=== PATIENT | female | born 1955 | race Asian ===

== ENCOUNTER 2019-07-14 15:45 | Inpatient (IN) | payer OTHER ==
[~2019-07-14] VITALS: Ht 162.6 cm; Wt 59.7 kg
--- NOTE | 2019-07-14 15:39 | Emergency Room Report ---
History of Present Illness General Chief Complaint: Abnormal Labs Source: Patient, Medical Record Present Illness HPI Disclaimer: Please note that this report is being documented using DRAGON technology. This can lead to erroneous entry secondary to incorrect interpretation by the dictating instrument. HPI: 64-year-old female with history of diabetes on insulin presents for weakness and elevated blood sugar levels. She arrives from home by EMS with glucose readings greater than 500 on fingerstick per EMS. She has had 5 days of vomiting and diarrhea. Unable tolerate food, water or her medications. Denies fever or chills. Denies cough or chest pain. Feels profoundly weak. Denies dysuria hematuria. PMH: Insulin-dependent diabetes PSH: Reviewed Allergies: None reported Social Hx: None reported Allergies: Coded Allergies: No Known Allergies (Unverified , 07/18/14) COVID-19 Screening Contact w/high risk pt: No Recent Travel to affected area: No Experienced COVID-19 symptoms?: No Nursing Documentation-PMH Hx Cardiac Problems: Yes Hx Diabetes: Yes Review of Systems All Other Systems: negative except mentioned in HPI Physical Exam Vital Signs Date Time Temp Pulse Resp B/P (MAP) Pulse Ox O2 Delivery O2 Flow Rate FiO2 07/14/19 15:28 99.1 104 20 136/78 (97) 98 Room Air General: Awake and somnolent, no acute distress, appears fatigued HEENT: NC/AT. EOMI. dry mucous membranes Cardiovascular: RRR. S1 and S2 normal. No murmur appreciated Resp: Normal work of breathing. No cough, wheezing or crackles appreciated Abdomen: Abdomen is soft, nondistended. Nontender Skin: Intact. No abrasions, laceration or rash over the exposed skin MSK: Normal tone and bulk. Moving all extremities. No obvious deformity. Neuro: Awake and alert. Mentating appropriately. Procedures Critical Care Time Critical Care Time Total critical care time: Approximately 31 minutes Due to a high probability of clinically significant, life threatening deterioration, the patient required the highest level of preparedness to intervene emergently and I personally spent this critical care time directly and personally managing the patient. This critical care time included obtaining a history, examining the patient, pulse oximetry, ordering and reviewing studies , ordering treatments, evaluating response to treatment and updating management plan as needed, frequent reassessment and discussion with other providers as well as arranging for ultimate disposition. This critical to care time was performed to assess and manage the high probability of life-threatening deterioration that could result in multiorgan failure. This critical care time is separate from the separately billable procedures and treating other patients. Medical Decision Making Diagnostic Impression: Primary Impression: DKA (diabetic ketoacidoses) Additional Impressions: Hypernatremia Prolonged Q-T interval on ECG UTI (urinary tract infection) ER Course 64-year-old female with history of diabetes presents for evaluation of fatigue in the setting of recent vomiting and diarrheal illness. Blood sugars found elevated prior to arrival. Concern for DKA, HHS, electrolyte abnormality, dehydration, occult infection at this time. Broad labs were sent and the patient was started on IV fluids and empirically treated with insulin. She now shows a hypernatremia, hypokalemia and elevated anion gap acidosis with positive ketones consistent with diabetic ketoacidosis. Will replete potassium and start IV insulin drip. Patient require admission to intensive care. Laboratory Tests Test 07/14/19 17:21 07/14/19 20:40 White Blood Count 9.5 K/UL (4.8-10.8) Red Blood Count 4.85 M/UL (4.20-5.40) Hemoglobin 14.9 G/DL (12.0-16.0) Hematocrit 45.4 % (37.0-47.0) Mean Corpuscular Volume 94 FL (80-99) Mean Corpuscular Hemoglobin 30.7 PG (27.0-31.0) Mean Corpuscular Hemoglobin Concent 32.7 G/DL (32.0-36.0) Red Cell Distribution Width 13.2 % (11.6-14.8) Platelet Count 85 K/UL (150-450) L Mean Platelet Volume 8.2 FL (6.5-10.1) Neutrophils (%) (Auto) 86.5 % (45.0-75.0) H Lymphocytes (%) (Auto) 7.3 % (20.0-45.0) L Monocytes (%) (Auto) 5.3 % (1.0-10.0) Eosinophils (%) (Auto) 0.0 % (0.0-3.0) Basophils (%) (Auto) 0.8 % (0.0-2.0) Sodium Level 154 MMOL/L (136-145) H Potassium Level 3.1 MMOL/L (3.5-5.1) L Chloride Level 117 MMOL/L (98-107) H Carbon Dioxide Level 11 MMOL/L (21-32) L Anion Gap 26 mmol/L (5-15) H Blood Urea Nitrogen 17 mg/dL (7-18) Creatinine 0.7 MG/DL (0.55-1.30) Estimated Glomerular Filtration Rate > 60 mL/min (>60) Glucose Level 423 MG/DL (74-106) H Calcium Level 9.7 MG/DL (8.5-10.1) Magnesium Level 2.5 MG/DL (1.8-2.4) H Total Bilirubin 0.5 MG/DL (0.2-1.0) Aspartate Amino Transferase (AST) 46 U/L (15-37) H Alanine Aminotransferase (ALT) 40 U/L (12-78) Alkaline Phosphatase 127 U/L (46-116) H Total Protein 7.4 G/DL (6.4-8.2) Albumin 2.3 G/DL (3.4-5.0) L Globulin 5.1 g/dL Albumin/Globulin Ratio 0.5 (1.0-2.7) L Lipase 70 U/L (73-393) L Acetone Level Positive-moderate (NEGATIVE) Urine Color Pale yellow Urine Appearance Slightly cloudy Urine pH 5 (4.5-8.0) Urine Specific [place] 1.010 (1.005-1.035) Urine Protein 3+ (NEGATIVE) H Urine Glucose (UA) 4+ (NEGATIVE) H Urine Ketones 4+ (NEGATIVE) H Urine Blood 4+ (NEGATIVE) H Urine Nitrite Positive (NEGATIVE) H Urine Bilirubin Negative (NEGATIVE) Urine Urobilinogen Normal MG/DL (0.0-1.0) Urine Leukocyte Esterase 2+ (NEGATIVE) H Urine RBC 0-2 /HPF (0 - 2) Urine WBC Tntc /HPF (0 - 2) H Urine Squamous Epithelial Cells None /LPF (NONE/OCC) Urine Bacteria Many /HPF (NONE) H EKG Diagnostic Results EKG Time: 16:39 Rate: normal Rhythm: NSR ST Segments: no acute changes Other Impression Sinus rhythm, prolonged QTC at 679 ms, flattened T waves, anterior Q waves. No ST segment changes Rhythm Strip Diag. Results Rhythm Strip Time: 16:39 EP Interpretation: yes Rate: 100 Rhythm: NSR, no PVC's, no ectopy CT/MRI/US Diagnostic Results CT/MRI/US Diagnostic Results : Impression Final Report EXAM: CT Abdomen and Pelvis With Intravenous Contrast CLINICAL HISTORY: ABD DIST TECHNIQUE: Axial computed tomography images of the abdomen and pelvis with intravenous contrast. CTDI is 3.6 mGy and DLP is 193.3 mGy-cm. One or more of the following dose reduction techniques were used: automated exposure control, adjustment of the mA and/or kV according to patient size, use of iterative reconstruction technique. COMPARISON: No relevant prior studies available. FINDINGS: Artifacts: Motion. Lung bases: No significant abnormality. ABDOMEN: Liver: No significant abnormality. Gallbladder and bile ducts: No significant abnormality. No calcified stones. Pancreas: No significant abnormality. Spleen: No significant abnormality. Adrenals: No significant abnormality. Kidneys and ureters: Mild bilateral renal pelviectasis and prominence of bilateral ureters is likely related to distention of the urinary bladder. The lower pole of the left kidney is mildly heterogeneous. Stomach and bowel: No significant abnormality. Bowel is nondilated. PELVIS: Appendix: No findings to suggest acute appendicitis. Bladder: The distended urinary bladder appears thin-walled. Reproductive: Unremarkable as visualized. ABDOMEN and PELVIS: Intraperitoneal space: No significant abnormality. No free air. Bones/joints: No acute fracture or malalignment. Soft tissues: No significant abnormality. Vasculature: No significant abnormality. No abdominal aortic aneurysm. Lymph nodes: No significant abnormality. IMPRESSION: 1. Urinary bladder distention. 2. Mild heterogeneity of the lower pole of the left kidney may be artifactual. Infection is not excluded. Consider correlation with urinalysis, as clinically indicated. Mild bilateral renal pelviectasis and prominence of bilateral ureters is likely related to distention of the urinary bladder. Radiologist: Ev Feliciano MD Electronically Signed: 07/14/19 20:36 Study ready at 20:21 and initial results transmitted at 20:36 Reevaluation Time: 21:19 Last Vital Signs Date Time Temp Pulse Resp B/P (MAP) Pulse Ox O2 Delivery O2 Flow Rate FiO2 07/14/19 15:28 99.1 104 20 136/78 (97) 98 Room Air Reevaluation Impression Patient proving on insulin drip. Urinalysis consistent with an acute urinary tract infection. A CT of the abdomen was obtained showing some heterogeneity of the lower kidney possibly infectious etiology consistent with a pyelonephritis. Will treat with ceftriaxone. Patient will be admitted to panel physician group. Admit to the stepdown unit. Disposition: ADMITTED INPATIENT Condition: Serious Malvin Allen MD Jul 14, 2019 15:39
[~2019-07-14 15:45] MED LIST: Insulin Human Regular 100units/ml 3ml IV ONE; NKM
--- NOTE | 2019-07-14 16:26 | NUR ---
ED Nurse Note: 2 RNs unable to obtain IV. CN aware and states she will try.
--- NOTE | 2019-07-14 17:25 | NUR ---
ED Nurse Note: IV est by CN. SEGOVIA aware since arrival that pt is hard stick and haven't est IV until 1724.
[2019-07-14] MEDS ORDERED: Insulin Human Regular 100units/ml 3ml ONE (17:28)
[2019-07-14 17:34] LABS: HEMATOCRIT 45.4 % (37.0-47.0); HEMOGLOBIN 14.9 G/DL (12.0-16.0); MEAN CORPUSCULAR VOLUME 94 FL (80-99); PLATELET COUNT 85 K/UL (150-450); RED BLOOD COUNT 4.85 M/UL (4.20-5.40); RED CELL DISTRIBUTION WIDTH 13.2 % (11.6-14.8); WHITE BLOOD COUNT 9.5 K/UL (4.8-10.8)
[2019-07-14 17:38] LABS: LYMPHOCYTES % (AUTO) 7.3 % (20.0-45.0); MONOCYTES % (AUTO) 5.3 % (1.0-10.0); NEUTROPHILS % (AUTO) 86.5 % (45.0-75.0)
[2019-07-14 17:39] LABS: BASOPHILS % (AUTO) 0.8 % (0.0-2.0)
[2019-07-14 17:50] VITALS: BP 130/71
[2019-07-14 17:51] LABS: ANION GAP 26 mmol/L (5-15); BLOOD UREA NITROGEN 17 mg/dL (7-18); CALCIUM 9.7 MG/DL (8.5-10.1); CARBON DIOXIDE 11 MMOL/L (21-32); CHLORIDE 117 MMOL/L (98-107); CREATININE 0.7 MG/DL (0.55-1.30); POTASSIUM 3.1 MMOL/L (3.5-5.1); SODIUM 154 MMOL/L (136-145)
[2019-07-14 17:55] LABS: ALANINE AMINOTRANSFERASE 40 U/L (12-78); ALBUMIN 2.3 G/DL (3.4-5.0); ALBUMIN/GLOBULIN RATIO 0.5 (1.0-2.7); ALKALINE PHOSPHATASE 127 U/L (46-116); ASPARTATE AMINO TRANSFERASE 46 U/L (15-37); BILIRUBIN,TOTAL 0.5 MG/DL (0.2-1.0)
[2019-07-14] MEDS ORDERED: Insulin Reg 100 units Premix 100 ML IV SCH (18:00)
[2019-07-14] MEDS ORDERED: Potassium Phosphate 20 MM in NS 275 ML IV ONE (18:00)
--- NOTE | 2019-07-14 18:30 | NUR ---
ED Nurse Note: Dr Allen notified that KCl has to be through central line. Per MD, don't give KCL, but give Potassium phosp first and then novolog.
[2019-07-14 19:30] VITALS: BP 125/79
--- NOTE | 2019-07-14 19:47 | NUR ---
ED Nurse Note: pt yelling out in pain, Pt states pain is RLQ and radiates to right flank. ERMD aware. ERMD at bedside
[2019-07-14] MEDS ORDERED: Omnipaque-300 100ml vial INJ PRN (20:00)
[2019-07-14] MEDS ORDERED: Morphine Sulfate 4mg/ml Inj (IV USE ONLY) IVP ONE (20:00)
--- NOTE | 2019-07-14 20:02 | NUR ---
ED Nurse Note: pt being taken to CT in stable condition per ermd stat
--- NOTE | 2019-07-14 20:37 | Diagnostic Imaging Report ---
EXAM: CT Abdomen and Pelvis With Intravenous Contrast CLINICAL HISTORY: ABD DIST TECHNIQUE: Axial computed tomography images of the abdomen and pelvis with intravenous contrast. CTDI is 3.6 mGy and DLP is 193.3 mGy-cm. One or more of the following dose reduction techniques were used: automated exposure control, adjustment of the mA and/or kV according to patient size, use of iterative reconstruction technique. COMPARISON: No relevant prior studies available. FINDINGS: Artifacts: Motion. Lung bases: No significant abnormality. ABDOMEN: Liver: No significant abnormality. Gallbladder and bile ducts: No significant abnormality. No calcified stones. Pancreas: No significant abnormality. Spleen: No significant abnormality. Adrenals: No significant abnormality. Kidneys and ureters: Mild bilateral renal pelviectasis and prominence of bilateral ureters is likely related to distention of the urinary bladder. The lower pole of the left kidney is mildly heterogeneous. Stomach and bowel: No significant abnormality. Bowel is nondilated. PELVIS: Appendix: No findings to suggest acute appendicitis. Bladder: The distended urinary bladder appears thin-walled. Reproductive: Unremarkable as visualized. ABDOMEN and PELVIS: Intraperitoneal space: No significant abnormality. No free air. Bones/joints: No acute fracture or malalignment. Soft tissues: No significant abnormality. Vasculature: No significant abnormality. No abdominal aortic aneurysm. Lymph nodes: No significant abnormality. IMPRESSION: 1. Urinary bladder distention. 2. Mild heterogeneity of the lower pole of the left kidney may be artifactual. Infection is not excluded. Consider correlation with urinalysis, as clinically indicated. Mild bilateral renal pelviectasis and prominence of bilateral ureters is likely related to distention of the urinary bladder.
--- NOTE | 2019-07-14 20:41 | NUR ---
ED Nurse Note: urine sent to labs
[2019-07-14 21:04] LABS: APPEARANCE,URINE SLIGHTLY CLOUDY; BILIRUBIN, URINE NEGATIVE (NEGATIVE); COLOR,URINE PALE YELLOW; GLUCOSE, URINE (UA) 4+ (NEGATIVE); KETONES,URINE 4+ (NEGATIVE); LEUKOCYTE ESTERASE ,URINE 2+ (NEGATIVE); NITRITE,URINE POSITIVE (NEGATIVE); PH,URINE 5 (4.5-8.0); PROTEIN,URINE 3+ (NEGATIVE); UROBILINOGEN,URINE NORMAL MG/DL (0.0-1.0)
[2019-07-14] MEDS ORDERED: cefTRIAXone 1 GM in NS 55 ML IVPB ONE (21:30)
[2019-07-14 21:35] VITALS: BP 135/86
[2019-07-14] MEDS ORDERED: Morphine Sulfate 4mg/ml Inj (IV USE ONLY) IVP PRN (22:00)
--- NOTE | 2019-07-14 22:09 | NUR ---
ED Nurse Note: Iv insulin drip stopped per ERMD; BS 250. Will continue to monitor.
--- NOTE | 2019-07-14 22:26 | NUR ---
ED Nurse Note: blood culture sent to lab; lab called for blood draw d/t 3 failed attempts per RNs.
[2019-07-14] MEDS: 1/2NS w/KCl 20mEq 1000ml 1,000 ML IV SCH (23:10)
--- NOTE | 2019-07-14 23:28 | NUR ---
ED Nurse Note: report given to PAULINA denis. pending transfer upstairs, room unavailable.
[2019-07-14 23:57] VITALS: BP 134/57
--- NOTE | 2019-07-15 01:10 | NUR ---
ED Nurse Note: pt resting in bed, vss no ss of distress noted.
[2019-07-15 01:30] VITALS: BP 135/67
--- NOTE | 2019-07-15 01:30 | NUR ---
ED Nurse Note: Called ANDREW; room still unavailable Addendum: 07/15/19 at 0241 by SAM ED Nurse Note: Called SDU; room still unavailable
[2019-07-15 02:07] LABS: ANION GAP 21 mmol/L (5-15); BLOOD UREA NITROGEN 14 mg/dL (7-18); CALCIUM 9.1 MG/DL (8.5-10.1); CARBON DIOXIDE 19 MMOL/L (21-32); CHLORIDE 121 MMOL/L (98-107); CREATININE 0.7 MG/DL (0.55-1.30); SODIUM 160 MMOL/L (136-145)
[2019-07-15 02:08] LABS: POTASSIUM 2.1 MMOL/L (3.5-5.1)
[2019-07-15 02:10] LABS: HEMATOCRIT 42.2 % (37.0-47.0); MEAN CORPUSCULAR VOLUME 88 FL (80-99); PLATELET COUNT 82 K/UL (150-450); RED BLOOD COUNT 4.82 M/UL (4.20-5.40); RED CELL DISTRIBUTION WIDTH 11.7 % (11.6-14.8); WHITE BLOOD COUNT 8.4 K/UL (4.8-10.8)
[2019-07-15] MEDS ORDERED: 1/2NS w/KCl 20mEq 1000ml 1,000 ML IV SCH (02:30)
[2019-07-15 03:20] VITALS: BP 134/65
--- NOTE | 2019-07-15 03:20 | NUR ---
ED Nurse Note: pt resting in bed, VSS no ss of distress noted.
--- NOTE | 2019-07-15 03:40 | NUR ---
ER DISCHARGE NOTE: Patient is cleared to be discharged to SDU per ERMD, pt is aox3, on room air, with stable vital signs. pt was able to verbalize understanding. pt took all belongings. Report given to PAULINA Flor. PT transported to unit on monitor with 2 RNs.
--- NOTE | 2019-07-15 03:50 | NUR ---
NURSE NOTES: Received patient from ED by margarito . patient is awake oriented x3. No SOB with RA. Denies any pain or discomfort at this time. VSS. Afebrile. SR on radiation monitor.skin body assessment done. intact. no open wound.given hospital orientation. call light in reach. bed in low position, locked and bed alarm on. NPO now.safety measures initiated.will continue to monitor.
[2019-07-15] MEDS: 1/2NS w/KCl 20mEq 1000ml 1,000 ML IV SCH (05:15)
[2019-07-15 06:52] LABS: ANION GAP 21 mmol/L (5-15); BLOOD UREA NITROGEN 14 mg/dL (7-18); CARBON DIOXIDE 15 MMOL/L (21-32); CHLORIDE 123 MMOL/L (98-107); CREATININE 0.6 MG/DL (0.55-1.30); SODIUM 160 MMOL/L (136-145)
--- NOTE | 2019-07-15 07:30 | NUR ---
HAND-OFF: Report given to SARA ROSALES RN.
--- NOTE | 2019-07-15 07:35 | NUR ---
NURSE NOTES: Received report from Basia GALLARDO. Pt in bed awake and orientedx3, greenlandic speaking. Denied pain. On room air. Bed in lowest position and locked. Side railsx3 up for safety. IV site in right hand 22G TKO, RAC 22G running with 1/2NS W/KCL 20mEq @150ml/hr patent and asymptomatic. Call light within easy reach. Will continue to plan of care.
[2019-07-15 08:12] LABS: POTASSIUM 2.6 MMOL/L (3.5-5.1)
--- NOTE | 2019-07-15 08:20 | NUR ---
NURSE NOTES: Dr. Adorno(project control officer) paged for critical results of K 2.6 and some missing admission orders. New orders received.
--- NOTE | 2019-07-15 08:40 | NUR ---
NURSE NOTES: Pt went to CT scan with RN
--- NOTE | 2019-07-15 09:04 | NUR ---
NURSE NOTES: Pt came back from CT scan
--- NOTE | 2019-07-15 09:16 | Diagnostic Imaging Report ---
EXAM: CT Head Without Intravenous Contrast CLINICAL HISTORY: WEAK TECHNIQUE: Axial computed tomography images of the head/brain without intravenous contrast. CTDI is 53 mGy and DLP is 1072 mGy-cm. One or more of the following dose reduction techniques were used: automated exposure control, adjustment of the mA and/or kV according to patient size, use of iterative reconstruction technique. COMPARISON: No relevant prior studies available. FINDINGS: Brain: There is an acute subdural hematoma along the left posterior falx measuring 3 mm in thickness which extends along the left tentorium measuring 2 mm in thickness. No significant white matter disease. Ventricles: Unremarkable. No ventriculomegaly. Bones/joints: Unremarkable. No acute fracture. Soft tissues: Unremarkable. Sinuses: Unremarkable as visualized. No acute sinusitis. Mastoid air cells: Unremarkable as visualized. No mastoid effusion. IMPRESSION: There is an acute subdural hematoma along the left posterior falx measuring 3 mm in thickness which extends along the left tentorium measuring 2 mm in thickness. No mass-effect or midline shift is identified. <MYCVCSECTION> Communications: 07/15/19 09:52 Call Doctor Regarding Intracranial Hemorrhage, called RN Min on 07/14 09:52 (-07:00)
--- NOTE | 2019-07-15 09:24 | NUR ---
STAT CT HEAD COMPLETED. REPORT FROM ERIN IN COMPUTER, CALLED PAULINA RAMOS TO CONFIRM SHE WAS ABLE TO READ REPORT. TJB 09:26
[2019-07-15] MEDS: NovoLOG Insulin Flexpen SUBQ SCH ×3 (09:49→17:37)
--- NOTE | 2019-07-15 09:53 | History and Physical ---
History of Present Illness General Reason for Hospitalization: Abnormal Labs Present Illness HPI 64-year-old female with PMH of medical noncompliance, DM type II who presents with b/l weakness, N/V, GLF, on admission pt found to be in DKA with BG 500's. Patient is English speaking, history obtained via head loader at bedside. Patient noted 5 days ago b/l LE weakness, stated she fell 3 days ago and hit her head. She did not go to the ER at the time and attempted to treat her FAUSTIN with acupuncture. Patient noted throughout this time she had multiple episodes of N/V x4 days, denies any F/C, changes in dietary habit, no constipation/ diarrhea. Patient states she was diagnosed with diabetes by her PCP however refused to take any medications as she did not believe the diagnosis was correct. Patient is admitted for further treatment and evaluation. PMH: Hypothyroidism, DMT2 FH: reviewed and not pertinent SH: lives w/a roomate, no ETOH/tobacco Sx: denies Allergies: Coded Allergies: No Known Allergies (Unverified , 07/18/14) COVID-19 Screening Contact w/high risk pt: No Recent Travel to affected area: No Experienced COVID-19 symptoms?: No Medication History Scheduled No Known Medications* (NKM - No Known Medications*), 0 ., (Reported) Patient History Healthcare decision maker Resuscitation status Full Code Advanced Directive on File No Review of Systems Constitutional: Denies: no symptoms, see HPI, chills, sweats, fever, malaise, weakness, other Eye: Denies: no symptoms, see HPI, eye pain, blurred vision, tearing, double vision, nose pain, nose congestion, acuity changes, discharge, other ENT: Denies: no symptoms, see HPI, ear pain, ear discharge, nose pain, nose congestion, throat pain, throat swelling, mouth pain, hearing loss, nasal discharge, other Respiratory: Denies: no symptoms, see HPI, cough, orthopnea, shortness of breath, stridor, wheezing, COBB, sputum, other Cardiovascular: Denies: no symptoms, see HPI, chest pain, edema, palpitations, syncope, PND, other Gastrointestinal: Denies: no symptoms, see HPI, abdominal pain, constipation, diarrhea, nausea, vomiting, melena, hematemesis, other Genitourinary: Denies: no symptoms, see HPI, discharge, dysuria, frequency, hematuria, pain, retention, incontinence, urgency, vag bleed/dc, other Musculoskeletal: Denies: no symptoms, see HPI, back pain, gout, joint pain, joint swelling, muscle pain, muscle stiffness, other Skin: Denies: no symptoms, see HPI, rash, change in color, change in hair/nails , dryness, lesions, other Psychiatric: Denies: no symptoms, see HPI, prior hx, anxiety, depressed feelings, emotional problems, SI, HI, hallucinations, other Neurological: Reports: focal weakness Endocrine: Denies: no symptoms, see HPI, excessive sweating, flushing, intolerance to temperature, increased thirst, increased urine, unexplained weight loss, other Physical Exam Physical Exam Narrative General: NAD, A&O x 3 HEENT: NCAT, EOMi, PEERLA, mucous membranes moist CV: RRR, no murmurs, rubs, or gallops Pulm: CTAB, No wheezes, rhonchi, or rales, no accessory muscle usage or conversational dyspnea GI: Soft, nontender, nondistended, bowel sounds present Neuro: CN 2-12 grossly intact bilaterally, no focal signs. Sensation in tact b/l Ext: No lower extremity edema bilaterally Skin: no rashes lesions or ulcers Msk: Joints symmetrical in upper extremity and lower extremity bilaterally, no joint swelling. MS 5/5 in UE b/l, 3/5 in LE b/l Last 24 Hour Vital Signs Date Time Temp Pulse Resp B/P (MAP) Pulse Ox O2 Delivery O2 Flow Rate FiO2 07/15/19 04:15 100 07/15/19 04:00 Room Air 07/15/19 03:40 98.6 102 26 134/65 97 Room Air 07/15/19 03:20 98.6 102 26 134/65 97 Room Air 07/15/19 01:30 98.6 108 26 135/67 97 Room Air 07/14/19 23:57 98.6 102 16 134/57 97 Room Air 07/14/19 23:06 99.1 07/14/19 21:35 98.7 97 18 135/86 99 Room Air 07/14/19 20:47 99.1 07/14/19 19:30 99.1 85 18 125/79 99 Room Air 07/14/19 17:50 99.1 90 18 130/71 99 Room Air 07/14/19 15:28 99.1 104 20 136/78 (97) 98 Room Air Intake and Output 07/14/19 07/15/19 19:00 07:00 Intake Total 0 ml 100 ml Output Total 550 ml Balance 0 ml -450 ml Intake Oral 0 ml 100 ml Output Urine Total 550 ml Laboratory Tests Test 07/14/19 17:21 07/14/19 20:40 07/15/19 01:45 07/15/19 06:10 White Blood Count 9.5 K/UL (4.8-10.8) 8.4 K/UL (4.8-10.8) Red Blood Count 4.85 M/UL (4.20-5.40) 4.82 M/UL (4.20-5.40) Hemoglobin 14.9 G/DL (12.0-16.0) 15.0 G/DL (12.0-16.0) Hematocrit 45.4 % (37.0-47.0) 42.2 % (37.0-47.0) Mean Corpuscular Volume 94 FL (80-99) 88 FL (80-99) Mean Corpuscular Hemoglobin 30.7 PG (27.0-31.0) 31.1 PG (27.0-31.0) H Mean Corpuscular Hemoglobin Concent 32.7 G/DL (32.0-36.0) 35.6 G/DL (32.0-36.0) Red Cell Distribution Width 13.2 % (11.6-14.8) 11.7 % (11.6-14.8) Platelet Count 85 K/UL (150-450) L 82 K/UL (150-450) L Mean Platelet Volume 8.2 FL (6.5-10.1) 8.2 FL (6.5-10.1) Neutrophils (%) (Auto) 86.5 % (45.0-75.0) H % (45.0-75.0) Lymphocytes (%) (Auto) 7.3 % (20.0-45.0) L % (20.0-45.0) Monocytes (%) (Auto) 5.3 % (1.0-10.0) % (1.0-10.0) Eosinophils (%) (Auto) 0.0 % (0.0-3.0) % (0.0-3.0) Basophils (%) (Auto) 0.8 % (0.0-2.0) % (0.0-2.0) Sodium Level 154 MMOL/L (136-145) H 160 MMOL/L (136-145) H 160 MMOL/L (136-145) H Potassium Level 3.1 MMOL/L (3.5-5.1) L 2.1 MMOL/L (3.5-5.1) *L 2.6 MMOL/L (3.5-5.1) *L Chloride Level 117 MMOL/L (98-107) H 121 MMOL/L (98-107) H 123 MMOL/L (98-107) H Carbon Dioxide Level 11 MMOL/L (21-32) L 19 MMOL/L (21-32) L 15 MMOL/L (21-32) L Anion Gap 26 mmol/L (5-15) H 21 mmol/L (5-15) H 21 mmol/L (5-15) H Blood Urea Nitrogen 17 mg/dL (7-18) 14 mg/dL (7-18) 14 mg/dL (7-18) Creatinine 0.7 MG/DL (0.55-1.30) 0.7 MG/DL (0.55-1.30) 0.6 MG/DL (0.55-1.30) Estimat Glomerular Filtration Rate > 60 mL/min (>60) > 60 mL/min (>60) > 60 mL/min (>60) Glucose Level 423 MG/DL (74-106) H 270 MG/DL (74-106) #H 315 MG/DL (74-106) H Calcium Level 9.7 MG/DL (8.5-10.1) 9.1 MG/DL (8.5-10.1) 9.0 MG/DL (8.5-10.1) Magnesium Level 2.5 MG/DL (1.8-2.4) H Total Bilirubin 0.5 MG/DL (0.2-1.0) Aspartate Amino Transf (AST/SGOT) 46 U/L (15-37) H Alanine Aminotransferase (ALT/SGPT) 40 U/L (12-78) Alkaline Phosphatase 127 U/L (46-116) H Total Protein 7.4 G/DL (6.4-8.2) Albumin 2.3 G/DL (3.4-5.0) L Globulin 5.1 g/dL Albumin/Globulin Ratio 0.5 (1.0-2.7) L Lipase 70 U/L (73-393) L Acetone Level Positive-moderate (NEGATIVE) Urine Color Pale yellow Urine Appearance Slightly cloudy Urine pH 5 (4.5-8.0) Urine Specific [place] 1.010 (1.005-1.035) Urine Protein 3+ (NEGATIVE) H Urine Glucose (UA) 4+ (NEGATIVE) H Urine Ketones 4+ (NEGATIVE) H Urine Blood 4+ (NEGATIVE) H Urine Nitrite Positive (NEGATIVE) H Urine Bilirubin Negative (NEGATIVE) Urine Urobilinogen Normal MG/DL (0.0-1.0) Urine Leukocyte Esterase 2+ (NEGATIVE) H Urine RBC 0-2 /HPF (0 - 2) Urine WBC Tntc /HPF (0 - 2) H Urine Squamous Epithelial Cells None /LPF (NONE/OCC) Urine Bacteria Many /HPF (NONE) H Differential Total Cells Counted 100 Neutrophils % (Manual) 82 % (45-75) H Lymphocytes % (Manual) 5 % (20-45) L Monocytes % (Manual) 3 % (1-10) Eosinophils % (Manual) 0 % (0-3) Basophils % (Manual) 0 % (0-2) Band Neutrophils 10 % (0-8) H Platelet Estimate Decreased L Platelet Morphology Normal Hemoglobin A1c 10.4 % (4.3-6.0) H D-Dimer 6.44 mg/L FEU (0.00-0.49) H Phosphorus Level 1.4 MG/DL (2.5-4.9) L Height (Feet): 5 Height (Inches): 4.00 Weight (Pounds): 110 Medications Current Medications Medications (Trade) Dose Ordered Sig/Alvin Route PRN Reason Start Time Stop Time Status Last Admin Dose Admin Ceftriaxone Sodium 1 gm/ Sodium Chloride 55 ml @ 110 mls/hr QHS IVPB 07/15/19 21:00 07/22/19 20:59 Dextrose (Dextrose 50%) 25 ml Q30M PRN IV Hypoglycemia 07/14/19 21:45 10/12/19 21:44 Dextrose (Dextrose 50%) 50 ml Q30M PRN IV Hypoglycemia 07/14/19 21:45 10/12/19 21:44 Insulin Aspart (NovoLOG) Q6HR SUBQ 07/15/19 09:30 10/13/19 09:29 Iohexol (OMNIPAQUE-300 100ml) 100 ml NOW PRN INJ Radiology Procedure 07/14/19 20:00 07/16/19 19:54 Potassium Chloride (K-Dur) 40 meq ONCE ORAL 07/15/19 08:30 07/15/19 10:00 07/15/19 09:07 Sodium 1,000 ml @ 150 mls/hr Q6H40M IV 07/15/19 08:30 08/14/19 08:29 UNV Assessment/Plan Assessment/Plan: 64-year-old female with PMH of medical noncompliance, DM type II who presents with b/l weakness, N/V, GLF, on admission pt found to be in DKA with BG 500's. #DKA #UTI #Uncontrolled DM, Hgb A1C 10.4 -admit to SDU -AG 21 -initiate Insulin ggt -check BMP q4 hrs -accuchecks, ISS q6 hr -cont. IVF hydration -CTX given in ED -CT abd reviewed -BCx and UCx pending -educated pt on diabetic compliance -ID, Dr. Bagley: CTX #Right sided weakness #SDH 3mm no midline shift -found on CT head -pt AOx3, pt noted fall 3 days ago -keppra BID -fall precautions -PT treat and eval -Neurology consulted, Dr. Fountain, recs aprpeciated #Hypokalemia #Hypophosphatemia #Hypernatremia -Hypernatremia likely 2/2 free water deficit -replace electrolytes, cont. to monitor and replace PRN -Nephro consulted, IVF per nephro DVT - SCDs for now given SDH I spent 70 minutes on this patient's case, and 50% was dedicated to counseling and/or care coordination witch included communication with RN, consulting MDs, case management I spent an additional 25 minutes on review of medical records including prior hospital records, consult notes, progress notes, procedures, imaging, labs, hemodynamics, and other clinical documentation. Silke Adorno M.D. Jul 15, 2019 09:53
[2019-07-15 10:56] LABS: HEMATOCRIT 46.6 % (37.0-47.0); HEMOGLOBIN 16.3 G/DL (12.0-16.0); MEAN CORPUSCULAR VOLUME 89 FL (80-99); PLATELET COUNT 78 K/UL (150-450); RED BLOOD COUNT 5.24 M/UL (4.20-5.40); RED CELL DISTRIBUTION WIDTH 12.1 % (11.6-14.8); WHITE BLOOD COUNT 10.2 K/UL (4.8-10.8)
[2019-07-15] MEDS ORDERED: Potassium Phosphate 20 MM in NS 275 ML IV ONE (11:00)
[2019-07-15 11:18] LABS: ANION GAP 24 mmol/L (5-15); BLOOD UREA NITROGEN 14 mg/dL (7-18); CALCIUM 9.3 MG/DL (8.5-10.1); CARBON DIOXIDE 14 MMOL/L (21-32); CHLORIDE 122 MMOL/L (98-107); CREATININE 0.7 MG/DL (0.55-1.30); POTASSIUM 3.1 MMOL/L (3.5-5.1)
[2019-07-15 11:20] LABS: SODIUM 161 MMOL/L (136-145)
[2019-07-15] MEDS ORDERED: NovoLOG Insulin Flexpen SUBQ SCH (11:30)
[2019-07-15] MEDS: Potassium Chloride 40 MEQ in 1/2 NS 1000ml 1,000 ML IV SCH ×2 (11:44→18:32)
--- NOTE | 2019-07-15 12:16 | Consultation ---
Consult Note Consult Note I was asked to evaluate the patient for hypernatremia Patient in [facility], Green[place]ic speaker History states that the patient has been noncompliant, She has been utilizing alternative medicine to treat her diabetes as an outpatient Emergency room note: HPI: 64-year-old female with history of diabetes on insulin presents for weakness and elevated blood sugar levels. She arrives from home by EMS with glucose readings greater than 500 on fingerstick per EMS. She has had 5 days of vomiting and diarrhea. Unable tolerate food, water or her medications. Denies fever or chills. Denies cough or chest pain. Feels profoundly weak. Denies dysuria hematuria. PMH: Insulin-dependent diabetes Allergies: None reported Social Hx: None reported COVID-19 Screening Contact w/high risk pt: No Recent Travel to affected area: No Experienced COVID-19 symptoms?: No Hx Cardiac Problems: Yes Hx Diabetes: Yes Patient seen and examined Has leg weakness Has a Boyd catheter Assessment/Plan Hypernatremia most likely due to free water deficit Hypokalemia, hypophosphatemia Hyperglycemia and DKA Evidence of UTI Right-sided weakness with 3 mm subdural hematoma found in CT scan Suggestion Hypotonic IV solution Potassium and phosphorus and magnesium supplement as needed N.p.o. except medication Low dose of Lopressor Monitor renal parameters and electrolytes Neuro eval Keep the blood pressure and blood sugar in check Urine studies Per orders Yash Hernandes MD Jul 15, 2019 12:16
[2019-07-15] MEDS: levETIRAcetam 500mg/NS100ml 100 ML IVPB SCH ×2 (12:28→22:17)
--- NOTE | 2019-07-15 12:32 | Infectious Diseases Prog Note ---
Assessment/Plan Assessment/Plan Full consult dictated: A) 1) uti 2) dka 3) sdh, right sided weakness P) 1) ceftriaxone 2) check urine culture 3) f/u labs 4) thank you Subjective Allergies: Coded Allergies: No Known Allergies (Unverified , 07/18/14) Objective Vital Signs Last 24 Hour Vital Signs Date Time Temp Pulse Resp B/P (MAP) Pulse Ox O2 Delivery O2 Flow Rate FiO2 07/15/19 12:00 Room Air 07/15/19 08:00 Room Air 07/15/19 08:00 94 07/15/19 04:15 100 07/15/19 04:00 Room Air 07/15/19 03:40 98.6 102 26 134/65 97 Room Air 07/15/19 03:20 98.6 102 26 134/65 97 Room Air 07/15/19 01:30 98.6 108 26 135/67 97 Room Air 07/14/19 23:57 98.6 102 16 134/57 97 Room Air 07/14/19 23:06 99.1 07/14/19 21:35 98.7 97 18 135/86 99 Room Air 07/14/19 20:47 99.1 07/14/19 19:30 99.1 85 18 125/79 99 Room Air 07/14/19 17:50 99.1 90 18 130/71 99 Room Air 07/14/19 15:28 99.1 104 20 136/78 (97) 98 Room Air Height (Feet): 5 Height (Inches): 4.00 Weight (Pounds): 110 Laboratory Tests Test 07/14/19 17:21 07/14/19 20:40 07/15/19 01:45 07/15/19 06:10 White Blood Count 9.5 K/UL (4.8-10.8) 8.4 K/UL (4.8-10.8) Red Blood Count 4.85 M/UL (4.20-5.40) 4.82 M/UL (4.20-5.40) Hemoglobin 14.9 G/DL (12.0-16.0) 15.0 G/DL (12.0-16.0) Hematocrit 45.4 % (37.0-47.0) 42.2 % (37.0-47.0) Mean Corpuscular Volume 94 FL (80-99) 88 FL (80-99) Mean Corpuscular Hemoglobin 30.7 PG (27.0-31.0) 31.1 PG (27.0-31.0) H Mean Corpuscular Hemoglobin Concent 32.7 G/DL (32.0-36.0) 35.6 G/DL (32.0-36.0) Red Cell Distribution Width 13.2 % (11.6-14.8) 11.7 % (11.6-14.8) Platelet Count 85 K/UL (150-450) L 82 K/UL (150-450) L Mean Platelet Volume 8.2 FL (6.5-10.1) 8.2 FL (6.5-10.1) Neutrophils (%) (Auto) 86.5 % (45.0-75.0) H % (45.0-75.0) Lymphocytes (%) (Auto) 7.3 % (20.0-45.0) L % (20.0-45.0) Monocytes (%) (Auto) 5.3 % (1.0-10.0) % (1.0-10.0) Eosinophils (%) (Auto) 0.0 % (0.0-3.0) % (0.0-3.0) Basophils (%) (Auto) 0.8 % (0.0-2.0) % (0.0-2.0) Sodium Level 154 MMOL/L (136-145) H 160 MMOL/L (136-145) H 160 MMOL/L (136-145) H Potassium Level 3.1 MMOL/L (3.5-5.1) L 2.1 MMOL/L (3.5-5.1) *L 2.6 MMOL/L (3.5-5.1) *L Chloride Level 117 MMOL/L (98-107) H 121 MMOL/L (98-107) H 123 MMOL/L (98-107) H Carbon Dioxide Level 11 MMOL/L (21-32) L 19 MMOL/L (21-32) L 15 MMOL/L (21-32) L Anion Gap 26 mmol/L (5-15) H 21 mmol/L (5-15) H 21 mmol/L (5-15) H Blood Urea Nitrogen 17 mg/dL (7-18) 14 mg/dL (7-18) 14 mg/dL (7-18) Creatinine 0.7 MG/DL (0.55-1.30) 0.7 MG/DL (0.55-1.30) 0.6 MG/DL (0.55-1.30) Estimat Glomerular Filtration Rate > 60 mL/min (>60) > 60 mL/min (>60) > 60 mL/min (>60) Glucose Level 423 MG/DL (74-106) H 270 MG/DL (74-106) #H 315 MG/DL (74-106) H Calcium Level 9.7 MG/DL (8.5-10.1) 9.1 MG/DL (8.5-10.1) 9.0 MG/DL (8.5-10.1) Magnesium Level 2.5 MG/DL (1.8-2.4) H Total Bilirubin 0.5 MG/DL (0.2-1.0) Aspartate Amino Transf (AST/SGOT) 46 U/L (15-37) H Alanine Aminotransferase (ALT/SGPT) 40 U/L (12-78) Alkaline Phosphatase 127 U/L (46-116) H Total Protein 7.4 G/DL (6.4-8.2) Albumin 2.3 G/DL (3.4-5.0) L Globulin 5.1 g/dL Albumin/Globulin Ratio 0.5 (1.0-2.7) L Lipase 70 U/L (73-393) L Acetone Level Positive-moderate (NEGATIVE) Urine Color Pale yellow Urine Appearance Slightly cloudy Urine pH 5 (4.5-8.0) Urine Specific [place] 1.010 (1.005-1.035) Urine Protein 3+ (NEGATIVE) H Urine Glucose (UA) 4+ (NEGATIVE) H Urine Ketones 4+ (NEGATIVE) H Urine Blood 4+ (NEGATIVE) H Urine Nitrite Positive (NEGATIVE) H Urine Bilirubin Negative (NEGATIVE) Urine Urobilinogen Normal MG/DL (0.0-1.0) Urine Leukocyte Esterase 2+ (NEGATIVE) H Urine RBC 0-2 /HPF (0 - 2) Urine WBC Tntc /HPF (0 - 2) H Urine Squamous Epithelial Cells None /LPF (NONE/OCC) Urine Bacteria Many /HPF (NONE) H Differential Total Cells Counted 100 Neutrophils % (Manual) 82 % (45-75) H Lymphocytes % (Manual) 5 % (20-45) L Monocytes % (Manual) 3 % (1-10) Eosinophils % (Manual) 0 % (0-3) Basophils % (Manual) 0 % (0-2) Band Neutrophils 10 % (0-8) H Platelet Estimate Decreased L Platelet Morphology Normal Hemoglobin A1c 10.4 % (4.3-6.0) H D-Dimer 6.44 mg/L FEU (0.00-0.49) H Phosphorus Level 1.4 MG/DL (2.5-4.9) L Test 07/15/19 10:26 White Blood Count 10.2 K/UL (4.8-10.8) Red Blood Count 5.24 M/UL (4.20-5.40) Hemoglobin 16.3 G/DL (12.0-16.0) H Hematocrit 46.6 % (37.0-47.0) Mean Corpuscular Volume 89 FL (80-99) Mean Corpuscular Hemoglobin 31.2 PG (27.0-31.0) H Mean Corpuscular Hemoglobin Concent 35.0 G/DL (32.0-36.0) Red Cell Distribution Width 12.1 % (11.6-14.8) Platelet Count 78 K/UL (150-450) L Mean Platelet Volume 8.1 FL (6.5-10.1) Neutrophils (%) (Auto) % (45.0-75.0) Lymphocytes (%) (Auto) % (20.0-45.0) Monocytes (%) (Auto) % (1.0-10.0) Eosinophils (%) (Auto) % (0.0-3.0) Basophils (%) (Auto) % (0.0-2.0) Neutrophils % (Manual) Pending Lymphocytes % (Manual) Pending Platelet Estimate Pending Platelet Morphology Pending Sodium Level 161 MMOL/L (136-145) *H Potassium Level 3.1 MMOL/L (3.5-5.1) L Chloride Level 122 MMOL/L (98-107) H Carbon Dioxide Level 14 MMOL/L (21-32) L Anion Gap 24 mmol/L (5-15) H Blood Urea Nitrogen 14 mg/dL (7-18) Creatinine 0.7 MG/DL (0.55-1.30) Estimat Glomerular Filtration Rate > 60 mL/min (>60) Glucose Level 345 MG/DL (74-106) H Calcium Level 9.3 MG/DL (8.5-10.1) Phosphorus Level 1.7 MG/DL (2.5-4.9) L Current Medications Medications (Trade) Dose Ordered Sig/Alvin Route PRN Reason Start Time Stop Time Status Last Admin Dose Admin Ceftriaxone Sodium 1 gm/ Sodium Chloride 55 ml @ 110 mls/hr QHS IVPB 07/15/19 21:00 07/22/19 20:59 Dextrose (Dextrose 50%) 25 ml Q30M PRN IV Hypoglycemia 07/14/19 21:45 10/12/19 21:44 Dextrose (Dextrose 50%) 50 ml Q30M PRN IV Hypoglycemia 07/14/19 21:45 10/12/19 21:44 Insulin Aspart (NovoLOG) Q6HR SUBQ 07/15/19 09:30 10/13/19 09:29 07/15/19 09:49 Iohexol (OMNIPAQUE-300 100ml) 100 ml NOW PRN INJ Radiology Procedure 07/14/19 20:00 07/16/19 19:54 Levetiracetam 100 ml @ 400 mls/hr Q12HR IVPB 07/15/19 11:00 10/13/19 10:59 07/15/19 12:28 Metoprolol Tartrate (Lopressor) 12.5 mg ONCE ORAL 07/15/19 13:00 07/15/19 15:00 Metoprolol Tartrate (Lopressor) 12.5 mg Q12HR ORAL 07/15/19 21:00 10/13/19 20:59 Pantoprazole (Protonix) 40 mg EVERY 12 HOURS IVP 07/15/19 13:00 08/14/19 12:59 Phosphorus (Phospha 250 Neutral) 250 mg THREE TIMES A DAY ORAL 07/15/19 13:00 08/14/19 12:59 Potassium Chloride 40 meq/ Sodium Chloride 1,020 ml @ 150 mls/hr Q6H48M IV 07/15/19 11:00 08/14/19 10:59 07/15/19 11:44 Potassium Phosphate 20 mm/ Sodium Chloride 281.6667 ml @ 46.944 m... ONCE ONCE IV 07/15/19 11:00 07/15/19 16:59 07/15/19 11:44 Sodium Citrate (Bicitra) 30 ml EVERY 6 HOURS ORAL 07/15/19 12:30 08/14/19 12:29 Emerson Bagley MD Jul 15, 2019 12:32
[2019-07-15] MEDS: Sodium Citrate 30ml ORAL SCH ×2 (12:51→17:27)
[2019-07-15] MEDS: Phospha 250 Neutral tab ORAL SCH ×2 (12:51→17:27)
[2019-07-15] MEDS: Pantoprazole Inj IVP SCH ×2 (12:52→22:17)
[2019-07-15] MEDS ORDERED: Metoprolol Tartrate 12.5mg TAB ORAL SCH ×2 (13:00→21:00)
--- NOTE | 2019-07-15 16:00 | NUR ---
NURSE NOTES: pt went to CT scan with RN and monitor
--- NOTE | 2019-07-15 16:10 | NUR ---
NURSE NOTES: Pt came back from CT scan
[2019-07-15 16:13] LABS: ANION GAP 17 mmol/L (5-15); BLOOD UREA NITROGEN 13 mg/dL (7-18); CALCIUM 9.1 MG/DL (8.5-10.1); CARBON DIOXIDE 17 MMOL/L (21-32); CHLORIDE 128 MMOL/L (98-107); CREATININE 0.5 MG/DL (0.55-1.30); POTASSIUM 3.9 MMOL/L (3.5-5.1)
--- NOTE | 2019-07-15 16:20 | NUR ---
NURSE NOTES: Dr. Adorno paged for change of condition with slurred speech and c/o pain in bilateral legs. Tylenol 650mg Q4 prn for pain/temp >100.5, Tramadol 25mg Q6 PRN for severe pain, Atorvastatin 40mg qhs ordered and orders read back
[2019-07-15 16:26] LABS: SODIUM 162 MMOL/L (136-145)
--- NOTE | 2019-07-15 16:29 | Diagnostic Imaging Report ---
EXAM: CT Head Without Intravenous Contrast CLINICAL HISTORY: SUBDURAL TECHNIQUE: Axial computed tomography images of the head/brain without intravenous contrast. CTDI is 53.4 mGy and DLP is 992.1 mGy-cm. One or more of the following dose reduction techniques were used: automated exposure control, adjustment of the mA and/or kV according to patient size, use of iterative reconstruction technique. COMPARISON: CT head, 07/15/19 850 FINDINGS: Brain: Stable small subdural hemorrhage along the left falx and left tentorium. No new bleed. Stable bilateral frontal extra-axial CSF density likely due to atrophy. No edema. No mass effect or midline shift. Ventricles: Unremarkable. No ventriculomegaly. Bones/joints: Unremarkable. No acute fracture. Soft tissues: Unremarkable. Sinuses: Unremarkable as visualized. No acute sinusitis. Mastoid air cells: Unremarkable as visualized. No mastoid effusion. IMPRESSION: Stable small subdural hemorrhage along the left falx and left tentorium. No new bleed. No significant interval change.
[2019-07-15] MEDS ORDERED: traMADol 50mg tab ORAL PRN (16:30)
--- NOTE | 2019-07-15 16:40 | NUR ---
NURSE NOTES: Made Dr. Hernandes for hypernatremia 162. Per Dr. Hernandes will look into the results
--- NOTE | 2019-07-15 16:44 | NUR ---
NURSE NOTES: Dr. Hernandes called back, BMP for 8pm on 07/15/19 and @12am 07/16/19 BMP D/C'd
[2019-07-15] MEDS ORDERED: D5W 275ml ONE (16:54)
--- NOTE | 2019-07-15 16:57 | Consultation ---
History of Present Illness General Date patient seen: Jul 14, 2019 Chief Complaint: Abnormal Labs Reason for Consultation: ams Present Illness HPI 64-year-old female with history of diabetes on insulin presents for weakness and elevated blood sugar levels. She arrives from home by EMS with glucose readings greater than 500 on fingerstick per EMS. She has had 5 days of vomiting and diarrhea. Unable tolerate food, water or her medications. Denies fever or chills. Denies cough or chest pain. Feels profoundly weak. Denies dysuria hematuria. ct brain with small SDH, incidental small subdural hemorrhage along the left falx and left tentorium. PMH: Insulin-dependent diabetes PSH: Reviewed Allergies: Coded Allergies: No Known Allergies (Unverified , 07/18/14) Medication History Scheduled No Known Medications* (NKM - No Known Medications*), 0 ., (Reported) Patient History Healthcare decision maker Resuscitation status Full Code Advanced Directive on File No Physical Exam General Appearance: lethargic Lines, tubes and drains: peripheral HEENT: normocephalic, atraumatic Physical Exam Narrative wakes up and follows moves all 4 cc 35 min Last 24 Hour Vital Signs Date Time Temp Pulse Resp B/P (MAP) Pulse Ox O2 Delivery O2 Flow Rate FiO2 07/15/19 16:00 Room Air 07/15/19 14:00 104 113/54 07/15/19 12:00 Room Air 07/15/19 12:00 95 07/15/19 08:00 Room Air 07/15/19 08:00 94 07/15/19 04:15 100 07/15/19 04:00 Room Air 07/15/19 03:40 98.6 102 26 134/65 97 Room Air 07/15/19 03:20 98.6 102 26 134/65 97 Room Air 07/15/19 01:30 98.6 108 26 135/67 97 Room Air 07/14/19 23:57 98.6 102 16 134/57 97 Room Air 07/14/19 23:06 99.1 07/14/19 21:35 98.7 97 18 135/86 99 Room Air 07/14/19 20:47 99.1 07/14/19 19:30 99.1 85 18 125/79 99 Room Air 07/14/19 17:50 99.1 90 18 130/71 99 Room Air Intake and Output 07/14/19 07/15/19 19:00 07:00 Intake Total 0 ml 100 ml Output Total 550 ml Balance 0 ml -450 ml Intake Oral 0 ml 100 ml Output Urine Total 550 ml Laboratory Tests Test 07/14/19 17:21 07/14/19 20:40 07/15/19 01:45 07/15/19 06:10 White Blood Count 9.5 K/UL (4.8-10.8) 8.4 K/UL (4.8-10.8) Red Blood Count 4.85 M/UL (4.20-5.40) 4.82 M/UL (4.20-5.40) Hemoglobin 14.9 G/DL (12.0-16.0) 15.0 G/DL (12.0-16.0) Hematocrit 45.4 % (37.0-47.0) 42.2 % (37.0-47.0) Mean Corpuscular Volume 94 FL (80-99) 88 FL (80-99) Mean Corpuscular Hemoglobin 30.7 PG (27.0-31.0) 31.1 PG (27.0-31.0) H Mean Corpuscular Hemoglobin Concent 32.7 G/DL (32.0-36.0) 35.6 G/DL (32.0-36.0) Red Cell Distribution Width 13.2 % (11.6-14.8) 11.7 % (11.6-14.8) Platelet Count 85 K/UL (150-450) L 82 K/UL (150-450) L Mean Platelet Volume 8.2 FL (6.5-10.1) 8.2 FL (6.5-10.1) Neutrophils (%) (Auto) 86.5 % (45.0-75.0) H % (45.0-75.0) Lymphocytes (%) (Auto) 7.3 % (20.0-45.0) L % (20.0-45.0) Monocytes (%) (Auto) 5.3 % (1.0-10.0) % (1.0-10.0) Eosinophils (%) (Auto) 0.0 % (0.0-3.0) % (0.0-3.0) Basophils (%) (Auto) 0.8 % (0.0-2.0) % (0.0-2.0) Sodium Level 154 MMOL/L (136-145) H 160 MMOL/L (136-145) H 160 MMOL/L (136-145) H Potassium Level 3.1 MMOL/L (3.5-5.1) L 2.1 MMOL/L (3.5-5.1) *L 2.6 MMOL/L (3.5-5.1) *L Chloride Level 117 MMOL/L (98-107) H 121 MMOL/L (98-107) H 123 MMOL/L (98-107) H Carbon Dioxide Level 11 MMOL/L (21-32) L 19 MMOL/L (21-32) L 15 MMOL/L (21-32) L Anion Gap 26 mmol/L (5-15) H 21 mmol/L (5-15) H 21 mmol/L (5-15) H Blood Urea Nitrogen 17 mg/dL (7-18) 14 mg/dL (7-18) 14 mg/dL (7-18) Creatinine 0.7 MG/DL (0.55-1.30) 0.7 MG/DL (0.55-1.30) 0.6 MG/DL (0.55-1.30) Estimat Glomerular Filtration Rate > 60 mL/min (>60) > 60 mL/min (>60) > 60 mL/min (>60) Glucose Level 423 MG/DL (74-106) H 270 MG/DL (74-106) #H 315 MG/DL (74-106) H Calcium Level 9.7 MG/DL (8.5-10.1) 9.1 MG/DL (8.5-10.1) 9.0 MG/DL (8.5-10.1) Magnesium Level 2.5 MG/DL (1.8-2.4) H Total Bilirubin 0.5 MG/DL (0.2-1.0) Aspartate Amino Transf (AST/SGOT) 46 U/L (15-37) H Alanine Aminotransferase (ALT/SGPT) 40 U/L (12-78) Alkaline Phosphatase 127 U/L (46-116) H Total Protein 7.4 G/DL (6.4-8.2) Albumin 2.3 G/DL (3.4-5.0) L Globulin 5.1 g/dL Albumin/Globulin Ratio 0.5 (1.0-2.7) L Lipase 70 U/L (73-393) L Acetone Level Positive-moderate (NEGATIVE) Urine Color Pale yellow Urine Appearance Slightly cloudy Urine pH 5 (4.5-8.0) Urine Specific [place] 1.010 (1.005-1.035) Urine Protein 3+ (NEGATIVE) H Urine Glucose (UA) 4+ (NEGATIVE) H Urine Ketones 4+ (NEGATIVE) H Urine Blood 4+ (NEGATIVE) H Urine Nitrite Positive (NEGATIVE) H Urine Bilirubin Negative (NEGATIVE) Urine Urobilinogen Normal MG/DL (0.0-1.0) Urine Leukocyte Esterase 2+ (NEGATIVE) H Urine RBC 0-2 /HPF (0 - 2) Urine WBC Tntc /HPF (0 - 2) H Urine Squamous Epithelial Cells None /LPF (NONE/OCC) Urine Bacteria Many /HPF (NONE) H Differential Total Cells Counted 100 Neutrophils % (Manual) 82 % (45-75) H Lymphocytes % (Manual) 5 % (20-45) L Monocytes % (Manual) 3 % (1-10) Eosinophils % (Manual) 0 % (0-3) Basophils % (Manual) 0 % (0-2) Band Neutrophils 10 % (0-8) H Platelet Estimate Decreased L Platelet Morphology Normal Hemoglobin A1c 10.4 % (4.3-6.0) H D-Dimer 6.44 mg/L FEU (0.00-0.49) H Phosphorus Level 1.4 MG/DL (2.5-4.9) L Test 07/15/19 10:26 07/15/19 13:10 07/15/19 15:30 White Blood Count 10.2 K/UL (4.8-10.8) Red Blood Count 5.24 M/UL (4.20-5.40) Hemoglobin 16.3 G/DL (12.0-16.0) H Hematocrit 46.6 % (37.0-47.0) Mean Corpuscular Volume 89 FL (80-99) Mean Corpuscular Hemoglobin 31.2 PG (27.0-31.0) H Mean Corpuscular Hemoglobin Concent 35.0 G/DL (32.0-36.0) Red Cell Distribution Width 12.1 % (11.6-14.8) Platelet Count 78 K/UL (150-450) L Mean Platelet Volume 8.1 FL (6.5-10.1) Neutrophils (%) (Auto) % (45.0-75.0) Lymphocytes (%) (Auto) % (20.0-45.0) Monocytes (%) (Auto) % (1.0-10.0) Eosinophils (%) (Auto) % (0.0-3.0) Basophils (%) (Auto) % (0.0-2.0) Differential Total Cells Counted 100 Neutrophils % (Manual) 88 % (45-75) H Lymphocytes % (Manual) 5 % (20-45) L Monocytes % (Manual) 5 % (1-10) Eosinophils % (Manual) 1 % (0-3) Basophils % (Manual) 1 % (0-2) Band Neutrophils 0 % (0-8) Platelet Estimate Decreased L Platelet Morphology Normal Red Blood Cell Morphology Normal Sodium Level 161 MMOL/L (136-145) *H 162 MMOL/L (136-145) *H Potassium Level 3.1 MMOL/L (3.5-5.1) L 3.9 MMOL/L (3.5-5.1) Chloride Level 122 MMOL/L (98-107) H 128 MMOL/L (98-107) H Carbon Dioxide Level 14 MMOL/L (21-32) L 17 MMOL/L (21-32) L Anion Gap 24 mmol/L (5-15) H 17 mmol/L (5-15) H Blood Urea Nitrogen 14 mg/dL (7-18) 13 mg/dL (7-18) Creatinine 0.7 MG/DL (0.55-1.30) 0.5 MG/DL (0.55-1.30) L Estimat Glomerular Filtration Rate > 60 mL/min (>60) > 60 mL/min (>60) Glucose Level 345 MG/DL (74-106) H 281 MG/DL (74-106) H Calcium Level 9.3 MG/DL (8.5-10.1) 9.1 MG/DL (8.5-10.1) Phosphorus Level 1.7 MG/DL (2.5-4.9) L Urine Random Sodium 61 mmol/L (20-110) Urine Opiates Screen Negative (NEGATIVE) Urine Barbiturates Screen Negative (NEGATIVE) Phencyclidine (PCP) Screen Negative (NEGATIVE) Urine Amphetamines Screen Negative (NEGATIVE) Urine Benzodiazepines Screen Negative (NEGATIVE) Urine Cocaine Screen Negative (NEGATIVE) Urine Marijuana (THC) Screen Negative (NEGATIVE) Height (Feet): 5 Height (Inches): 4.00 Weight (Pounds): 110 Medications Current Medications Medications (Trade) Dose Ordered Sig/Alvin Route PRN Reason Start Time Stop Time Status Last Admin Dose Admin Acetaminophen (Tylenol) 650 mg Q4H PRN ORAL For Pain 07/15/19 16:30 08/14/19 16:29 Acetaminophen (Tylenol) 650 mg Q4H PRN ORAL Temp >100.5 07/15/19 16:30 08/14/19 16:29 Atorvastatin Calcium (Lipitor) 40 mg BEDTIME ORAL 07/15/19 21:00 10/13/19 20:59 Ceftriaxone Sodium 1 gm/ Sodium Chloride 55 ml @ 110 mls/hr QHS IVPB 07/15/19 21:00 07/22/19 20:59 Dextrose (Dextrose 50%) 25 ml Q30M PRN IV Hypoglycemia 07/14/19 21:45 10/12/19 21:44 Dextrose (Dextrose 50%) 50 ml Q30M PRN IV Hypoglycemia 07/14/19 21:45 10/12/19 21:44 Insulin Aspart (NovoLOG) Q6HR SUBQ 07/15/19 09:30 10/13/19 09:29 07/15/19 12:00 Iohexol (OMNIPAQUE-300 100ml) 100 ml NOW PRN INJ Radiology Procedure 07/14/19 20:00 07/16/19 19:54 Levetiracetam 100 ml @ 400 mls/hr Q12HR IVPB 07/15/19 11:00 10/13/19 10:59 07/15/19 12:28 Metoprolol Tartrate (Lopressor) 12.5 mg Q12HR ORAL 07/15/19 21:00 10/13/19 20:59 Pantoprazole (Protonix) 40 mg EVERY 12 HOURS IVP 07/15/19 13:00 08/14/19 12:59 07/15/19 12:52 Phosphorus (Phospha 250 Neutral) 250 mg THREE TIMES A DAY ORAL 07/15/19 13:00 08/14/19 12:59 07/15/19 12:51 Potassium Chloride 40 meq/ Sodium Chloride 1,020 ml @ 150 mls/hr Q6H48M IV 07/15/19 11:00 08/14/19 10:59 07/15/19 11:44 Potassium Phosphate 20 mm/ Sodium Chloride 281.6667 ml @ 46.944 m... ONCE ONCE IV 07/15/19 11:00 07/15/19 16:59 07/15/19 11:44 Sodium Citrate (Bicitra) 30 ml EVERY 6 HOURS ORAL 07/15/19 12:30 08/14/19 12:29 07/15/19 12:51 Tramadol HCl (Ultram) 25 mg Q6H PRN ORAL Severe Breakthru Pain (>7) 07/15/19 16:30 07/22/19 16:29 Assessment/Plan Problem List: (1) STEMI (ST elevation myocardial infarction) ICD Codes: I21.3 - ST elevation (STEMI) myocardial infarction of unspecified site SNOMED: 305539480 (2) Atrial fibrillation with rapid ventricular response ICD Codes: I48.91 - Unspecified atrial fibrillation SNOMED: 130971103004514 (3) Prolonged Q-T interval on ECG ICD Codes: R94.31 - Abnormal electrocardiogram [ECG] [EKG] SNOMED: 463101707 (4) DKA (diabetic ketoacidoses) ICD Codes: E11.10 - Type 2 diabetes mellitus with ketoacidosis without coma SNOMED: 777598676, 15009481 (5) Hypernatremia ICD Codes: E87.0 - Hyperosmolality and hypernatremia SNOMED: 246764606, 18448262 (6) UTI (urinary tract infection) ICD Codes: N39.0 - Urinary tract infection, site not specified SNOMED: 29909667 (7) Subdural hematoma ICD Codes: S06.5X9A - Traumatic subdural hemorrhage with loss of consciousness of unspecified duration, initial encounter SNOMED: 560360120 Assessment/Plan: Acute sdh, monitor q2h neuro checks repeat ct brain in 6-8 hours keppra 500 mg bid no antiplatelets SBP < 150 Chandra Fountain MD Jul 15, 2019 16:57
--- NOTE | 2019-07-15 17:03 | Neurology Progress Note ---
Interim History Interim History Interim History Repeat ct brain this am stable from prior. cont keppra ppx SBP < 150 Objective Physical Exam Last Vital Signs Date Time Temp Pulse Resp B/P (MAP) Pulse Ox O2 Delivery O2 Flow Rate FiO2 07/15/19 16:00 Room Air 07/15/19 14:00 104 113/54 07/15/19 03:40 98.6 26 97 Laboratory Tests Test 07/14/19 17:21 07/14/19 20:40 07/15/19 01:45 07/15/19 06:10 White Blood Count 9.5 K/UL (4.8-10.8) 8.4 K/UL (4.8-10.8) Red Blood Count 4.85 M/UL (4.20-5.40) 4.82 M/UL (4.20-5.40) Hemoglobin 14.9 G/DL (12.0-16.0) 15.0 G/DL (12.0-16.0) Hematocrit 45.4 % (37.0-47.0) 42.2 % (37.0-47.0) Mean Corpuscular Volume 94 FL (80-99) 88 FL (80-99) Mean Corpuscular Hemoglobin 30.7 PG (27.0-31.0) 31.1 PG (27.0-31.0) H Mean Corpuscular Hemoglobin Concent 32.7 G/DL (32.0-36.0) 35.6 G/DL (32.0-36.0) Red Cell Distribution Width 13.2 % (11.6-14.8) 11.7 % (11.6-14.8) Platelet Count 85 K/UL (150-450) L 82 K/UL (150-450) L Mean Platelet Volume 8.2 FL (6.5-10.1) 8.2 FL (6.5-10.1) Neutrophils (%) (Auto) 86.5 % (45.0-75.0) H % (45.0-75.0) Lymphocytes (%) (Auto) 7.3 % (20.0-45.0) L % (20.0-45.0) Monocytes (%) (Auto) 5.3 % (1.0-10.0) % (1.0-10.0) Eosinophils (%) (Auto) 0.0 % (0.0-3.0) % (0.0-3.0) Basophils (%) (Auto) 0.8 % (0.0-2.0) % (0.0-2.0) Sodium Level 154 MMOL/L (136-145) H 160 MMOL/L (136-145) H 160 MMOL/L (136-145) H Potassium Level 3.1 MMOL/L (3.5-5.1) L 2.1 MMOL/L (3.5-5.1) *L 2.6 MMOL/L (3.5-5.1) *L Chloride Level 117 MMOL/L (98-107) H 121 MMOL/L (98-107) H 123 MMOL/L (98-107) H Carbon Dioxide Level 11 MMOL/L (21-32) L 19 MMOL/L (21-32) L 15 MMOL/L (21-32) L Anion Gap 26 mmol/L (5-15) H 21 mmol/L (5-15) H 21 mmol/L (5-15) H Blood Urea Nitrogen 17 mg/dL (7-18) 14 mg/dL (7-18) 14 mg/dL (7-18) Creatinine 0.7 MG/DL (0.55-1.30) 0.7 MG/DL (0.55-1.30) 0.6 MG/DL (0.55-1.30) Estimat Glomerular Filtration Rate > 60 mL/min (>60) > 60 mL/min (>60) > 60 mL/min (>60) Glucose Level 423 MG/DL (74-106) H 270 MG/DL (74-106) #H 315 MG/DL (74-106) H Calcium Level 9.7 MG/DL (8.5-10.1) 9.1 MG/DL (8.5-10.1) 9.0 MG/DL (8.5-10.1) Magnesium Level 2.5 MG/DL (1.8-2.4) H Total Bilirubin 0.5 MG/DL (0.2-1.0) Aspartate Amino Transf (AST/SGOT) 46 U/L (15-37) H Alanine Aminotransferase (ALT/SGPT) 40 U/L (12-78) Alkaline Phosphatase 127 U/L (46-116) H Total Protein 7.4 G/DL (6.4-8.2) Albumin 2.3 G/DL (3.4-5.0) L Globulin 5.1 g/dL Albumin/Globulin Ratio 0.5 (1.0-2.7) L Lipase 70 U/L (73-393) L Acetone Level Positive-moderate (NEGATIVE) Urine Color Pale yellow Urine Appearance Slightly cloudy Urine pH 5 (4.5-8.0) Urine Specific [place] 1.010 (1.005-1.035) Urine Protein 3+ (NEGATIVE) H Urine Glucose (UA) 4+ (NEGATIVE) H Urine Ketones 4+ (NEGATIVE) H Urine Blood 4+ (NEGATIVE) H Urine Nitrite Positive (NEGATIVE) H Urine Bilirubin Negative (NEGATIVE) Urine Urobilinogen Normal MG/DL (0.0-1.0) Urine Leukocyte Esterase 2+ (NEGATIVE) H Urine RBC 0-2 /HPF (0 - 2) Urine WBC Tntc /HPF (0 - 2) H Urine Squamous Epithelial Cells None /LPF (NONE/OCC) Urine Bacteria Many /HPF (NONE) H Differential Total Cells Counted 100 Neutrophils % (Manual) 82 % (45-75) H Lymphocytes % (Manual) 5 % (20-45) L Monocytes % (Manual) 3 % (1-10) Eosinophils % (Manual) 0 % (0-3) Basophils % (Manual) 0 % (0-2) Band Neutrophils 10 % (0-8) H Platelet Estimate Decreased L Platelet Morphology Normal Hemoglobin A1c 10.4 % (4.3-6.0) H D-Dimer 6.44 mg/L FEU (0.00-0.49) H Phosphorus Level 1.4 MG/DL (2.5-4.9) L Test 07/15/19 10:26 07/15/19 13:10 07/15/19 15:30 White Blood Count 10.2 K/UL (4.8-10.8) Red Blood Count 5.24 M/UL (4.20-5.40) Hemoglobin 16.3 G/DL (12.0-16.0) H Hematocrit 46.6 % (37.0-47.0) Mean Corpuscular Volume 89 FL (80-99) Mean Corpuscular Hemoglobin 31.2 PG (27.0-31.0) H Mean Corpuscular Hemoglobin Concent 35.0 G/DL (32.0-36.0) Red Cell Distribution Width 12.1 % (11.6-14.8) Platelet Count 78 K/UL (150-450) L Mean Platelet Volume 8.1 FL (6.5-10.1) Neutrophils (%) (Auto) % (45.0-75.0) Lymphocytes (%) (Auto) % (20.0-45.0) Monocytes (%) (Auto) % (1.0-10.0) Eosinophils (%) (Auto) % (0.0-3.0) Basophils (%) (Auto) % (0.0-2.0) Differential Total Cells Counted 100 Neutrophils % (Manual) 88 % (45-75) H Lymphocytes % (Manual) 5 % (20-45) L Monocytes % (Manual) 5 % (1-10) Eosinophils % (Manual) 1 % (0-3) Basophils % (Manual) 1 % (0-2) Band Neutrophils 0 % (0-8) Platelet Estimate Decreased L Platelet Morphology Normal Red Blood Cell Morphology Normal Sodium Level 161 MMOL/L (136-145) *H 162 MMOL/L (136-145) *H Potassium Level 3.1 MMOL/L (3.5-5.1) L 3.9 MMOL/L (3.5-5.1) Chloride Level 122 MMOL/L (98-107) H 128 MMOL/L (98-107) H Carbon Dioxide Level 14 MMOL/L (21-32) L 17 MMOL/L (21-32) L Anion Gap 24 mmol/L (5-15) H 17 mmol/L (5-15) H Blood Urea Nitrogen 14 mg/dL (7-18) 13 mg/dL (7-18) Creatinine 0.7 MG/DL (0.55-1.30) 0.5 MG/DL (0.55-1.30) L Estimat Glomerular Filtration Rate > 60 mL/min (>60) > 60 mL/min (>60) Glucose Level 345 MG/DL (74-106) H 281 MG/DL (74-106) H Calcium Level 9.3 MG/DL (8.5-10.1) 9.1 MG/DL (8.5-10.1) Phosphorus Level 1.7 MG/DL (2.5-4.9) L Urine Random Sodium 61 mmol/L (20-110) Urine Opiates Screen Negative (NEGATIVE) Urine Barbiturates Screen Negative (NEGATIVE) Phencyclidine (PCP) Screen Negative (NEGATIVE) Urine Amphetamines Screen Negative (NEGATIVE) Urine Benzodiazepines Screen Negative (NEGATIVE) Urine Cocaine Screen Negative (NEGATIVE) Urine Marijuana (THC) Screen Negative (NEGATIVE) Head: normocophalic Neck: no rigidity EENT: benign Neurologic Exam Mental Status: awake Speech: normal speech Language: normal language Cranial Nerve VII: no facial asymmetry Objective somnolent, wakes up. Oriented x 2 Non focal cc 35 min Impression/Recommendations Problems: (1) STEMI (ST elevation myocardial infarction) (2) Atrial fibrillation with rapid ventricular response (3) Prolonged Q-T interval on ECG (4) DKA (diabetic ketoacidoses) (5) Hypernatremia (6) UTI (urinary tract infection) (7) Subdural hematoma Diagnostic Impression Repeat ct brain this am stable from prior. cont keppra ppx 500 mg bid - if too sedating will lower to 250 SBP < 150 Speech eval pending PT Chandra Hackett MD Jul 15, 2019 17:03
--- NOTE | 2019-07-15 19:23 | NUR ---
HAND-OFF: Report given to Basia GALLARDO. Pt remains stable.
--- NOTE | 2019-07-15 19:25 | NUR ---
NURSE NOTES: Receive report and patient from PAULINA CHACON.Awake, oriented x3. no acute distress noted with RA. ST with HR of 102 VSS. Afebrile. Denies headache or N/V at this time. call light in reach. bed locked in low position. bed alarm on.safety measures continued.No neurological changes. will continue monitor patient.
[2019-07-15 20:00] VITALS: BP 104/62
[2019-07-15] MEDS ORDERED: Atorvastatin 20mg tab ORAL SCH (21:00)
[2019-07-15] MEDS: Metoprolol Tartrate 12.5mg TAB ORAL SCH (21:00)
[2019-07-15] MEDS ORDERED: cefTRIAXone 1 GM in NS 55 ML IVPB SCH (21:00)
[2019-07-16] VITALS: BP 121/63
[2019-07-16] MEDS: Sodium Citrate 30ml ORAL SCH ×5 (00:37→23:21)
[2019-07-16] MEDS: NovoLOG Insulin Flexpen SUBQ SCH ×6 (00:39→22:18)
[2019-07-16] MEDS: Potassium Chloride 40 MEQ in 1/2 NS 1000ml 1,000 ML IV SCH ×2 (01:56→08:16)
--- NOTE | 2019-07-16 03:00 | NUR ---
NURSE NOTES: Asleep but easily awakened to touch. has diarrhea x4. sponge bath provided. no N/V or headache. keep pt comfortable.
[2019-07-16 04:00] VITALS: BP 120/65
--- NOTE | 2019-07-16 07:15 | NUR ---
HAND-OFF: Report given to BOBBY SWANRemains stable in conditions.
--- NOTE | 2019-07-16 07:20 | NUR ---
NURSE NOTES: Received report from Basia GALLARDO. Pt in bed awake and orientedx3 and able to make needs known. Denied pain. Denied SOB on room air, Sating 98%. IV site in left hand 22G running with 1/2NS w/KCL 40mEq @150ml/hr, RAC 20G SL patent and asymptomatic. Side rail paddedx3 up for safety. Bed in lowest position and locked. Call light within easy reach. Boyd cath intact and patent. Sinus rhythm on monitor. Reinforced NPO. Will continue plan of care,
[2019-07-16 07:36] LABS: AMMONIA 33 umol/L (11-32)
[2019-07-16 07:45] LABS: HEMATOCRIT 37.9 % (37.0-47.0); HEMOGLOBIN 13.4 G/DL (12.0-16.0); MEAN CORPUSCULAR VOLUME 88 FL (80-99); PLATELET COUNT 60 K/UL (150-450); RED BLOOD COUNT 4.33 M/UL (4.20-5.40); RED CELL DISTRIBUTION WIDTH 11.9 % (11.6-14.8); WHITE BLOOD COUNT 10.5 K/UL (4.8-10.8)
[2019-07-16 07:55] LABS: ALANINE AMINOTRANSFERASE 32 U/L (12-78); ALBUMIN 1.8 G/DL (3.4-5.0); ALBUMIN/GLOBULIN RATIO 0.4 (1.0-2.7); ALKALINE PHOSPHATASE 117 U/L (46-116); ANION GAP 15 mmol/L (5-15); ASPARTATE AMINO TRANSFERASE 38 U/L (15-37); BILIRUBIN,TOTAL 0.4 MG/DL (0.2-1.0); BLOOD UREA NITROGEN 14 mg/dL (7-18); CALCIUM 8.7 MG/DL (8.5-10.1); CARBON DIOXIDE 23 MMOL/L (21-32); CHLORIDE 128 MMOL/L (98-107); CHOLESTEROL 94 MG/DL (< 200); CREATININE 0.5 MG/DL (0.55-1.30); HDL CHOLESTEROL 19 MG/DL (40-60); PHOSPHORUS 1.5 MG/DL (2.5-4.9); POTASSIUM 3.7 MMOL/L (3.5-5.1); TRIGLYCERIDES 122 MG/DL (30-150)
[2019-07-16 08:00] VITALS: BP 131/70
[2019-07-16 08:13] LABS: SODIUM 168 MMOL/L (136-145)
[2019-07-16] MEDS: levETIRAcetam 500mg/NS100ml 100 ML IVPB SCH ×2 (08:22→22:16)
[2019-07-16] MEDS: Pantoprazole Inj IVP SCH ×2 (08:22→20:55)
[2019-07-16] MEDS: Phospha 250 Neutral tab ORAL SCH ×3 (08:22→17:19)
[2019-07-16] MEDS: Metoprolol Tartrate 12.5mg TAB ORAL SCH (08:22)
--- NOTE | 2019-07-16 09:28 | General Progress Note ---
Assessment/Plan Assessment/Plan: 64-year-old female with PMH of medical noncompliance, DM type II who presents with b/l weakness, N/V, GLF, on admission pt found to be in DKA with BG 500's. #DKA - improved #UTI #Uncontrolled DM, Hgb A1C 10.4 #GN bess bacteremia 2/2 -continue in-patient medical care -AG 21-> 14 -CT abd reviewed -BCx w/GNR 2/2 -UCx GNR -accuchecks, ISS qAC/HS -start levemir 12 U qHS -educated pt on diabetic compliance today -repeat BCx ordered -ID, Dr. Bagley: CTX -Endo consulted #Right sided weakness #SDH 3mm no midline shift -pt AOx3, pt noted fall 3 days ago -found on CT head -repeat CT head stable -keppra BID -fall precautions -PT treat and eval -Neurology consulted, Dr. Fountain, recs aprpeciated #Elevated d-dimer #Tachycardia -can be multifactorial given infection, however concern for PE, PE ruled out -EKG w/NSR -CTA thorax negative for PE -likely 2/2 dehydration, encourage PO intake #Hypernatremia #Hypokalemia #Hypophosphatemia -Hypernatremia likely 2/2 free water deficit -replace electrolytes, cont. to monitor and replace PRN -Nephro consulted, IVF per nephro DVT - SCDs for now given SDH I spent 35 minutes on this patient's case, and 50% was dedicated to counseling and/or care coordination witch included communication with RN, consulting MDs. Subjective Allergies: Coded Allergies: No Known Allergies (Unverified , 07/18/14) Subjective F/u DKA, UTI, hypernatremia, SDH. Na worsening, d-dimer elevated. Pt w/no SOB at this time. Objective Last 24 Hour Vital Signs Date Time Temp Pulse Resp B/P (MAP) Pulse Ox O2 Delivery O2 Flow Rate FiO2 07/16/19 08:22 108 131/70 07/16/19 08:00 108 07/16/19 08:00 98.2 108 19 131/70 (90) 96 07/16/19 04:00 97.7 109 20 120/65 (83) 96 07/16/19 04:00 110 07/16/19 04:00 Room Air 07/16/19 00:00 Room Air 07/16/19 00:00 105 07/16/19 00:00 98.4 106 20 121/63 (82) 96 07/15/19 21:00 62 104/62 07/15/19 20:00 98.6 102 20 104/62 (76) 96 07/15/19 20:00 101 07/15/19 20:00 Room Air 07/15/19 16:00 107 07/15/19 16:00 Room Air 07/15/19 14:00 104 113/54 07/15/19 12:00 Room Air 07/15/19 12:00 95 Intake and Output 07/15/19 07/16/19 19:00 07:00 Intake Total 2101.664 ml 20 ml Output Total 1700 ml 130 ml Balance 401.664 ml -110 ml Intake Oral 100 ml 20 ml IV Total 2001.664 ml Output Urine Total 1700 ml 130 ml # Bowel Movements 5 Laboratory Tests 07/15/19 10:26: White Blood Count 10.2, Red Blood Count 5.24, Hemoglobin 16.3H, Hematocrit 46.6 , Mean Corpuscular Volume 89, Mean Corpuscular Hemoglobin 31.2H, Mean Corpuscular Hemoglobin Concent 35.0, Red Cell Distribution Width 12.1, Platelet Count 78L, Mean Platelet Volume 8.1, Neutrophils (%) (Auto) , Lymphocytes (%) ( Auto) , Monocytes (%) (Auto) , Eosinophils (%) (Auto) , Basophils (%) (Auto) , Differential Total Cells Counted 100, Neutrophils % (Manual) 88H, Lymphocytes % (Manual) 5L, Monocytes % (Manual) 5, Eosinophils % (Manual) 1, Basophils % ( Manual) 1, Band Neutrophils 0, Platelet Estimate DecreasedL, Platelet Morphology Normal, Red Blood Cell Morphology Normal, Sodium Level 161*H, Potassium Level 3.1L, Chloride Level 122H, Carbon Dioxide Level 14L, Anion Gap 24H, Blood Urea Nitrogen 14, Creatinine 0.7, Estimat Glomerular Filtration Rate > 60, Glucose Level 345H, Calcium Level 9.3, Phosphorus Level 1.7L 07/15/19 13:10: Urine Random Sodium 61, Urine Opiates Screen Negative, Urine Barbiturates Screen Negative, Phencyclidine (PCP) Screen Negative, Urine Amphetamines Screen Negative, Urine Benzodiazepines Screen Negative, Urine Cocaine Screen Negative, Urine Marijuana (THC) Screen Negative 07/15/19 15:30: Sodium Level 162*H, Potassium Level 3.9, Chloride Level 128H, Carbon Dioxide Level 17L, Anion Gap 17H, Blood Urea Nitrogen 13, Creatinine 0.5L, Estimat Glomerular Filtration Rate > 60, Glucose Level 281H, Calcium Level 9.1 07/16/19 06:24: White Blood Count 10.5, Red Blood Count 4.33, Hemoglobin 13.4, Hematocrit 37.9, Mean Corpuscular Volume 88, Mean Corpuscular Hemoglobin 31.0, Mean Corpuscular Hemoglobin Concent 35.4, Red Cell Distribution Width 11.9, Platelet Count 60L, Mean Platelet Volume 7.9, Neutrophils (%) (Auto) , Lymphocytes (%) (Auto) , Monocytes (%) (Auto) , Eosinophils (%) (Auto) , Basophils (%) (Auto) , Neutrophils % (Manual) [Pending], Lymphocytes % (Manual) [Pending], Platelet Estimate [Pending], Platelet Morphology [Pending], Sodium Level 168*H, Potassium Level 3.7, Chloride Level 128H, Carbon Dioxide Level 23, Anion Gap 15 , Blood Urea Nitrogen 14, Creatinine 0.5L, Estimat Glomerular Filtration Rate > 60, Glucose Level 241H, Calcium Level 8.7, Phosphorus Level 1.5L, Uric Acid 3.3 , Magnesium Level 2.5H, Total Bilirubin 0.4, Aspartate Amino Transf (AST/SGOT) 38H, Alanine Aminotransferase (ALT/SGPT) 32, Alkaline Phosphatase 117H, Ammonia 33H, Troponin I 0.013, C-Reactive Protein, Quantitative 36.2H, Pro-B-Type Natriuretic Peptide 210H, Total Protein 6.3L, Albumin 1.8L, Globulin 4.5, Albumin/Globulin Ratio 0.4L, Triglycerides Level 122, Cholesterol Level 94, LDL Cholesterol 48, HDL Cholesterol 19L, Cholesterol/HDL Ratio 4.9H, Vitamin B12 Level > 2000H, Folate 17.8, Thyroid Stimulating Hormone (TSH) 0.020L Height (Feet): 5 Height (Inches): 4.00 Weight (Pounds): 110 Objective General: NAD, laying in bed comfortably HEENT: NCAT, EOMi, mucous membranes moist CV: RRR, no murmurs, rubs, or gallops Pulm: CTAB, No wheezes, rhonchi, or rales, no accessory muscle usage GI: Soft, nontender, nondistended, bowel sounds present Ext: No lower extremity edema bilaterally Silke Adorno M.D. Jul 16, 2019 09:28
[2019-07-16] MEDS ORDERED: Omnipaque 350 100ml vial INJ PRN (09:30)
--- NOTE | 2019-07-16 10:15 | NUR ---
NURSE NOTES: Pt went to CT scan with RN, monitor
--- NOTE | 2019-07-16 10:30 | NUR ---
NURSE NOTES: Pt came back from CT scan
--- NOTE | 2019-07-16 11:20 | Diagnostic Imaging Report ---
EXAM: CT Angiography Chest With Intravenous Contrast CLINICAL HISTORY: PE TECHNIQUE: Axial computed tomographic angiography images of the chest with intravenous contrast. CTDI is 29.6 mGy and DLP is 138.3 mGy-cm. One or more of the following dose reduction techniques were used: automated exposure control, adjustment of the mA and/or kV according to patient size, use of iterative reconstruction technique. MIP reconstructed images were created and reviewed. Coronal and sagittal reformatted images were created and reviewed. COMPARISON: Chest x-ray 07/18/14 CT abdomen and pelvis 07/14/19 FINDINGS: Pulmonary arteries: No pulmonary embolus, somewhat limited at the bases due to motion. Aorta: Atherosclerotic vascular disease. No thoracic aortic aneurysm. Lungs: Bibasilar lung atelectasis/airspace disease. 3 mm nodule along the right middle lobe fissure. 3.6 mm nodule left lower lobe along the fissure. Pleural space: Unremarkable. No significant effusion. No pneumothorax. Heart: Unremarkable. No cardiomegaly. No significant pericardial effusion. No evidence of RV dysfunction. Bones/joints: No acute fracture. No dislocation. Soft tissues: Unremarkable. Lymph nodes: Unremarkable. No enlarged lymph nodes. Liver: Prominent left lobe of the liver is slightly nodular in appearance. Gallbladder and bile ducts: Distended gallbladder with hyperdensity may be sludge or stones. Kidneys and ureters: Mild bilateral perinephric stranding. IMPRESSION: 1. No pulmonary embolus, somewhat limited at the bases due to motion. 2. Bibasilar lung atelectasis/airspace disease. 3. 3 mm nodule along the right middle lobe fissure. 3.6 mm nodule left lower lobe along the fissure. Fleischner Society Guidelines for low-risk patients, no follow-up is necessary. For high-risk patients (smoking history or other known risk factors) an optional chest CT at 12 months could be performed. 4. Mild bilateral perinephric stranding. May be senescent, correlate for infection. 5. Distended gallbladder with hyperdensity may be sludge or stones. 6. Prominent left lobe of the liver is slightly nodular in appearance.
[2019-07-16] MEDS ORDERED: Potassium Phosphate 20 MM in NS 275 ML IV ONE (11:30)
[2019-07-16] MEDS ORDERED: NovoLOG Insulin Flexpen SUBQ SCH ×2 (11:50→18:00)
[2019-07-16 12:00] VITALS: BP 117/76
--- NOTE | 2019-07-16 12:51 | Nephrology Progress Note ---
Assessment/Plan Problem List: (1) Hypernatremia (2) UTI (urinary tract infection) (3) Subdural hematoma (4) DKA (diabetic ketoacidoses) Assessment Hypernatremia most likely due to free water deficit Hypokalemia, hypophosphatemia Hyperglycemia and DKA Evidence of UTI Right-sided weakness with 3 mm subdural hematoma found in CT scan Plan Hypotonic IV solution, IV was changed to D5W Potassium and phosphorus and magnesium supplement as needed Diet started as the patient is more alert Low dose of Lopressor Monitor renal parameters and electrolytes Neuro eval noted Keep the blood pressure and blood sugar in check Urine studies Per orders Subjective ROS Limited/Unobtainable: No Constitutional: Reports: malaise Objective Objective Last 24 Hour Vital Signs Date Time Temp Pulse Resp B/P (MAP) Pulse Ox O2 Delivery O2 Flow Rate FiO2 07/16/19 12:24 98 07/16/19 08:22 108 131/70 07/16/19 08:00 108 07/16/19 08:00 Room Air 07/16/19 08:00 98.2 108 19 131/70 (90) 96 07/16/19 04:00 97.7 109 20 120/65 (83) 96 07/16/19 04:00 110 07/16/19 04:00 Room Air 07/16/19 00:00 Room Air 07/16/19 00:00 105 07/16/19 00:00 98.4 106 20 121/63 (82) 96 07/15/19 21:00 62 104/62 07/15/19 20:00 98.6 102 20 104/62 (76) 96 07/15/19 20:00 101 07/15/19 20:00 Room Air 07/15/19 16:00 107 07/15/19 16:00 Room Air 07/15/19 14:00 104 113/54 Intake and Output 07/15/19 07/16/19 19:00 07:00 Intake Total 2101.664 ml 20 ml Output Total 1700 ml 130 ml Balance 401.664 ml -110 ml Intake Oral 100 ml 20 ml IV Total 2001.664 ml Output Urine Total 1700 ml 130 ml # Bowel Movements 5 Laboratory Tests 07/15/19 13:10: Urine Random Sodium 61, Urine Opiates Screen Negative, Urine Barbiturates Screen Negative, Phencyclidine (PCP) Screen Negative, Urine Amphetamines Screen Negative, Urine Benzodiazepines Screen Negative, Urine Cocaine Screen Negative, Urine Marijuana (THC) Screen Negative 07/15/19 15:30: Sodium Level 162*H, Potassium Level 3.9, Chloride Level 128H, Carbon Dioxide Level 17L, Anion Gap 17H, Blood Urea Nitrogen 13, Creatinine 0.5L, Estimat Glomerular Filtration Rate > 60, Glucose Level 281H, Calcium Level 9.1 07/16/19 06:24: Sodium Level 168*H, Potassium Level 3.7, Chloride Level 128H, Carbon Dioxide Level 23, Anion Gap 15, Blood Urea Nitrogen 14, Creatinine 0.5L, Estimat Glomerular Filtration Rate > 60, Glucose Level 241H, Calcium Level 8.7, White Blood Count 10.5, Red Blood Count 4.33, Hemoglobin 13.4, Hematocrit 37.9, Mean Corpuscular Volume 88, Mean Corpuscular Hemoglobin 31.0, Mean Corpuscular Hemoglobin Concent 35.4, Red Cell Distribution Width 11.9, Platelet Count 60L, Mean Platelet Volume 7.9, Neutrophils (%) (Auto) , Lymphocytes (%) (Auto) , Monocytes (%) (Auto) , Eosinophils (%) (Auto) , Basophils (%) (Auto) , Differential Total Cells Counted 100, Neutrophils % (Manual) 64, Lymphocytes % ( Manual) 18L, Monocytes % (Manual) 6, Eosinophils % (Manual) 0, Basophils % ( Manual) 0, Band Neutrophils 12H, Platelet Estimate DecreasedL, Platelet Morphology Normal, Red Blood Cell Morphology Normal, Uric Acid 3.3, Phosphorus Level 1.5L, Magnesium Level 2.5H, Total Bilirubin 0.4, Aspartate Amino Transf ( AST/SGOT) 38H, Alanine Aminotransferase (ALT/SGPT) 32, Alkaline Phosphatase 117H , Ammonia 33H, Troponin I 0.013, C-Reactive Protein, Quantitative 36.2H, Pro-B- Type Natriuretic Peptide 210H, Total Protein 6.3L, Albumin 1.8L, Globulin 4.5, Albumin/Globulin Ratio 0.4L, Triglycerides Level 122, Cholesterol Level 94, LDL Cholesterol 48, HDL Cholesterol 19L, Cholesterol/HDL Ratio 4.9H, Vitamin B12 Level > 2000H, Folate 17.8, Thyroid Stimulating Hormone (TSH) 0.019L, Free Thyroxine 1.75H Height (Feet): 5 Height (Inches): 4.00 Weight (Pounds): 110 General Appearance: no apparent distress Cardiovascular: tachycardia, gallop/S3 Objective No change Yash Hernandes MD Jul 16, 2019 12:51
--- NOTE | 2019-07-16 13:20 | NUR ---
HAND-OFF: Report given to Zuleyka GALLARDO. Pt remains stable.
[2019-07-16] MEDS ORDERED: traMADol 50mg tab ORAL PRN (14:00)
--- NOTE | 2019-07-16 14:00 | NUR ---
NURSE NOTES: Patient received from Min RN from [facility]. Patient stable with RR even and unlabored on RA. No complaints and no s/sx of distress. IV fluids and potassium phospate infusing from separate peripheral IV lines. Boyd catheter draining well to gravity. Soft BM at this time, brown in color. Skin intact. Side rails up x2, call light within reach, bed low and locked. Will continue to monitor.
[2019-07-16 16:00] VITALS: BP 118/59
--- NOTE | 2019-07-16 19:14 | Consultation ---
DATE OF CONSULTATION: 07/16/2019 ENDOCRINOLOGY CONSULTATION CONSULTING PHYSICIAN: Pola Medrano MD. REFERRING PHYSICIAN: Meir Abdalla MD. REASON FOR CONSULTATION: Diabetes management, DKA. HISTORY OF PRESENT ILLNESS: The patient is a 64-year-old female with history of noncompliance with medications. She is diabetic, who presented to the hospital with bilateral weakness. The patient had glucose of over 500. The patient was noted to be in DKA and was treated with IV fluid, IV insulin, and admitted for further observation. She has history of hypothyroidism and type 2 diabetes. The patient stated that she was diagnosed with diabetes by primary care doctor, however, refused to take any medication and did not believe the diagnosis was correct. Also, she has been on thyroid hormone, I am not sure what dose. TSH is suppressed. PAST MEDICAL HISTORY: 1. Hypothyroidism. 2. Diabetes. FAMILY HISTORY: Noncontributory. SOCIAL HISTORY: Lives with a roommate. No smoking, alcohol, or drug use. PAST SURGICAL HISTORY: None. ALLERGIES TO MEDICATIONS: None. REVIEW OF SYSTEMS: A 12-point review of systems was performed. Pertinent positives and negatives are mentioned in history of present illness. LABORATORY DATA: Sodium 140, potassium 3.7, chloride 103, bicarb 22, BUN 14, creatinine 0.5, glucose of 241. Low phosphorus of 1.5. Vitamin B12 was more than 2000. TSH of 0.02. PHYSICAL EXAMINATION: GENERAL: The patient is awake. VITAL SIGNS: Blood pressure is 131/80, pulse of 108, temperature of 98.2, respiratory rate of 12. HEENT: Pupils are equal and reactive to light. Sclerae are anicteric. NECK: No JVD. HEART: Regular. LUNGS: Clear. ABDOMEN: Positive bowel sounds. Soft. EXTREMITIES: No clubbing, cyanosis, or edema. DIAGNOSES: 1. DKA. 2. Noncompliance with diabetic regimen. 3. Hypothyroidism. 4. Iatrogenic hyperthyroidism. DISCUSSION: 1. Continue with Levemir 12 units nightly. 2. Start NovoLog 4 units before each meal. 3. NovoLog sliding scale before meals and at bedtime. 4. Repeat thyroid function, TSH and free T4. 5. Hold off on thyroid hormone replacement for now. I will follow the patient closely during the hospital stay. Thank you, Dr. Abdalla, for the courtesy of this consultation. Pola Medrano M.D. DR: BRODERICK JOB#: [id number] CC: GILMAR
--- NOTE | 2019-07-16 19:45 | NUR ---
NURSE NOTES: Received pt and report from PAULINA Roper. Observed pt resting in bed with both eyes open. Pt is A/Ox2. 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 IV site intact, asymptomatic, and patent; running D5W @100cc/hr. Bed is in the lowest position and locked. Call light and bedside table is within reach. No signs/symptoms of acute distress noted at this time. Will continue plan of care.
--- NOTE | 2019-07-16 19:59 | NUR ---
HAND-OFF: Report given to Delnaey RN. Patient stable. Plan of care endorsed.
[2019-07-16 20:00] VITALS: BP 116/57
--- NOTE | 2019-07-16 20:30 | Infectious Diseases Prog Note ---
Assessment/Plan Assessment/Plan Full consult dictated: A) 1) gram neg uti/pyelonephritis, sepsis, gram neg bacteremia, 2) dka 3) sdh, right sided weakness P) 1) meropenem - cover esbl until ID/sensitivities back 2) check urine culture and blood cultures 3) f/u labs 4) will f/u Subjective Allergies: Coded Allergies: No Known Allergies (Unverified , 07/18/14) Objective Vital Signs Last 24 Hour Vital Signs Date Time Temp Pulse Resp B/P (MAP) Pulse Ox O2 Delivery O2 Flow Rate FiO2 07/16/19 16:00 105 07/16/19 16:00 Room Air 07/16/19 16:00 98.0 103 20 118/59 (78) 97 07/16/19 12:24 98 07/16/19 12:00 Room Air 07/16/19 12:00 98.1 97 19 117/76 (90) 97 07/16/19 08:22 108 131/70 07/16/19 08:00 108 07/16/19 08:00 Room Air 07/16/19 08:00 98.2 108 19 131/70 (90) 96 07/16/19 04:00 97.7 109 20 120/65 (83) 96 07/16/19 04:00 110 07/16/19 04:00 Room Air 07/16/19 00:00 Room Air 07/16/19 00:00 105 07/16/19 00:00 98.4 106 20 121/63 (82) 96 07/15/19 21:00 62 104/62 Height (Feet): 5 Height (Inches): 4.00 Weight (Pounds): 110 Microbiology Date/Time Source Procedure Growth Status 07/14/19 22:19 Blood Blood Culture - Preliminary Resulted 07/14/19 22:00 Blood Blood Culture - Preliminary Resulted 07/14/19 20:40 Urine,Clean Catch Urine Culture - Preliminary Gram Negative Otto Resulted Laboratory Tests Test 07/16/19 06:24 07/16/19 14:00 White Blood Count 10.5 K/UL (4.8-10.8) Red Blood Count 4.33 M/UL (4.20-5.40) Hemoglobin 13.4 G/DL (12.0-16.0) Hematocrit 37.9 % (37.0-47.0) Mean Corpuscular Volume 88 FL (80-99) Mean Corpuscular Hemoglobin 31.0 PG (27.0-31.0) Mean Corpuscular Hemoglobin Concent 35.4 G/DL (32.0-36.0) Red Cell Distribution Width 11.9 % (11.6-14.8) Platelet Count 60 K/UL (150-450) L Mean Platelet Volume 7.9 FL (6.5-10.1) Neutrophils (%) (Auto) % (45.0-75.0) Lymphocytes (%) (Auto) % (20.0-45.0) Monocytes (%) (Auto) % (1.0-10.0) Eosinophils (%) (Auto) % (0.0-3.0) Basophils (%) (Auto) % (0.0-2.0) Differential Total Cells Counted 100 Neutrophils % (Manual) 64 % (45-75) Lymphocytes % (Manual) 18 % (20-45) L Monocytes % (Manual) 6 % (1-10) Eosinophils % (Manual) 0 % (0-3) Basophils % (Manual) 0 % (0-2) Band Neutrophils 12 % (0-8) H Platelet Estimate Decreased L Platelet Morphology Normal Red Blood Cell Morphology Normal Sodium Level 168 MMOL/L (136-145) *H Potassium Level 3.7 MMOL/L (3.5-5.1) Chloride Level 128 MMOL/L (98-107) H Carbon Dioxide Level 23 MMOL/L (21-32) Anion Gap 15 mmol/L (5-15) Blood Urea Nitrogen 14 mg/dL (7-18) Creatinine 0.5 MG/DL (0.55-1.30) L Estimat Glomerular Filtration Rate > 60 mL/min (>60) Glucose Level 241 MG/DL (74-106) H Uric Acid 3.3 MG/DL (2.6-7.2) Calcium Level 8.7 MG/DL (8.5-10.1) Phosphorus Level 1.5 MG/DL (2.5-4.9) L Magnesium Level 2.5 MG/DL (1.8-2.4) H Total Bilirubin 0.4 MG/DL (0.2-1.0) Aspartate Amino Transf (AST/SGOT) 38 U/L (15-37) H Alanine Aminotransferase (ALT/SGPT) 32 U/L (12-78) Alkaline Phosphatase 117 U/L (46-116) H Ammonia 33 umol/L (11-32) H Troponin I 0.013 ng/mL (0.000-0.056) C-Reactive Protein, Quantitative 36.2 mg/dL (0.00-0.90) H Pro-B-Type Natriuretic Peptide 210 pg/mL (0-125) H Total Protein 6.3 G/DL (6.4-8.2) L Albumin 1.8 G/DL (3.4-5.0) L Globulin 4.5 g/dL Albumin/Globulin Ratio 0.4 (1.0-2.7) L Triglycerides Level 122 MG/DL (30-150) Cholesterol Level 94 MG/DL (< 200) LDL Cholesterol 48 mg/dL (<100) HDL Cholesterol 19 MG/DL (40-60) L Cholesterol/HDL Ratio 4.9 (3.3-4.4) H Vitamin B12 Level > 2000 PG/ML (193-986) H Folate 17.8 NG/ML (8.6-58.9) Thyroid Stimulating Hormone (TSH) 0.019 uiU/mL (0.358-3.740) Free Thyroxine 1.75 NG/DL (0.76-1.46) H Acetone, Qualitative Positive Current Medications Medications (Trade) Dose Ordered Sig/Alvin Route PRN Reason Start Time Stop Time Status Last Admin Dose Admin Acetaminophen (Tylenol) 650 mg Q4H PRN ORAL Temp >100.5 07/16/19 13:15 08/14/19 13:14 Acetaminophen (Tylenol) 650 mg Q4H PRN ORAL For Pain 07/16/19 14:00 08/14/19 13:59 Atorvastatin Calcium (Lipitor) 40 mg BEDTIME ORAL 07/16/19 21:00 10/13/19 20:59 Dextrose 1,000 ml @ 100 mls/hr Q10H IV 07/16/19 13:15 08/15/19 09:59 07/16/19 13:46 Dextrose (Dextrose 50%) 25 ml Q30M PRN IV Hypoglycemia 07/16/19 13:15 10/12/19 21:44 Dextrose (Dextrose 50%) 50 ml Q30M PRN IV Hypoglycemia 07/16/19 13:15 10/12/19 21:44 Insulin Aspart (NovoLOG) AC+HS SUBQ 07/16/19 16:30 10/13/19 09:29 07/16/19 17:21 Insulin Aspart (NovoLOG) 4 units NOVOTIAC SUBQ 07/16/19 16:50 10/14/19 11:49 07/16/19 17:22 Insulin Detemir (Levemir) 12 units QHS SUBQ 07/16/19 21:00 10/14/19 20:59 Levetiracetam 100 ml @ 400 mls/hr Q12HR IVPB 07/16/19 21:00 10/13/19 10:59 Meropenem 1 gm/ Sodium Chloride 100 ml @ 200 mls/hr Q12HR IVPB 07/16/19 21:00 07/21/19 20:59 Metoprolol Tartrate (Lopressor) 25 mg Q12HR ORAL 07/16/19 21:00 10/13/19 20:59 Pantoprazole (Protonix) 40 mg EVERY 12 HOURS IVP 07/16/19 21:00 08/14/19 12:59 Phosphorus (Phospha 250 Neutral) 250 mg THREE TIMES A DAY ORAL 07/16/19 18:00 08/14/19 12:59 07/16/19 17:19 Sodium Citrate (Bicitra) 30 ml EVERY 6 HOURS ORAL 07/16/19 18:00 08/14/19 12:29 07/16/19 17:19 Tramadol HCl (Ultram) 25 mg Q6H PRN ORAL Severe Breakthru Pain (>7) 07/16/19 14:00 07/22/19 13:59 Emerson Bagley MD Jul 16, 2019 20:30
--- NOTE | 2019-07-16 20:36 | Neurology Progress Note ---
Interim History Interim History ROS Limited/Unobtainable: No Interim History still confused, NA lower Objective Physical Exam Last Vital Signs Date Time Temp Pulse Resp B/P (MAP) Pulse Ox O2 Delivery O2 Flow Rate FiO2 07/16/19 16:00 105 07/16/19 16:00 Room Air 07/16/19 16:00 98.0 20 118/59 (78) 97 Laboratory Tests Test 07/16/19 06:24 07/16/19 14:00 White Blood Count 10.5 K/UL (4.8-10.8) Red Blood Count 4.33 M/UL (4.20-5.40) Hemoglobin 13.4 G/DL (12.0-16.0) Hematocrit 37.9 % (37.0-47.0) Mean Corpuscular Volume 88 FL (80-99) Mean Corpuscular Hemoglobin 31.0 PG (27.0-31.0) Mean Corpuscular Hemoglobin Concent 35.4 G/DL (32.0-36.0) Red Cell Distribution Width 11.9 % (11.6-14.8) Platelet Count 60 K/UL (150-450) L Mean Platelet Volume 7.9 FL (6.5-10.1) Neutrophils (%) (Auto) % (45.0-75.0) Lymphocytes (%) (Auto) % (20.0-45.0) Monocytes (%) (Auto) % (1.0-10.0) Eosinophils (%) (Auto) % (0.0-3.0) Basophils (%) (Auto) % (0.0-2.0) Differential Total Cells Counted 100 Neutrophils % (Manual) 64 % (45-75) Lymphocytes % (Manual) 18 % (20-45) L Monocytes % (Manual) 6 % (1-10) Eosinophils % (Manual) 0 % (0-3) Basophils % (Manual) 0 % (0-2) Band Neutrophils 12 % (0-8) H Platelet Estimate Decreased L Platelet Morphology Normal Red Blood Cell Morphology Normal Sodium Level 168 MMOL/L (136-145) *H Potassium Level 3.7 MMOL/L (3.5-5.1) Chloride Level 128 MMOL/L (98-107) H Carbon Dioxide Level 23 MMOL/L (21-32) Anion Gap 15 mmol/L (5-15) Blood Urea Nitrogen 14 mg/dL (7-18) Creatinine 0.5 MG/DL (0.55-1.30) L Estimat Glomerular Filtration Rate > 60 mL/min (>60) Glucose Level 241 MG/DL (74-106) H Uric Acid 3.3 MG/DL (2.6-7.2) Calcium Level 8.7 MG/DL (8.5-10.1) Phosphorus Level 1.5 MG/DL (2.5-4.9) L Magnesium Level 2.5 MG/DL (1.8-2.4) H Total Bilirubin 0.4 MG/DL (0.2-1.0) Aspartate Amino Transf (AST/SGOT) 38 U/L (15-37) H Alanine Aminotransferase (ALT/SGPT) 32 U/L (12-78) Alkaline Phosphatase 117 U/L (46-116) H Ammonia 33 umol/L (11-32) H Troponin I 0.013 ng/mL (0.000-0.056) C-Reactive Protein, Quantitative 36.2 mg/dL (0.00-0.90) H Pro-B-Type Natriuretic Peptide 210 pg/mL (0-125) H Total Protein 6.3 G/DL (6.4-8.2) L Albumin 1.8 G/DL (3.4-5.0) L Globulin 4.5 g/dL Albumin/Globulin Ratio 0.4 (1.0-2.7) L Triglycerides Level 122 MG/DL (30-150) Cholesterol Level 94 MG/DL (< 200) LDL Cholesterol 48 mg/dL (<100) HDL Cholesterol 19 MG/DL (40-60) L Cholesterol/HDL Ratio 4.9 (3.3-4.4) H Vitamin B12 Level > 2000 PG/ML (193-986) H Folate 17.8 NG/ML (8.6-58.9) Thyroid Stimulating Hormone (TSH) 0.019 uiU/mL (0.358-3.740) Free Thyroxine 1.75 NG/DL (0.76-1.46) H Acetone, Qualitative Positive Head: normocophalic Neck: no rigidity EENT: benign Neurologic Exam Mental Status: awake Speech: normal speech Language: normal language Cranial Nerve VII: no facial asymmetry Objective somnolent, wakes up. Oriented x 2 Non focal cc 35 min Impression/Recommendations Problems: (1) STEMI (ST elevation myocardial infarction) (2) Atrial fibrillation with rapid ventricular response (3) Prolonged Q-T interval on ECG (4) DKA (diabetic ketoacidoses) (5) Hypernatremia (6) UTI (urinary tract infection) (7) Subdural hematoma Diagnostic Impression Repeat ct brain this am stable from prior. cont keppra ppx 500 mg bid - if too sedating will lower to 250 SBP < 150 Speech eval pending PT Chandra Hackett MD Jul 16, 2019 20:36
[2019-07-16] MEDS: Atorvastatin 20mg tab ORAL SCH (20:56)
[2019-07-16] MEDS ORDERED: Levemir Flexpen SUBQ SCH ×3 (21:00)
[2019-07-16] MEDS ORDERED: cefTRIAXone 1 GM in NS 55 ML IVPB SCH (21:00)
[2019-07-17] VITALS (7 sets, daily range): BP systolic 110–131; BP diastolic 56–72
--- NOTE | 2019-07-17 00:30 | Consultation ---
DATE OF CONSULTATION: 07/16/2019 INFECTIOUS DISEASES CONSULTATION CONSULTING PHYSICIAN: Emerson Bagley MD. ATTENDING PHYSICIAN: Meir Abdalla MD. REFERRING PHYSICIAN: Dana Adorno MD. REASON FOR CONSULTATION: Gram-negative UTI and pyelonephritis with gram-negative bacteremia and sepsis. CHIEF COMPLAINT: The patient's chief complaint coming in to the hospital is DKA and hypernatremia. HISTORY OF PRESENT ILLNESS: This is a 64-year-old female who is not a very good historian. The patient presents to [facility] with hypernatremia. Her sodium was 168. She also had hyperglycemia. Glucose was 423. Workup shows that she has gram-negative UTI and pyelonephritis with perinephric stranding on CT scan with gram-negative bacteremia and gram-negative sepsis. Infectious Disease consultation was requested. The patient is currently on Rocephin. Because of the bacteremia and prevalence of ESBL organisms, we will change to meropenem. REVIEW OF SYSTEMS: CONSTITUTIONAL: The patient is responsive, but not a very good historian. She is limited because she speaks Estonian I believe. In communication with nursing who translated, she has some weakness. She has no fevers currently on her vital signs. HEAD AND NECK: No head pain or neck pain. CARDIAC: No chest pain. No pressors. PULMONARY: No significant shortness of breath, cough, or congestion. GASTROINTESTINAL: No nausea or vomiting. She has no diarrhea. GENITOURINARY: She has some diarrhea. She has no Boyd. NEUROLOGIC: No seizures. SKIN: No rash. PAST MEDICAL HISTORY: The patient has past medical history of diabetes type 2, DKA, weakness, nausea, vomiting, and ground-level fall. She has history of right-sided weakness and also subdural hematoma. She has hypernatremia, hyperglycemia. ALLERGIES: No known drug allergies. No antibiotic allergies. SOCIAL HISTORY: Negative for smoking, alcohol, or drug abuse. FAMILY HISTORY: Noncontributory. Negative for exposure to tuberculosis or cancer. MEDICATIONS: Upon reviewing the MAR, she is on the following medications. She is on atorvastatin, insulin, metoprolol, pantoprazole, meropenem. I stopped Rocephin. She is on sodium phosphate, insulin, acetaminophen, and tramadol. Outside medications noted and reconciliated. PHYSICAL EXAMINATION: VITAL SIGNS: Temperature is 98.0, pulse rate 103, respiratory rate 20, blood pressure 118/59, saturation 97% on room air. GENERAL: Alert, responsive, in no acute distress. HEAD AND NECK: Oral exam, no thrush. Eye exam, no icterus. Normocephalic. Neck is supple. HEART: Regular. No gallop or murmur. ABDOMEN: Soft. Positive bowel sounds. Nontender. LUNGS: Clear bilaterally. No rhonchi or rales. SKIN: No rash. MUSCULOSKELETAL: No effusion. Legs are without cellulitis. PERIPHERAL VASCULAR: No cyanosis or gangrene. GENITOURINARY: No Boyd. LINE SITES: Without phlebitis. NEUROLOGIC: Generalized weakness. Alert and responsive. LABORATORY DATA: Sodium 168 and creatinine 0.5. White count 10.5 and hemoglobin 13.4. Urinalysis had 2+ leukocyte esterase, too many to count white blood cells. CT scan of the chest had no pulmonary embolism; it showed atelectasis. CT scan of the abdomen and pelvis showed bilateral ureters, distention of urinary bladder, perinephric stranding was seen also on CT scan. Cultures, blood cultures, gram-negative rods, 4 out of 4 bottles, and urine culture with gram-negative rods. ASSESSMENT AND PLAN: 1. The patient has gram-negative UTI and pyelonephritis with perinephric stranding, sepsis, and gram-negative bacteremia. The patient will be continued on meropenem 1 g IV q.8h., because of the prevalence of ESBL organisms in the community. Continue meropenem for gram-negative UTI, pyelonephritis, gram-negative bacteremia, and sepsis. Check urine culture and blood cultures. 2. DKA. 3. Hypernatremia. 4. Diabetes type 2. 5. Ground-level fall. 6. Nausea and vomiting. 7. Diarrhea. 8. We will check stool studies. 9. Noncompliance. 10. Right-sided weakness. 11. Subdural hematoma with midline shift. 12. No known drug allergies. 13. Social history negative. 14. Family history noncontributory. 15. MAR was noted. 16. Case discussed with RN. 17. Continue treatment per primary consultants. 18. Orders were noted and entered. Emerson Bagley M.D. DR: Magdiel JOB#: [id number] CC:
[2019-07-17] MEDS: Sodium Citrate 30ml ORAL SCH (06:37)
[2019-07-17] MEDS: NovoLOG Insulin Flexpen SUBQ SCH ×7 (06:39→21:00)
--- NOTE | 2019-07-17 07:45 | NUR ---
NURSE NOTES: pt in bed awake armenian speaker. 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 Call light within reach, bed in lowest position and locked, side rails up x2, bed alarm on. pt has neal for retention. Will continue to monitor pt.
--- NOTE | 2019-07-17 08:19 | NUR ---
HAND-OFF: Report given to PAULINA Mclaughlin. Plan of care endorsed.
[2019-07-17 08:44] LABS: HEMATOCRIT 34.7 % (37.0-47.0); HEMOGLOBIN 12.5 G/DL (12.0-16.0); MEAN CORPUSCULAR VOLUME 88 FL (80-99); PLATELET COUNT 56 K/UL (150-450); RED BLOOD COUNT 3.95 M/UL (4.20-5.40); RED CELL DISTRIBUTION WIDTH 12.1 % (11.6-14.8)
[2019-07-17 08:58] LABS: ALANINE AMINOTRANSFERASE 26 U/L (12-78); ALBUMIN 1.6 G/DL (3.4-5.0); ALBUMIN/GLOBULIN RATIO 0.4 (1.0-2.7); ALKALINE PHOSPHATASE 109 U/L (46-116); ANION GAP 8 mmol/L (5-15); ASPARTATE AMINO TRANSFERASE 33 U/L (15-37); BILIRUBIN,TOTAL 0.3 MG/DL (0.2-1.0); BLOOD UREA NITROGEN 15 mg/dL (7-18); CALCIUM 7.9 MG/DL (8.5-10.1); CARBON DIOXIDE 34 MMOL/L (21-32); CHLORIDE 120 MMOL/L (98-107); CREATININE 0.6 MG/DL (0.55-1.30); LACTATE DEHYDROGENASE 356 U/L (81-234); PHOSPHORUS 1.6 MG/DL (2.5-4.9)
--- NOTE | 2019-07-17 08:59 | NUR ---
CASE MANAGEMENT:REVIEW 64 YR OLD FEMALE BIBA FROM HOME CC: HYPERGLYCEMIA. RLQ PAIN. BILATERAL WEAKNESS SI: DKA. HYPERNATREMIA. UTI 99.1 104 20 136/78 98% ON RA PLT-85 NA+154 K-3.2 GLUCOSE+500 A1C+10.4 IS: 1L NS BOLUS IV INSULIN INSULIN GTT IV KCL IV KPHOS IV MORPHINE CT ABD/PELVIS : ADMITTED TO SDU 07/15/19 SI: 98.6 102 26 134/65 97% ON RA NA+161 K-2.1 GLUCOSE+345 PLT-82 IS: IV KEPPRA Q12 IVF+KCL@150/HR PHOSPHORUS PO TID IV PROTONIX Q12 IV ROCEPHIN Q24 LOPRESSOR PO Q12 SSI AC+HS IV KCL X3 PO K DUR X2 :: SDU STATUS DCP: FROM HOME PLAN: CT HEAD 07/16/19 SI: DKA. GN BACTEREMIA. HYPERNATREMIA 97.7 110 20 120/65 96% ON RA PLT-60 NA+168 GLUCOSE+241 PHOS-1.5 MAG+2.5 AMMONIA+33 IS: IVF D5W@100/HR IV KEPPRA Q12 LIPITOR PO QHS LOPRESSOR PO Q12 IV PROTONIX Q12 IV MEROPENEM Q12 PHOSPHORUS PO TID BICITRA PO Q6HRS IV ROCEPHIN Q24 INSULIN SQ TID AC SSI SQ Q6HRS : SDU STATUS PLAN: DOWNGRADE TO TELEMETRY 07/17/19 SI: DKA. GN BACTEREMIA. HYPERNATREMIA 96.8 101 19 124/56 98% ON RA PLT- NA+161 K+2.4 CO2+34 GLUCOSE+275 PHOS-1.6 ALB-1.6 IS: IVF D5W@100/HR IV KEPPRA Q12 LIPITOR PO QHS LOPRESSOR PO Q12 IV PROTONIX Q12 IV MEROPENEM Q12 PHOSPHORUS PO TID BICITRA PO Q6HRS IV ROCEPHIN Q24 INSULIN SQ TID AC SSI SQ Q6HRS : NOW ON TELEMETRY DCP: FROM HOME Addendum: 07/17/19 at 1557 by PETAR MADRIGAL LVN LVN INTERQUAL CRITERIA MET
[2019-07-17 09:02] LABS: POTASSIUM 2.4 MMOL/L (3.5-5.1); SODIUM 161 MMOL/L (136-145)
--- NOTE | 2019-07-17 09:11 | General Progress Note ---
Assessment/Plan Assessment/Plan: 64-year-old female with PMH of medical noncompliance, DM type II who presents with b/l weakness, N/V, GLF, on admission pt found to be in DKA with BG 500's. #DKA - improved #UTI #Uncontrolled DM, Hgb A1C 10.4 #GN bess bacteremia 2/2 -continue in-patient medical care -AG 21-> 14 -CT abd reviewed -BCx w/GNR 2/2 -UCx GNR -accuchecks, ISS qAC/HS -levemir 16 U qHS, Novolog 8 U qAC -repeat BCx ordered -ID, Dr. Bagley: CTX -Endo consulted, recs appreciated #Right sided weakness #SDH 3mm no midline shift -pt AOx3, pt noted fall 3 days ago -found on CT head, repeat CT head stable -keppra BID -fall precautions -PT treat and eval -Neurology consulted, Dr. Fountain, recs aprpeciated -CM for d/c planning #Elevated d-dimer #Tachycardia -can be multifactorial given infection, however concern for PE, PE ruled out -EKG w/NSR -CTA thorax negative for PE -likely 2/2 dehydration, encourage PO intake #Hypernatremia #Hypokalemia #Hypophosphatemia -Hypernatremia likely 2/2 free water deficit -replace electrolytes, cont. to monitor and replace PRN -d/w nephro, cont. neal for accurate I's and O's -Nephro consulted, IVF and electrolytes per nephro DVT - SCDs for now given SDH I spent 35 minutes on this patient's case, and 50% was dedicated to counseling and/or care coordination witch included communication with RN, consulting MDs. Subjective Constitutional: Denies: no symptoms, chills, diaphoresis, fever, malaise, weakness, other HEENT: Denies: no symptoms, eye pain, blurred vision, tearing, double vision, ear pain, ear discharge, nose pain, nose congestion, throat pain, throat swelling, mouth pain, mouth swelling, other Cardiovascular: Denies: no symptoms, chest pain, edema, irregular heart rate, lightheadedness, palpitations, syncope, other Respiratory: Denies: no symptoms, cough, orthopnea, shortness of breath, SOB with excertion, SOB at rest, sputum, stridor, wheezing, other Gastrointestinal/Abdominal: Denies: no symptoms, abdomen distended, abdominal pain, black stools, tarry stools, blood in stool, constipated, diarrhea, difficulty swallowing, nausea, poor appetite, poor fluid intake, rectal bleeding , vomiting, other Genitourinary: Denies: no symptoms, burning, discharge, frequency, flank pain, hematuria, incontinence, pain, urgency, other Allergies: Coded Allergies: No Known Allergies (Unverified , 07/18/14) Subjective F/u DKA, UTI, hypernatremia, SDH. Na remains elevated, potassium low, replaced by nephro. Pt awake, alert, speaks both english and liberian, had liberian interpretor at bedside. Patient wants Neal d/c, denies any FAUSTIN, weakness, S OB, CP, palpitations at this time. Objective Last 24 Hour Vital Signs Date Time Temp Pulse Resp B/P (MAP) Pulse Ox O2 Delivery O2 Flow Rate FiO2 07/17/19 04:00 96.8 101 19 125/56 (79) 98 07/17/19 04:00 101 07/17/19 00:00 97.7 101 19 112/58 (76) 98 07/17/19 00:00 101 07/16/19 20:57 107 116/57 07/16/19 20:00 106 07/16/19 20:00 97.0 107 20 116/57 (76) 98 07/16/19 16:00 105 07/16/19 16:00 Room Air 07/16/19 16:00 98.0 103 20 118/59 (78) 97 07/16/19 12:24 98 07/16/19 12:00 Room Air 07/16/19 12:00 98.1 97 19 117/76 (90) 97 Intake and Output 07/16/19 07/17/19 19:00 07:00 Intake Total 2277.888 ml Output Total 1400 ml Balance 2277.888 ml -1400 ml Intake Oral 234 ml IV Total 2043.888 ml Output Urine Total 1400 ml # Voids 1 # Bowel Movements 2 Laboratory Tests 07/16/19 14:00: Acetone, Qualitative Positive 07/17/19 07:05: White Blood Count 8.0, Red Blood Count 3.95L, Hemoglobin 12.5, Hematocrit 34.7L , Mean Corpuscular Volume 88, Mean Corpuscular Hemoglobin 31.7H, Mean Corpuscular Hemoglobin Concent 36.1H, Red Cell Distribution Width 12.1, Platelet Count 56L, Mean Platelet Volume 8.1, Neutrophils (%) (Auto) , Lymphocytes (%) (Auto) , Monocytes (%) (Auto) , Eosinophils (%) (Auto) , Basophils (%) (Auto) , Neutrophils % (Manual) [Pending], Lymphocytes % (Manual) [Pending], Platelet Estimate [Pending], Platelet Morphology [Pending], D-Dimer [ Pending], Sodium Level 161*H, Potassium Level 2.4*L, Chloride Level 120H, Carbon Dioxide Level 34H, Anion Gap 8, Blood Urea Nitrogen 15, Creatinine 0.6, Estimat Glomerular Filtration Rate > 60, Glucose Level 275H, Uric Acid 1.9L, Calcium Level 7.9L, Phosphorus Level 1.6L, Magnesium Level 2.1, Total Bilirubin 0.3, Aspartate Amino Transf (AST/SGOT) 33, Alanine Aminotransferase (ALT/SGPT) 26, Alkaline Phosphatase 109, Lactate Dehydrogenase 356H, C-Reactive Protein, Quantitative [Pending], Total Protein 5.9L, Albumin 1.6L, Globulin 4.3, Albumin/ Globulin Ratio 0.4L Height (Feet): 5 Height (Inches): 4.00 Weight (Pounds): 110 Objective General: NAD, laying in bed comfortably, AAO x3 HEENT: NCAT, EOMi, mucous membranes moist CV: RRR, no murmurs, rubs, or gallops Pulm: CTAB, No wheezes, rhonchi, or rales, no accessory muscle usage GI: Soft, nontender, nondistended, bowel sounds present Ext: No lower extremity edema bilaterally : Neal in place, draining yellow urine Neuro: CN II-XII grossly intact, sensation intact bilaterally, MS 5/5 in UE/LE B /L Silke Adorno M.D. Jul 17, 2019 09:11
--- NOTE | 2019-07-17 09:53 | NUR ---
*-* NO INSURANCE INFORMATION IN THE BAR UNABLE TO SEND CLINICALS OR REVIEWS *-*
[2019-07-17] MEDS: levETIRAcetam 500mg/NS100ml 100 ML IVPB SCH ×2 (09:59→22:17)
[2019-07-17] MEDS: Phospha 250 Neutral tab ORAL SCH ×3 (10:03→18:53)
[2019-07-17] MEDS: Pantoprazole Inj IVP SCH (10:03)
[2019-07-17] MEDS: Potassium Phosphate 15mm/250ml 250 ML IVPB SCH ×2 (11:34→18:51)
--- NOTE | 2019-07-17 11:55 | General Progress Note ---
Assessment/Plan Problem List: (1) Abnormal thyroid blood test ICD Codes: R79.89 - Other specified abnormal findings of blood chemistry SNOMED: 126993959, 336084639470935 (2) Diabetes mellitus out of control ICD Codes: E11.65 - Type 2 diabetes mellitus with hyperglycemia SNOMED: 62721356, 229943291 (3) DKA (diabetic ketoacidoses) ICD Codes: E11.10 - Type 2 diabetes mellitus with ketoacidosis without coma SNOMED: 259813596, 48277412 (4) STEMI (ST elevation myocardial infarction) ICD Codes: I21.3 - ST elevation (STEMI) myocardial infarction of unspecified site SNOMED: 756558109 (5) Prolonged Q-T interval on ECG ICD Codes: R94.31 - Abnormal electrocardiogram [ECG] [EKG] SNOMED: 246103677 (6) Atrial fibrillation with rapid ventricular response ICD Codes: I48.91 - Unspecified atrial fibrillation SNOMED: 144949165891950 (7) Hypernatremia ICD Codes: E87.0 - Hyperosmolality and hypernatremia SNOMED: 077940348, 18391464 Assessment/Plan: Levemir 18 units x one now increase Levemir to 16 units qhs increase Novolog to 8 units ac tid continue NISS ac / hs continue to hold Levothyroxine Subjective Allergies: Coded Allergies: No Known Allergies (Unverified , 07/18/14) All Systems: reviewed and negative except above Subjective events noted interval notes reviewed DKA resolved Glucose elevated while on dextrose infusion Item Value Date Time Bedside Blood Glucose 257 mg/dl H 07/17/19 0640 Bedside Blood Glucose 295 mg/dl H 07/16/19 2219 Bedside Blood Glucose 390 mg/dl H 07/16/19 1722 Bedside Blood Glucose 287 mg/dl H 07/16/19 1249 Objective Last 24 Hour Vital Signs Date Time Temp Pulse Resp B/P (MAP) Pulse Ox O2 Delivery O2 Flow Rate FiO2 07/17/19 10:03 107 131/63 07/17/19 08:00 99.7 107 20 131/63 (85) 97 07/17/19 04:00 96.8 101 19 125/56 (79) 98 07/17/19 04:00 101 07/17/19 00:00 97.7 101 19 112/58 (76) 98 07/17/19 00:00 101 07/16/19 20:57 107 116/57 07/16/19 20:00 106 07/16/19 20:00 97.0 107 20 116/57 (76) 98 07/16/19 16:00 105 07/16/19 16:00 Room Air 07/16/19 16:00 98.0 103 20 118/59 (78) 97 07/16/19 12:24 98 07/16/19 12:00 Room Air 07/16/19 12:00 98.1 97 19 117/76 (90) 97 Intake and Output 07/16/19 07/17/19 19:00 07:00 Intake Total 2277.888 ml Output Total 1400 ml Balance 2277.888 ml -1400 ml Intake Oral 234 ml IV Total 2043.888 ml Output Urine Total 1400 ml # Voids 1 # Bowel Movements 2 Laboratory Tests 07/16/19 14:00: Acetone, Qualitative Positive 07/17/19 07:05: White Blood Count 8.0, Red Blood Count 3.95L, Hemoglobin 12.5, Hematocrit 34.7L , Mean Corpuscular Volume 88, Mean Corpuscular Hemoglobin 31.7H, Mean Corpuscular Hemoglobin Concent 36.1H, Red Cell Distribution Width 12.1, Platelet Count 56L, Mean Platelet Volume 8.1, Neutrophils (%) (Auto) , Lymphocytes (%) (Auto) , Monocytes (%) (Auto) , Eosinophils (%) (Auto) , Basophils (%) (Auto) , Differential Total Cells Counted 100, Neutrophils % ( Manual) 82H, Lymphocytes % (Manual) 15L, Monocytes % (Manual) 2, Eosinophils % ( Manual) 1, Basophils % (Manual) 0, Band Neutrophils 0, Platelet Estimate DecreasedL, Platelet Morphology Normal, Red Blood Cell Morphology Normal, D- Dimer 2.86H, Sodium Level 161*H, Potassium Level 2.4*L, Chloride Level 120H, Carbon Dioxide Level 34H, Anion Gap 8, Blood Urea Nitrogen 15, Creatinine 0.6, Estimat Glomerular Filtration Rate > 60, Glucose Level 275H, Uric Acid 1.9L, Calcium Level 7.9L, Phosphorus Level 1.6L, Magnesium Level 2.1, Total Bilirubin 0.3, Aspartate Amino Transf (AST/SGOT) 33, Alanine Aminotransferase (ALT/SGPT) 26, Alkaline Phosphatase 109, Lactate Dehydrogenase 356H, C-Reactive Protein, Quantitative 24.1H, Total Protein 5.9L, Albumin 1.6L, Globulin 4.3, Albumin/ Globulin Ratio 0.4L Height (Feet): 5 Height (Inches): 4.00 Weight (Pounds): 110 General Appearance: no apparent distress Neck: normal alignment Cardiovascular: normal rate Respiratory/Chest: lungs clear Abdomen: normal bowel sounds Pelvis: normal external exam Objective Current Medications Medications (Trade) Dose Ordered Sig/Alvin Route PRN Reason Start Time Stop Time Status Last Admin Dose Admin Acetaminophen (Tylenol) 650 mg Q4H PRN ORAL Temp >100.5 07/16/19 13:15 08/14/19 13:14 Acetaminophen (Tylenol) 650 mg Q4H PRN ORAL For Pain 07/16/19 14:00 08/14/19 13:59 Atorvastatin Calcium (Lipitor) 40 mg BEDTIME ORAL 07/16/19 21:00 10/13/19 20:59 07/16/19 20:56 Dextrose 1,000 ml @ 100 mls/hr Q10H IV 07/16/19 13:15 08/15/19 09:59 07/17/19 09:15 Dextrose (Dextrose 50%) 25 ml Q30M PRN IV Hypoglycemia 07/16/19 13:15 10/12/19 21:44 Dextrose (Dextrose 50%) 50 ml Q30M PRN IV Hypoglycemia 07/16/19 13:15 10/12/19 21:44 Insulin Aspart (NovoLOG) AC+HS SUBQ 07/16/19 16:30 10/13/19 09:29 07/17/19 06:40 Insulin Aspart (NovoLOG) 4 units NOVOTIAC SUBQ 07/16/19 16:50 10/14/19 11:49 07/17/19 06:39 Insulin Detemir (Levemir) 12 units QHS SUBQ 07/16/19 21:00 10/14/19 20:59 07/16/19 22:19 Levetiracetam 100 ml @ 400 mls/hr Q12HR IVPB 07/16/19 21:00 10/13/19 10:59 07/17/19 09:59 Meropenem 1 gm/ Sodium Chloride 100 ml @ 200 mls/hr Q12HR IVPB 07/16/19 21:00 07/21/19 20:59 07/17/19 10:02 Metoprolol Tartrate (Lopressor) 25 mg Q12HR ORAL 07/16/19 21:00 10/13/19 20:59 07/17/19 10:03 Pantoprazole (Protonix) 40 mg EVERY 12 HOURS IVP 07/16/19 21:00 08/14/19 12:59 07/17/19 10:03 Phosphorus (Phospha 250 Neutral) 250 mg THREE TIMES A DAY ORAL 07/16/19 18:00 08/14/19 12:59 07/17/19 10:03 Potassium Phosphate 250 ml @ 62.5 mls/hr Q4H IVPB 07/17/19 11:00 07/17/19 18:59 07/17/19 11:34 Potassium Chloride (K-Dur) 40 meq TID ORAL 07/17/19 09:15 10/15/19 09:14 07/17/19 10:03 Sodium Citrate (Bicitra) 30 ml EVERY 6 HOURS ORAL 07/16/19 18:00 08/14/19 12:29 07/17/19 06:37 Tramadol HCl (Ultram) 25 mg Q6H PRN ORAL Severe Breakthru Pain (>7) 07/16/19 14:00 07/22/19 13:59 Pola Medrano MD Jul 17, 2019 11:55
[2019-07-17] MEDS ORDERED: Levemir Flexpen SUBQ SCH (12:00)
--- NOTE | 2019-07-17 13:31 | Nephrology Progress Note ---
Assessment/Plan Problem List: (1) Hypernatremia Assessment: Improving (2) UTI (urinary tract infection) (3) Subdural hematoma (4) DKA (diabetic ketoacidoses) (5) Electrolyte imbalance Assessment Hypernatremia most likely due to free water deficit Hypokalemia, hypophosphatemia Hyperglycemia and DKA Evidence of UTI Right-sided weakness with 3 mm subdural hematoma found in CT scan Plan Change Protonix to p.o. Hypotonic IV solution, IV was changed to D5W Potassium and phosphorus and magnesium supplement as needed Diet started as the patient is more alert Low dose of Lopressor Monitor renal parameters and electrolytes Neuro eval noted Keep the blood pressure and blood sugar in check Urine studies Per orders Subjective ROS Limited/Unobtainable: No Constitutional: Reports: malaise, weakness Objective Objective Last 24 Hour Vital Signs Date Time Temp Pulse Resp B/P (MAP) Pulse Ox O2 Delivery O2 Flow Rate FiO2 07/17/19 10:03 107 131/63 07/17/19 08:00 99.7 107 20 131/63 (85) 97 07/17/19 08:00 106 07/17/19 04:00 96.8 101 19 125/56 (79) 98 07/17/19 04:00 101 07/17/19 00:00 97.7 101 19 112/58 (76) 98 07/17/19 00:00 101 07/16/19 20:57 107 116/57 07/16/19 20:00 106 07/16/19 20:00 97.0 107 20 116/57 (76) 98 07/16/19 16:00 105 07/16/19 16:00 Room Air 07/16/19 16:00 98.0 103 20 118/59 (78) 97 Intake and Output 07/16/19 07/17/19 19:00 07:00 Intake Total 2277.888 ml Output Total 1400 ml Balance 2277.888 ml -1400 ml Intake Oral 234 ml IV Total 2043.888 ml Output Urine Total 1400 ml # Voids 1 # Bowel Movements 2 Laboratory Tests 07/16/19 14:00: Acetone, Qualitative Positive 07/17/19 07:05: White Blood Count 8.0, Red Blood Count 3.95L, Hemoglobin 12.5, Hematocrit 34.7L , Mean Corpuscular Volume 88, Mean Corpuscular Hemoglobin 31.7H, Mean Corpuscular Hemoglobin Concent 36.1H, Red Cell Distribution Width 12.1, Platelet Count 56L, Mean Platelet Volume 8.1, Neutrophils (%) (Auto) , Lymphocytes (%) (Auto) , Monocytes (%) (Auto) , Eosinophils (%) (Auto) , Basophils (%) (Auto) , Differential Total Cells Counted 100, Neutrophils % ( Manual) 82H, Lymphocytes % (Manual) 15L, Monocytes % (Manual) 2, Eosinophils % ( Manual) 1, Basophils % (Manual) 0, Band Neutrophils 0, Platelet Estimate DecreasedL, Platelet Morphology Normal, Red Blood Cell Morphology Normal, D- Dimer 2.86H, Sodium Level 161*H, Potassium Level 2.4*L, Chloride Level 120H, Carbon Dioxide Level 34H, Anion Gap 8, Blood Urea Nitrogen 15, Creatinine 0.6, Estimat Glomerular Filtration Rate > 60, Glucose Level 275H, Uric Acid 1.9L, Calcium Level 7.9L, Phosphorus Level 1.6L, Magnesium Level 2.1, Total Bilirubin 0.3, Aspartate Amino Transf (AST/SGOT) 33, Alanine Aminotransferase (ALT/SGPT) 26, Alkaline Phosphatase 109, Lactate Dehydrogenase 356H, C-Reactive Protein, Quantitative 24.1H, Total Protein 5.9L, Albumin 1.6L, Globulin 4.3, Albumin/ Globulin Ratio 0.4L Height (Feet): 5 Height (Inches): 4.00 Weight (Pounds): 110 General Appearance: no apparent distress, lethargic Cardiovascular: tachycardia Objective No change Yash Hernandes MD Jul 17, 2019 13:31
--- NOTE | 2019-07-17 14:25 | NUR ---
DISCHARGE PLANNING DISCHARGE PLANNING ORDER NOTED WILL REFER TO [facility]ASMIN MARRERO,[facility]CCORD AND [facility] PATIENT WILL NEED PHYSICAL THERAPY EVAL AND AUTHORIZATION/APPROVAL FROM [facility] FOR SNF PLACEMENT
--- NOTE | 2019-07-17 14:54 | NUR ---
BEDSIDE SWALLOW EVALUATION REFERRED FOR SWALLOW EVALUATION BY DR WILKINS (SEE FULL REPORT IN ST CARE ACTIVITY SECTION) DYSPHAGIA RISK FACTORS FOR THIS 64 Y.O.FEMALE: ACUTE: SUBDURAL HEMATOMA W/ RIGHT SIDED WEAKNESS, AFIB, UTI, STEMI POLST: PT IS FULL CODE RESPIRATORY: PT IS ON ROOM AIR. 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 PT OBSERVED W/ ADEQUATE LIP CLOSURE, SLIGHTLY SLOW TONGUE ROM. HAS INTACT DENTITION. REFLEXIVE AND VOLUNTARY COUGH IS WEAK. -GIVEN THIN LIQUIDS VIA STRAW SEQUENTIAL SIPS, (WEAK) COUGHED ON THE LAST SWALLOW AFTER FINISHING 3 0Z OF WATER (LEDBETTER SWALLOW PROTOCOL). -GIVEN NECTAR THICK LIQUIDS VIA STRAW SEQUENTIAL SIP, NO OVERT ASPIRATION. -GIVEN PUREED, NO ORAL RESIDUE NOR OVERT ASPIRATION. -GIVEN CHEWABLE SOLIDS, PROLONGED MASTICATION TIMING, MILD ORAL RESIDUE REMAINING IN ORAL CAVITY S/P SWALLOW, PT W/ WEAK COUGH AND OVERT S/S OF ASPIRATION PT PRESENTING A HIGH ASPIRATION RISK DUE TO ACUTE SUBDURAL HEMATOMA W/ RIGHT SIDED WEAKNESS RECOMMENDATIONS: -CONTINUE PUREE SOLIDS WITH NECTAR THICK LIQUIDS DIET. -CONSIDER MOD BARIUM SWALLOW STUDY IP (OR OP IF D/C) TO FURTHER ASSESS SWALLOW, DETERMINE SILENT ASPIRATION RISK/ETIOLOGY, AND ATTEMPT TRIAL TX TECHNIQUES. -SKILLED DYSPHAGIA MANAGEMENT AND TX AND COG-COM EVAL/TX FOR COMMUNICATION TIPS. -EDUCATED/TRAINED STAFF IN POSTED PRECAUTIONS
--- NOTE | 2019-07-17 15:14 | NUR ---
*-*DISCHARGE PLANNING*-* PATIENT HAS BEEN REFERRED TO: [facility] P: [phone] [facility] P: [phone] [facility] P: [phone] Addendum: 07/18/19 at 1231 by GIRISH DELEON CM *-*DISCHARGE PLANNING*-* PATIENT HAS BEEN REFERRED TO: [facility] P: [phone] S/[facility], NOT ACCEPTING ANY PATIENT UNTIL THE END OF THE WEEK [facility] P: [phone] S/W SARAH BETH, STATED UNABLE TO ACCEPT PATIENT, NOT CONTACTED W/ [employer] [facility] P: [phone] S/W RAFAEL, NO BEDS AVAILABLE
--- NOTE | 2019-07-17 19:50 | NUR ---
NURSE NOTES: Received patient from PAULINA Mclaughlin. Pt is Sammarinese and Romanian speaking. Pt is lying supine in bed, no signs of cardiac or respiratory distress at this time. Alert/oriented x2. Call light within reach, bed in lowest position and locked, side rails up x2, bed alarm on. pt has neal catheter for urinary for retention. Will continue to monitor pt.
--- NOTE | 2019-07-17 19:55 | NUR ---
HAND-OFF: Report given to Ana/PAULINA pt in stable condition, talkative.
--- NOTE | 2019-07-17 20:00 | NUR ---
NURSE NOTES: Pt noted to have potentially unstageable sore on the sacrum, one area has partial thickness loss, other area dark and nonblanchable all posterior medial sacral. Optifoam applied. Also noted right dorsum of foot has nonblanchable darkness
[2019-07-17] MEDS: Levemir Flexpen SUBQ SCH (21:00)
[2019-07-17] MEDS: Atorvastatin 20mg tab ORAL SCH (22:19)
--- NOTE | 2019-07-17 22:26 | Neurology Progress Note ---
Interim History Interim History ROS Limited/Unobtainable: No Interim History less somnolent, more interactive today Review of Systems All Systems: reviewed and negative except above Objective Physical Exam Last Vital Signs Date Time Temp Pulse Resp B/P (MAP) Pulse Ox O2 Delivery O2 Flow Rate FiO2 07/17/19 21:00 90 108/62 07/17/19 20:00 101.1 28 93 07/17/19 09:00 Room Air Laboratory Tests Test 07/17/19 07:05 White Blood Count 8.0 K/UL (4.8-10.8) Red Blood Count 3.95 M/UL (4.20-5.40) L Hemoglobin 12.5 G/DL (12.0-16.0) Hematocrit 34.7 % (37.0-47.0) L Mean Corpuscular Volume 88 FL (80-99) Mean Corpuscular Hemoglobin 31.7 PG (27.0-31.0) H Mean Corpuscular Hemoglobin Concent 36.1 G/DL (32.0-36.0) H Red Cell Distribution Width 12.1 % (11.6-14.8) Platelet Count 56 K/UL (150-450) L Mean Platelet Volume 8.1 FL (6.5-10.1) Neutrophils (%) (Auto) % (45.0-75.0) Lymphocytes (%) (Auto) % (20.0-45.0) Monocytes (%) (Auto) % (1.0-10.0) Eosinophils (%) (Auto) % (0.0-3.0) Basophils (%) (Auto) % (0.0-2.0) Differential Total Cells Counted 100 Neutrophils % (Manual) 82 % (45-75) H Lymphocytes % (Manual) 15 % (20-45) L Monocytes % (Manual) 2 % (1-10) Eosinophils % (Manual) 1 % (0-3) Basophils % (Manual) 0 % (0-2) Band Neutrophils 0 % (0-8) Platelet Estimate Decreased L Platelet Morphology Normal Red Blood Cell Morphology Normal D-Dimer 2.86 mg/L FEU (0.00-0.49) H Sodium Level 161 MMOL/L (136-145) *H Potassium Level 2.4 MMOL/L (3.5-5.1) *L Chloride Level 120 MMOL/L (98-107) H Carbon Dioxide Level 34 MMOL/L (21-32) H Anion Gap 8 mmol/L (5-15) Blood Urea Nitrogen 15 mg/dL (7-18) Creatinine 0.6 MG/DL (0.55-1.30) Estimat Glomerular Filtration Rate > 60 mL/min (>60) Glucose Level 275 MG/DL (74-106) H Uric Acid 1.9 MG/DL (2.6-7.2) L Calcium Level 7.9 MG/DL (8.5-10.1) L Phosphorus Level 1.6 MG/DL (2.5-4.9) L Magnesium Level 2.1 MG/DL (1.8-2.4) Total Bilirubin 0.3 MG/DL (0.2-1.0) Aspartate Amino Transf (AST/SGOT) 33 U/L (15-37) Alanine Aminotransferase (ALT/SGPT) 26 U/L (12-78) Alkaline Phosphatase 109 U/L (46-116) Lactate Dehydrogenase 356 U/L (81-234) H C-Reactive Protein, Quantitative 24.1 mg/dL (0.00-0.90) H Total Protein 5.9 G/DL (6.4-8.2) L Albumin 1.6 G/DL (3.4-5.0) L Globulin 4.3 g/dL Albumin/Globulin Ratio 0.4 (1.0-2.7) L Head: normocophalic Neck: no rigidity EENT: benign Neurologic Exam Mental Status: awake Speech: normal speech Language: normal language Cranial Nerve VII: no facial asymmetry Objective somnolent, wakes up. Oriented x 2 Non focal cc 35 min Impression/Recommendations Problems: (1) STEMI (ST elevation myocardial infarction) (2) Atrial fibrillation with rapid ventricular response (3) Prolonged Q-T interval on ECG (4) DKA (diabetic ketoacidoses) (5) Hypernatremia (6) UTI (urinary tract infection) (7) Subdural hematoma Diagnostic Impression Repeat ct brain this am stable from prior. cont keppra ppx 500 mg bid - if too sedating will lower to 250 SBP < 150 Speech eval pending PT Chandra Hackett MD Jul 17, 2019 22:26
[2019-07-18] VITALS: BP 112/60
[2019-07-18 04:34] VITALS: BP 125/71
[2019-07-18] MEDS: NovoLOG Insulin Flexpen SUBQ SCH ×6 (06:27→18:10)
--- NOTE | 2019-07-18 07:37 | NUR ---
HAND-OFF: Report given to PAULINA Mclaughlin.
[2019-07-18 08:00] VITALS: BP 117/67
--- NOTE | 2019-07-18 08:26 | NUR ---
RD ASSESSMENT & RECOMMENDATIONS SEE CARE ACTIVITY FOR COMPLETE ASSESSMENT DAILY ESTIMATED NEEDS: Needs based on DM 61.5kg 25-30 kcals/kg 3512-5684 total kcals 1.25-1.5 g protein/kg 77-92 g total protein 25-30 mL/kg 1212-7236 total fluid mLs NUTRITION DIAGNOSIS: Altered nutrition related lab values r/t DKA, clinical status as evidenced by A1C 10.4, BG 423 on adm, (+) acetone, now w/ critically elev Na(161*) and low K(2.4*). CURRENT DIET: CCHO LOW puree + NTL PO DIET RECOMMENDATIONS: CCHO LOW diet/ texture per [employer] ADDITIONAL RECOMMENDATIONS: 1) W/ variable po intake add Glucerna 1 tetra per day Add high pro/1 carb snacks in b/w meals 2) On D5 for hydration, monitor BG 3) Wound care: Add VALARIE BID + Vit C 250mg daily (f/up w/ WC eval) 4) Obtain a calibrated bed scale wts EMR wt: 110# vs Bed scale wt: 135#
[2019-07-18 08:58] LABS: HEMATOCRIT 32.2 % (37.0-47.0); MEAN CORPUSCULAR VOLUME 90 FL (80-99); PLATELET COUNT 52 K/UL (150-450); RED BLOOD COUNT 3.57 M/UL (4.20-5.40); RED CELL DISTRIBUTION WIDTH 12.3 % (11.6-14.8); WHITE BLOOD COUNT 6.3 K/UL (4.8-10.8)
--- NOTE | 2019-07-18 09:02 | NUR ---
CASE MANAGEMENT:REVIEW 07/18/19 SI: SEPSIS D/T E COLI BACTEREMIA AND UTI. DKA 99.5 97 26 125/71 98% ON RA H/H-11.0/32.2 PLT-52 IS: IV MEROPENEM Q12 IVF@100/HR LOPRESSOR PO Q12 PROTONIX PO QD LEVEMIR SQ QHS INSULIN SQ TID AC K-DUR PO TID IV KEPPRA Q12 LIPITOR PO QHS : TELEMETRY STATUS DCP: FROM HOME PLAN: REFERRED TO [facility]
--- NOTE | 2019-07-18 09:17 | General Progress Note ---
Assessment/Plan Assessment/Plan: 64-year-old female with PMH of medical noncompliance, DM type II who presents with b/l weakness, N/V, GLF, on admission pt found to be in DKA with BG 500's. #DKA - improved #E. coli UTI #E. coli bacteremia #Uncontrolled DM, Hgb A1C 10.4 -continue in-patient medical care -s/p DKA protocol with improved AG, AG 21-> 14 -CT abd reviewed -07/13: UCx e. coli -07/13: BCx w/E. coli 05/07 -07/15: BCx NGTD -cont. accuchecks, ISS qAC/HS -levemir 16 U qHS, Novolog 8 U qAC -ID, Dr. Bagley: merrem -Endo consulted, recs appreciated #Right sided weakness #Generalized Weakness #SDH 3mm no midline shift -pt AOx3, pt noted fall 3 days ago -found on CT head, repeat CT head stable -STAT CT head obtained given worsening weakness, stable compared to previous -d/w Neuro, no need for transfer at this time, will decrease keppra -cont. fall precautions -PT treat and eval -Neurology consulted, Dr. Fountain, recs appreciated -CM for d/c planning #Elevated d-dimer #Tachycardia - improved -can be multifactorial given infection, however concern for PE, PE ruled out -EKG w/NSR -CTA thorax negative for PE -likely 2/2 dehydration, encourage PO intake #Hypernatremia #Hypokalemia #Hypophosphatemia -Hypernatremia likely 2/2 free water deficit -replace electrolytes, cont. to monitor and replace PRN -d/w nephro, cont. neal for accurate I's and O's -Nephro consulted, IVF and electrolytes per nephro -will give K Phos today DVT - SCDs for now given SDH I spent 35 minutes on this patient's case, and 50% was dedicated to counseling and/or care coordination witch included communication with RN, consulting MDs. Subjective Allergies: Coded Allergies: No Known Allergies (Unverified , 07/18/14) Subjective F/u DKA, UTI, hypernatremia, SDH. Na remains elevated, downtrending. Pt notes b/l weakness, denies SOB, CP. Exam done w/family engagement specialist as pt speaks both Mohawk, Cymro and understands some Ethiopian. Objective Last 24 Hour Vital Signs Date Time Temp Pulse Resp B/P (MAP) Pulse Ox O2 Delivery O2 Flow Rate FiO2 07/18/19 08:00 99.1 95 18 117/67 (84) 93 07/18/19 04:34 99.5 97 26 125/71 (89) 98 07/18/19 03:39 95 07/18/19 00:00 98.9 90 24 112/60 (77) 96 07/17/19 23:29 87 07/17/19 21:00 90 108/62 07/17/19 21:00 Room Air 07/17/19 20:00 95 07/17/19 20:00 101.1 95 28 110/62 (78) 93 07/17/19 16:00 98.4 99 20 119/72 (88) 94 07/17/19 16:00 93 07/17/19 12:01 99.0 90 20 114/57 (76) 100 07/17/19 12:00 93 07/17/19 10:03 107 131/63 Intake and Output 07/17/19 07/18/19 19:00 07:00 # Voids 3 # Bowel Movements 1 2 Laboratory Tests 07/18/19 07:40: White Blood Count 6.3, Red Blood Count 3.57L, Hemoglobin 11.0L, Hematocrit 32.2L , Mean Corpuscular Volume 90, Mean Corpuscular Hemoglobin 30.9, Mean Corpuscular Hemoglobin Concent 34.2, Red Cell Distribution Width 12.3, Platelet Count 52L, Mean Platelet Volume 8.1, Neutrophils (%) (Auto) , Lymphocytes (%) ( Auto) , Monocytes (%) (Auto) , Eosinophils (%) (Auto) , Basophils (%) (Auto) , Neutrophils % (Manual) [Pending], Lymphocytes % (Manual) [Pending], Platelet Estimate [Pending], Platelet Morphology [Pending], Sodium Level [Pending], Potassium Level [Pending], Chloride Level [Pending], Carbon Dioxide Level [ Pending], Blood Urea Nitrogen [Pending], Creatinine [Pending], Estimat Glomerular Filtration Rate [Pending], Glucose Level [Pending], Uric Acid [ Pending], Calcium Level [Pending], Phosphorus Level [Pending], Magnesium Level [ Pending], Total Bilirubin [Pending], Aspartate Amino Transf (AST/SGOT) [Pending] , Alanine Aminotransferase (ALT/SGPT) [Pending], Alkaline Phosphatase [Pending] , Troponin I [Pending], C-Reactive Protein, Quantitative [Pending], Pro-B-Type Natriuretic Peptide [Pending], Total Protein [Pending], Albumin [Pending], Globulin [Pending] Height (Feet): 5 Height (Inches): 4.00 Weight (Pounds): 110 Objective General: NAD, laying in bed comfortably, AAO x3 HEENT: NCAT, EOMi, mucous membranes moist CV: RRR, no murmurs, rubs, or gallops Pulm: CTAB, No wheezes, rhonchi, or rales, no accessory muscle usage GI: Soft, nontender, nondistended, bowel sounds present Ext: No lower extremity edema bilaterally : Neal in place, draining yellow urine Neuro: CN II-XII grossly intact, sensation intact bilaterally, MS 3/5 in UE, 0/ 5 LE B/L Silke Adorno M.D. Jul 18, 2019 09:17
[2019-07-18 09:25] LABS: ALANINE AMINOTRANSFERASE 29 U/L (12-78); ALBUMIN 1.4 G/DL (3.4-5.0); ALBUMIN/GLOBULIN RATIO 0.3 (1.0-2.7); ALKALINE PHOSPHATASE 98 U/L (46-116); ASPARTATE AMINO TRANSFERASE 46 U/L (15-37); BILIRUBIN,TOTAL 0.2 MG/DL (0.2-1.0); BLOOD UREA NITROGEN 12 mg/dL (7-18); CALCIUM 7.2 MG/DL (8.5-10.1); CHLORIDE 122 MMOL/L (98-107); CREATININE 0.5 MG/DL (0.55-1.30); PHOSPHORUS 2.3 MG/DL (2.5-4.9); SODIUM 159 MMOL/L (136-145)
[2019-07-18 09:29] LABS: CARBON DIOXIDE 27 MMOL/L (21-32)
--- NOTE | 2019-07-18 09:43 | NUR ---
*-* NO INSURANCE INFORMATION INT HE BAR UNABLE TO SEND CLINICALS OR REVIEWS *-*
[2019-07-18] MEDS: levETIRAcetam 500mg/NS100ml 100 ML IVPB SCH (09:56)
[2019-07-18] MEDS: Phospha 250 Neutral tab ORAL SCH ×3 (09:57→18:06)
[2019-07-18] MEDS ORDERED: Potassium Phosphate 30 MM in NS 275 ML IV ONE (11:00)
--- NOTE | 2019-07-18 13:20 | NUR ---
NURSE NOTES:WOUND CARE NOTES:PT noted to have rapid onset Sacral DTPI. Per Primary Nurse pt noted on previous shift to have non-blanching erythema and preventive measures were taken to reposition pt and off-load pressure. Despite repositioning and applying Moisture Barrier Paste pt noted to have further skin decline. Sacral DTPI is irregular shaped, Purple and indurated in colour over sacrococcygeal with surrounding non-blanching erythema along borders.(L)7.1cm x (W)6.5cm. Nutritional intake varies 30-45% per Primary nurse. Non-Blanching erythema without fluctuance noted to R and L heels. Both heels observed floated with pillows Off mattress. Tx.Plan: Apply Moisture Barrier Paste to Sacrum. Cover with Optifoam drsg. Change every 3 days and prn. Apply Cavilon Skin Barrier to both heels. Cover each heel with Optifoam drsg. Change every 7 days and prn. Reposition at least every 2hours or as tolerated. Off-load heels with pillow. APM/MEHDI Mattress overlay.
--- NOTE | 2019-07-18 13:42 | NUR ---
*-*DISCHARGE PLANNING*-* PATIENT HAS BEEN REFERRED TO: [facility] P: [phone] F: [phone] [facility] P: [phone] F: [phone] [facility] P: F: [phone] [facility] P: [phone] F: [phone] Addendum: 07/18/19 at 1539 by GIRISH DELEON CM PATIENT HAS BEEN REFERRED TO [facility] P: [phone] ~~~~~~~PHYSICAL THERAPY NOTES ARE PENDING~~~~~~~~~~~~~~ Addendum: 07/19/19 at 1208 by GIRISH DELEON CM PATIENT HAS BEEN REFERRED TO: [facility] P: [phone] [facility], UNABLE TO ACCEPT PATIENT [facility] P: [phone] [facility], NO AVAILABLE BEDS AT THIS MOMENT. [facility] P: [phone] [facility], NOT ACCEPTING PATIENTS AT THE MOMENT [facility] P: [phone] [facility], NOT ACCEPTING ANY BEDS AT THIS TIME
--- NOTE | 2019-07-18 13:49 | Diagnostic Imaging Report ---
Indications: Right-sided weakness Technique: Spiral acquisitions obtained through the brain. Angled axial and coronal 5 x 5 mm slices were reconstructed. Total dose length product 1072 mGycm. CTDI vol(s) 53 mGy. Dose reduction achieved using automated exposure control Comparison: 07/15/2019 Findings: Small subdural hematoma is again demonstrated along the left side of the posterior falx, and extending along the left right of the tentorium and to a slight extent along the right tentorium this is unchanged and does not result in any significant mass effect. No new intracranial hemorrhage. No edema. No mass effect nor midline shift. There is cortical volume loss, predominantly frontal and parietal, as well as mild central volume loss. Lyle-white differentiation is normal. There is minimal mastoid disease. The calvarium is intact. There is evidence of prior bilateral cataract surgery. The visualized sinuses are clear. Impression: Stable, since prior exam of 07/15/2019, small left parafalcine and bilateral left greater than right peritentorial subdural hematoma, not exhibiting any significant mass effect Negative for new intracranial bleed. No mass effect Age-related volume loss The CT scanner at [facility] is accredited by the [employer] and the scans are performed using protocols designed to limit radiation exposure to as low as reasonably achievable to attain images of sufficient resolution adequate for diagnostic evaluation.
[2019-07-18 15:00] VITALS: BP 119/66
--- NOTE | 2019-07-18 15:16 | General Progress Note ---
Assessment/Plan Problem List: (1) Abnormal thyroid blood test ICD Codes: R79.89 - Other specified abnormal findings of blood chemistry SNOMED: 997434155, 476206071059943 (2) Diabetes mellitus out of control ICD Codes: E11.65 - Type 2 diabetes mellitus with hyperglycemia SNOMED: 31664650, 446392015 (3) DKA (diabetic ketoacidoses) ICD Codes: E11.10 - Type 2 diabetes mellitus with ketoacidosis without coma SNOMED: 255508182, 94527601 (4) STEMI (ST elevation myocardial infarction) ICD Codes: I21.3 - ST elevation (STEMI) myocardial infarction of unspecified site SNOMED: 166784339 (5) Prolonged Q-T interval on ECG ICD Codes: R94.31 - Abnormal electrocardiogram [ECG] [EKG] SNOMED: 823208727 (6) Atrial fibrillation with rapid ventricular response ICD Codes: I48.91 - Unspecified atrial fibrillation SNOMED: 030194171815349 (7) Hypernatremia ICD Codes: E87.0 - Hyperosmolality and hypernatremia SNOMED: 668365955, 32483924 Assessment/Plan: continue Levemir 16 units qhs continue Novolog 8 units ac tid continue NISS ac / hs continue to hold Levothyroxine Subjective Allergies: Coded Allergies: No Known Allergies (Unverified , 07/18/14) All Systems: reviewed and negative except above Subjective events noted interval notes reviewed Item Value Date Time Bedside Blood Glucose 233 mg/dl H 07/18/19 1350 Bedside Blood Glucose 158 mg/dl H 07/18/19 0628 Bedside Blood Glucose 192 mg/dl H 07/17/19 2100 Bedside Blood Glucose 308 mg/dl H 07/17/19 1850 Bedside Blood Glucose 288 mg/dl H 07/17/19 1418 Objective Last 24 Hour Vital Signs Date Time Temp Pulse Resp B/P (MAP) Pulse Ox O2 Delivery O2 Flow Rate FiO2 07/18/19 15:00 98.1 91 18 119/66 (83) 95 07/18/19 09:57 95 117/67 07/18/19 09:00 Room Air 07/18/19 08:00 99.1 95 18 117/67 (84) 93 07/18/19 04:34 99.5 97 26 125/71 (89) 98 07/18/19 03:39 95 07/18/19 00:00 98.9 90 24 112/60 (77) 96 07/17/19 23:29 87 07/17/19 21:00 90 108/62 07/17/19 21:00 Room Air 07/17/19 20:00 95 07/17/19 20:00 101.1 95 28 110/62 (78) 93 07/17/19 16:00 98.4 99 20 119/72 (88) 94 07/17/19 16:00 93 Intake and Output 07/17/19 07/18/19 19:00 07:00 # Voids 3 # Bowel Movements 1 2 Laboratory Tests 07/18/19 07:40: White Blood Count 6.3, Red Blood Count 3.57L, Hemoglobin 11.0L, Hematocrit 32.2L , Mean Corpuscular Volume 90, Mean Corpuscular Hemoglobin 30.9, Mean Corpuscular Hemoglobin Concent 34.2, Red Cell Distribution Width 12.3, Platelet Count 52L, Mean Platelet Volume 8.1, Neutrophils (%) (Auto) , Lymphocytes (%) ( Auto) , Monocytes (%) (Auto) , Eosinophils (%) (Auto) , Basophils (%) (Auto) , Differential Total Cells Counted 100, Neutrophils % (Manual) 80H, Lymphocytes % (Manual) 16L, Monocytes % (Manual) 1, Eosinophils % (Manual) 1, Basophils % ( Manual) 0, Band Neutrophils 2, Platelet Estimate DecreasedL, Platelet Morphology Normal, Red Blood Cell Morphology Normal, Sodium Level 159H, Potassium Level 3.0L, Chloride Level 122H, Carbon Dioxide Level 27, Blood Urea Nitrogen 12, Creatinine 0.5L, Estimat Glomerular Filtration Rate > 60, Glucose Level 137#H, Uric Acid 1.6L, Calcium Level 7.2L, Phosphorus Level 2.3L, Magnesium Level 1.9, Total Bilirubin 0.2, Aspartate Amino Transf (AST/SGOT) 46H , Alanine Aminotransferase (ALT/SGPT) 29, Alkaline Phosphatase 98, Troponin I 0.045, C-Reactive Protein, Quantitative 14.1H, Pro-B-Type Natriuretic Peptide 436H, Total Protein 5.6L, Albumin 1.4L, Globulin 4.2, Albumin/Globulin Ratio 0.3L Height (Feet): 5 Height (Inches): 4.00 Weight (Pounds): 110 General Appearance: no apparent distress Neck: normal alignment Cardiovascular: normal rate Respiratory/Chest: lungs clear Abdomen: normal bowel sounds Objective Current Medications Medications (Trade) Dose Ordered Sig/Alvin Route PRN Reason Start Time Stop Time Status Last Admin Dose Admin Acetaminophen (Tylenol) 650 mg Q4H PRN ORAL Temp >100.5 07/16/19 13:15 08/14/19 13:14 Acetaminophen (Tylenol) 650 mg Q4H PRN ORAL For Pain 07/16/19 14:00 08/14/19 13:59 Atorvastatin Calcium (Lipitor) 40 mg BEDTIME ORAL 07/16/19 21:00 10/13/19 20:59 07/17/19 22:19 Dextrose 1,000 ml @ 100 mls/hr Q10H IV 07/16/19 13:15 08/15/19 09:59 07/18/19 05:58 Dextrose (Dextrose 50%) 25 ml Q30M PRN IV Hypoglycemia 07/16/19 13:15 10/12/19 21:44 Dextrose (Dextrose 50%) 50 ml Q30M PRN IV Hypoglycemia 07/16/19 13:15 10/12/19 21:44 Insulin Aspart (NovoLOG) AC+HS SUBQ 07/16/19 16:30 10/13/19 09:29 07/18/19 13:50 Insulin Aspart (NovoLOG) 8 units NOVOTIAC SUBQ 07/17/19 12:00 10/14/19 11:49 07/18/19 06:27 Insulin Detemir (Levemir) 16 units QHS SUBQ 07/17/19 21:00 10/14/19 20:59 07/17/19 21:00 Levetiracetam (Keppra) 250 mg Q12HR ORAL 07/18/19 21:00 09/01/19 20:59 Meropenem 1 gm/ Sodium Chloride 100 ml @ 200 mls/hr Q12HR IVPB 07/16/19 21:00 07/21/19 20:59 07/18/19 09:56 Metoprolol Tartrate (Lopressor) 25 mg Q12HR ORAL 07/16/19 21:00 10/13/19 20:59 07/18/19 09:57 Pantoprazole (Protonix) 40 mg DAILY ORAL 07/18/19 09:00 08/17/19 08:59 07/18/19 09:57 Phosphorus (Phospha 250 Neutral) 250 mg THREE TIMES A DAY ORAL 07/16/19 18:00 08/14/19 12:59 07/18/19 13:23 Potassium Phosphate 30 mm/ Sodium Chloride 285 ml @ 46.944 mls/ hr ONCE ONCE IV 07/18/19 11:00 07/18/19 17:04 07/18/19 13:25 Potassium Chloride (K-Dur) 40 meq TID ORAL 07/17/19 09:15 10/15/19 09:14 07/18/19 13:23 Tramadol HCl (Ultram) 25 mg Q6H PRN ORAL Severe Breakthru Pain (>7) 07/16/19 14:00 07/22/19 13:59 Pola Medrano MD Jul 18, 2019 15:16
--- NOTE | 2019-07-18 16:53 | NUR ---
PT Note PT vince completed, treatment initiated. Patient's LE's are flaccid. RN is aware. Patient can benefit from PT services to increase her muscle strength and balance to improve her functional mobility and gait. Addendum: 07/18/19 at 1654 by PING ESPINAL PT Amended: Links added.
--- NOTE | 2019-07-18 18:43 | Nephrology Progress Note ---
Assessment/Plan Problem List: (1) Hypernatremia Assessment: Improving (2) UTI (urinary tract infection) (3) Subdural hematoma (4) DKA (diabetic ketoacidoses) (5) Electrolyte imbalance Assessment Hypernatremia most likely due to free water deficit Hypokalemia, hypophosphatemia Hyperglycemia and DKA Evidence of UTI Right-sided weakness with 3 mm subdural hematoma found in CT scan Plan Change Protonix to p.o. Stop Neutra-Phos due to diarrhea Hypotonic IV solution, IV was changed to D5W Potassium and phosphorus and magnesium supplement as needed Diet started as the patient is more alert Low dose of Lopressor Monitor renal parameters and electrolytes Neuro eval noted Keep the blood pressure and blood sugar in check Urine studies Per orders Subjective ROS Limited/Unobtainable: No Constitutional: Reports: malaise Objective Objective Last 24 Hour Vital Signs Date Time Temp Pulse Resp B/P (MAP) Pulse Ox O2 Delivery O2 Flow Rate FiO2 07/18/19 15:00 98.1 91 18 119/66 (83) 95 07/18/19 09:57 95 117/67 07/18/19 09:00 Room Air 07/18/19 08:00 99.1 95 18 117/67 (84) 93 07/18/19 04:34 99.5 97 26 125/71 (89) 98 07/18/19 03:39 95 07/18/19 00:00 98.9 90 24 112/60 (77) 96 07/17/19 23:29 87 07/17/19 21:00 90 108/62 07/17/19 21:00 Room Air 07/17/19 20:00 95 07/17/19 20:00 101.1 95 28 110/62 (78) 93 Intake and Output 07/17/19 07/18/19 19:00 07:00 # Voids 3 # Bowel Movements 1 2 Current Medications Medications (Trade) Dose Ordered Sig/Alvin Route PRN Reason Start Time Stop Time Status Last Admin Dose Admin Acetaminophen (Tylenol) 650 mg Q4H PRN ORAL Temp >100.5 07/16/19 13:15 08/14/19 13:14 Acetaminophen (Tylenol) 650 mg Q4H PRN ORAL For Pain 07/16/19 14:00 08/14/19 13:59 Atorvastatin Calcium (Lipitor) 10 mg BEDTIME ORAL 07/18/19 21:00 10/13/19 20:59 UNV Dextrose 1,000 ml @ 100 mls/hr Q10H IV 07/16/19 13:15 08/15/19 09:59 07/18/19 05:58 Dextrose (Dextrose 50%) 25 ml Q30M PRN IV Hypoglycemia 07/16/19 13:15 10/12/19 21:44 Dextrose (Dextrose 50%) 50 ml Q30M PRN IV Hypoglycemia 07/16/19 13:15 10/12/19 21:44 Insulin Aspart (NovoLOG) AC+HS SUBQ 07/16/19 16:30 10/13/19 09:29 07/18/19 18:10 Insulin Aspart (NovoLOG) 8 units NOVOTIAC SUBQ 07/17/19 12:00 10/14/19 11:49 07/18/19 06:27 Insulin Detemir (Levemir) 16 units QHS SUBQ 07/17/19 21:00 10/14/19 20:59 07/17/19 21:00 Levetiracetam (Keppra) 250 mg Q12HR ORAL 07/18/19 21:00 09/01/19 20:59 Meropenem 1 gm/ Sodium Chloride 100 ml @ 200 mls/hr Q12HR IVPB 07/16/19 21:00 07/21/19 20:59 07/18/19 09:56 Metoprolol Tartrate (Lopressor) 25 mg Q12HR ORAL 07/16/19 21:00 10/13/19 20:59 07/18/19 09:57 Pantoprazole (Protonix) 40 mg DAILY ORAL 07/18/19 09:00 08/17/19 08:59 07/18/19 09:57 Potassium Chloride (K-Dur) 40 meq TID ORAL 07/17/19 09:15 10/15/19 09:14 07/18/19 18:06 Tramadol HCl (Ultram) 25 mg Q6H PRN ORAL Severe Breakthru Pain (>7) 07/16/19 14:00 07/22/19 13:59 Vancomycin HCl (Firvanq) 125 mg FOUR TIMES A DAY ORAL 07/18/19 21:00 07/28/19 20:59 Laboratory Tests 07/18/19 07:40: White Blood Count 6.3, Red Blood Count 3.57L, Hemoglobin 11.0L, Hematocrit 32.2L , Mean Corpuscular Volume 90, Mean Corpuscular Hemoglobin 30.9, Mean Corpuscular Hemoglobin Concent 34.2, Red Cell Distribution Width 12.3, Platelet Count 52L, Mean Platelet Volume 8.1, Neutrophils (%) (Auto) , Lymphocytes (%) ( Auto) , Monocytes (%) (Auto) , Eosinophils (%) (Auto) , Basophils (%) (Auto) , Differential Total Cells Counted 100, Neutrophils % (Manual) 80H, Lymphocytes % (Manual) 16L, Monocytes % (Manual) 1, Eosinophils % (Manual) 1, Basophils % ( Manual) 0, Band Neutrophils 2, Platelet Estimate DecreasedL, Platelet Morphology Normal, Red Blood Cell Morphology Normal, Sodium Level 159H, Potassium Level 3.0L, Chloride Level 122H, Carbon Dioxide Level 27, Blood Urea Nitrogen 12, Creatinine 0.5L, Estimat Glomerular Filtration Rate > 60, Glucose Level 137#H, Uric Acid 1.6L, Calcium Level 7.2L, Phosphorus Level 2.3L, Magnesium Level 1.9, Total Bilirubin 0.2, Aspartate Amino Transf (AST/SGOT) 46H , Alanine Aminotransferase (ALT/SGPT) 29, Alkaline Phosphatase 98, Troponin I 0.045, C-Reactive Protein, Quantitative 14.1H, Pro-B-Type Natriuretic Peptide 436H, Total Protein 5.6L, Albumin 1.4L, Globulin 4.2, Albumin/Globulin Ratio 0.3L Height (Feet): 5 Height (Inches): 4.00 Weight (Pounds): 110 General Appearance: no apparent distress Objective No change Yash Hernandes MD Jul 18, 2019 18:43
--- NOTE | 2019-07-18 19:59 | NUR ---
NURSE NOTES: report given to Meseret/RN pt in stable condition needs to be turned and changed every 2hrs.
[2019-07-18 20:00] VITALS: BP 118/70
--- NOTE | 2019-07-18 20:37 | Neurology Progress Note ---
Interim History Interim History ROS Limited/Unobtainable: No Review of Systems Neuro Review of Systems weaker in AM, got head ct brain stat, no changes reduced keppra due to somnolence Objective Physical Exam Last Vital Signs Date Time Temp Pulse Resp B/P (MAP) Pulse Ox O2 Delivery O2 Flow Rate FiO2 07/18/19 16:00 87 07/18/19 15:00 98.1 18 119/66 (83) 95 07/18/19 09:00 Room Air Laboratory Tests Test 07/18/19 07:40 White Blood Count 6.3 K/UL (4.8-10.8) Red Blood Count 3.57 M/UL (4.20-5.40) L Hemoglobin 11.0 G/DL (12.0-16.0) L Hematocrit 32.2 % (37.0-47.0) L Mean Corpuscular Volume 90 FL (80-99) Mean Corpuscular Hemoglobin 30.9 PG (27.0-31.0) Mean Corpuscular Hemoglobin Concent 34.2 G/DL (32.0-36.0) Red Cell Distribution Width 12.3 % (11.6-14.8) Platelet Count 52 K/UL (150-450) L Mean Platelet Volume 8.1 FL (6.5-10.1) Neutrophils (%) (Auto) % (45.0-75.0) Lymphocytes (%) (Auto) % (20.0-45.0) Monocytes (%) (Auto) % (1.0-10.0) Eosinophils (%) (Auto) % (0.0-3.0) Basophils (%) (Auto) % (0.0-2.0) Differential Total Cells Counted 100 Neutrophils % (Manual) 80 % (45-75) H Lymphocytes % (Manual) 16 % (20-45) L Monocytes % (Manual) 1 % (1-10) Eosinophils % (Manual) 1 % (0-3) Basophils % (Manual) 0 % (0-2) Band Neutrophils 2 % (0-8) Platelet Estimate Decreased L Platelet Morphology Normal Red Blood Cell Morphology Normal Sodium Level 159 MMOL/L (136-145) H Potassium Level 3.0 MMOL/L (3.5-5.1) L Chloride Level 122 MMOL/L (98-107) H Carbon Dioxide Level 27 MMOL/L (21-32) Blood Urea Nitrogen 12 mg/dL (7-18) Creatinine 0.5 MG/DL (0.55-1.30) L Estimat Glomerular Filtration Rate > 60 mL/min (>60) Glucose Level 137 MG/DL (74-106) #H Uric Acid 1.6 MG/DL (2.6-7.2) L Calcium Level 7.2 MG/DL (8.5-10.1) L Phosphorus Level 2.3 MG/DL (2.5-4.9) L Magnesium Level 1.9 MG/DL (1.8-2.4) Total Bilirubin 0.2 MG/DL (0.2-1.0) Aspartate Amino Transf (AST/SGOT) 46 U/L (15-37) H Alanine Aminotransferase (ALT/SGPT) 29 U/L (12-78) Alkaline Phosphatase 98 U/L (46-116) Troponin I 0.045 ng/mL (0.000-0.056) C-Reactive Protein, Quantitative 14.1 mg/dL (0.00-0.90) H Pro-B-Type Natriuretic Peptide 436 pg/mL (0-125) H Total Protein 5.6 G/DL (6.4-8.2) L Albumin 1.4 G/DL (3.4-5.0) L Globulin 4.2 g/dL Albumin/Globulin Ratio 0.3 (1.0-2.7) L Head: normocophalic Neck: no rigidity EENT: benign Neurologic Exam Mental Status: awake Speech: normal speech Language: normal language Cranial Nerve VII: no facial asymmetry Objective somnolent, wakes up. Oriented x 2 Non focal cc 35 min Impression/Recommendations Problems: (1) STEMI (ST elevation myocardial infarction) (2) Atrial fibrillation with rapid ventricular response (3) Prolonged Q-T interval on ECG (4) DKA (diabetic ketoacidoses) (5) Hypernatremia (6) UTI (urinary tract infection) (7) Subdural hematoma Diagnostic Impression repeat stat ct stable lowered keppra to 250 mg bid SBP < 150 PT OT consider Chandra Albrecht MD Jul 18, 2019 20:37
--- NOTE | 2019-07-18 20:51 | Infectious Diseases Prog Note ---
Assessment/Plan Assessment/Plan ASSESSMENT AND PLAN: 1. e.coli uti/pyelonephritis with bacteremia, sepsis, fevers, ? c.diff., diarrhea, gram neg sepsis - change to ceftriaxone - day # 4 abx - po vancomycin - f/u on c.diff. testing - monitor labs and temperatures - surveillance blood cultures - negative - communicated with Dr. Adorno 2. DKA. 3. Hypernatremia. 4. Diabetes type 2. 5. Ground-level fall. 6. Nausea and vomiting. 7. Diarrhea. 8. We will check stool studies. 9. Noncompliance. 10. Right-sided weakness. 11. Subdural hematoma with midline shift. 12. No known drug allergies. 13. Social history negative. 14. Family history noncontributory. 15. MAR was noted. 16. Case discussed with RN. 17. Continue treatment per primary consultants. 18. Orders were noted and entered. Subjective Constitutional: Reports: fever HEENT: Denies: congestion Respiratory: Denies: shortness of breath Cardiovascular: Denies: chest pain Gastrointestinal/Abdominal: Denies: nausea, vomiting, diarrhea Genitourinary: Reports: other - + neal Neurologic: Denies: headache Psychiatric: Reports: other - NA Skin: Denies: rash Hematologic: Denies: bleeding Musculoskeletal: Denies: pain Allergies: Coded Allergies: No Known Allergies (Unverified , 07/18/14) Objective Vital Signs Last 24 Hour Vital Signs Date Time Temp Pulse Resp B/P (MAP) Pulse Ox O2 Delivery O2 Flow Rate FiO2 07/18/19 16:00 87 07/18/19 15:00 98.1 91 18 119/66 (83) 95 07/18/19 12:00 84 07/18/19 09:57 95 117/67 07/18/19 09:00 Room Air 07/18/19 08:00 99.1 95 18 117/67 (84) 93 07/18/19 08:00 94 07/18/19 04:34 99.5 97 26 125/71 (89) 98 07/18/19 03:39 95 07/18/19 00:00 98.9 90 24 112/60 (77) 96 07/17/19 23:29 87 07/17/19 21:00 90 108/62 07/17/19 21:00 Room Air Height (Feet): 5 Height (Inches): 4.00 Weight (Pounds): 110 General Appearance: no acute distress HEENT: normocephalic, atraumatic, anicteric, mucous membranes moist Respiratory/Chest: lungs clear, normal breath sounds, no respiratory distress, no accessory muscle use Cardiovascular: normal rate, regular rhythm, no gallop/murmur, no JVD Abdomen: normal bowel sounds, soft, non tender, no organomegaly, non distended Genitourinary: other Extremities: no cyanosis Skin: no rash 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 No pulmonary embolus, somewhat limited at the bases due to motion. 2. Bibasilar lung atelectasis/airspace disease. 3. 3 mm nodule along the right middle lobe fissure. 3.6 mm nodule left lower lobe along the fissure. Fleischner Society Guidelines for low-risk patients, no follow-up is necessary. For high-risk patients (smoking history or other known risk factors) an optional chest CT at 12 months could be performed. 4. Mild bilateral perinephric stranding. May be senescent, correlate for infection. 5. Distended gallbladder with hyperdensity may be sludge or stones. 6. Prominent left lobe of the liver is slightly nodular in appearance. CT abdomen and pelvis: IMPRESSION: 1. Urinary bladder distention. 2. Mild heterogeneity of the lower pole of the left kidney may be artifactual. Infection is not excluded. Consider correlation with urinalysis, as clinically indicated. Mild bilateral renal pelviectasis and prominence of bilateral ureters is likely related to distention of the urinary bladder. Microbiology Date/Time Source Procedure Growth Status 07/16/19 15:15 Blood Blood Culture - Preliminary NO GROWTH AFTER 24 HOURS Resulted 07/14/19 20:40 Urine,Clean Catch Urine Culture - Final Escherichia Coli Complete Microbiology Date/Time Source Procedure Growth Status 07/16/19 15:15 Blood Blood Culture - Preliminary NO GROWTH AFTER 24 HOURS Resulted 07/16/19 15:00 Blood Blood Culture - Preliminary NO GROWTH AFTER 24 HOURS Resulted blood cultures - e.coli Laboratory Tests Test 07/18/19 07:40 White Blood Count 6.3 K/UL (4.8-10.8) Red Blood Count 3.57 M/UL (4.20-5.40) L Hemoglobin 11.0 G/DL (12.0-16.0) L Hematocrit 32.2 % (37.0-47.0) L Mean Corpuscular Volume 90 FL (80-99) Mean Corpuscular Hemoglobin 30.9 PG (27.0-31.0) Mean Corpuscular Hemoglobin Concent 34.2 G/DL (32.0-36.0) Red Cell Distribution Width 12.3 % (11.6-14.8) Platelet Count 52 K/UL (150-450) L Mean Platelet Volume 8.1 FL (6.5-10.1) Neutrophils (%) (Auto) % (45.0-75.0) Lymphocytes (%) (Auto) % (20.0-45.0) Monocytes (%) (Auto) % (1.0-10.0) Eosinophils (%) (Auto) % (0.0-3.0) Basophils (%) (Auto) % (0.0-2.0) Differential Total Cells Counted 100 Neutrophils % (Manual) 80 % (45-75) H Lymphocytes % (Manual) 16 % (20-45) L Monocytes % (Manual) 1 % (1-10) Eosinophils % (Manual) 1 % (0-3) Basophils % (Manual) 0 % (0-2) Band Neutrophils 2 % (0-8) Platelet Estimate Decreased L Platelet Morphology Normal Red Blood Cell Morphology Normal Sodium Level 159 MMOL/L (136-145) H Potassium Level 3.0 MMOL/L (3.5-5.1) L Chloride Level 122 MMOL/L (98-107) H Carbon Dioxide Level 27 MMOL/L (21-32) Blood Urea Nitrogen 12 mg/dL (7-18) Creatinine 0.5 MG/DL (0.55-1.30) L Estimat Glomerular Filtration Rate > 60 mL/min (>60) Glucose Level 137 MG/DL (74-106) #H Uric Acid 1.6 MG/DL (2.6-7.2) L Calcium Level 7.2 MG/DL (8.5-10.1) L Phosphorus Level 2.3 MG/DL (2.5-4.9) L Magnesium Level 1.9 MG/DL (1.8-2.4) Total Bilirubin 0.2 MG/DL (0.2-1.0) Aspartate Amino Transf (AST/SGOT) 46 U/L (15-37) H Alanine Aminotransferase (ALT/SGPT) 29 U/L (12-78) Alkaline Phosphatase 98 U/L (46-116) Troponin I 0.045 ng/mL (0.000-0.056) C-Reactive Protein, Quantitative 14.1 mg/dL (0.00-0.90) H Pro-B-Type Natriuretic Peptide 436 pg/mL (0-125) H Total Protein 5.6 G/DL (6.4-8.2) L Albumin 1.4 G/DL (3.4-5.0) L Globulin 4.2 g/dL Albumin/Globulin Ratio 0.3 (1.0-2.7) L Current Medications Medications (Trade) Dose Ordered Sig/Alvin Route PRN Reason Start Time Stop Time Status Last Admin Dose Admin Acetaminophen (Tylenol) 650 mg Q4H PRN ORAL Temp >100.5 07/16/19 13:15 08/14/19 13:14 Acetaminophen (Tylenol) 650 mg Q4H PRN ORAL For Pain 07/16/19 14:00 08/14/19 13:59 Atorvastatin Calcium (Lipitor) 10 mg BEDTIME ORAL 07/18/19 21:00 10/13/19 20:59 Dextrose 1,000 ml @ 100 mls/hr Q10H IV 07/16/19 13:15 08/15/19 09:59 07/18/19 05:58 Dextrose (Dextrose 50%) 25 ml Q30M PRN IV Hypoglycemia 07/16/19 13:15 10/12/19 21:44 Dextrose (Dextrose 50%) 50 ml Q30M PRN IV Hypoglycemia 07/16/19 13:15 10/12/19 21:44 Insulin Aspart (NovoLOG) AC+HS SUBQ 07/16/19 16:30 10/13/19 09:29 07/18/19 18:10 Insulin Aspart (NovoLOG) 8 units NOVOTIAC SUBQ 07/17/19 12:00 10/14/19 11:49 07/18/19 06:27 Insulin Detemir (Levemir) 16 units QHS SUBQ 07/17/19 21:00 10/14/19 20:59 07/17/19 21:00 Levetiracetam (Keppra) 250 mg Q12HR ORAL 07/18/19 21:00 09/01/19 20:59 Meropenem 1 gm/ Sodium Chloride 100 ml @ 200 mls/hr Q12HR IVPB 07/16/19 21:00 07/21/19 20:59 07/18/19 09:56 Metoprolol Tartrate (Lopressor) 25 mg Q12HR ORAL 07/16/19 21:00 10/13/19 20:59 07/18/19 09:57 Pantoprazole (Protonix) 40 mg DAILY ORAL 07/18/19 09:00 08/17/19 08:59 07/18/19 09:57 Potassium Chloride (K-Dur) 40 meq TID ORAL 07/17/19 09:15 10/15/19 09:14 07/18/19 18:06 Tramadol HCl (Ultram) 25 mg Q6H PRN ORAL Severe Breakthru Pain (>7) 07/16/19 14:00 07/22/19 13:59 Vancomycin HCl (Firvanq) 125 mg FOUR TIMES A DAY ORAL 07/18/19 21:00 07/28/19 20:59 Emerson Bagley MD Jul 18, 2019 20:51
[2019-07-18] MEDS: cefTRIAXone 1 GM in D5W 50 ML IVPB SCH (21:00)
[2019-07-18] MEDS: Vancomycin oral 125mg/2.5ml ORAL SCH (23:00)
[2019-07-18] MEDS: Levemir Flexpen SUBQ SCH (23:45)
[2019-07-19] VITALS (7 sets, daily range): BP systolic 95–147; BP diastolic 61–73
[2019-07-19] MEDS: NovoLOG Insulin Flexpen SUBQ SCH ×7 (00:03→17:15)
[2019-07-19 06:19] LABS: HEMATOCRIT 32.8 % (37.0-47.0); HEMOGLOBIN 11.7 G/DL (12.0-16.0); MEAN CORPUSCULAR VOLUME 90 FL (80-99); PLATELET COUNT 50 K/UL (150-450); RED BLOOD COUNT 3.66 M/UL (4.20-5.40)
[2019-07-19 07:11] LABS: ALANINE AMINOTRANSFERASE 36 U/L (12-78); ALBUMIN 1.6 G/DL (3.4-5.0); ALBUMIN/GLOBULIN RATIO 0.4 (1.0-2.7); ALKALINE PHOSPHATASE 122 U/L (46-116); ANION GAP 9 mmol/L (5-15); ASPARTATE AMINO TRANSFERASE 45 U/L (15-37); BILIRUBIN,TOTAL 0.3 MG/DL (0.2-1.0); BLOOD UREA NITROGEN 9 mg/dL (7-18); CALCIUM 7.9 MG/DL (8.5-10.1); CARBON DIOXIDE 27 MMOL/L (21-32); CHLORIDE 115 MMOL/L (98-107); CREATININE 0.5 MG/DL (0.55-1.30); PHOSPHORUS 2.2 MG/DL (2.5-4.9); POTASSIUM 3.9 MMOL/L (3.5-5.1); SODIUM 151 MMOL/L (136-145)
--- NOTE | 2019-07-19 08:39 | Nephrology Progress Note ---
Assessment/Plan Problem List: (1) Hypernatremia Assessment: Improving (2) UTI (urinary tract infection) (3) Subdural hematoma (4) DKA (diabetic ketoacidoses) (5) Electrolyte imbalance Assessment Hypernatremia most likely due to free water deficit Hypokalemia, hypophosphatemia Hyperglycemia and DKA Evidence of UTI Right-sided weakness with 3 mm subdural hematoma found in CT scan Plan Change Protonix to p.o. Stop Neutra-Phos due to diarrhea Hypotonic IV solution, IV was changed to D5W Potassium and phosphorus and magnesium supplement as needed Diet started as the patient is more alert Low dose of Lopressor Monitor renal parameters and electrolytes Neuro eval noted Keep the blood pressure and blood sugar in check Urine studies Per orders Subjective ROS Limited/Unobtainable: No Constitutional: Reports: malaise, weakness Objective Objective Last 24 Hour Vital Signs Date Time Temp Pulse Resp B/P (MAP) Pulse Ox O2 Delivery O2 Flow Rate FiO2 07/19/19 04:00 89 07/19/19 00:00 96 07/18/19 23:01 92 118/70 07/18/19 20:00 Room Air 07/18/19 20:00 94 07/18/19 16:00 87 07/18/19 15:00 98.1 91 18 119/66 (83) 95 07/18/19 12:00 84 07/18/19 09:57 95 117/67 07/18/19 09:05 Room Air 07/18/19 09:00 Room Air Intake and Output 07/18/19 07/19/19 19:00 07:00 Intake Total 1560 ml Output Total 2300 ml Balance -740 ml Intake Oral 1560 ml Output Urine Total 2300 ml # Bowel Movements 9 2 Current Medications Medications (Trade) Dose Ordered Sig/Alvin Route PRN Reason Start Time Stop Time Status Last Admin Dose Admin Acetaminophen (Tylenol) 650 mg Q4H PRN ORAL Temp >100.5 07/16/19 13:15 08/14/19 13:14 Acetaminophen (Tylenol) 650 mg Q4H PRN ORAL For Pain 07/16/19 14:00 08/14/19 13:59 Atorvastatin Calcium (Lipitor) 10 mg BEDTIME ORAL 07/18/19 21:00 10/13/19 20:59 07/18/19 23:00 Ceftriaxone Sodium 1 gm/ Dextrose 50 ml @ 100 mls/hr Q24H IVPB 07/18/19 21:00 07/25/19 20:59 07/18/19 21:00 Dextrose 1,000 ml @ 100 mls/hr Q10H IV 07/16/19 13:15 08/15/19 09:59 07/19/19 00:20 Dextrose (Dextrose 50%) 25 ml Q30M PRN IV Hypoglycemia 07/16/19 13:15 10/12/19 21:44 Dextrose (Dextrose 50%) 50 ml Q30M PRN IV Hypoglycemia 07/16/19 13:15 10/12/19 21:44 Insulin Aspart (NovoLOG) AC+HS SUBQ 07/16/19 16:30 10/13/19 09:29 07/19/19 06:27 Insulin Aspart (NovoLOG) 8 units NOVOTIAC SUBQ 07/17/19 12:00 10/14/19 11:49 07/19/19 06:36 Insulin Detemir (Levemir) 16 units QHS SUBQ 07/17/19 21:00 10/14/19 20:59 07/18/19 23:45 Levetiracetam (Keppra) 250 mg Q12HR ORAL 07/18/19 21:00 09/01/19 20:59 07/18/19 23:00 Metoprolol Tartrate (Lopressor) 25 mg Q12HR ORAL 07/16/19 21:00 10/13/19 20:59 07/18/19 23:01 Pantoprazole (Protonix) 40 mg DAILY ORAL 07/18/19 09:00 08/17/19 08:59 07/18/19 09:57 Potassium Chloride (K-Dur) 40 meq TID ORAL 07/17/19 09:15 10/15/19 09:14 07/18/19 18:06 Tramadol HCl (Ultram) 25 mg Q6H PRN ORAL Severe Breakthru Pain (>7) 07/16/19 14:00 07/22/19 13:59 Vancomycin HCl (Firvanq) 125 mg FOUR TIMES A DAY ORAL 07/18/19 21:00 07/28/19 20:59 07/18/19 23:00 Laboratory Tests 07/19/19 05:55: White Blood Count 6.0, Red Blood Count 3.66L, Hemoglobin 11.7L, Hematocrit 32.8L , Mean Corpuscular Volume 90, Mean Corpuscular Hemoglobin 31.9H, Mean Corpuscular Hemoglobin Concent 35.6, Red Cell Distribution Width 12.0, Platelet Count 50L, Mean Platelet Volume 8.3, Neutrophils (%) (Auto) , Lymphocytes (%) ( Auto) , Monocytes (%) (Auto) , Eosinophils (%) (Auto) , Basophils (%) (Auto) , Neutrophils % (Manual) [Pending], Lymphocytes % (Manual) [Pending], Platelet Estimate [Pending], Platelet Morphology [Pending], Sodium Level 151H, Potassium Level 3.9, Chloride Level 115H, Carbon Dioxide Level 27, Anion Gap 9, Blood Urea Nitrogen 9, Creatinine 0.5L, Estimat Glomerular Filtration Rate > 60, Glucose Level 247#H, Calcium Level 7.9L, Phosphorus Level 2.2L, Magnesium Level 2.3, Total Bilirubin 0.3, Aspartate Amino Transf (AST/SGOT) 45H, Alanine Aminotransferase (ALT/SGPT) 36, Alkaline Phosphatase 122H, C-Reactive Protein, Quantitative 12.0H, Total Protein 5.7L, Albumin 1.6L, Globulin 4.1, Albumin/ Globulin Ratio 0.4L Height (Feet): 5 Height (Inches): 4.00 Weight (Pounds): 110 General Appearance: no apparent distress, lethargic Cardiovascular: tachycardia Respiratory/Chest: decreased breath sounds Abdomen: soft Objective No change Yash Hernandes MD Jul 19, 2019 08:39
--- NOTE | 2019-07-19 08:43 | General Progress Note ---
Assessment/Plan Assessment/Plan: 64-year-old female with PMH of medical noncompliance, DM type II who presents with b/l weakness, N/V, GLF, on admission pt found to be in DKA with BG 500's. #DKA - improved, 2/2 #E. coli UTI #E. coli bacteremia #Uncontrolled DM, Hgb A1C 10.4 -continue in-patient medical care -s/p DKA protocol with improved AG, AG 21-> 14 -CT abd reviewed -07/13: UCx e. coli -07/13: BCx w/E. coli 05/07, repeat 07/15 BCx NGTD -cont. accuchcliftons, ISS qAC/HS -ID, Dr. Bagley: CTX, day #4 of abx, PO vanco for c diff -Endo following: increase Levemir to 24 units qhs, increase Novolog to 10 units ac tid #Right sided weakness #Generalized Weakness #SDH 3mm no midline shift -weakness may be multifactorial, metabolic -pt AOx3, pt noted fall 3 days ago -found on CT head, repeat CT head stable -07/17: CT head obtained given worsening weakness, stable compared to previous -d/w Neuro, no need for transfer at this time, will decrease keppra -cont. fall precautions -PT treat and eval -d/w Neurology, Dr. Fountain, weakness does not appear to be neurologic at this time -CM for d/c planning, plan for CRI on d/c #c. diff colitis -pt w/multiple episodes of loose stool -c.diff positive -ID following: PO vanc #Elevated d-dimer #Tachycardia - resolved -likely multifactorial given infection/DKA, PE has been ruled out -EKG w/NSR -CTA thorax negative for PE -tachycardia likely 2/2 dehydration, encourage PO intake #Hypernatremia - downtrending #Hypokalemia #Hypophosphatemia -Hypernatremia likely 2/2 free water deficit -replace electrolytes, cont. to monitor and replace PRN -d/w nephro, cont. neal for accurate I's and O's -Nephro consulted, IVF and electrolytes per nephro DVT - SCDs for now given SDH I spent 29 minutes on this patient's case, d/w pt POC and updated RN. Additional 45 mins non-face to face time was dedicated to coordination of care which included communication with Greta Linn regarding electrolytes, Dr. Fountain regarding CT findings, ID regarding diarrhea, and CM for dispo planning. Subjective Allergies: Coded Allergies: No Known Allergies (Unverified , 07/18/14) Subjective F/u DKA, UTI, hypernatremia, SDH. Na remains elevated, downtrending. Pt more alert today, appears to understand sao tomean and denies any pain, notes weakness is stable. Objective Last 24 Hour Vital Signs Date Time Temp Pulse Resp B/P (MAP) Pulse Ox O2 Delivery O2 Flow Rate FiO2 07/19/19 04:00 89 07/19/19 00:00 96 07/18/19 23:01 92 118/70 07/18/19 20:00 Room Air 07/18/19 20:00 94 07/18/19 16:00 87 07/18/19 15:00 98.1 91 18 119/66 (83) 95 07/18/19 12:00 84 07/18/19 09:57 95 117/67 07/18/19 09:05 Room Air 07/18/19 09:00 Room Air Intake and Output 07/18/19 07/19/19 19:00 07:00 Intake Total 1560 ml Output Total 2300 ml Balance -740 ml Intake Oral 1560 ml Output Urine Total 2300 ml # Bowel Movements 9 2 Laboratory Tests 07/19/19 05:55: White Blood Count 6.0, Red Blood Count 3.66L, Hemoglobin 11.7L, Hematocrit 32.8L , Mean Corpuscular Volume 90, Mean Corpuscular Hemoglobin 31.9H, Mean Corpuscular Hemoglobin Concent 35.6, Red Cell Distribution Width 12.0, Platelet Count 50L, Mean Platelet Volume 8.3, Neutrophils (%) (Auto) , Lymphocytes (%) ( Auto) , Monocytes (%) (Auto) , Eosinophils (%) (Auto) , Basophils (%) (Auto) , Neutrophils % (Manual) [Pending], Lymphocytes % (Manual) [Pending], Platelet Estimate [Pending], Platelet Morphology [Pending], Sodium Level 151H, Potassium Level 3.9, Chloride Level 115H, Carbon Dioxide Level 27, Anion Gap 9, Blood Urea Nitrogen 9, Creatinine 0.5L, Estimat Glomerular Filtration Rate > 60, Glucose Level 247#H, Calcium Level 7.9L, Phosphorus Level 2.2L, Magnesium Level 2.3, Total Bilirubin 0.3, Aspartate Amino Transf (AST/SGOT) 45H, Alanine Aminotransferase (ALT/SGPT) 36, Alkaline Phosphatase 122H, C-Reactive Protein, Quantitative 12.0H, Total Protein 5.7L, Albumin 1.6L, Globulin 4.1, Albumin/ Globulin Ratio 0.4L Height (Feet): 5 Height (Inches): 4.00 Weight (Pounds): 110 Objective General: NAD, laying in bed comfortably, AAO x3 HEENT: NCAT, EOMi, mucous membranes moist CV: RRR, no murmurs, rubs, or gallops Pulm: CTAB, No wheezes, rhonchi, or rales, no accessory muscle usage GI: Soft, nontender, nondistended, bowel sounds present : Neal in place, draining yellow urine Neuro: CN II-XII grossly intact, sensation intact bilaterally, MS 3/5 in UE, 0/ 5 LE B/L Ext: no LE edema Silke Adorno M.D. Jul 19, 2019 08:43
--- NOTE | 2019-07-19 08:57 | General Progress Note ---
Assessment/Plan Problem List: (1) Abnormal thyroid blood test ICD Codes: R79.89 - Other specified abnormal findings of blood chemistry SNOMED: 857178005, 816797940351624 (2) Diabetes mellitus out of control ICD Codes: E11.65 - Type 2 diabetes mellitus with hyperglycemia SNOMED: 89010784, 731196512 (3) DKA (diabetic ketoacidoses) ICD Codes: E11.10 - Type 2 diabetes mellitus with ketoacidosis without coma SNOMED: 688598314, 99596475 (4) STEMI (ST elevation myocardial infarction) ICD Codes: I21.3 - ST elevation (STEMI) myocardial infarction of unspecified site SNOMED: 079396379 (5) Prolonged Q-T interval on ECG ICD Codes: R94.31 - Abnormal electrocardiogram [ECG] [EKG] SNOMED: 843607169 (6) Atrial fibrillation with rapid ventricular response ICD Codes: I48.91 - Unspecified atrial fibrillation SNOMED: 372084116659134 (7) Hypernatremia ICD Codes: E87.0 - Hyperosmolality and hypernatremia SNOMED: 483344977, 46425507 Assessment/Plan: increase Levemir to 24 units qhs increase Novolog to 10 units ac tid continue NISS ac / hs continue to hold Levothyroxine Subjective Allergies: Coded Allergies: No Known Allergies (Unverified , 07/18/14) Subjective events noted interval notes reviewed glucose values are elevated in 200 range Item Value Date Time Bedside Blood Glucose 209 mg/dl H 07/19/19 0636 Bedside Blood Glucose 265 mg/dl H 07/19/19 0003 Bedside Blood Glucose 265 mg/dl H 07/18/19 2100 Bedside Blood Glucose 195 mg/dl H 07/18/19 1810 Bedside Blood Glucose 233 mg/dl H 07/18/19 1350 Bedside Blood Glucose 158 mg/dl H 07/18/19 0628 Objective Last 24 Hour Vital Signs Date Time Temp Pulse Resp B/P (MAP) Pulse Ox O2 Delivery O2 Flow Rate FiO2 07/19/19 04:00 89 07/19/19 00:00 96 07/18/19 23:01 92 118/70 07/18/19 20:00 Room Air 07/18/19 20:00 94 07/18/19 16:00 87 07/18/19 15:00 98.1 91 18 119/66 (83) 95 07/18/19 12:00 84 07/18/19 09:57 95 117/67 07/18/19 09:05 Room Air 07/18/19 09:00 Room Air Intake and Output 07/18/19 07/19/19 19:00 07:00 Intake Total 1560 ml Output Total 2300 ml Balance -740 ml Intake Oral 1560 ml Output Urine Total 2300 ml # Bowel Movements 9 2 Laboratory Tests 07/19/19 05:55: White Blood Count 6.0, Red Blood Count 3.66L, Hemoglobin 11.7L, Hematocrit 32.8L , Mean Corpuscular Volume 90, Mean Corpuscular Hemoglobin 31.9H, Mean Corpuscular Hemoglobin Concent 35.6, Red Cell Distribution Width 12.0, Platelet Count 50L, Mean Platelet Volume 8.3, Neutrophils (%) (Auto) , Lymphocytes (%) ( Auto) , Monocytes (%) (Auto) , Eosinophils (%) (Auto) , Basophils (%) (Auto) , Neutrophils % (Manual) [Pending], Lymphocytes % (Manual) [Pending], Platelet Estimate [Pending], Platelet Morphology [Pending], Sodium Level 151H, Potassium Level 3.9, Chloride Level 115H, Carbon Dioxide Level 27, Anion Gap 9, Blood Urea Nitrogen 9, Creatinine 0.5L, Estimat Glomerular Filtration Rate > 60, Glucose Level 247#H, Calcium Level 7.9L, Phosphorus Level 2.2L, Magnesium Level 2.3, Total Bilirubin 0.3, Aspartate Amino Transf (AST/SGOT) 45H, Alanine Aminotransferase (ALT/SGPT) 36, Alkaline Phosphatase 122H, C-Reactive Protein, Quantitative 12.0H, Total Protein 5.7L, Albumin 1.6L, Globulin 4.1, Albumin/ Globulin Ratio 0.4L Height (Feet): 5 Height (Inches): 4.00 Weight (Pounds): 110 General Appearance: no apparent distress Neck: normal alignment Cardiovascular: normal rate Respiratory/Chest: lungs clear Objective Current Medications Medications (Trade) Dose Ordered Sig/Alvin Route PRN Reason Start Time Stop Time Status Last Admin Dose Admin Acetaminophen (Tylenol) 650 mg Q4H PRN ORAL Temp >100.5 07/16/19 13:15 08/14/19 13:14 Acetaminophen (Tylenol) 650 mg Q4H PRN ORAL For Pain 07/16/19 14:00 08/14/19 13:59 Atorvastatin Calcium (Lipitor) 10 mg BEDTIME ORAL 07/18/19 21:00 10/13/19 20:59 07/18/19 23:00 Ceftriaxone Sodium 1 gm/ Dextrose 50 ml @ 100 mls/hr Q24H IVPB 07/18/19 21:00 07/25/19 20:59 07/18/19 21:00 Dextrose 1,000 ml @ 100 mls/hr Q10H IV 07/16/19 13:15 08/15/19 09:59 07/19/19 00:20 Dextrose (Dextrose 50%) 25 ml Q30M PRN IV Hypoglycemia 07/16/19 13:15 10/12/19 21:44 Dextrose (Dextrose 50%) 50 ml Q30M PRN IV Hypoglycemia 07/16/19 13:15 10/12/19 21:44 Insulin Aspart (NovoLOG) AC+HS SUBQ 07/16/19 16:30 10/13/19 09:29 07/19/19 06:27 Insulin Aspart (NovoLOG) 8 units NOVOTIAC SUBQ 07/17/19 12:00 10/14/19 11:49 07/19/19 06:36 Insulin Detemir (Levemir) 16 units QHS SUBQ 07/17/19 21:00 10/14/19 20:59 07/18/19 23:45 Levetiracetam (Keppra) 250 mg Q12HR ORAL 07/18/19 21:00 09/01/19 20:59 07/18/19 23:00 Metoprolol Tartrate (Lopressor) 25 mg Q12HR ORAL 07/16/19 21:00 10/13/19 20:59 07/18/19 23:01 Pantoprazole (Protonix) 40 mg BID ORAL 07/19/19 09:00 08/17/19 08:59 Potassium Phosphate 20 mm/ Sodium Chloride 281.6667 ml @ 46.944 m... ONCE ONCE IV 07/19/19 09:30 07/19/19 15:29 Potassium Chloride (K-Dur) 40 meq BID ORAL 07/19/19 09:00 10/15/19 09:14 Tramadol HCl (Ultram) 25 mg Q6H PRN ORAL Severe Breakthru Pain (>7) 07/16/19 14:00 07/22/19 13:59 Vancomycin HCl (Firvanq) 125 mg FOUR TIMES A DAY ORAL 07/18/19 21:00 07/28/19 20:59 07/18/19 23:00 Pola Medrano MD Jul 19, 2019 08:57
[2019-07-19] MEDS ORDERED: Potassium Phosphate 20 MM in NS 275 ML IV ONE (09:30)
--- NOTE | 2019-07-19 09:41 | Consultation ---
History of Present Illness General Date patient seen: Jul 19, 2019 Reason for Hospitalization: Abnormal Labs Present Illness HPI 64 year old female presented with abnormal labs. elevated glucose, altered, admitted for care and management. has been relatively immobile and noted to develop deep tissue injury on sacral region. abnormal lf'ts. surgery called to evaluate and assist with care. patient seen, chart reviewed, patient examined. resting comfortable but minimal movement. responsive but seemingly confused Allergies: Coded Allergies: No Known Allergies (Unverified , 07/18/14) COVID-19 Screening Contact w/high risk pt: No Recent Travel to affected area: No Experienced COVID-19 symptoms?: No Medication History Scheduled No Known Medications* (NKM - No Known Medications*), 0 ., (Reported) Patient History Limited by: medical condition History Provided By: Medical Record, PMD Healthcare decision maker Resuscitation status Full Code Advanced Directive on File No Past Medical/Surgical History Past Medical/Surgical History: (1) Diabetes mellitus out of control (2) Abnormal thyroid blood test (3) Electrolyte imbalance (4) STEMI (ST elevation myocardial infarction) (5) Atrial fibrillation with rapid ventricular response (6) Prolonged Q-T interval on ECG (7) DKA (diabetic ketoacidoses) (8) Hypernatremia (9) UTI (urinary tract infection) (10) Subdural hematoma Review of Systems Review of Symptoms General ROS: no weight loss or fever Psychological ROS: no depression or mood changes, no memory loss Ophthalmic ROS: no visual changes or eye irritation ENT ROS: no nasal congestion, hearing loss, dizziness Allergy and Immunology ROS: no allergic symptoms or urticaria Hematological and Lymphatic ROS: no swollen glands, unusual bleeding or bruising Endocrine ROS: no polyuria, polydipsia, weight changes, temperature intolerance Respiratory ROS: no cough, shortness of breath, or wheezing Cardiovascular ROS: no chest pain or dyspnea on exertion Gastrointestinal ROS: denies abdominal pain, bright red blood in stool. Musculoskeletal ROS: no myalgias or arthralgias Neurological ROS: no TIA or stroke symptoms Dermatological ROS: no new or changing skin lesions, rashes or pruritis difficult to obtain given condition Physical Exam Physical Exam General appearance: alert, cooperative, no distress, appears stated age Head: Normocephalic, without obvious abnormality, atraumatic Eyes: conjunctivae/corneas clear. PERRL, EOM's intact. Fundi benign Throat: Lips, mucosa, and tongue normal. Teeth and gums normal Neck: supple, symmetrical, trachea midline, no adenopathy, thyroid: not enlarged, symmetric, no tenderness/mass/nodules, no carotid bruit and no JVD Lungs: clear to auscultation bilaterally Heart: regular rate and rhythm, S1, S2 normal, no murmur, click, rub or gallop Abdomen: soft, non-tender. Bowel sounds normal. No masses, no organomegaly Extremities: extremities normal, atraumatic, no cyanosis or edema Pulses: 2+ and symmetric Skin: Skin see below Neurologic: Grossly normal Last 24 Hour Vital Signs Date Time Temp Pulse Resp B/P (MAP) Pulse Ox O2 Delivery O2 Flow Rate FiO2 07/19/19 04:00 97.4 87 19 136/68 (90) 97 07/19/19 04:00 89 07/19/19 00:00 96 07/19/19 00:00 97.0 94 19 126/67 (86) 97 07/18/19 23:01 92 118/70 07/18/19 20:00 97.0 92 19 118/70 (86) 95 07/18/19 20:00 Room Air 07/18/19 20:00 94 07/18/19 16:00 87 07/18/19 15:00 98.1 91 18 119/66 (83) 95 07/18/19 12:00 84 07/18/19 09:57 95 117/67 Intake and Output 07/18/19 07/19/19 19:00 07:00 Intake Total 1560 ml 220 ml Output Total 2300 ml 500 ml Balance -740 ml -280 ml Intake Oral 1560 ml 220 ml Output Urine Total 2300 ml 500 ml # Bowel Movements 9 2 Laboratory Tests Test 07/19/19 05:55 White Blood Count 6.0 K/UL (4.8-10.8) Red Blood Count 3.66 M/UL (4.20-5.40) L Hemoglobin 11.7 G/DL (12.0-16.0) L Hematocrit 32.8 % (37.0-47.0) L Mean Corpuscular Volume 90 FL (80-99) Mean Corpuscular Hemoglobin 31.9 PG (27.0-31.0) H Mean Corpuscular Hemoglobin Concent 35.6 G/DL (32.0-36.0) Red Cell Distribution Width 12.0 % (11.6-14.8) Platelet Count 50 K/UL (150-450) L Mean Platelet Volume 8.3 FL (6.5-10.1) Neutrophils (%) (Auto) % (45.0-75.0) Lymphocytes (%) (Auto) % (20.0-45.0) Monocytes (%) (Auto) % (1.0-10.0) Eosinophils (%) (Auto) % (0.0-3.0) Basophils (%) (Auto) % (0.0-2.0) Neutrophils % (Manual) Pending Lymphocytes % (Manual) Pending Platelet Estimate Pending Platelet Morphology Pending Sodium Level 151 MMOL/L (136-145) H Potassium Level 3.9 MMOL/L (3.5-5.1) Chloride Level 115 MMOL/L (98-107) H Carbon Dioxide Level 27 MMOL/L (21-32) Anion Gap 9 mmol/L (5-15) Blood Urea Nitrogen 9 mg/dL (7-18) Creatinine 0.5 MG/DL (0.55-1.30) L Estimat Glomerular Filtration Rate > 60 mL/min (>60) Glucose Level 247 MG/DL (74-106) #H Calcium Level 7.9 MG/DL (8.5-10.1) L Phosphorus Level 2.2 MG/DL (2.5-4.9) L Magnesium Level 2.3 MG/DL (1.8-2.4) Total Bilirubin 0.3 MG/DL (0.2-1.0) Aspartate Amino Transf (AST/SGOT) 45 U/L (15-37) H Alanine Aminotransferase (ALT/SGPT) 36 U/L (12-78) Alkaline Phosphatase 122 U/L (46-116) H C-Reactive Protein, Quantitative 12.0 mg/dL (0.00-0.90) H Total Protein 5.7 G/DL (6.4-8.2) L Albumin 1.6 G/DL (3.4-5.0) L Globulin 4.1 g/dL Albumin/Globulin Ratio 0.4 (1.0-2.7) L Microbiology Date/Time Source Procedure Growth Status 07/18/19 18:50 Stool Clostridium difficile Toxin Assay - Final Complete Height (Feet): 5 Height (Inches): 4.00 Weight (Pounds): 110 Medications Current Medications Medications (Trade) Dose Ordered Sig/Alvin Route PRN Reason Start Time Stop Time Status Last Admin Dose Admin Acetaminophen (Tylenol) 650 mg Q4H PRN ORAL Temp >100.5 07/16/19 13:15 08/14/19 13:14 Acetaminophen (Tylenol) 650 mg Q4H PRN ORAL For Pain 07/16/19 14:00 08/14/19 13:59 Atorvastatin Calcium (Lipitor) 10 mg BEDTIME ORAL 07/18/19 21:00 10/13/19 20:59 07/18/19 23:00 Ceftriaxone Sodium 1 gm/ Dextrose 50 ml @ 100 mls/hr Q24H IVPB 07/18/19 21:00 07/25/19 20:59 07/18/19 21:00 Dextrose 1,000 ml @ 100 mls/hr Q10H IV 07/16/19 13:15 08/15/19 09:59 07/19/19 00:20 Dextrose (Dextrose 50%) 25 ml Q30M PRN IV Hypoglycemia 07/16/19 13:15 10/12/19 21:44 Dextrose (Dextrose 50%) 50 ml Q30M PRN IV Hypoglycemia 07/16/19 13:15 10/12/19 21:44 Insulin Aspart (NovoLOG) AC+HS SUBQ 07/16/19 16:30 10/13/19 09:29 07/19/19 06:27 Insulin Aspart (NovoLOG) 10 units NOVOTIAC SUBQ 07/19/19 11:50 10/14/19 11:49 Insulin Detemir (Levemir) 24 units QHS SUBQ 07/19/19 21:00 10/14/19 20:59 Levetiracetam (Keppra) 250 mg Q12HR ORAL 07/18/19 21:00 09/01/19 20:59 07/18/19 23:00 Metoprolol Tartrate (Lopressor) 25 mg Q12HR ORAL 07/16/19 21:00 10/13/19 20:59 07/18/19 23:01 Pantoprazole (Protonix) 40 mg BID ORAL 07/19/19 09:00 08/17/19 08:59 Potassium Phosphate 20 mm/ Sodium Chloride 281.6667 ml @ 46.944 m... ONCE ONCE IV 07/19/19 09:30 07/19/19 15:29 Potassium Chloride (K-Dur) 40 meq BID ORAL 07/19/19 09:00 10/15/19 09:14 Tramadol HCl (Ultram) 25 mg Q6H PRN ORAL Severe Breakthru Pain (>7) 07/16/19 14:00 07/22/19 13:59 Vancomycin HCl (Firvanq) 125 mg FOUR TIMES A DAY ORAL 07/18/19 21:00 07/28/19 20:59 07/18/19 23:00 Assessment/Plan Problem List: (1) Decubitus skin ulcer Assessment & Plan: Patient noted to have rapid onset Sacral DTPI. Per Primary Nurse pt noted on prior shift to have non-blanching erythema as per report. All preventive measures were taken to reposition patient and off-load pressure. Despite repositioning and applying Moisture Barrier Paste patient noted to have further skin decline. Sacral DTPI is irregular shaped, Purple and indurated in colour over sacrococcygeal with surrounding non-blanching erythema along borders.(L)7.1cm x (W)6.5cm. Nutritional intake varies 30-45% daily. Non-Blanching erythema without fluctuance noted to R and L heels. Both heels observed floated with pillows Off mattress. Tx.Plan: Apply Moisture Barrier Paste to Sacrum. Cover with Optifoam drsg. Change every 3 days and prn. Apply Cavilon Skin Barrier to both heels. Cover each heel with Optifoam drsg. Change every 7 days and prn. Reposition at least every 2hours or as tolerated. Off-load heels with pillow. APM/MEHDI Mattress overlay. ICD Codes: L89.90 - Pressure ulcer of unspecified site, unspecified stage SNOMED: 616546451 (2) Deep tissue injury ICD Codes: T14.8XXA - Other injury of unspecified body region, initial encounter SNOMED: 519400174 (3) Malnutrition Assessment & Plan: DAILY ESTIMATED NEEDS: Needs based on DM 61.5kg 25-30 kcals/kg 8908-7211 total kcals 1.25-1.5 g protein/kg 77-92 g total protein 25-30 mL/kg 9691-9441 total fluid mLs NUTRITION DIAGNOSIS: Altered nutrition related lab values r/t DKA, clinical status as evidenced by A1C 10.4, BG 423 on adm, (+) acetone, now w/ critically elev Na(161*) and low K(2.4*). 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 No pulmonary embolus, somewhat limited at the bases due to motion. 2. Bibasilar lung atelectasis/airspace disease. 3. 3 mm nodule along the right middle lobe fissure. 3.6 mm nodule left lower lobe along the fissure. Fleischner Society Guidelines for low-risk patients, no follow-up is necessary. For high-risk patients (smoking history or other known risk factors) an optional chest CT at 12 months could be performed. 4. Mild bilateral perinephric stranding. May be senescent, correlate for infection. 5. Distended gallbladder with hyperdensity may be sludge or stones. 6. Prominent left lobe of the liver is slightly nodular in appearance. US ordered ICD Codes: E87.8 - Other disorders of electrolyte and fluid balance, not elsewhere classified SNOMED: 305507603 Russ Shoemaker Jul 19, 2019 09:41
--- NOTE | 2019-07-19 09:45 | NUR ---
*-*DISCHARGE PLANNING*-* PATIENT HAS BEEN REFERRED TO [facility] P: [phone] F: [phone] ~~~~~~~~~~~~~~~~~~~~~~PHYSICAL THERAPY NOTES INCLUDED~~~~~~~~~~~~~~~~~~~~~ Addendum: 07/19/19 at 1149 by PETAR MADRIGAL LVN LVN MESSAGE LEFT FOR [facility] ENGINEER FREIGHT REGARDING ARU AUTHORIZATION
[2019-07-19] MEDS: Vancomycin oral 125mg/2.5ml ORAL SCH ×4 (11:36→21:00)
--- NOTE | 2019-07-19 11:55 | NUR ---
INSURANCE CONTACT INFORMATION GENERATION MECHANIC HELPER CALLED [facility] AND OBTAINED CONTACT INFORMATION FOR THIS PATIENT [facility] NCM: BRETT AVILA T: [phone] (LEAVE A MESSAGE) F: [phone] EMAIL ~ [email or web address]
--- NOTE | 2019-07-19 11:59 | NUR ---
CASE MANAGEMENT:REVIEW 07/19/19 SI: SEPSIS D/T E COLI BACTEREMIA AND UTI. DKA HYPERNATREMIA. HYPOKALEMIA. SUBDURAL HEMATOMA 97.4 87 19 136/68 97% ON RA H/H-11.7/32.8 PLT-50 NA+151 GLUCOSE+247 CA-7.9 PHOS-2.2 IS: IV ROCEPHIN Q24 IVF@100/HR LEVEMIR SQ QHS VIT C PO BID INSULIN SQ TID PROTONIX PO BID K-DUR PO BID KEPPRA PO Q12 VANCOMYCIN PO QID LOPRESSOR PO Q12 : TELEMETRY STATUS DCP: FROM HOME PLAN: NEUROLOGIST AND ATTENDING [facility] PATIENT WAS INDEPENDENT PRIOR TO ADMISSION JUST RECEIVED CONTACT INFORMATION FOR [facility] TRAIN EXAMINER Jacob WEST
--- NOTE | 2019-07-19 12:46 | Diagnostic Imaging Report ---
Indication: Abnormal liver function. Technique: Multiplanar grayscale and duplex Doppler imaging of the abdomen Comparison: Correlate made to CT of the abdomen and pelvis 07/14/2019 Findings: Imaged portions of the pancreatic head are grossly unremarkable in appearance. The body and tail are not well seen. Hepatic contour appears smooth. There is diffusely increased hepatic echogenicity. No sonographically appreciable focal liver lesion. Imaged hepatic veins are patent. Main portal vein is patent with normal direction of flow. Minimal layering sludge is noted within the gallbladder. No gallbladder wall thickening or pericholecystic fluid. Sonographic Rivera sign reported as negative. No intrahepatic or extrahepatic biliary ductal dilatation. Common bile duct measures 3-4 mm diameter. Images demonstrate normal echogenicity. No sonographically appreciable renal stones identified. There is mild fullness of the renal collecting systems. A Boyd catheter is noted within the bladder however there is distention of the bladder despite the Boyd catheter with a bladder volume of 118 mL correlate to ensure appropriate Boyd catheter functioning. Spleen is normal in size and unremarkable in appearance. Trace pleural effusions are suggested. IMPRESSION: * Increased hepatic echogenicity most commonly related to hepatic steatosis. * Small amount of layering sludge in the gallbladder. No sonographic evidence to suggest acute cholecystitis. Sonographic Rivera sign reported as negative. * No biliary ductal dilatation. * Bladder mildly distended despite the presence of an indwelling Boyd catheter (bladder volume of the 118 mL). Correlate to ensure proper catheter functioning. This finding was communicated to the patient's treating nurse Whitney by the portion technologist, as documented in the preliminary report. * Mild fullness of the bilateral renal collecting systems. Impression:
--- NOTE | 2019-07-19 14:06 | NUR ---
*-* INSURANCE *-* ALL CLINICALS AND REVIEWS HAVE BEEN FAXED TO: [facility]: BRETT AVILA T: [phone] (LEAVE A MESSAGE) F: [phone]
--- NOTE | 2019-07-19 14:50 | NUR ---
DISCHARGE PLANNING [facility] [address] [facility] [address] [facility] PROVIDED AUTHORIZATION NUMBER ~ [id number] FOR TRANSPORTATION USE LOGISTIC CARE WAITING FOR DISCHARGE ORDER
[2019-07-19] MEDS: Ascorbic Acid 500mg tab ORAL SCH (18:20)
--- NOTE | 2019-07-19 19:15 | NUR ---
Verbal report received from Rell Gale. Noted CXR done. pending result. Maria Isabel worked with pt today. Cont to turn q2h. Addendum: 07/19/19 at 2008 by ALONDRA STOUT RN RN Disregard the above entry. Does not apply to this pt.
--- NOTE | 2019-07-19 19:30 | NUR ---
Report received from Rell Gale. Pt transferred to room 210-1. Pt positive for CDIFF. Pt cont. flaccid extremities X4 and neck.
--- NOTE | 2019-07-19 20:00 | NUR ---
Dr Lynne rounded, requested call for results of MRI C Spine taken today.
--- NOTE | 2019-07-19 20:00 | NUR ---
Vital signs for 1999 are an error. Correct Vital signs are recored @ 2001 instead. See Vital Sign notes.
[2019-07-19] MEDS ORDERED: Levemir Flexpen SUBQ SCH (21:00)
[2019-07-19] MEDS: cefTRIAXone 1 GM in D5W 50 ML IVPB SCH (21:00)
[2019-07-19] MEDS ORDERED: Gadavist 7.5mMol/7.5ml vial IV PRN (22:00)
--- NOTE | 2019-07-19 22:00 | Neurology Progress Note ---
Interim History Interim History ROS Limited/Unobtainable: No Interim History today she is more alert and interactive Remains weak in LEs, flaccid Objective Physical Exam Last Vital Signs Date Time Temp Pulse Resp B/P (MAP) Pulse Ox O2 Delivery O2 Flow Rate FiO2 07/19/19 16:00 98.6 101 20 121/61 (81) 96 07/19/19 16:00 Room Air Laboratory Tests Test 07/19/19 05:55 White Blood Count 6.0 K/UL (4.8-10.8) Red Blood Count 3.66 M/UL (4.20-5.40) L Hemoglobin 11.7 G/DL (12.0-16.0) L Hematocrit 32.8 % (37.0-47.0) L Mean Corpuscular Volume 90 FL (80-99) Mean Corpuscular Hemoglobin 31.9 PG (27.0-31.0) H Mean Corpuscular Hemoglobin Concent 35.6 G/DL (32.0-36.0) Red Cell Distribution Width 12.0 % (11.6-14.8) Platelet Count 50 K/UL (150-450) L Mean Platelet Volume 8.3 FL (6.5-10.1) Neutrophils (%) (Auto) % (45.0-75.0) Lymphocytes (%) (Auto) % (20.0-45.0) Monocytes (%) (Auto) % (1.0-10.0) Eosinophils (%) (Auto) % (0.0-3.0) Basophils (%) (Auto) % (0.0-2.0) Differential Total Cells Counted 100 Neutrophils % (Manual) 67 % (45-75) Lymphocytes % (Manual) 26 % (20-45) Monocytes % (Manual) 6 % (1-10) Eosinophils % (Manual) 1 % (0-3) Basophils % (Manual) 0 % (0-2) Band Neutrophils 0 % (0-8) Platelet Estimate Decreased L Platelet Morphology Normal Hypochromasia 1+ Anisocytosis 1+ Sodium Level 151 MMOL/L (136-145) H Potassium Level 3.9 MMOL/L (3.5-5.1) Chloride Level 115 MMOL/L (98-107) H Carbon Dioxide Level 27 MMOL/L (21-32) Anion Gap 9 mmol/L (5-15) Blood Urea Nitrogen 9 mg/dL (7-18) Creatinine 0.5 MG/DL (0.55-1.30) L Estimat Glomerular Filtration Rate > 60 mL/min (>60) Glucose Level 247 MG/DL (74-106) #H Calcium Level 7.9 MG/DL (8.5-10.1) L Phosphorus Level 2.2 MG/DL (2.5-4.9) L Magnesium Level 2.3 MG/DL (1.8-2.4) Total Bilirubin 0.3 MG/DL (0.2-1.0) Aspartate Amino Transf (AST/SGOT) 45 U/L (15-37) H Alanine Aminotransferase (ALT/SGPT) 36 U/L (12-78) Alkaline Phosphatase 122 U/L (46-116) H C-Reactive Protein, Quantitative 12.0 mg/dL (0.00-0.90) H Total Protein 5.7 G/DL (6.4-8.2) L Albumin 1.6 G/DL (3.4-5.0) L Globulin 4.1 g/dL Albumin/Globulin Ratio 0.4 (1.0-2.7) L Head: normocophalic Neck: no rigidity EENT: benign Neurologic Exam Mental Status: awake Speech: normal speech Language: normal language Cranial Nerve VII: no facial asymmetry Objective alert, oriented x 2, conversant UEs 5/5 LEs 1/5 flaccid cc 35 min Impression/Recommendations Problems: (1) STEMI (ST elevation myocardial infarction) (2) Atrial fibrillation with rapid ventricular response (3) Prolonged Q-T interval on ECG (4) DKA (diabetic ketoacidoses) (5) Hypernatremia (6) UTI (urinary tract infection) (7) Subdural hematoma Diagnostic Impression Given LE weakness , suspect myelopathy, mri cervical thoracic and lumbar ordered - called radiology to expedite, imaging still not in system to review keppra to 250 mg bid SBP < 150 PT OT consider Chandra Albrecht MD Jul 19, 2019 22:00
[2019-07-20] VITALS: BP 128/68
[2019-07-20] MEDS: NovoLOG Insulin Flexpen SUBQ SCH ×7 (01:09→20:56)
[2019-07-20 04:00] VITALS: BP 116/69
[2019-07-20 06:43] LABS: HEMATOCRIT 32.6 % (37.0-47.0); HEMOGLOBIN 11.3 G/DL (12.0-16.0); MEAN CORPUSCULAR VOLUME 90 FL (80-99); PLATELET COUNT 66 K/UL (150-450); RED BLOOD COUNT 3.63 M/UL (4.20-5.40); RED CELL DISTRIBUTION WIDTH 11.4 % (11.6-14.8); WHITE BLOOD COUNT 5.8 K/UL (4.8-10.8)
[2019-07-20 07:07] LABS: ALANINE AMINOTRANSFERASE 30 U/L (12-78); ALBUMIN 1.5 G/DL (3.4-5.0); ALBUMIN/GLOBULIN RATIO 0.3 (1.0-2.7); ALKALINE PHOSPHATASE 130 U/L (46-116); ANION GAP 8 mmol/L (5-15); ASPARTATE AMINO TRANSFERASE 48 U/L (15-37); BILIRUBIN,TOTAL 0.5 MG/DL (0.2-1.0); BLOOD UREA NITROGEN 10 mg/dL (7-18); CALCIUM 8.4 MG/DL (8.5-10.1); CARBON DIOXIDE 27 MMOL/L (21-32); CHLORIDE 108 MMOL/L (98-107); CREATININE 0.5 MG/DL (0.55-1.30); POTASSIUM 3.8 MMOL/L (3.5-5.1); SODIUM 143 MMOL/L (136-145)
--- NOTE | 2019-07-20 07:37 | NUR ---
NURSE NOTES: Received report from PAULINA Griffin. Patient in bed resting, no active s/s cardiac, respiratory distress noticed at this time. Patient AOx3, SR with HR 95. IV on left upper arm 22G, asymptomatic, patent, intact. Patient on room air, denies pain at this time, patient easily abusable when asleep, responding to verbal stimuli. Bed in lowest position, side rails upx2, call light within reach, bed alarm on. Will continue to monitor.
[2019-07-20 08:00] VITALS: BP 107/63
--- NOTE | 2019-07-20 08:03 | Diagnostic Imaging Report ---
Indication: Bilateral upper extremity weakness Technique: Sagittal T1 FLAIR PROPELLER, sagittal T2 PROPELLOR, sagittal STIR, axial T2 PROPELLER, axial 3D COSMIC ASPIR images were obtained through the cervical spine Comparison: none Findings: Bony alignment is normal. Vertebral body heights are preserved. Vertebral marrow signal is normal. Intrinsic cord signal is normal. At C3-4, the disc space is preserved. No significant disc bulge or protrusion. There is borderline narrowing of the spinal canal due to short pedicles, but no significant impingement upon the cord. There is mild right and moderate left neural foraminal stenosis primarily due to facet hypertrophy. At C4-5, the disc space is preserved. No significant disc bulge or protrusion or spinal stenosis. There is mild narrowing of bilateral neural foramina and facet hypertrophy. At C5-6, there is moderate degenerative disc narrowing. There is generalized circumferential bulge. This results in moderate narrowing of the spinal canal, AP dimension 8 mm, and slight impingement upon the spinal cord. There is also a slight left lateral posterior osteophyte/disc bulge complex which may impinge upon the left neural foramen. There is mild to moderate right, moderate to severe left neural foraminal narrowing at this level. At C6-7 the disc space is preserved. There is generalized circumferential annular disc bulge as well and is more focal broad-based central posterior disc protrusion. This results in borderline narrowing of the spinal canal. No evidence of significant cord impingement. There is mild bilateral neural foraminal stenosis at this level. At the remaining disc levels, no significant disc bulge or protrusion, spinal stenosis, or neural foraminal narrowing. The included extraspinal soft tissues are unremarkable. Impression: Degenerative changes as detailed on a level by level basis above, most striking at C5-6 where there is moderate spinal stenosis and bilateral neural foraminal narrowing No acute abnormality
[2019-07-20 08:07] LABS: PHOSPHORUS 2.7 MG/DL (2.5-4.9)
--- NOTE | 2019-07-20 09:49 | Nephrology Progress Note ---
Assessment/Plan Problem List: (1) Hypernatremia Assessment: Improving (2) UTI (urinary tract infection) (3) Subdural hematoma (4) DKA (diabetic ketoacidoses) (5) Electrolyte imbalance Assessment Hypernatremia most likely due to free water deficit Hypokalemia, hypophosphatemia Hyperglycemia and DKA Evidence of UTI Right-sided weakness with 3 mm subdural hematoma found in CT scan Plan Discontinue IV fluid Discontinue Boyd catheter Change Protonix to p.o. Stop Neutra-Phos due to diarrhea Potassium and phosphorus and magnesium supplement as needed Diet started as the patient is more alert Low dose of Lopressor Monitor renal parameters and electrolytes Neuro eval noted Keep the blood pressure and blood sugar in check Urine studies Per orders Subjective ROS Limited/Unobtainable: No Constitutional: Reports: malaise Objective Objective Last 24 Hour Vital Signs Date Time Temp Pulse Resp B/P (MAP) Pulse Ox O2 Delivery O2 Flow Rate FiO2 07/20/19 04:00 89 07/20/19 04:00 98.0 95 18 116/69 (85) 90 07/20/19 00:00 98 07/20/19 00:00 97.7 97 18 128/68 (88) 97 07/19/19 21:00 Room Air 07/19/19 21:00 93 124/66 07/19/19 20:01 97.0 93 18 124/66 (85) 96 07/19/19 20:00 97.7 91 18 147/73 (97) 98 07/19/19 16:00 98.6 101 20 121/61 (81) 96 07/19/19 16:00 Room Air 07/19/19 16:00 98 07/19/19 12:00 96.5 89 20 107/71 (83) 07/19/19 12:00 Room Air 07/19/19 12:00 89 07/19/19 10:49 89 123/78 Intake and Output 07/19/19 07/20/19 19:00 07:00 Intake Total 360 ml Output Total 1500 ml 1200 ml Balance -1140 ml -1200 ml Intake Oral 360 ml Output Urine Total 1500 ml 1200 ml # Voids 1 # Bowel Movements 6 2 Current Medications Medications (Trade) Dose Ordered Sig/Alvin Route PRN Reason Start Time Stop Time Status Last Admin Dose Admin Acetaminophen (Tylenol) 650 mg Q4H PRN ORAL Temp >100.5 07/16/19 13:15 08/14/19 13:14 Acetaminophen (Tylenol) 650 mg Q4H PRN ORAL For Pain 07/16/19 14:00 08/14/19 13:59 Ascorbic Acid (Vitamin C) 250 mg TWICE A DAY ORAL 07/19/19 18:00 08/18/19 17:59 07/19/19 18:20 Atorvastatin Calcium (Lipitor) 10 mg BEDTIME ORAL 07/18/19 21:00 10/13/19 20:59 07/19/19 21:00 Ceftriaxone Sodium 1 gm/ Dextrose 50 ml @ 100 mls/hr Q24H IVPB 07/18/19 21:00 07/25/19 20:59 07/19/19 21:00 Dextrose (Dextrose 50%) 25 ml Q30M PRN IV Hypoglycemia 07/16/19 13:15 10/12/19 21:44 Dextrose (Dextrose 50%) 50 ml Q30M PRN IV Hypoglycemia 07/16/19 13:15 10/12/19 21:44 Gadobutrol (Gadavist) 7.5 mmol NOW PRN IV Radiology Procedure 07/19/19 22:00 07/23/19 21:57 Insulin Aspart (NovoLOG) AC+HS SUBQ 07/16/19 16:30 10/13/19 09:29 07/20/19 06:48 Insulin Aspart (NovoLOG) 10 units NOVOTIAC SUBQ 07/19/19 11:50 10/14/19 11:49 07/20/19 06:47 Insulin Detemir (Levemir) 24 units QHS SUBQ 07/19/19 21:00 10/14/19 20:59 07/19/19 21:00 Levetiracetam (Keppra) 250 mg Q12HR ORAL 07/18/19 21:00 09/01/19 20:59 07/19/19 21:00 Metoprolol Tartrate (Lopressor) 25 mg Q12HR ORAL 07/16/19 21:00 10/13/19 20:59 07/19/19 21:00 Pantoprazole (Protonix) 40 mg BID ORAL 07/19/19 09:00 08/17/19 08:59 07/19/19 18:21 Potassium Chloride (K-Dur) 40 meq BID ORAL 07/19/19 09:00 10/15/19 09:14 07/19/19 18:21 Tramadol HCl (Ultram) 25 mg Q6H PRN ORAL Severe Breakthru Pain (>7) 07/16/19 14:00 07/22/19 13:59 Vancomycin HCl (Firvanq) 125 mg FOUR TIMES A DAY ORAL 07/18/19 21:00 07/28/19 20:59 07/19/19 21:00 Laboratory Tests 07/20/19 06:00: White Blood Count 5.8, Red Blood Count 3.63L, Hemoglobin 11.3L, Hematocrit 32.6L , Mean Corpuscular Volume 90, Mean Corpuscular Hemoglobin 31.0, Mean Corpuscular Hemoglobin Concent 34.6, Red Cell Distribution Width 11.4L, Platelet Count 66L, Mean Platelet Volume 9.1, Neutrophils (%) (Auto) , Lymphocytes (%) (Auto) , Monocytes (%) (Auto) , Eosinophils (%) (Auto) , Basophils (%) (Auto) , Neutrophils % (Manual) [Pending], Lymphocytes % (Manual) [Pending], Platelet Estimate [Pending], Platelet Morphology [Pending], Sodium Level 143, Potassium Level 3.8, Chloride Level 108H, Carbon Dioxide Level 27, Anion Gap 8, Blood Urea Nitrogen 10, Creatinine 0.5L, Estimat Glomerular Filtration Rate > 60, Glucose Level 299H, Calcium Level 8.4L, Phosphorus Level 2.7, Magnesium Level 2.3, Total Bilirubin 0.5, Aspartate Amino Transf (AST/SGOT ) 48H, Alanine Aminotransferase (ALT/SGPT) 30, Alkaline Phosphatase 130H, Total Protein 6.1L, Albumin 1.5L, Globulin 4.6, Albumin/Globulin Ratio 0.3L Height (Feet): 5 Height (Inches): 4.00 Weight (Pounds): 135 General Appearance: no apparent distress Respiratory/Chest: lungs clear Abdomen: soft Objective No change Yash Hernandes MD Jul 20, 2019 09:49
--- NOTE | 2019-07-20 10:03 | NUR ---
*-* INSURANCE *-* UPDATED CLINICALS AND REVIEWS HAVE BEEN FAXED TO: [facility]: BRETT AVILA T: [phone] (LEAVE A MESSAGE) F: [phone]
--- NOTE | 2019-07-20 10:20 | NUR ---
MRI THORACIC W/WO COMPLETED. MRI CERVICAL W/O AND LUMBAR W/O COMPLETED LAST NIGHT. NOÉB
[2019-07-20] MEDS: Vancomycin oral 125mg/2.5ml ORAL SCH ×4 (10:37→21:22)
[2019-07-20] MEDS: Ascorbic Acid 500mg tab ORAL SCH ×2 (10:38→17:45)
--- NOTE | 2019-07-20 11:00 | NUR ---
NURSE NOTES: Dr. Adorno made aware one of acupuncture needle was found during MRI. Needle removed, and placed in shredder, no s/s bleeding.
--- NOTE | 2019-07-20 11:32 | Diagnostic Imaging Report ---
Indication: Bilateral lower extremity weakness, unable to walk Technique: Sagittal T1 and T2 fast spin echo, sagittal STIR, axial T1 and T2 fast spin-echo images of the lumbar spine Comparison: none Findings: The vertebral body heights are preserved. The disc spaces are preserved. The conus medullaris terminates at the T12-L1 level. Ill-defined areas of subtle decreased marrow signal on the T1 and T2 images demonstrated, most striking on the left side of the L1 vertebral body, the anterior aspect of the L2 vertebral body, and to a slight extent the L5 vertebral body. There does not appear to be associated STIR signal abnormality, however. The bony alignment is normal. At L4-5, there is mild circumferential annular bulge. This, in combination with facet and ligamentum flavum hypertrophy results in moderate narrowing of the spinal canal, minimum AP diameter 7 mm. The disc space is preserved at this level.. This results in very mild compromise of the left neural foramen. No significant right neural foraminal compromise At the remaining disc levels, no significant disc bulge or protrusion, spinal stenosis, or neural foraminal stenosis. The surrounding soft tissues are unremarkable. Impression: Evidence of spinal stenosis, moderate, at L4-5. No acute abnormality Heterogeneous bone marrow, as described. On this exam, appearance is suggestive of bone marrow reconversion to red marrow. However, subsequently performed thoracic spine MRI (reported separately) demonstrated much more significant bone marrow abnormality-please refer to that report for differential considerations
--- NOTE | 2019-07-20 11:33 | Diagnostic Imaging Report ---
Indication: Bilateral lower extremity weakness, unable to walk anymore Technique: Sagittal T1 FLAIR PROPELLER, sagittal T2 PROPELLER, sagittal STIR axial T2 FRFSE, axial T2 FRFSE, axial T1, pre-and postcontrast axial and sagittal fat-saturated T1 FSE images of the thoracic spine Comparison: None. Reference made to chest CT angiogram 07/14/2019 Findings: Bony alignment is normal. Vertebral body heights are preserved. The disc spaces are preserved. The intrinsic cord signal is normal. There is markedly abnormal decreased T1 and T2 signal, slightly increased STIR signal involving the T8 vertebral body, the T11 vertebral body, and to a subtle extent the T5 and T2 vertebral bodies. The marrow signal abnormalities are or striking than those in the cervical and lumbar spine. There is some enhancement of the T2-T5 vertebral bodies on the postcontrast images. T8 and T11 do not appear to enhance significantly. Low T1 signal abnormality is also seen within the left T9 posterior elements, to a slight extent the left T10 posterior elements, and the left T3 posterior elements. This enhances at T9 No significant disc bulge or protrusion, spinal stenosis, or neural foraminal stenosis demonstrated. Included extraspinal soft tissues are unremarkable. Impression: Multilevel bone marrow signal abnormality, as described. Differential considerations include metastatic neoplasm, infiltrative neoplasm such as myeloma or lymphoma, exuberant hematopoietic hyperplasia, less likely systemic metabolic disorders. Note that this is much more striking in the thoracic spine than it is in the lumbar and cervical segments study earlier No evidence of significant neural impingement
--- NOTE | 2019-07-20 11:44 | NUR ---
CASE MANAGEMENT:REVIEW 07/20/19 SI: SEPSIS D/T E COLI BACTEREMIA AND UTI. DKA HYPERNATREMIA. HYPOKALEMIA. SUBDURAL HEMATOMA 98.4 99 18 107/63 100% ON RA H/H-11.3/32.6 PLT-66 GLUCOSE+299 IS: IV ROCEPHIN Q24 IVF@100/HR LEVEMIR SQ QHS VIT C PO BID INSULIN SQ TID PROTONIX PO BID K-DUR PO BID KEPPRA PO Q12 VANCOMYCIN PO QID LOPRESSOR PO Q12 : TELEMETRY STATUS DCP: FROM HOME PLAN: DOWNGRADE TO MED/SURG DISCHARGE PLAN [facility]....WAITING FOR DISCHARGE ORDER
--- NOTE | 2019-07-20 11:49 | NUR ---
LOWER LEVEL OF CARE DISCUSSED DOWN GRADE TO MED/SURG WITH DR WILKINS
--- NOTE | 2019-07-20 11:50 | NUR ---
DISCHARGE PLANNING PATIENT [facility] BE[facility]EPT: [facility] [address] [address] [facility] PROVIDED AUTHORIZATION NUMBER ~ [id number] FOR TRANSPORTATION USE LOGISTIC CARE [facility] IS NOW QUESTIONING IF PATIENT'S INSURANCE POLICY HAS TERMED SPOKE WITH SARA AT [facility] T: [phone]. SHE IS GOING TO CALL OUR ADMITTING DEPARTMENT REGARDING POLICY BENEFITS
[2019-07-20 12:00] VITALS: BP 121/93
--- NOTE | 2019-07-20 12:40 | NUR ---
NURSE NOTES: Boyd Catheter removed per Dr. Hernandes.
--- NOTE | 2019-07-20 12:55 | NUR ---
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 Pt has a caregiver and neighbors will provide some care upon DC. Thus, pt wants to return home, [facility] SW informed pt's decision to . 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 Pt has two sons; one living in [place] and one living in [place]. Cassandra Rodriguez or Frank Rodriguez (friend) [phone] Lauraraeann Avilaon (ex-) [phone]
--- NOTE | 2019-07-20 13:19 | Surgery Progress Note ---
Surgery Progress Note Subjective Additional Comments MRI noted neuro input appreciated afebrile, HD stable Objective Last 24 Hour Vital Signs Date Time Temp Pulse Resp B/P (MAP) Pulse Ox O2 Delivery O2 Flow Rate FiO2 07/20/19 10:44 99 107/63 07/20/19 09:00 Room Air 07/20/19 08:00 99 07/20/19 08:00 98.4 99 18 107/63 (78) 100 07/20/19 04:00 89 07/20/19 04:00 98.0 95 18 116/69 (85) 90 07/20/19 00:00 98 07/20/19 00:00 97.7 97 18 128/68 (88) 97 07/19/19 21:00 Room Air 07/19/19 21:00 93 124/66 07/19/19 20:01 97.0 93 18 124/66 (85) 96 07/19/19 20:00 97.7 91 18 147/73 (97) 98 07/19/19 16:00 98.6 101 20 121/61 (81) 96 07/19/19 16:00 Room Air 07/19/19 16:00 98 I&O Intake and Output 07/19/19 07/20/19 19:00 07:00 Intake Total 360 ml Output Total 1500 ml 1200 ml Balance -1140 ml -1200 ml Intake Oral 360 ml Output Urine Total 1500 ml 1200 ml # Voids 1 # Bowel Movements 6 2 Dressing: dry Wound: clean Cardiovascular: RSR Respiratory: clear Abdomen: soft, non-tender, present bowel sounds Extremities: no edema, no tenderness, no cyanosis Laboratory Tests Test 07/20/19 06:00 White Blood Count 5.8 K/UL (4.8-10.8) Red Blood Count 3.63 M/UL (4.20-5.40) L Hemoglobin 11.3 G/DL (12.0-16.0) L Hematocrit 32.6 % (37.0-47.0) L Mean Corpuscular Volume 90 FL (80-99) Mean Corpuscular Hemoglobin 31.0 PG (27.0-31.0) Mean Corpuscular Hemoglobin Concent 34.6 G/DL (32.0-36.0) Red Cell Distribution Width 11.4 % (11.6-14.8) L Platelet Count 66 K/UL (150-450) L Mean Platelet Volume 9.1 FL (6.5-10.1) Neutrophils (%) (Auto) % (45.0-75.0) Lymphocytes (%) (Auto) % (20.0-45.0) Monocytes (%) (Auto) % (1.0-10.0) Eosinophils (%) (Auto) % (0.0-3.0) Basophils (%) (Auto) % (0.0-2.0) Differential Total Cells Counted 100 Neutrophils % (Manual) 78 % (45-75) H Lymphocytes % (Manual) 19 % (20-45) L Monocytes % (Manual) 3 % (1-10) Eosinophils % (Manual) 0 % (0-3) Basophils % (Manual) 0 % (0-2) Band Neutrophils 0 % (0-8) Platelet Estimate Decreased L Platelet Morphology Normal Hypochromasia 1+ Anisocytosis 1+ Spherocytes 1+ Sodium Level 143 MMOL/L (136-145) Potassium Level 3.8 MMOL/L (3.5-5.1) Chloride Level 108 MMOL/L (98-107) H Carbon Dioxide Level 27 MMOL/L (21-32) Anion Gap 8 mmol/L (5-15) Blood Urea Nitrogen 10 mg/dL (7-18) Creatinine 0.5 MG/DL (0.55-1.30) L Estimat Glomerular Filtration Rate > 60 mL/min (>60) Glucose Level 299 MG/DL (74-106) H Calcium Level 8.4 MG/DL (8.5-10.1) L Phosphorus Level 2.7 MG/DL (2.5-4.9) Magnesium Level 2.3 MG/DL (1.8-2.4) Total Bilirubin 0.5 MG/DL (0.2-1.0) Aspartate Amino Transf (AST/SGOT) 48 U/L (15-37) H Alanine Aminotransferase (ALT/SGPT) 30 U/L (12-78) Alkaline Phosphatase 130 U/L (46-116) H Total Protein 6.1 G/DL (6.4-8.2) L Albumin 1.5 G/DL (3.4-5.0) L Globulin 4.6 g/dL Albumin/Globulin Ratio 0.3 (1.0-2.7) L Plan Problems: (1) Decubitus skin ulcer Assessment & Plan: Patient noted to have rapid onset Sacral DTPI. Per Primary Nurse pt noted on prior shift to have non-blanching erythema as per report. All preventive measures were taken to reposition patient and off-load pressure. Despite repositioning and applying Moisture Barrier Paste patient noted to have further skin decline. Sacral DTPI is irregular shaped, Purple and indurated in colour over sacrococcygeal with surrounding non-blanching erythema along borders.(L)7.1cm x (W)6.5cm. Nutritional intake varies 30-45% daily. Non-Blanching erythema without fluctuance noted to R and L heels. Both heels observed floated with pillows Off mattress. Tx.Plan: Apply Moisture Barrier Paste to Sacrum. Cover with Optifoam drsg. Change every 3 days and prn. Apply Cavilon Skin Barrier to both heels. Cover each heel with Optifoam drsg. Change every 7 days and prn. Reposition at least every 2hours or as tolerated. Off-load heels with pillow. APM/MEHDI Mattress overlay. MRI spine noted neuro input appreciated (2) Deep tissue injury (3) Malnutrition Assessment & Plan: DAILY ESTIMATED NEEDS: Needs based on DM 61.5kg 25-30 kcals/kg 6159-0187 total kcals 1.25-1.5 g protein/kg 77-92 g total protein 25-30 mL/kg 9900-4547 total fluid mLs NUTRITION DIAGNOSIS: Altered nutrition related lab values r/t DKA, clinical status as evidenced by A1C 10.4, BG 423 on adm, (+) acetone, now w/ critically elev Na(161*) and low K(2.4*). CURRENT DIET: CCHO LOW puree + NTL PO DIET RECOMMENDATIONS: CCHO LOW diet/ texture per CUSTOMER SUPPORT PROFESSIONAL ADDITIONAL RECOMMENDATIONS: 1) W/ variable po intake add Glucerna 1 tetra per day Add high pro/1 carb snacks in b/w meals 2) On D5 for hydration, monitor BG 3) Wound care: Add VALARIE BID + Vit C 250mg daily (f/up w/ WC eval) 4) Obtain a calibrated bed scale wts EMR wt: 110# vs Bed scale wt: 135# (4) Abnormal thyroid blood test (5) Electrolyte imbalance Assessment & Plan: 1. No pulmonary embolus, somewhat limited at the bases due to motion. 2. Bibasilar lung atelectasis/airspace disease. 3. 3 mm nodule along the right middle lobe fissure. 3.6 mm nodule left lower lobe along the fissure. Fleischner Society Guidelines for low-risk patients, no follow-up is necessary. For high-risk patients (smoking history or other known risk factors) an optional chest CT at 12 months could be performed. 4. Mild bilateral perinephric stranding. May be senescent, correlate for infection. 5. Distended gallbladder with hyperdensity may be sludge or stones. 6. Prominent left lobe of the liver is slightly nodular in appearance. US ordered Russ Shoemaker Jul 20, 2019 13:19
--- NOTE | 2019-07-20 13:32 | General Progress Note ---
Assessment/Plan Assessment/Plan: 64-year-old female with PMH of medical noncompliance, DM type II who presents with b/l weakness, N/V, GLF, on admission pt found to be in DKA with BG 500's. #DKA - improved, 2/2 #E. coli UTI #E. coli bacteremia #Uncontrolled DM, Hgb A1C 10.4 -continue in-patient medical care -s/p DKA protocol with improved AG, AG 21-> 14 -CT abd reviewed -07/13: UCx e. coli -07/13: BCx w/E. coli /, repeat 07/15 BCx NGTD -cont. accuchecks, ISS qAC/HS -ID, Dr. Bagley: CTX, day #5 of abx, PO vanco for c diff -Endo following: increase Levemir to 24 units qhs, increase Novolog to 10 units ac tid #Multilevel Thoracic BM enhancements -suspicions for metastatic neoplasm, infiltrative neoplasm such as myeloma or lymphoma -pt w/no renal failure, elevated Ca -Consulted Heme/Onc, Dr. Chavez, recs appreciated #Right sided weakness #Generalized Weakness #SDH 3mm no midline shift -weakness may be multifactorial, metabolic -pt AOx3, pt noted fall 3 days ago -found on CT head, repeat CT head stable -07/17: CT head obtained given worsening weakness, stable compared to previous -d/w Neuro, no need for transfer at this time, will decrease keppra -cont. fall precautions -PT treat and eval -d/w Neurology, Dr. Fountain, weakness does not appear to be neurologic at this time -CM for d/c planning, plan for CRI on d/c #c. diff colitis -pt w/multiple episodes of loose stool -c.diff positive, contact precautions -ID following: PO vanc #Elevated d-dimer #Tachycardia - resolved -likely multifactorial given infection/DKA, PE has been ruled out -EKG w/NSR -CTA thorax negative for PE -tachycardia likely 2/2 dehydration, encourage PO intake -no OAC at this time #Hypernatremia - resolved #Hypokalemia #Hypophosphatemia -Hypernatremia likely 2/2 free water deficit -replace electrolytes, cont. to monitor and replace PRN -d/w nephro, cont. neal for accurate I's and O's -Nephro consulted, IVF and electrolytes per nephro DVT - SCDs for now given SDH Time spent: 40 minutes on this patient's case, d/w pt POC and updated RN. Additional 35 mins non-face to face time was dedicated to coordination of care which included communication with Dr. Александр liing MRI findings, Dr. Hernandes regarding electrolytes, and Dr. Chavez w/MRI findings. Subjective Allergies: Coded Allergies: No Known Allergies (Unverified , 07/18/14) Subjective F/u DKA, UTI, hypernatremia, SDH. Na improved. Pt cont. to have LE weakness, stable per pt. No bowel/urinary incontinence at this time or parathesia. Objective Last 24 Hour Vital Signs Date Time Temp Pulse Resp B/P (MAP) Pulse Ox O2 Delivery O2 Flow Rate FiO2 07/20/19 10:44 99 107/63 07/20/19 09:00 Room Air 07/20/19 08:00 99 07/20/19 08:00 98.4 99 18 107/63 (78) 100 07/20/19 04:00 89 07/20/19 04:00 98.0 95 18 116/69 (85) 90 07/20/19 00:00 98 07/20/19 00:00 97.7 97 18 128/68 (88) 97 07/19/19 21:00 Room Air 07/19/19 21:00 93 124/66 07/19/19 20:01 97.0 93 18 124/66 (85) 96 07/19/19 20:00 97.7 91 18 147/73 (97) 98 07/19/19 16:00 98.6 101 20 121/61 (81) 96 07/19/19 16:00 Room Air 07/19/19 16:00 98 Intake and Output 07/19/19 07/20/19 19:00 07:00 Intake Total 360 ml Output Total 1500 ml 1200 ml Balance -1140 ml -1200 ml Intake Oral 360 ml Output Urine Total 1500 ml 1200 ml # Voids 1 # Bowel Movements 6 2 Laboratory Tests 07/20/19 06:00: White Blood Count 5.8, Red Blood Count 3.63L, Hemoglobin 11.3L, Hematocrit 32.6L , Mean Corpuscular Volume 90, Mean Corpuscular Hemoglobin 31.0, Mean Corpuscular Hemoglobin Concent 34.6, Red Cell Distribution Width 11.4L, Platelet Count 66L, Mean Platelet Volume 9.1, Neutrophils (%) (Auto) , Lymphocytes (%) (Auto) , Monocytes (%) (Auto) , Eosinophils (%) (Auto) , Basophils (%) (Auto) , Differential Total Cells Counted 100, Neutrophils % ( Manual) 78H, Lymphocytes % (Manual) 19L, Monocytes % (Manual) 3, Eosinophils % ( Manual) 0, Basophils % (Manual) 0, Band Neutrophils 0, Platelet Estimate DecreasedL, Platelet Morphology Normal, Hypochromasia 1+, Anisocytosis 1+, Spherocytes 1+, Sodium Level 143, Potassium Level 3.8, Chloride Level 108H, Carbon Dioxide Level 27, Anion Gap 8, Blood Urea Nitrogen 10, Creatinine 0.5L, Estimat Glomerular Filtration Rate > 60, Glucose Level 299H, Calcium Level 8.4L , Phosphorus Level 2.7, Magnesium Level 2.3, Total Bilirubin 0.5, Aspartate Amino Transf (AST/SGOT) 48H, Alanine Aminotransferase (ALT/SGPT) 30, Alkaline Phosphatase 130H, Total Protein 6.1L, Albumin 1.5L, Globulin 4.6, Albumin/ Globulin Ratio 0.3L Height (Feet): 5 Height (Inches): 4.00 Weight (Pounds): 135 Objective General: NAD, laying in bed comfortably, AAO x3 HEENT: NCAT, EOMi, mucous membranes moist CV: RRR, no murmurs, rubs, or gallops Pulm: CTAB, No wheezes, rhonchi, or rales, no accessory muscle usage GI: Soft, nontender, nondistended, bowel sounds present : Neal in place, draining yellow urine Neuro: CN II-XII grossly intact, sensation intact bilaterally, MS 3/5 in UE, 0/ 5 LE B/L, able to wiggle toes Ext: no LE edema Silke Adorno M.D. Jul 20, 2019 13:32
--- NOTE | 2019-07-20 14:26 | General Progress Note ---
Assessment/Plan Problem List: (1) Abnormal thyroid blood test ICD Codes: R79.89 - Other specified abnormal findings of blood chemistry SNOMED: 398498348, 761655773430178 (2) Diabetes mellitus out of control ICD Codes: E11.65 - Type 2 diabetes mellitus with hyperglycemia SNOMED: 25540725, 639576870 (3) DKA (diabetic ketoacidoses) ICD Codes: E11.10 - Type 2 diabetes mellitus with ketoacidosis without coma SNOMED: 593493005, 44734662 (4) STEMI (ST elevation myocardial infarction) ICD Codes: I21.3 - ST elevation (STEMI) myocardial infarction of unspecified site SNOMED: 158033326 (5) Prolonged Q-T interval on ECG ICD Codes: R94.31 - Abnormal electrocardiogram [ECG] [EKG] SNOMED: 163144898 (6) Atrial fibrillation with rapid ventricular response ICD Codes: I48.91 - Unspecified atrial fibrillation SNOMED: 326177561283137 (7) Hypernatremia ICD Codes: E87.0 - Hyperosmolality and hypernatremia SNOMED: 273061504, 25036193 Assessment/Plan: increase Levemir to 30 units qhs increase Novolog to 12 units ac tid continue NISS ac / hs continue to hold Levothyroxine Subjective Allergies: Coded Allergies: No Known Allergies (Unverified , 07/18/14) Subjective events noted interval notes reviewed glucose values are elevated in 200 range Item Value Date Time Bedside Blood Glucose 199 mg/dl H 07/20/19 1229 Bedside Blood Glucose 273 mg/dl H 07/20/19 0648 Bedside Blood Glucose 248 mg/dl H 07/20/19 0109 Bedside Blood Glucose 248 mg/dl H 07/19/19 2100 Bedside Blood Glucose 247 mg/dl H 07/19/19 1715 Bedside Blood Glucose 133 mg/dl H 07/19/19 1200 Objective Last 24 Hour Vital Signs Date Time Temp Pulse Resp B/P (MAP) Pulse Ox O2 Delivery O2 Flow Rate FiO2 07/20/19 12:00 98.1 91 22 121/93 (102) 98 07/20/19 12:00 95 07/20/19 10:44 99 107/63 07/20/19 09:00 Room Air 07/20/19 08:00 99 07/20/19 08:00 98.4 99 18 107/63 (78) 100 07/20/19 04:00 89 07/20/19 04:00 98.0 95 18 116/69 (85) 90 07/20/19 00:00 98 07/20/19 00:00 97.7 97 18 128/68 (88) 97 07/19/19 21:00 Room Air 07/19/19 21:00 93 124/66 07/19/19 20:01 97.0 93 18 124/66 (85) 96 07/19/19 20:00 97.7 91 18 147/73 (97) 98 07/19/19 16:00 98.6 101 20 121/61 (81) 96 07/19/19 16:00 Room Air 07/19/19 16:00 98 Intake and Output 07/19/19 07/20/19 19:00 07:00 Intake Total 360 ml Output Total 1500 ml 1200 ml Balance -1140 ml -1200 ml Intake Oral 360 ml Output Urine Total 1500 ml 1200 ml # Voids 1 # Bowel Movements 6 2 Laboratory Tests 07/20/19 06:00: White Blood Count 5.8, Red Blood Count 3.63L, Hemoglobin 11.3L, Hematocrit 32.6L , Mean Corpuscular Volume 90, Mean Corpuscular Hemoglobin 31.0, Mean Corpuscular Hemoglobin Concent 34.6, Red Cell Distribution Width 11.4L, Platelet Count 66L, Mean Platelet Volume 9.1, Neutrophils (%) (Auto) , Lymphocytes (%) (Auto) , Monocytes (%) (Auto) , Eosinophils (%) (Auto) , Basophils (%) (Auto) , Differential Total Cells Counted 100, Neutrophils % ( Manual) 78H, Lymphocytes % (Manual) 19L, Monocytes % (Manual) 3, Eosinophils % ( Manual) 0, Basophils % (Manual) 0, Band Neutrophils 0, Platelet Estimate DecreasedL, Platelet Morphology Normal, Hypochromasia 1+, Anisocytosis 1+, Spherocytes 1+, Sodium Level 143, Potassium Level 3.8, Chloride Level 108H, Carbon Dioxide Level 27, Anion Gap 8, Blood Urea Nitrogen 10, Creatinine 0.5L, Estimat Glomerular Filtration Rate > 60, Glucose Level 299H, Calcium Level 8.4L , Phosphorus Level 2.7, Magnesium Level 2.3, Total Bilirubin 0.5, Aspartate Amino Transf (AST/SGOT) 48H, Alanine Aminotransferase (ALT/SGPT) 30, Alkaline Phosphatase 130H, Total Protein 6.1L, Albumin 1.5L, Globulin 4.6, Albumin/ Globulin Ratio 0.3L Height (Feet): 5 Height (Inches): 4.00 Weight (Pounds): 135 General Appearance: no apparent distress Neck: normal alignment Cardiovascular: normal rate Respiratory/Chest: lungs clear Abdomen: normal bowel sounds Objective Current Medications Medications (Trade) Dose Ordered Sig/Alvin Route PRN Reason Start Time Stop Time Status Last Admin Dose Admin Acetaminophen (Tylenol) 650 mg Q4H PRN ORAL Temp >100.5 07/16/19 13:15 08/14/19 13:14 Acetaminophen (Tylenol) 650 mg Q4H PRN ORAL For Pain 07/16/19 14:00 08/14/19 13:59 Ascorbic Acid (Vitamin C) 250 mg TWICE A DAY ORAL 07/19/19 18:00 08/18/19 17:59 07/20/19 10:38 Atorvastatin Calcium (Lipitor) 10 mg BEDTIME ORAL 07/18/19 21:00 10/13/19 20:59 07/19/19 21:00 Ceftriaxone Sodium 1 gm/ Dextrose 50 ml @ 100 mls/hr Q24H IVPB 07/18/19 21:00 07/25/19 20:59 07/19/19 21:00 Dextrose (Dextrose 50%) 25 ml Q30M PRN IV Hypoglycemia 07/16/19 13:15 10/12/19 21:44 Dextrose (Dextrose 50%) 50 ml Q30M PRN IV Hypoglycemia 07/16/19 13:15 10/12/19 21:44 Gadobutrol (Gadavist) 7.5 mmol NOW PRN IV Radiology Procedure 07/19/19 22:00 07/23/19 21:57 Insulin Aspart (NovoLOG) AC+HS SUBQ 07/16/19 16:30 10/13/19 09:29 07/20/19 12:28 Insulin Aspart (NovoLOG) 10 units NOVOTIAC SUBQ 07/19/19 11:50 10/14/19 11:49 07/20/19 12:29 Insulin Detemir (Levemir) 24 units QHS SUBQ 07/19/19 21:00 10/14/19 20:59 07/19/19 21:00 Levetiracetam (Keppra) 250 mg Q12HR ORAL 07/18/19 21:00 09/01/19 20:59 07/20/19 10:38 Metoprolol Tartrate (Lopressor) 25 mg Q12HR ORAL 07/16/19 21:00 10/13/19 20:59 07/20/19 10:44 Pantoprazole (Protonix) 40 mg BID ORAL 07/19/19 09:00 08/17/19 08:59 07/20/19 10:38 Potassium Chloride (K-Dur) 40 meq BID ORAL 07/19/19 09:00 10/15/19 09:14 07/20/19 10:37 Tramadol HCl (Ultram) 25 mg Q6H PRN ORAL Severe Breakthru Pain (>7) 07/16/19 14:00 07/22/19 13:59 Vancomycin HCl (Firvanq) 125 mg FOUR TIMES A DAY ORAL 07/18/19 21:00 07/28/19 20:59 07/20/19 12:24 Pola Medrano MD Jul 20, 2019 14:26
[2019-07-20 16:00] VITALS: BP 112/59
--- NOTE | 2019-07-20 16:17 | NUR ---
NURSE NOTES: Scant amount of urine assessed, bladder scan done 207ml in bladder
[2019-07-20] MEDS ORDERED: NovoLOG Insulin Flexpen SUBQ SCH (16:50)
--- NOTE | 2019-07-20 17:02 | NUR ---
TRANSFER TO FLOOR: Patient transferred to , per Tila Linn. Report given to PAULINA Aguilera. Belongings and medications given to PAULINA Aguilera. Family and or S/O informed of transfer.
--- NOTE | 2019-07-20 17:03 | NUR ---
NURSE NOTES: Patient was transferred from [facility] to [facility] under Dr. Rm santos. Received report from PAULINA Smiht. patient is alert. forgetful, confused. verbally responsive. no respiratory distress noted. no pain at this time. IV on LFA22. LUA22 intact. p200 mattress for skin management. contact isolation d/t C-diff. no diarrhea at this time. bed in the lowest position and locked. call light within reach. will continue to provide plan of care.
--- NOTE | 2019-07-20 19:17 | Infectious Diseases Prog Note ---
Assessment/Plan Assessment/Plan ASSESSMENT AND PLAN: 1. e.coli uti/pyelonephritis with bacteremia, sepsis, fevers, gram neg sepsis c.diff. +, diarrhea - ceftriaxone - day # 6 abx, plan on 10 days treatment - po vancomycin - day # 3, plan on 14 days treatment (this would include 7 days treatment post use of concomitant antibiotics) - surveillance blood cultures negative - monitor labs and temperatures - sepsis improved 2. DKA. 3. Hypernatremia. 4. Diabetes type 2. 5. Ground-level fall. 6. Nausea and vomiting. 7. Diarrhea. 8. We will check stool studies. 9. Noncompliance. 10. Right-sided weakness. 11. Subdural hematoma with midline shift. 12. No known drug allergies. 13. Social history negative. 14. Family history noncontributory. 15. MAR was noted. 16. Case discussed with RN. 17. Continue treatment per primary consultants. 18. Orders were noted and entered. Subjective Constitutional: Denies: fever HEENT: Denies: congestion Respiratory: Denies: shortness of breath Cardiovascular: Denies: chest pain Gastrointestinal/Abdominal: Reports: diarrhea; Denies: nausea, vomiting Genitourinary: Reports: other - no neal Neurologic: Denies: headache Psychiatric: Denies: depression Skin: Denies: rash Hematologic: Denies: bleeding Musculoskeletal: Denies: pain Allergies: Coded Allergies: No Known Allergies (Unverified , 07/18/14) Objective Vital Signs Last 24 Hour Vital Signs Date Time Temp Pulse Resp B/P (MAP) Pulse Ox O2 Delivery O2 Flow Rate FiO2 07/20/19 16:00 95 07/20/19 16:00 98.0 91 22 112/59 (76) 98 07/20/19 12:00 98.1 91 22 121/93 (102) 98 07/20/19 12:00 95 07/20/19 10:44 99 107/63 07/20/19 09:00 Room Air 07/20/19 08:00 99 07/20/19 08:00 98.4 99 18 107/63 (78) 100 07/20/19 04:00 89 07/20/19 04:00 98.0 95 18 116/69 (85) 90 07/20/19 00:00 98 07/20/19 00:00 97.7 97 18 128/68 (88) 97 07/19/19 21:00 Room Air 07/19/19 21:00 93 124/66 07/19/19 20:01 97.0 93 18 124/66 (85) 96 07/19/19 20:00 97.7 91 18 147/73 (97) 98 Height (Feet): 5 Height (Inches): 4.00 Weight (Pounds): 135 General Appearance: no acute distress HEENT: normocephalic, atraumatic, anicteric, mucous membranes moist Respiratory/Chest: crackles/rales, rhonchi - bilaterally Cardiovascular: normal rate, regular rhythm, no gallop/murmur, no JVD Abdomen: normal bowel sounds, soft, non tender, no organomegaly, non distended Genitourinary: other - no neal Extremities: no cyanosis Skin: no rash Neurologic/Psychiatric: tutor coordinator II-XII grossly normal, 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 No pulmonary embolus, somewhat limited at the bases due to motion. 2. Bibasilar lung atelectasis/airspace disease. 3. 3 mm nodule along the right middle lobe fissure. 3.6 mm nodule left lower lobe along the fissure. Fleischner Society Guidelines for low-risk patients, no follow-up is necessary. For high-risk patients (smoking history or other known risk factors) an optional chest CT at 12 months could be performed. 4. Mild bilateral perinephric stranding. May be senescent, correlate for infection. 5. Distended gallbladder with hyperdensity may be sludge or stones. 6. Prominent left lobe of the liver is slightly nodular in appearance. CT abdomen and pelvis: IMPRESSION: 1. Urinary bladder distention. 2. Mild heterogeneity of the lower pole of the left kidney may be artifactual. Infection is not excluded. Consider correlation with urinalysis, as clinically indicated. Mild bilateral renal pelviectasis and prominence of bilateral ureters is likely related to distention of the urinary bladder. Microbiology Date/Time Source Procedure Growth Status 07/16/19 15:15 Blood Blood Culture - Preliminary NO GROWTH AFTER 72 HOURS Resulted 07/18/19 18:50 Stool Clostridium difficile Toxin Assay - Final Complete 07/14/19 20:40 Urine,Clean Catch Urine Culture - Final Escherichia Coli Complete Microbiology Date/Time Source Procedure Growth Status 07/18/19 18:50 Stool Clostridium difficile Toxin Assay - Final Complete c.diff. + Laboratory Tests Test 07/20/19 06:00 White Blood Count 5.8 K/UL (4.8-10.8) Red Blood Count 3.63 M/UL (4.20-5.40) L Hemoglobin 11.3 G/DL (12.0-16.0) L Hematocrit 32.6 % (37.0-47.0) L Mean Corpuscular Volume 90 FL (80-99) Mean Corpuscular Hemoglobin 31.0 PG (27.0-31.0) Mean Corpuscular Hemoglobin Concent 34.6 G/DL (32.0-36.0) Red Cell Distribution Width 11.4 % (11.6-14.8) L Platelet Count 66 K/UL (150-450) L Mean Platelet Volume 9.1 FL (6.5-10.1) Neutrophils (%) (Auto) % (45.0-75.0) Lymphocytes (%) (Auto) % (20.0-45.0) Monocytes (%) (Auto) % (1.0-10.0) Eosinophils (%) (Auto) % (0.0-3.0) Basophils (%) (Auto) % (0.0-2.0) Differential Total Cells Counted 100 Neutrophils % (Manual) 78 % (45-75) H Lymphocytes % (Manual) 19 % (20-45) L Monocytes % (Manual) 3 % (1-10) Eosinophils % (Manual) 0 % (0-3) Basophils % (Manual) 0 % (0-2) Band Neutrophils 0 % (0-8) Platelet Estimate Decreased L Platelet Morphology Normal Hypochromasia 1+ Anisocytosis 1+ Spherocytes 1+ Sodium Level 143 MMOL/L (136-145) Potassium Level 3.8 MMOL/L (3.5-5.1) Chloride Level 108 MMOL/L (98-107) H Carbon Dioxide Level 27 MMOL/L (21-32) Anion Gap 8 mmol/L (5-15) Blood Urea Nitrogen 10 mg/dL (7-18) Creatinine 0.5 MG/DL (0.55-1.30) L Estimat Glomerular Filtration Rate > 60 mL/min (>60) Glucose Level 299 MG/DL (74-106) H Calcium Level 8.4 MG/DL (8.5-10.1) L Phosphorus Level 2.7 MG/DL (2.5-4.9) Magnesium Level 2.3 MG/DL (1.8-2.4) Total Bilirubin 0.5 MG/DL (0.2-1.0) Aspartate Amino Transf (AST/SGOT) 48 U/L (15-37) H Alanine Aminotransferase (ALT/SGPT) 30 U/L (12-78) Alkaline Phosphatase 130 U/L (46-116) H Total Protein 6.1 G/DL (6.4-8.2) L Albumin 1.5 G/DL (3.4-5.0) L Globulin 4.6 g/dL Albumin/Globulin Ratio 0.3 (1.0-2.7) L Current Medications Medications (Trade) Dose Ordered Sig/Alvin Route PRN Reason Start Time Stop Time Status Last Admin Dose Admin Acetaminophen (Tylenol) 650 mg Q4H PRN ORAL MILD PAIN 07/20/19 16:46 08/19/19 16:45 Acetaminophen (Tylenol) 650 mg Q4H PRN ORAL Temp >100.5 07/20/19 16:46 08/19/19 16:45 Ascorbic Acid (Vitamin C) 250 mg TWICE A DAY ORAL 07/20/19 18:00 08/18/19 17:59 07/20/19 17:45 Atorvastatin Calcium (Lipitor) 10 mg BEDTIME ORAL 07/20/19 21:00 10/13/19 20:59 Ceftriaxone Sodium 1 gm/ Dextrose 50 ml @ 100 mls/hr Q24H IVPB 07/20/19 21:00 07/25/19 20:59 Dextrose (Dextrose 50%) 25 ml Q30M PRN IV Hypoglycemia 07/20/19 16:45 10/12/19 21:44 Dextrose (Dextrose 50%) 50 ml Q30M PRN IV Hypoglycemia 07/20/19 16:45 10/12/19 21:44 Gadobutrol (Gadavist) 7.5 mmol NOW PRN IV Radiology Procedure 07/20/19 22:00 07/23/19 21:57 Insulin Aspart (NovoLOG) AC+HS SUBQ 07/20/19 21:00 10/13/19 09:29 Insulin Aspart (NovoLOG) 12 units NOVOTIAC SUBQ 07/20/19 16:50 10/14/19 11:49 07/20/19 17:11 Insulin Detemir (Levemir) 30 units QHS SUBQ 07/20/19 21:00 10/14/19 20:59 Levetiracetam (Keppra) 250 mg Q12HR ORAL 07/20/19 21:00 09/01/19 20:59 Metoprolol Tartrate (Lopressor) 25 mg Q12HR ORAL 07/20/19 21:00 10/13/19 20:59 Pantoprazole (Protonix) 40 mg BID ORAL 07/20/19 18:00 08/17/19 08:59 07/20/19 17:45 Potassium Chloride (K-Dur) 40 meq BID ORAL 07/20/19 18:00 10/15/19 09:14 07/20/19 17:44 Tramadol HCl (Ultram) 25 mg Q6H PRN ORAL Severe Breakthru Pain (>7) 07/20/19 16:48 07/27/19 16:47 Vancomycin HCl (Firvanq) 125 mg FOUR TIMES A DAY ORAL 07/20/19 18:00 07/30/19 17:59 07/20/19 17:45 Emerson Bagley MD Jul 20, 2019 19:17
--- NOTE | 2019-07-20 19:29 | NUR ---
HAND-OFF: Report given to PAULINA Duenas.
--- NOTE | 2019-07-20 19:35 | NUR ---
NURSE NOTES: Patient asleep. Easy to arouse. Breathing unlabored on room air without distress. Denies pain or discomfort at this time. IV noted on left forearm and upper arm intact and patent. Patient on P200 mattress. Bed placed at the lowest with alarm, brake, and siderails up for safety. Call light placed within reach. Will continue to monitor.
[2019-07-20 20:00] VITALS: BP 111/70
--- NOTE | 2019-07-20 20:44 | NUR ---
NURSE NOTES: Patient was able to verbalized the need and void in the bedpan. Staff assistance needed for positioning and placing bedpan. Patient awake, alert, and oriented to let her needs known. Will continue to monitor.
[2019-07-20] MEDS: Levemir Flexpen SUBQ SCH (20:57)
[2019-07-20] MEDS ORDERED: Levemir Flexpen SUBQ SCH (21:00)
[2019-07-20] MEDS: cefTRIAXone 1 GM in D5W 50 ML IVPB SCH (21:22)
[2019-07-20] MEDS ORDERED: Gadavist 7.5mMol/7.5ml vial IV PRN (22:00)
--- NOTE | 2019-07-20 22:37 | Neurology Progress Note ---
Interim History Interim History ROS Limited/Unobtainable: No Interim History remains weak overall Objective Physical Exam Last Vital Signs Date Time Temp Pulse Resp B/P (MAP) Pulse Ox O2 Delivery O2 Flow Rate FiO2 07/20/19 21:00 103 109/60 07/20/19 16:00 98.0 22 98 07/20/19 09:00 Room Air Laboratory Tests Test 07/20/19 06:00 White Blood Count 5.8 K/UL (4.8-10.8) Red Blood Count 3.63 M/UL (4.20-5.40) L Hemoglobin 11.3 G/DL (12.0-16.0) L Hematocrit 32.6 % (37.0-47.0) L Mean Corpuscular Volume 90 FL (80-99) Mean Corpuscular Hemoglobin 31.0 PG (27.0-31.0) Mean Corpuscular Hemoglobin Concent 34.6 G/DL (32.0-36.0) Red Cell Distribution Width 11.4 % (11.6-14.8) L Platelet Count 66 K/UL (150-450) L Mean Platelet Volume 9.1 FL (6.5-10.1) Neutrophils (%) (Auto) % (45.0-75.0) Lymphocytes (%) (Auto) % (20.0-45.0) Monocytes (%) (Auto) % (1.0-10.0) Eosinophils (%) (Auto) % (0.0-3.0) Basophils (%) (Auto) % (0.0-2.0) Differential Total Cells Counted 100 Neutrophils % (Manual) 78 % (45-75) H Lymphocytes % (Manual) 19 % (20-45) L Monocytes % (Manual) 3 % (1-10) Eosinophils % (Manual) 0 % (0-3) Basophils % (Manual) 0 % (0-2) Band Neutrophils 0 % (0-8) Platelet Estimate Decreased L Platelet Morphology Normal Hypochromasia 1+ Anisocytosis 1+ Spherocytes 1+ Sodium Level 143 MMOL/L (136-145) Potassium Level 3.8 MMOL/L (3.5-5.1) Chloride Level 108 MMOL/L (98-107) H Carbon Dioxide Level 27 MMOL/L (21-32) Anion Gap 8 mmol/L (5-15) Blood Urea Nitrogen 10 mg/dL (7-18) Creatinine 0.5 MG/DL (0.55-1.30) L Estimat Glomerular Filtration Rate > 60 mL/min (>60) Glucose Level 299 MG/DL (74-106) H Calcium Level 8.4 MG/DL (8.5-10.1) L Phosphorus Level 2.7 MG/DL (2.5-4.9) Magnesium Level 2.3 MG/DL (1.8-2.4) Total Bilirubin 0.5 MG/DL (0.2-1.0) Aspartate Amino Transf (AST/SGOT) 48 U/L (15-37) H Alanine Aminotransferase (ALT/SGPT) 30 U/L (12-78) Alkaline Phosphatase 130 U/L (46-116) H Total Protein 6.1 G/DL (6.4-8.2) L Albumin 1.5 G/DL (3.4-5.0) L Globulin 4.6 g/dL Albumin/Globulin Ratio 0.3 (1.0-2.7) L Head: normocophalic Neck: no rigidity EENT: benign Neurologic Exam Mental Status: awake Speech: normal speech Language: normal language Cranial Nerve VII: no facial asymmetry Objective alert, oriented x 2, conversant UEs 5/5 LEs 1/5 flaccid cc 35 min Impression/Recommendations Problems: (1) STEMI (ST elevation myocardial infarction) (2) Atrial fibrillation with rapid ventricular response (3) Prolonged Q-T interval on ECG (4) DKA (diabetic ketoacidoses) (5) Hypernatremia (6) UTI (urinary tract infection) (7) Subdural hematoma Diagnostic Impression Given LE weakness , suspect myelopathy, mri cervical thoracic and lumbar ordered - called radiology to expedite, imaging still not in system to review keppra to 250 mg bid SBP < 150 PT OT consider Chandra Albrecht MD Jul 20, 2019 22:37
[2019-07-21] VITALS: BP 101/75
[2019-07-21] MEDS: Dexamethasone 4mg/ml vial IVP SCH ×2 (00:01→06:04)
[2019-07-21 04:00] VITALS: BP 110/61
[2019-07-21] MEDS: NovoLOG Insulin Flexpen SUBQ SCH ×7 (06:06→22:43)
[2019-07-21 06:46] LABS: HEMATOCRIT 32.4 % (37.0-47.0); HEMOGLOBIN 11.4 G/DL (12.0-16.0); MEAN CORPUSCULAR VOLUME 89 FL (80-99); PLATELET COUNT 82 K/UL (150-450); RED BLOOD COUNT 3.65 M/UL (4.20-5.40); RED CELL DISTRIBUTION WIDTH 11.3 % (11.6-14.8)
--- NOTE | 2019-07-21 07:35 | NUR ---
HAND-OFF: Report given to PAULINA Ventura. Plan of care endorsed.
[2019-07-21 07:44] LABS: ANION GAP 10 mmol/L (5-15); BLOOD UREA NITROGEN 8 mg/dL (7-18); CALCIUM 8.1 MG/DL (8.5-10.1); CARBON DIOXIDE 26 MMOL/L (21-32); CHLORIDE 110 MMOL/L (98-107); CREATININE 0.4 MG/DL (0.55-1.30); SODIUM 146 MMOL/L (136-145)
--- NOTE | 2019-07-21 07:56 | Consultation ---
History of Present Illness General Chief Complaint: Abnormal Labs Reason for Consultation: ams Present Illness Allergies: Coded Allergies: No Known Allergies (Unverified , 07/18/14) Medication History Scheduled No Known Medications* (NKM - No Known Medications*), 0 ., (Reported) Patient History Healthcare decision maker Resuscitation status Full Code Advanced Directive on File No Physical Exam Last 24 Hour Vital Signs Date Time Temp Pulse Resp B/P (MAP) Pulse Ox O2 Delivery O2 Flow Rate FiO2 07/21/19 04:00 98.4 91 19 110/61 (77) 98 07/21/19 00:00 98.0 107 20 101/75 (84) 97 07/20/19 21:00 103 109/60 07/20/19 21:00 Room Air 07/20/19 20:00 98.7 109 20 111/70 (84) 98 07/20/19 16:00 95 07/20/19 16:00 98.0 91 22 112/59 (76) 98 07/20/19 12:00 98.1 91 22 121/93 (102) 98 07/20/19 12:00 95 07/20/19 10:44 99 107/63 07/20/19 09:00 Room Air 07/20/19 08:00 99 07/20/19 08:00 98.4 99 18 107/63 (78) 100 Intake and Output 07/20/19 07/21/19 19:00 07:00 Intake Total 50 ml Balance 50 ml IV Total 50 ml # Voids 2 Laboratory Tests Test 07/21/19 05:35 White Blood Count 7.0 K/UL (4.8-10.8) Red Blood Count 3.65 M/UL (4.20-5.40) L Hemoglobin 11.4 G/DL (12.0-16.0) L Hematocrit 32.4 % (37.0-47.0) L Mean Corpuscular Volume 89 FL (80-99) Mean Corpuscular Hemoglobin 31.3 PG (27.0-31.0) H Mean Corpuscular Hemoglobin Concent 35.2 G/DL (32.0-36.0) Red Cell Distribution Width 11.3 % (11.6-14.8) L Platelet Count 82 K/UL (150-450) L Mean Platelet Volume 8.2 FL (6.5-10.1) Neutrophils (%) (Auto) % (45.0-75.0) Lymphocytes (%) (Auto) % (20.0-45.0) Monocytes (%) (Auto) % (1.0-10.0) Eosinophils (%) (Auto) % (0.0-3.0) Basophils (%) (Auto) % (0.0-2.0) Neutrophils % (Manual) Pending Lymphocytes % (Manual) Pending Platelet Estimate Pending Platelet Morphology Pending Sodium Level 146 MMOL/L (136-145) H Potassium Level 4.0 MMOL/L (3.5-5.1) Chloride Level 110 MMOL/L (98-107) H Carbon Dioxide Level 26 MMOL/L (21-32) Anion Gap 10 mmol/L (5-15) Blood Urea Nitrogen 8 mg/dL (7-18) Creatinine 0.4 MG/DL (0.55-1.30) L Estimat Glomerular Filtration Rate > 60 mL/min (>60) Glucose Level 160 MG/DL (74-106) #H Calcium Level 8.1 MG/DL (8.5-10.1) L Height (Feet): 5 Height (Inches): 4.00 Weight (Pounds): 135 Medications Current Medications Medications (Trade) Dose Ordered Sig/Alvin Route PRN Reason Start Time Stop Time Status Last Admin Dose Admin Acetaminophen (Tylenol) 650 mg Q4H PRN ORAL MILD PAIN 07/20/19 16:46 08/19/19 16:45 Acetaminophen (Tylenol) 650 mg Q4H PRN ORAL Temp >100.5 07/20/19 16:46 08/19/19 16:45 Ascorbic Acid (Vitamin C) 250 mg TWICE A DAY ORAL 07/20/19 18:00 08/18/19 17:59 07/20/19 17:45 Atorvastatin Calcium (Lipitor) 10 mg BEDTIME ORAL 07/20/19 21:00 10/13/19 20:59 07/20/19 21:17 Ceftriaxone Sodium 1 gm/ Dextrose 50 ml @ 100 mls/hr Q24H IVPB 07/20/19 21:00 07/25/19 20:59 07/20/19 21:22 Dexamethasone Sodium Phosphate (Decadron 4mg/ml vial) 4 mg Q6HR IVP 07/21/19 00:00 7/16/20 00:00 07/21/19 06:04 Dextrose (Dextrose 50%) 25 ml Q30M PRN IV Hypoglycemia 07/20/19 16:45 10/12/19 21:44 Dextrose (Dextrose 50%) 50 ml Q30M PRN IV Hypoglycemia 07/20/19 16:45 10/12/19 21:44 Gadobutrol (Gadavist) 7.5 mmol NOW PRN IV Radiology Procedure 07/20/19 22:00 07/23/19 21:57 Insulin Aspart (NovoLOG) AC+HS SUBQ 07/20/19 21:00 10/13/19 09:29 07/21/19 06:07 Insulin Aspart (NovoLOG) 12 units NOVOTIAC SUBQ 07/20/19 16:50 10/14/19 11:49 07/21/19 06:06 Insulin Detemir (Levemir) 30 units QHS SUBQ 07/20/19 21:00 10/14/19 20:59 07/20/19 20:57 Levetiracetam (Keppra) 250 mg Q12HR ORAL 07/20/19 21:00 09/01/19 20:59 07/20/19 21:17 Metoprolol Tartrate (Lopressor) 25 mg Q12HR ORAL 07/20/19 21:00 10/13/19 20:59 Pantoprazole (Protonix) 40 mg BID ORAL 07/20/19 18:00 08/17/19 08:59 07/20/19 17:45 Potassium Chloride (K-Dur) 40 meq BID ORAL 07/20/19 18:00 10/15/19 09:14 07/20/19 17:44 Tramadol HCl (Ultram) 25 mg Q6H PRN ORAL Severe Breakthru Pain (>7) 07/20/19 16:48 07/27/19 16:47 Vancomycin HCl (Firvanq) 125 mg FOUR TIMES A DAY ORAL 07/20/19 18:00 07/30/19 17:59 07/20/19 21:22 Assessment/Plan Assessment/Plan: Hematology Consultation STEPHANIE MD: Monserrat Adorno RFC: Lumbar disc neoplasm i.e. lymphoma v myeloma DOS: 07/21/2019 ID: 64-year-old female with history of diabetes on insulin presents for weakness and elevated blood sugar levels. She arrives from home by EMS with glucose readings greater than 500 on fingerstick per EMS. She has had 5 days of vomiting and diarrhea. Unable tolerate food, water or her medications. Denies fever or chills. Denies cough or chest pain. Feels profoundly weak. Denies dysuria hematuria. Heme consulted for iamging of spine as noted below, she herself has no personal hx of cancer. PMH: Insulin-dependent diabetes PSH: Reviewed Allergies: None reported Social Hx: None reported Allergies: Coded Allergies: No Known Allergies (Unverified , 07/18/14) COVID-19 Screening Contact w/high risk pt: No Recent Travel to affected area: No Experienced COVID-19 symptoms?: No Nursing Documentation-PMH Hx Cardiac Problems: Yes Hx Diabetes: Yes Review of Systems All Other Systems: negative except mentioned in HPI Physical Exam General: Awake and somnolent HEENT: NC/AT. EOMI. dry mucous membranes Cardiovascular: RRR. S1 and S2 normal. Resp: Normal work of breathing. No cough, wheezing or crackles appreciated Abdomen: Abdomen is soft, nondistended Skin: Intact. No abrasions, laceration or rash over the exposed skin MSK: Normal tone and bulk. Neuro: Awake and alert. Labs; noted Imaging: reviewed Assessment and Recs: # Multilevel bone marrow signal abnormality, as described. Differential considerations include metastatic neoplasm, infiltrative neoplasm such as myeloma or lymphoma, exuberant hematopoietic hyperplasia, less likely systemic metabolic disorders. Note that this is much more striking in the thoracic spine than it is in the lumbar and cervical segments study earlier --> tumor markers have been ordered --> spep and upep --> bone marrow biopsy has ordered --> r/o hemolysis at this time, DIC --> dw pcp # DKA (diabetic ketoacidoses) --> as per endo, iss and accuchecks qac and qhs --> hgb a1c goal <8, now 10.4 # Hypernatremia --> as per renal recs --> continue ivfs # UTI (urinary tract infection) --> per id, on abx, ceftriax, vanc # Ground-level fall. --> pt/ot as needed # Nausea and vomiting. --> zofran prn # Right sided weakness # Generalized Weakness # SDH 3mm no midline shift # Elevated d-dimer # Tachycardia - resolved Appreciate consultation and dw Rn Romain Chavez MD Jul 21, 2019 07:56
[2019-07-21 08:00] VITALS: BP 115/65
--- NOTE | 2019-07-21 08:04 | NUR ---
NURSE NOTES: Patient alert x4, Croatian speaking; on room air, no sing of distress and shortness of breath; no sing of chest pain; IV Left For-Arm and Left Upper arm flushes well; wound dressing dry and intact; SCD on; side rails padded for seizure percussion, side rails up x2, breaks engaged, bed at lowest position, call light within reach; will keep monitoring.
[2019-07-21] MEDS ORDERED: LORazepam 1mg tab ORAL PRN (08:30)
--- NOTE | 2019-07-21 08:50 | General Progress Note ---
Assessment/Plan Assessment/Plan: 64-year-old female with PMH of medical noncompliance, DM type II who presents with b/l weakness, N/V, GLF, on admission pt found to be in DKA with BG 500's. #DKA - improved, 2/ #E. coli UTI #E. coli bacteremia #Uncontrolled DM, Hgb A1C 10.4 #c. diff colitis -continue in-patient medical care -s/p DKA protocol with improved AG, AG 21-> 14 -CT abd reviewed -07/13: UCx e. coli -07/13: BCx w/E. coli 05/07, repeat 07/15 BCx NGTD -c.diff positive, contact precautions -cont. accuchecks, ISS qAC/HS -Endo following: Levemir to 30 units qhs, increase Novolog to 12 units ac tid -ID, Dr. Bagley: CTX, day #6 of abx, PO vanco for c diff #Multilevel Thoracic BM enhancements, concern for malignancy -suspicions for metastatic neoplasm, infiltrative neoplasm such as myeloma or lymphoma -07/13: CT abd/pel w/o contrast reviewed with no abnormalities -CEA, C19 pending -will obtain CT chest/abd/pel w/IV contrast -d/w Heme/Onc, Dr. 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 Sister stated pt has lost weight but has been suspecting "stomach CA", pt with no previous h/o of Kaycee. Answered all questions to pt and pt's sister's satisfaction #Right sided weakness #Generalized Weakness #SDH 3mm no midline shift -weakness may be multifactorial, metabolic -pt AOx3, pt noted fall 3 days ago -found on CT head, repeat CT head stable -07/17: CT head obtained given worsening weakness, stable compared to previous -d/w Neuro, no need for transfer at this time, will decrease keppra -cont. fall precautions -holding ASA given SDH -statin -PT treat and eval -d/w Neurology, Dr. Fountain, weakness does not appear to be neurologic at this time -CM for d/c planning, plan for CRI on d/c #Elevated d-dimer #Tachycardia - resolved -likely multifactorial given infection/DKA, PE has been ruled out -EKG w/NSR -CTA thorax negative for PE -tachycardia likely 2/2 dehydration, encourage PO intake -no OAC at this time #Hypernatremia - resolved #Hypokalemia - improved #Hypophosphatemia -Hypernatremia likely 2/2 free water deficit -replace electrolytes, cont. to monitor and replace PRN -neal d/c'd -Nephro following, IVF and electrolytes per nephro DVT - SCDs for now given SDH Time spent: 35 minutes on this patient's case, d/w pt POC, updated RN. D/w Dr. Chavez POC/BM biopsy, and Pt's sister w/POC and dispo planning. Time of note may not reflect time of encounter. Subjective Allergies: Coded Allergies: No Known Allergies (Unverified , 07/18/14) Subjective F/u DKA, UTI, hypernatremia, SDH, MRI enhancements on thoracic spine concerning for malignancy. For BM biopsy today. Pt notes right sided lower rib pain, denies SOB, palpitations, diaphoresis, states pain is worse on palpation. D/w pt and pt's sister, Dorcas Colindres, pt is concerned she has "stomach cancer", pt noted loose stools x2-3 months with subsequent weight loss, pt does not know how much weight has been lost. Per sister, pt is more alert today. Objective Last 24 Hour Vital Signs Date Time Temp Pulse Resp B/P (MAP) Pulse Ox O2 Delivery O2 Flow Rate FiO2 07/21/19 08:00 98.0 83 19 115/65 (82) 95 07/21/19 04:00 98.4 91 19 110/61 (77) 98 07/21/19 00:00 98.0 107 20 101/75 (84) 97 07/20/19 21:00 103 109/60 07/20/19 21:00 Room Air 07/20/19 20:00 98.7 109 20 111/70 (84) 98 4/16/20 16:00 95 07/20/19 16:00 98.0 91 22 112/59 (76) 98 07/20/19 12:00 98.1 91 22 121/93 (102) 98 07/20/19 12:00 95 07/20/19 10:44 99 107/63 07/20/19 09:00 Room Air Intake and Output 07/20/19 07/21/19 19:00 07:00 Intake Total 50 ml Balance 50 ml IV Total 50 ml # Voids 2 Laboratory Tests 07/21/19 05:35: White Blood Count 7.0, Red Blood Count 3.65L, Hemoglobin 11.4L, Hematocrit 32.4L , Mean Corpuscular Volume 89, Mean Corpuscular Hemoglobin 31.3H, Mean Corpuscular Hemoglobin Concent 35.2, Red Cell Distribution Width 11.3L, Platelet Count 82L, Mean Platelet Volume 8.2, Neutrophils (%) (Auto) , Lymphocytes (%) (Auto) , Monocytes (%) (Auto) , Eosinophils (%) (Auto) , Basophils (%) (Auto) , Neutrophils % (Manual) [Pending], Lymphocytes % (Manual) [Pending], Platelet Estimate [Pending], Platelet Morphology [Pending], Sodium Level 146H, Potassium Level 4.0, Chloride Level 110H, Carbon Dioxide Level 26, Anion Gap 10, Blood Urea Nitrogen 8, Creatinine 0.4L, Estimat Glomerular Filtration Rate > 60, Glucose Level 160#H, Calcium Level 8.1L, Total Protein ( PEP) [Pending], Albumin (PEP) [Pending], Globulin (PEP) [Pending], Albumin/ Globulin Ratio [Pending], Fhcfx-1-Jebylvnyu [Pending], Bxodf-7-Vcqyvkbpe [ Pending], Beta Globulins [Pending], Beta Gamma Globulin [Pending], PEP Abnormal Protein Bands [Pending], Protein Electrophoresis Interpret [Pending], Carcinoembryonic Antigen [Pending], CA 19-9 Antigen [Pending] Height (Feet): 5 Height (Inches): 4.00 Weight (Pounds): 135 Objective General: NAD, sitting up in bed comfortably, AAO x3, alert today HEENT: NCAT, EOMi, mucous membranes moist CV: RRR, no murmurs, rubs, or gallops Pulm: CTAB, No wheezes, rhonchi, or rales, no accessory muscle usage GI: Soft, nontender, nondistended, bowel sounds present Neuro: CN II-XII grossly intact, sensation intact bilaterally, MS 3/5 in UE, 0/ 5 LE B/L, able to wiggle toes Ext: no LE edema, no bruising noted on rt lower ribs MSK: reproducible pain on right lower ribs Silke Adorno M.D. Jul 21, 2019 08:50
--- NOTE | 2019-07-21 09:33 | Nephrology Progress Note ---
Assessment/Plan Problem List: (1) Hypernatremia Assessment: Improving (2) UTI (urinary tract infection) (3) Subdural hematoma (4) DKA (diabetic ketoacidoses) (5) Electrolyte imbalance Assessment Hypernatremia most likely due to free water deficit Hypokalemia, hypophosphatemia Hyperglycemia and DKA Evidence of UTI Right-sided weakness with 3 mm subdural hematoma found in CT scan Plan Discontinue IV fluid Discontinue Boyd catheter Change Protonix to p.o. Stop Neutra-Phos due to diarrhea Potassium and phosphorus and magnesium supplement as needed Diet started as the patient is more alert Low dose of Lopressor Monitor renal parameters and electrolytes Neuro eval noted Keep the blood pressure and blood sugar in check Urine studies Per orders Subjective ROS Limited/Unobtainable: No Constitutional: Reports: malaise Objective Objective Last 24 Hour Vital Signs Date Time Temp Pulse Resp B/P (MAP) Pulse Ox O2 Delivery O2 Flow Rate FiO2 07/21/19 08:00 98.0 83 19 115/65 (82) 95 07/21/19 04:00 98.4 91 19 110/61 (77) 98 07/21/19 00:00 98.0 107 20 101/75 (84) 97 07/20/19 21:00 103 109/60 07/20/19 21:00 Room Air 07/20/19 20:00 98.7 109 20 111/70 (84) 98 07/20/19 16:00 95 07/20/19 16:00 98.0 91 22 112/59 (76) 98 07/20/19 12:00 98.1 91 22 121/93 (102) 98 07/20/19 12:00 95 07/20/19 10:44 99 107/63 Intake and Output 07/20/19 07/21/19 19:00 07:00 Intake Total 50 ml Balance 50 ml IV Total 50 ml # Voids 2 Current Medications Medications (Trade) Dose Ordered Sig/Alvin Route PRN Reason Start Time Stop Time Status Last Admin Dose Admin Acetaminophen (Tylenol) 650 mg Q4H PRN ORAL MILD PAIN 07/20/19 16:46 08/19/19 16:45 Acetaminophen (Tylenol) 650 mg Q4H PRN ORAL Temp >100.5 07/20/19 16:46 08/19/19 16:45 Ascorbic Acid (Vitamin C) 250 mg TWICE A DAY ORAL 07/20/19 18:00 08/18/19 17:59 07/20/19 17:45 Atorvastatin Calcium (Lipitor) 10 mg BEDTIME ORAL 07/20/19 21:00 10/13/19 20:59 07/20/19 21:17 Ceftriaxone Sodium 1 gm/ Dextrose 50 ml @ 100 mls/hr Q24H IVPB 07/20/19 21:00 07/25/19 20:59 07/20/19 21:22 Dexamethasone Sodium Phosphate (Decadron 4mg/ml vial) 4 mg Q6HR IVP 07/21/19 00:00 10/19/19 00:00 07/21/19 06:04 Dextrose (Dextrose 50%) 25 ml Q30M PRN IV Hypoglycemia 07/20/19 16:45 10/12/19 21:44 Dextrose (Dextrose 50%) 50 ml Q30M PRN IV Hypoglycemia 07/20/19 16:45 10/12/19 21:44 Gadobutrol (Gadavist) 7.5 mmol NOW PRN IV Radiology Procedure 07/20/19 22:00 07/23/19 21:57 Insulin Aspart (NovoLOG) AC+HS SUBQ 07/20/19 21:00 10/13/19 09:29 07/21/19 06:07 Insulin Aspart (NovoLOG) 12 units NOVOTIAC SUBQ 07/20/19 16:50 10/14/19 11:49 07/21/19 06:06 Insulin Detemir (Levemir) 30 units QHS SUBQ 07/20/19 21:00 10/14/19 20:59 07/20/19 20:57 Levetiracetam (Keppra) 250 mg Q12HR ORAL 07/20/19 21:00 09/01/19 20:59 07/20/19 21:17 Lorazepam (Ativan) 1 mg Q6H PRN ORAL For Anxiety 07/21/19 08:30 07/28/19 08:29 Metoprolol Tartrate (Lopressor) 25 mg Q12HR ORAL 07/20/19 21:00 10/13/19 20:59 Pantoprazole (Protonix) 40 mg BID ORAL 07/20/19 18:00 08/17/19 08:59 07/20/19 17:45 Potassium Chloride (K-Dur) 40 meq BID ORAL 07/20/19 18:00 10/15/19 09:14 07/20/19 17:44 Tramadol HCl (Ultram) 25 mg Q6H PRN ORAL Severe Breakthru Pain (>7) 07/20/19 16:48 07/27/19 16:47 Vancomycin HCl (Firvanq) 125 mg FOUR TIMES A DAY ORAL 07/20/19 18:00 07/30/19 17:59 07/20/19 21:22 Laboratory Tests 07/21/19 05:35: White Blood Count 7.0, Red Blood Count 3.65L, Hemoglobin 11.4L, Hematocrit 32.4L , Mean Corpuscular Volume 89, Mean Corpuscular Hemoglobin 31.3H, Mean Corpuscular Hemoglobin Concent 35.2, Red Cell Distribution Width 11.3L, Platelet Count 82L, Mean Platelet Volume 8.2, Neutrophils (%) (Auto) , Lymphocytes (%) (Auto) , Monocytes (%) (Auto) , Eosinophils (%) (Auto) , Basophils (%) (Auto) , Neutrophils % (Manual) [Pending], Lymphocytes % (Manual) [Pending], Platelet Estimate [Pending], Platelet Morphology [Pending], Sodium Level 146H, Potassium Level 4.0, Chloride Level 110H, Carbon Dioxide Level 26, Anion Gap 10, Blood Urea Nitrogen 8, Creatinine 0.4L, Estimat Glomerular Filtration Rate > 60, Glucose Level 160#H, Calcium Level 8.1L, Total Protein ( PEP) [Pending], Albumin (PEP) [Pending], Globulin (PEP) [Pending], Albumin/ Globulin Ratio [Pending], Lzrfj-7-Nejjcjrpw [Pending], Bmqox-1-Ibafhpndb [ Pending], Beta Globulins [Pending], Beta Gamma Globulin [Pending], PEP Abnormal Protein Bands [Pending], Protein Electrophoresis Interpret [Pending], Carcinoembryonic Antigen [Pending], CA 19-9 Antigen [Pending] Height (Feet): 5 Height (Inches): 4.00 Weight (Pounds): 135 General Appearance: no apparent distress Cardiovascular: tachycardia Respiratory/Chest: decreased breath sounds Abdomen: soft Objective No change Yash Hernandes MD Jul 21, 2019 09:33
[2019-07-21] MEDS: Ascorbic Acid 500mg tab ORAL SCH ×2 (09:39→17:38)
[2019-07-21] MEDS ORDERED: Lidocaine 2% 20mg/ml/Epi 0.005mg/ml 20ml vial INJ ONE (10:15)
[2019-07-21] MEDS: Vancomycin oral 125mg/2.5ml ORAL SCH ×4 (11:02→20:58)
--- NOTE | 2019-07-21 11:03 | NUR ---
CASE MANAGEMENT:REIVEW SI; SEPSIS D/T E COLI BACTEREMIA AND UTI. DKA HYPERNATREMIA. HYPOKALEMIA. SUBDURAL HEMATOMA 98.7 109 20 101/75 95% ON RA PLT 82 NA+ 146 CL 110 CR 0.4 BG 160 CA 8.1 IS: IV ROCEPHIN Q24 DECADRON IV Q6 HRS IVF@100 ML/HR LEVEMIR SQ QHS VIT C PO BID INSULIN SQ TID PROTONIX PO BID K-DUR PO BID KEPPRA PO Q12 VANCOMYCIN PO QID LOPRESSOR PO Q12 TRANSFERRED TO MED SURG ON 07/20/2019 @ 1032 MED SURG STATUS DCP: FROM HOME PLAN: BONE MARROW ASPIRATION & [facility]....DISCHARGE ORDER PENDING
--- NOTE | 2019-07-21 11:28 | Diagnostic Imaging Report ---
Indication: Shortness of breath Technique: One view of the chest Comparison: 07/19/2019 Findings: Less bronchial wall inspiration, with some crowding of bronchovascular markings particularly at the lung bases. There is some atelectasis at the left lung base. Reticular opacities at the right lung base are probably just an artifact of poor inflation, but reticular infiltrate not completely excludable. The remainder the lungs and pleural spaces are clear. Impression: Hypoventilatory exam with bibasilar atelectasis left greater than right Possible right basilar reticular infiltrate versus artifact of hyperinflation. Correlate with clinical findings.
[2019-07-21] MEDS ORDERED: Omnipaque-300 100ml vial INJ PRN (11:30)
--- NOTE | 2019-07-21 11:45 | Surgery Progress Note ---
Surgery Progress Note Subjective Additional Comments pending bone marrow biopsy labs noted exam stable Objective Last 24 Hour Vital Signs Date Time Temp Pulse Resp B/P (MAP) Pulse Ox O2 Delivery O2 Flow Rate FiO2 07/21/19 09:39 83 115/65 07/21/19 08:00 98.0 83 19 115/65 (82) 95 07/21/19 04:00 98.4 91 19 110/61 (77) 98 07/21/19 00:00 98.0 107 20 101/75 (84) 97 07/20/19 21:00 103 109/60 07/20/19 21:00 Room Air 07/20/19 20:00 98.7 109 20 111/70 (84) 98 07/20/19 16:00 95 07/20/19 16:00 98.0 91 22 112/59 (76) 98 07/20/19 12:00 98.1 91 22 121/93 (102) 98 07/20/19 12:00 95 I&O Intake and Output 07/20/19 07/21/19 19:00 07:00 Intake Total 50 ml Balance 50 ml IV Total 50 ml # Voids 2 Dressing: saturated Wound: other Drains: other Cardiovascular: RSR Respiratory: decreased breath sounds Abdomen: soft, non-tender, present bowel sounds Extremities: no tenderness, no cyanosis Laboratory Tests Test 07/21/19 05:35 White Blood Count 7.0 K/UL (4.8-10.8) Red Blood Count 3.65 M/UL (4.20-5.40) L Hemoglobin 11.4 G/DL (12.0-16.0) L Hematocrit 32.4 % (37.0-47.0) L Mean Corpuscular Volume 89 FL (80-99) Mean Corpuscular Hemoglobin 31.3 PG (27.0-31.0) H Mean Corpuscular Hemoglobin Concent 35.2 G/DL (32.0-36.0) Red Cell Distribution Width 11.3 % (11.6-14.8) L Platelet Count 82 K/UL (150-450) L Mean Platelet Volume 8.2 FL (6.5-10.1) Neutrophils (%) (Auto) % (45.0-75.0) Lymphocytes (%) (Auto) % (20.0-45.0) Monocytes (%) (Auto) % (1.0-10.0) Eosinophils (%) (Auto) % (0.0-3.0) Basophils (%) (Auto) % (0.0-2.0) Differential Total Cells Counted 100 Neutrophils % (Manual) 92 % (45-75) H Lymphocytes % (Manual) 7 % (20-45) L Monocytes % (Manual) 1 % (1-10) Eosinophils % (Manual) 0 % (0-3) Basophils % (Manual) 0 % (0-2) Band Neutrophils 0 % (0-8) Platelet Estimate Decreased L Platelet Morphology Normal Red Blood Cell Morphology Normal Sodium Level 146 MMOL/L (136-145) H Potassium Level 4.0 MMOL/L (3.5-5.1) Chloride Level 110 MMOL/L (98-107) H Carbon Dioxide Level 26 MMOL/L (21-32) Anion Gap 10 mmol/L (5-15) Blood Urea Nitrogen 8 mg/dL (7-18) Creatinine 0.4 MG/DL (0.55-1.30) L Estimat Glomerular Filtration Rate > 60 mL/min (>60) Glucose Level 160 MG/DL (74-106) #H Calcium Level 8.1 MG/DL (8.5-10.1) L Total Protein (PEP) Pending Albumin (PEP) Pending Globulin (PEP) Pending Albumin/Globulin Ratio Pending Qexfm-5-Rjztnyzmv Pending Evioq-0-Mqtlybofb Pending Beta Globulins Pending Beta Gamma Globulin Pending PEP Abnormal Protein Bands Pending Protein Electrophoresis Interpret Pending Carcinoembryonic Antigen Pending CA 19-9 Antigen Pending Plan Problems: (1) Decubitus skin ulcer Assessment & Plan: Patient noted to have rapid onset Sacral DTPI. Per Primary Nurse pt noted on prior shift to have non-blanching erythema as per report. All preventive measures were taken to reposition patient and off-load pressure. Despite repositioning and applying Moisture Barrier Paste patient noted to have further skin decline. Sacral DTPI is irregular shaped, Purple and indurated in colour over sacrococcygeal with surrounding non-blanching erythema along borders.(L)7.1cm x (W)6.5cm. Nutritional intake varies 30-45% daily. Non-Blanching erythema without fluctuance noted to R and L heels. Both heels observed floated with pillows Off mattress. Tx.Plan: Apply Moisture Barrier Paste to Sacrum. Cover with Optifoam drsg. Change every 3 days and prn. Apply Cavilon Skin Barrier to both heels. Cover each heel with Optifoam drsg. Change every 7 days and prn. Reposition at least every 2hours or as tolerated. Off-load heels with pillow. APM/MEHDI Mattress overlay. MRI spine noted neuro input appreciated (2) Deep tissue injury (3) Malnutrition Assessment & Plan: DAILY ESTIMATED NEEDS: Needs based on DM 61.5kg 25-30 kcals/kg [id number] total kcals 1.25-1.5 g protein/kg 77-92 g total protein 25-30 mL/kg 4477-8561 total fluid mLs NUTRITION DIAGNOSIS: Altered nutrition related lab values r/t DKA, clinical status as evidenced by A1C 10.4, BG 423 on adm, (+) acetone, now w/ critically elev Na(161*) and low K(2.4*). CURRENT DIET: [facility] LOW puree + NTL PO DIET RECOMMENDATIONS: [facility] LOW diet/ texture per GRAIN SCOOPER ADDITIONAL RECOMMENDATIONS: 1) W/ variable po intake add Glucerna 1 tetra per day Add high pro/1 carb snacks in b/w meals 2) On D5 for hydration, monitor BG 3) Wound care: Add VALARIE BID + Vit C 250mg daily (f/up w/ WC eval) 4) Obtain a calibrated bed scale wts EMR wt: 110# vs Bed scale wt: 135# (4) Abnormal thyroid blood test (5) Electrolyte imbalance Assessment & Plan: 1. No pulmonary embolus, somewhat limited at the bases due to motion. 2. Bibasilar lung atelectasis/airspace disease. 3. 3 mm nodule along the right middle lobe fissure. 3.6 mm nodule left lower lobe along the fissure. Fleischner Society Guidelines for low-risk patients, no follow-up is necessary. For high-risk patients (smoking history or other known risk factors) an optional chest CT at 12 months could be performed. 4. Mild bilateral perinephric stranding. May be senescent, correlate for infection. 5. Distended gallbladder with hyperdensity may be sludge or stones. 6. Prominent left lobe of the liver is slightly nodular in appearance. US ordered (6) Subdural hematoma Assessment & Plan: as per neurology MRI noted bm biopsy pending Russ Shoemaker Jul 21, 2019 11:45
--- NOTE | 2019-07-21 11:59 | NUR ---
*-* INSURANCE *-* UPDATED CLINICALS AND REVIEWS HAVE BEEN FAXED TO: [facility]: BRETT AVILA T: [phone] (LEAVE A MESSAGE) F: [phone]
[2019-07-21 12:00] VITALS: BP 118/64
--- NOTE | 2019-07-21 12:54 | Hematology/Onc Progress Note ---
Assessment/Plan Assessment/Plan Assessment and Recs: # Multilevel bone marrow signal abnormality, as described. Differential considerations include metastatic neoplasm, infiltrative neoplasm such as myeloma or lymphoma, exuberant hematopoietic hyperplasia, less likely systemic metabolic disorders. Note that this is much more striking in the thoracic spine than it is in the lumbar and cervical segments study earlier --> tumor markers have been ordered --> spep and upep --> bone marrow biopsy has ordered --> also ordered for ct c/a/p with iv contrast --> r/o hemolysis at this time, DIC --> dw pcp # DKA (diabetic ketoacidoses) --> as per endo, iss and accuchecks qac and qhs --> hgb a1c goal <8, now 10.4 # Hypernatremia --> as per renal recs --> continue ivfs # UTI (urinary tract infection) --> per id, on abx: ceftriaxone # Ground-level fall. --> pt/ot as needed # Nausea and vomiting. --> zofran prn # Right sided weakness # Generalized Weakness # SDH 3mm no midline shift # Elevated d-dimer # Tachycardia - resolved Appreciate consultation and sal Rn Subjective HEENT: Denies: no symptoms, eye pain, blurred vision, tearing, double vision, ear pain, ear discharge, nose pain, nose congestion, throat pain, throat swelling, mouth pain, mouth swelling, other Cardiovascular: Denies: no symptoms, chest pain, edema, irregular heart rate, lightheadedness, palpitations, syncope, other Respiratory: Denies: no symptoms, cough, shortness of breath, SOB with excertion, SOB at rest, sputum, wheezing, other Gastrointestinal/Abdominal: Denies: no symptoms, abdomen distended, abdominal pain, black stools, tarry stools, blood in stool, constipated, diarrhea, difficulty swallowing, nausea, poor appetite, poor fluid intake, rectal bleeding , vomiting, other Genitourinary: Denies: no symptoms, burning, discharge, frequency, flank pain, hematuria, incontinence, pain, urgency, other Neurologic/Psychiatric: Denies: no symptoms, anxiety, depressed, emotional problems, headache, numbness, paresthesia, pre-existing deficit, seizure, tingling, tremors, weakness, other Endocrine: Denies: no symptoms, excessive sweating, flushing, intolerance to cold, intolerance to heat, increased hunger, increased thirst, increased urine, unexplained weight gain, unexplained weight loss, other Allergies: Coded Allergies: No Known Allergies (Unverified , 07/18/14) Subjective 07/20 cxr and labs reviewed, on room air, bp stable, bone marrow biopsy ordered Objective Objective Current Medications Medications (Trade) Dose Ordered Sig/Alvin Route PRN Reason Start Time Stop Time Status Last Admin Dose Admin Acetaminophen (Tylenol) 650 mg Q6H PRN ORAL Mild Pain (Pain Scale 1-3) 07/21/19 10:00 08/20/19 09:59 Ascorbic Acid (Vitamin C) 250 mg TWICE A DAY ORAL 07/20/19 18:00 08/18/19 17:59 07/21/19 09:39 Atorvastatin Calcium (Lipitor) 10 mg BEDTIME ORAL 07/20/19 21:00 10/13/19 20:59 07/20/19 21:17 Barium Sulfate (Readi-Cat 2) 450 ml NOW PRN ORAL Radiology Procedure 07/21/19 11:30 07/23/19 11:29 Ceftriaxone Sodium 1 gm/ Dextrose 50 ml @ 100 mls/hr Q24H IVPB 07/20/19 21:00 07/25/19 20:59 07/20/19 21:22 Dexamethasone Sodium Phosphate (Decadron 4mg/ml vial) 4 mg Q6HR IVP 07/21/19 00:00 10/19/19 00:00 07/21/19 06:04 Dextrose (Dextrose 50%) 25 ml Q30M PRN IV Hypoglycemia 07/20/19 16:45 10/12/19 21:44 Dextrose (Dextrose 50%) 50 ml Q30M PRN IV Hypoglycemia 07/20/19 16:45 10/12/19 21:44 Gadobutrol (Gadavist) 7.5 mmol NOW PRN IV Radiology Procedure 07/20/19 22:00 07/23/19 21:57 Insulin Aspart (NovoLOG) AC+HS SUBQ 07/20/19 21:00 10/13/19 09:29 07/21/19 06:07 Insulin Aspart (NovoLOG) 12 units NOVOTIAC SUBQ 07/20/19 16:50 10/14/19 11:49 07/21/19 06:06 Insulin Detemir (Levemir) 30 units QHS SUBQ 07/20/19 21:00 10/14/19 20:59 07/20/19 20:57 Iohexol (OMNIPAQUE-300 100ml) 100 ml ONCE PRN INJ radiology procedure 07/21/19 11:30 07/23/19 11:29 Levetiracetam (Keppra) 250 mg Q12HR ORAL 07/20/19 21:00 09/01/19 20:59 07/21/19 09:39 Lorazepam (Ativan) 1 mg Q6H PRN ORAL For Anxiety 07/21/19 08:30 07/28/19 08:29 Metoprolol Tartrate (Lopressor) 25 mg Q12HR ORAL 07/20/19 21:00 10/13/19 20:59 07/21/19 09:39 Pantoprazole (Protonix) 40 mg BID ORAL 07/20/19 18:00 08/17/19 08:59 07/21/19 09:39 Potassium Chloride (K-Dur) 40 meq BID ORAL 07/20/19 18:00 10/15/19 09:14 07/21/19 09:39 Tramadol HCl (Ultram) 25 mg Q6H PRN ORAL Severe Breakthru Pain (>7) 07/20/19 16:48 07/27/19 16:47 Vancomycin HCl (Firvanq) 125 mg FOUR TIMES A DAY ORAL 07/20/19 18:00 07/30/19 17:59 07/21/19 11:02 Last 24 Hour Vital Signs Date Time Temp Pulse Resp B/P (MAP) Pulse Ox O2 Delivery O2 Flow Rate FiO2 07/21/19 09:39 83 115/65 07/21/19 08:00 98.0 83 19 115/65 (82) 95 07/21/19 04:00 98.4 91 19 110/61 (77) 98 07/21/19 00:00 98.0 107 20 101/75 (84) 97 07/20/19 21:00 103 109/60 07/20/19 21:00 Room Air 07/20/19 20:00 98.7 109 20 111/70 (84) 98 07/20/19 16:00 95 07/20/19 16:00 98.0 91 22 112/59 (76) 98 07/20/19 12:00 98.1 91 22 121/93 (102) 98 07/20/19 12:00 95 07/20/19 10:44 99 107/63 07/20/19 09:00 Room Air 07/20/19 08:00 99 07/20/19 08:00 98.4 99 18 107/63 (78) 100 07/20/19 04:00 89 07/20/19 04:00 98.0 95 18 116/69 (85) 90 07/20/19 00:00 98 07/20/19 00:00 97.7 97 18 128/68 (88) 97 07/19/19 21:00 Room Air 07/19/19 21:00 93 124/66 07/19/19 20:01 97.0 93 18 124/66 (85) 96 07/19/19 20:00 97.7 91 18 147/73 (97) 98 07/19/19 16:00 98.6 101 20 121/61 (81) 96 07/19/19 16:00 Room Air 07/19/19 16:00 98 Intake and Output 07/20/19 07/21/19 19:00 07:00 Intake Total 50 ml Balance 50 ml IV Total 50 ml # Voids 2 Labs Test 07/19/19 05:55 07/20/19 06:00 07/21/19 05:35 White Blood Count 6.0 K/UL (4.8-10.8) 5.8 K/UL (4.8-10.8) 7.0 K/UL (4.8-10.8) Red Blood Count 3.66 M/UL (4.20-5.40) 3.63 M/UL (4.20-5.40) 3.65 M/UL (4.20-5.40) Hemoglobin 11.7 G/DL (12.0-16.0) 11.3 G/DL (12.0-16.0) 11.4 G/DL (12.0-16.0) Hematocrit 32.8 % (37.0-47.0) 32.6 % (37.0-47.0) 32.4 % (37.0-47.0) Mean Corpuscular Volume 90 FL (80-99) 90 FL (80-99) 89 FL (80-99) Mean Corpuscular Hemoglobin 31.9 PG (27.0-31.0) 31.0 PG (27.0-31.0) 31.3 PG (27.0-31.0) Mean Corpuscular Hemoglobin Concent 35.6 G/DL (32.0-36.0) 34.6 G/DL (32.0-36.0) 35.2 G/DL (32.0-36.0) Red Cell Distribution Width 12.0 % (11.6-14.8) 11.4 % (11.6-14.8) 11.3 % (11.6-14.8) Platelet Count 50 K/UL (150-450) 66 K/UL (150-450) 82 K/UL (150-450) Mean Platelet Volume 8.3 FL (6.5-10.1) 9.1 FL (6.5-10.1) 8.2 FL (6.5-10.1) Neutrophils (%) (Auto) % (45.0-75.0) % (45.0-75.0) % (45.0-75.0) Lymphocytes (%) (Auto) % (20.0-45.0) % (20.0-45.0) % (20.0-45.0) Monocytes (%) (Auto) % (1.0-10.0) % (1.0-10.0) % (1.0-10.0) Eosinophils (%) (Auto) % (0.0-3.0) % (0.0-3.0) % (0.0-3.0) Basophils (%) (Auto) % (0.0-2.0) % (0.0-2.0) % (0.0-2.0) Differential Total Cells Counted 100 100 100 Neutrophils % (Manual) 67 % (45-75) 78 % (45-75) 92 % (45-75) Lymphocytes % (Manual) 26 % (20-45) 19 % (20-45) 7 % (20-45) Monocytes % (Manual) 6 % (1-10) 3 % (1-10) 1 % (1-10) Eosinophils % (Manual) 1 % (0-3) 0 % (0-3) 0 % (0-3) Basophils % (Manual) 0 % (0-2) 0 % (0-2) 0 % (0-2) Band Neutrophils 0 % (0-8) 0 % (0-8) 0 % (0-8) Platelet Estimate Decreased Decreased Decreased Platelet Morphology Normal Normal Normal Hypochromasia 1+ 1+ Anisocytosis 1+ 1+ Sodium Level 151 MMOL/L (136-145) 143 MMOL/L (136-145) 146 MMOL/L (136-145) Potassium Level 3.9 MMOL/L (3.5-5.1) 3.8 MMOL/L (3.5-5.1) 4.0 MMOL/L (3.5-5.1) Chloride Level 115 MMOL/L (98-107) 108 MMOL/L (98-107) 110 MMOL/L (98-107) Carbon Dioxide Level 27 MMOL/L (21-32) 27 MMOL/L (21-32) 26 MMOL/L (21-32) Anion Gap 9 mmol/L (5-15) 8 mmol/L (5-15) 10 mmol/L (5-15) Blood Urea Nitrogen 9 mg/dL (7-18) 10 mg/dL (7-18) 8 mg/dL (7-18) Creatinine 0.5 MG/DL (0.55-1.30) 0.5 MG/DL (0.55-1.30) 0.4 MG/DL (0.55-1.30) Estimat Glomerular Filtration Rate > 60 mL/min (>60) > 60 mL/min (>60) > 60 mL/min (>60) Glucose Level 247 MG/DL (74-106) 299 MG/DL (74-106) 160 MG/DL (74-106) Calcium Level 7.9 MG/DL (8.5-10.1) 8.4 MG/DL (8.5-10.1) 8.1 MG/DL (8.5-10.1) Phosphorus Level 2.2 MG/DL (2.5-4.9) 2.7 MG/DL (2.5-4.9) Magnesium Level 2.3 MG/DL (1.8-2.4) 2.3 MG/DL (1.8-2.4) Total Bilirubin 0.3 MG/DL (0.2-1.0) 0.5 MG/DL (0.2-1.0) Aspartate Amino Transf (AST/SGOT) 45 U/L (15-37) 48 U/L (15-37) Alanine Aminotransferase (ALT/SGPT) 36 U/L (12-78) 30 U/L (12-78) Alkaline Phosphatase 122 U/L (46-116) 130 U/L (46-116) C-Reactive Protein, Quantitative 12.0 mg/dL (0.00-0.90) Total Protein 5.7 G/DL (6.4-8.2) 6.1 G/DL (6.4-8.2) Albumin 1.6 G/DL (3.4-5.0) 1.5 G/DL (3.4-5.0) Globulin 4.1 g/dL 4.6 g/dL Albumin/Globulin Ratio 0.4 (1.0-2.7) 0.3 (1.0-2.7) Spherocytes 1+ Red Blood Cell Morphology Normal Height (Feet): 5 Height (Inches): 4.00 Weight (Pounds): 135 Objective Physical Exam General: Awake and somnolent HEENT: NC/AT. EOMI. dry mucous membranes Cardiovascular: RRR. S1 and S2 normal. Resp: Normal work of breathing. No cough, wheezing or crackles appreciated Abdomen: Abdomen is soft, nondistended Skin: Intact. No abrasions, laceration or rash over the exposed skin MSK: Normal tone and bulk. Neuro: Awake and alert. Romain Chavez MD Jul 21, 2019 12:54
--- NOTE | 2019-07-21 13:03 | General Progress Note ---
Assessment/Plan Problem List: (1) Abnormal thyroid blood test ICD Codes: R79.89 - Other specified abnormal findings of blood chemistry SNOMED: 875561786, 326722349610534 (2) Diabetes mellitus out of control ICD Codes: E11.65 - Type 2 diabetes mellitus with hyperglycemia SNOMED: 84590929, 688033809 (3) DKA (diabetic ketoacidoses) ICD Codes: E11.10 - Type 2 diabetes mellitus with ketoacidosis without coma SNOMED: 109937072, 23006977 (4) STEMI (ST elevation myocardial infarction) ICD Codes: I21.3 - ST elevation (STEMI) myocardial infarction of unspecified site SNOMED: 618686433 (5) Prolonged Q-T interval on ECG ICD Codes: R94.31 - Abnormal electrocardiogram [ECG] [EKG] SNOMED: 721517660 (6) Atrial fibrillation with rapid ventricular response ICD Codes: I48.91 - Unspecified atrial fibrillation SNOMED: 034393860821627 (7) Hypernatremia ICD Codes: E87.0 - Hyperosmolality and hypernatremia SNOMED: 853172617, 66309177 Assessment/Plan: continue Levemir 30 units qhs continue Novolog 12 units ac tid continue NISS ac / hs continue to hold Levothyroxine Subjective Allergies: Coded Allergies: No Known Allergies (Unverified , 07/18/14) Subjective events noted interval notes reviewed glucose values improved after yesterday's insulin adjustment Item Value Date Time Bedside Blood Glucose 153 mg/dl H 07/21/19 0623 Bedside Blood Glucose 159 mg/dl H 07/20/19 2100 Bedside Blood Glucose 207 mg/dl H 07/20/19 1711 Bedside Blood Glucose 199 mg/dl H 07/20/19 1229 Objective Last 24 Hour Vital Signs Date Time Temp Pulse Resp B/P (MAP) Pulse Ox O2 Delivery O2 Flow Rate FiO2 07/21/19 09:39 83 115/65 07/21/19 08:00 98.0 83 19 115/65 (82) 95 07/21/19 04:00 98.4 91 19 110/61 (77) 98 07/21/19 00:00 98.0 107 20 101/75 (84) 97 07/20/19 21:00 103 109/60 07/20/19 21:00 Room Air 07/20/19 20:00 98.7 109 20 111/70 (84) 98 07/20/19 16:00 95 07/20/19 16:00 98.0 91 22 112/59 (76) 98 Intake and Output 07/20/19 07/21/19 19:00 07:00 Intake Total 50 ml Balance 50 ml IV Total 50 ml # Voids 2 Laboratory Tests 07/21/19 05:35: White Blood Count 7.0, Red Blood Count 3.65L, Hemoglobin 11.4L, Hematocrit 32.4L , Mean Corpuscular Volume 89, Mean Corpuscular Hemoglobin 31.3H, Mean Corpuscular Hemoglobin Concent 35.2, Red Cell Distribution Width 11.3L, Platelet Count 82L, Mean Platelet Volume 8.2, Neutrophils (%) (Auto) , Lymphocytes (%) (Auto) , Monocytes (%) (Auto) , Eosinophils (%) (Auto) , Basophils (%) (Auto) , Differential Total Cells Counted 100, Neutrophils % ( Manual) 92H, Lymphocytes % (Manual) 7L, Monocytes % (Manual) 1, Eosinophils % ( Manual) 0, Basophils % (Manual) 0, Band Neutrophils 0, Platelet Estimate DecreasedL, Platelet Morphology Normal, Red Blood Cell Morphology Normal, Sodium Level 146H, Potassium Level 4.0, Chloride Level 110H, Carbon Dioxide Level 26, Anion Gap 10, Blood Urea Nitrogen 8, Creatinine 0.4L, Estimat Glomerular Filtration Rate > 60, Glucose Level 160#H, Calcium Level 8.1L, Total Protein (PEP) [Pending], Albumin (PEP) [Pending], Globulin (PEP) [Pending], Albumin/Globulin Ratio [Pending], Xvnhi-2-Cafpxssmi [Pending], Alpha-2- Globulins [Pending], Beta Globulins [Pending], Beta Gamma Globulin [Pending], PEP Abnormal Protein Bands [Pending], Protein Electrophoresis Interpret [Pending ], Carcinoembryonic Antigen [Pending], CA 19-9 Antigen [Pending] Height (Feet): 5 Height (Inches): 4.00 Weight (Pounds): 135 General Appearance: no apparent distress Neck: normal alignment Cardiovascular: normal rate Respiratory/Chest: lungs clear Abdomen: normal bowel sounds Objective Current Medications Medications (Trade) Dose Ordered Sig/Alvin Route PRN Reason Start Time Stop Time Status Last Admin Dose Admin Acetaminophen (Tylenol) 650 mg Q6H PRN ORAL Mild Pain (Pain Scale 1-3) 07/21/19 10:00 08/20/19 09:59 Ascorbic Acid (Vitamin C) 250 mg TWICE A DAY ORAL 07/20/19 18:00 08/18/19 17:59 07/21/19 09:39 Atorvastatin Calcium (Lipitor) 10 mg BEDTIME ORAL 07/20/19 21:00 10/13/19 20:59 07/20/19 21:17 Barium Sulfate (Readi-Cat 2) 450 ml NOW PRN ORAL Radiology Procedure 07/21/19 11:30 07/23/19 11:29 Ceftriaxone Sodium 1 gm/ Dextrose 50 ml @ 100 mls/hr Q24H IVPB 07/20/19 21:00 07/25/19 20:59 07/20/19 21:22 Dexamethasone Sodium Phosphate (Decadron 4mg/ml vial) 4 mg Q6HR IVP 07/21/19 00:00 10/19/19 00:00 07/21/19 06:04 Dextrose (Dextrose 50%) 25 ml Q30M PRN IV Hypoglycemia 07/20/19 16:45 10/12/19 21:44 Dextrose (Dextrose 50%) 50 ml Q30M PRN IV Hypoglycemia 07/20/19 16:45 10/12/19 21:44 Gadobutrol (Gadavist) 7.5 mmol NOW PRN IV Radiology Procedure 07/20/19 22:00 07/23/19 21:57 Insulin Aspart (NovoLOG) AC+HS SUBQ 07/20/19 21:00 10/13/19 09:29 07/21/19 06:07 Insulin Aspart (NovoLOG) 12 units NOVOTIAC SUBQ 07/20/19 16:50 10/14/19 11:49 07/21/19 06:06 Insulin Detemir (Levemir) 30 units QHS SUBQ 07/20/19 21:00 10/14/19 20:59 07/20/19 20:57 Iohexol (OMNIPAQUE-300 100ml) 100 ml ONCE PRN INJ radiology procedure 07/21/19 11:30 07/23/19 11:29 Levetiracetam (Keppra) 250 mg Q12HR ORAL 07/20/19 21:00 09/01/19 20:59 07/21/19 09:39 Lorazepam (Ativan) 1 mg Q6H PRN ORAL For Anxiety 07/21/19 08:30 07/28/19 08:29 Metoprolol Tartrate (Lopressor) 25 mg Q12HR ORAL 07/20/19 21:00 10/13/19 20:59 07/21/19 09:39 Pantoprazole (Protonix) 40 mg BID ORAL 07/20/19 18:00 08/17/19 08:59 07/21/19 09:39 Potassium Chloride (K-Dur) 40 meq BID ORAL 07/20/19 18:00 10/15/19 09:14 07/21/19 09:39 Tramadol HCl (Ultram) 25 mg Q6H PRN ORAL Severe Breakthru Pain (>7) 07/20/19 16:48 07/27/19 16:47 Vancomycin HCl (Firvanq) 125 mg FOUR TIMES A DAY ORAL 07/20/19 18:00 07/30/19 17:59 07/21/19 11:02 Pola Medrano MD Jul 21, 2019 13:03
--- NOTE | 2019-07-21 13:18 | NUR ---
RD ASSESSMENT & RECOMMENDATIONS SEE CARE ACTIVITY FOR COMPLETE ASSESSMENT DAILY ESTIMATED NEEDS: Needs based on DM 61.5kg 25-30 kcals/kg 6524-5602 total kcals 1.25-1.5 g protein/kg 77-92 g total protein 25-30 mL/kg 1955-5698 total fluid mLs NUTRITION DIAGNOSIS: * Increased kcal/prot intake needs R/T wound healing as evidenced by pt now w/ rapid onset DTI @ sacrum and nonblanching erythema @ BL heels. * Altered nutrition related lab values r/t DKA, clinical status as evidenced by A1C 10.4, BG 423 on adm, (+) acetone, now w/ critically elev Na (161*->146) and low K(2.4* -> wnl). CURRENT DIET: CCHO LOW puree + NTL PO DIET RECOMMENDATIONS: CCHO LOW diet/ texture per [employer] ADDITIONAL RECOMMENDATIONS: 1) W/ variable po intake add Glucerna 1 tetra BID 3) Wound care: Continue Vit C/ Richard 1pkt BID added to tray add MVIx1 + ZnSO4 220mg QD x 10 days 4) Obtain a calibrated bed scale wts -> now w/ added p200 mattress, stated wt= 54kg (119lbs) 5) Consider [employer] re-evaluation for possible texture upgrade for improved PO acceptance.
--- NOTE | 2019-07-21 13:20 | PATHOLOGY BONE BARROW ---
Bone Marrow Aspirate & Biopsy . PROCEDURE: Bone Marrow Aspirate and Biopsy INDICATION: Bone lesions PROCEDURE SERVICE LINE COORDINATOR: Ara Prieto M.D. CONSENT: Consent was previously obtained from the patient. The risks and benefits were re-explained. The patient agreed to undergo the procedure. A TIMEOUT WAS EXECUTED: Yes PROCEDURE SUMMARY: The patient was laid in the side position. The left posterior iliac crest was prepped and draped in a sterile fashion. The crest of the posterior iliac was located, and the skin as well as surface of the bone was anesthetized with 2 % lidocaine. An aspirating needle was introduced, the bone marrow aspirate was obtained without any difficulty. This was withdrawn the coring needle was advanced into the bone cavity. A bone marrow biopsy was obtained without any complications. ESTIMATED BLOOD LOSS: Negligible REPORTS TO FOLLOW ARA PRIETO Jul 21, 2019 13:19
--- NOTE | 2019-07-21 13:25 | NUR ---
PHILOSOPHY LECTURER NOTE SW and assigned CM met w/ pt and clarified pt's decision on rehab placement. PT agreed to be discharged to the arranged placement.
--- NOTE | 2019-07-21 13:59 | NUR ---
[employer]PER[employer] MAINTAINER NOTE S/W PATIENT AT BEDSIDE WITH NIRMALA ALDRIDGE WHO TRANSLATED IN RE TO REFERRAL TO [facility]. PATIENT VERBALIZED AGREEMENT TO PLACEMENT TO [facility]. PATIENT ALSO INFORMED OF OUTSTANDING INSURANCE PREMIUM FOR 07/2019. PATIENT STATES SHE USUALLY SENDS PAYMENT BY MAIL BUT HAS NOT BEEN ABLE TO MAIL PAYMENT SINCE [facility] BEEN HOSPITALIZED. CALL MADE TO [employer] @ [phone] (CALL REFERENCE #[id number]). S/W SHAWANDA. CONFIRMED PATIENTS PENDING PREMIUM PMT FOR 07/2019. CONFIRMED THAT MEMBER CAN DO A CHECK BY PHONE PMT BY CALLING THE ABOVE NUMBER. CALL MADE TO DIR SHAKA OF ADMISSIONS @ EXT [phone]. NO ANSWER. LEFT REQUESTING CALL BACK TO THIS CM. NIRMALA ALDRIDGE INFORMED OF CM CALL TO PATIENTS INSURANCE.
[2019-07-21 16:00] VITALS: BP 118/69
--- NOTE | 2019-07-21 16:53 | Diagnostic Imaging Report ---
CLINICAL INDICATION: TECHNIQUE: Patient ingested oral contrast. IV administration nonionic contrast. Spiral acquisitions obtained through the chest, abdomen, and pelvis. Multiplanar reconstructions were generated. Total dose length product 320 mGycm. CTDIvol(s) 2, 52, 3, 3 mGy. Radiation dose was minimized using automated exposure control COMPARISON: Chest compared to 07/16/[address] angiogram. Abdomen pelvis compared to 07/14/2019 FINDINGS Chest: Interim development of trace bilateral pleural effusions. Compressive atelectatic changes are seen posteriorly, primarily at the lung bases. There is increased seen linear atelectasis at the left lung base as well as slightly increased groundglass opacity at both lung bases. Small right costophrenic sulcus pleural-based nodule measures 5 mm in diameter, appears slightly larger and more prominent than on the previous study. 3 mm subpleural nodule on the left is seen along the major fissure. The upper lobes are largely clear except for minimal posterior dependent atelectatic changes on the left The heart is upper limits of normal in size. The esophagus is mildly dilated proximally but no downstream obstructing lesion is demonstrated. The included thyroid is unremarkable. No axillary or chest wall mass or adenopathy. The bones demonstrate very subtle slight heterogeneity to the attenuation of the thoracic vertebral body segments Abdomen pelvis: Unremarkable appendix. There is no evidence of colonic diverticulosis or diverticulitis. No small bowel distention. Ingested contrast has reached the distal ileum, not quite reaching the cecum. No small bowel wall thickening. No free or loculated intraperitoneal gas or fluid is evident. The liver is somewhat hypoattenuating relative to the spleen, average attenuation measurements approximately 45 Hounsfield units lower, raising possibility of fatty change. No focal abnormality. The gallbladder, bile ducts are unremarkable. The pancreas is somewhat atrophic. The spleen is unremarkable. The adrenals are unremarkable. The left kidney demonstrates heterogeneity to the lower pole, appearing similar to the previous study. The bladder is distended. There is a bubble of gas within the bladder lumen. The uterus and ovaries appear unremarkable. The bones are unremarkable, without definite findings to corresponding to abnormalities described on recent MRI. IMPRESSION: No definite evidence of primary tumor or other findings to suggest etiology of findings reported on recent thoracic and lumbar MRI Trace bilateral pleural effusions, new since prior study of 07/14/2019 resultant increased basilar compressive atelectatic changes Slightly more conspicuous, since prior exam of one week earlier, pleural-based nodules in the right costophrenic sulcus. Apparent interim growth over short period suggests that this is inflammatory or an area of atelectasis Unchanged 3 mm left lower lobe subpleural nodule along the major fissure. No further follow-up necessary if there is no significant smoking history or other risk factors for lung carcinoma. Short interval follow-up follow-up recommended if there are risk factors Area of heterogeneous attenuation of the left renal lower pole, also described previously, somewhat less striking currently, likely representing an area of focal nephritis. Infiltrating neoplasm as etiology of this finding is much less likely. Correlate with laboratory findings Bubble of gas within distended bladder. Most likely related to recent instrumentation. If no history of such, the possibility of cystitis with a gas-forming organism should be considered. The CT scanner at [facility] is accredited by the [employer] and the scans are performed using protocols designed to limit radiation exposure to as low as reasonably achievable to attain images of sufficient resolution adequate for diagnostic evaluation.
--- NOTE | 2019-07-21 18:37 | Neurology Progress Note ---
Interim History Interim History ROS Limited/Unobtainable: No Interim History more alert, pending ct C/A/P started steroids Objective Physical Exam Last Vital Signs Date Time Temp Pulse Resp B/P (MAP) Pulse Ox O2 Delivery O2 Flow Rate FiO2 07/21/19 16:00 97.7 89 17 118/69 (85) 95 07/21/19 09:00 Room Air Laboratory Tests Test 07/21/19 05:35 White Blood Count 7.0 K/UL (4.8-10.8) Red Blood Count 3.65 M/UL (4.20-5.40) L Hemoglobin 11.4 G/DL (12.0-16.0) L Hematocrit 32.4 % (37.0-47.0) L Mean Corpuscular Volume 89 FL (80-99) Mean Corpuscular Hemoglobin 31.3 PG (27.0-31.0) H Mean Corpuscular Hemoglobin Concent 35.2 G/DL (32.0-36.0) Red Cell Distribution Width 11.3 % (11.6-14.8) L Platelet Count 82 K/UL (150-450) L Mean Platelet Volume 8.2 FL (6.5-10.1) Neutrophils (%) (Auto) % (45.0-75.0) Lymphocytes (%) (Auto) % (20.0-45.0) Monocytes (%) (Auto) % (1.0-10.0) Eosinophils (%) (Auto) % (0.0-3.0) Basophils (%) (Auto) % (0.0-2.0) Differential Total Cells Counted 100 Neutrophils % (Manual) 92 % (45-75) H Lymphocytes % (Manual) 7 % (20-45) L Monocytes % (Manual) 1 % (1-10) Eosinophils % (Manual) 0 % (0-3) Basophils % (Manual) 0 % (0-2) Band Neutrophils 0 % (0-8) Platelet Estimate Decreased L Platelet Morphology Normal Red Blood Cell Morphology Normal Sodium Level 146 MMOL/L (136-145) H Potassium Level 4.0 MMOL/L (3.5-5.1) Chloride Level 110 MMOL/L (98-107) H Carbon Dioxide Level 26 MMOL/L (21-32) Anion Gap 10 mmol/L (5-15) Blood Urea Nitrogen 8 mg/dL (7-18) Creatinine 0.4 MG/DL (0.55-1.30) L Estimat Glomerular Filtration Rate > 60 mL/min (>60) Glucose Level 160 MG/DL (74-106) #H Calcium Level 8.1 MG/DL (8.5-10.1) L Total Protein (PEP) Pending Albumin (PEP) Pending Globulin (PEP) Pending Albumin/Globulin Ratio Pending [id number] Pending [id number] Pending Beta Globulins Pending Beta Gamma Globulin Pending PEP Abnormal Protein Bands Pending Protein Electrophoresis Interpret Pending Carcinoembryonic Antigen Pending CA 19-9 Antigen Pending Head: normocophalic Neck: no rigidity EENT: benign Neurologic Exam Mental Status: awake Speech: normal speech Language: normal language Cranial Nerve VII: no facial asymmetry Objective alert, oriented x 2, conversant UEs 5/5 LEs 1/5 flaccid cc 35 min Impression/Recommendations Problems: (1) STEMI (ST elevation myocardial infarction) (2) Atrial fibrillation with rapid ventricular response (3) Prolonged Q-T interval on ECG (4) DKA (diabetic ketoacidoses) (5) Hypernatremia (6) UTI (urinary tract infection) (7) Subdural hematoma Diagnostic Impression Given LE weakness , suspect myelopathy, mri cervical thoracic and lumbar ordered - called radiology to expedite, imaging still not in system to review keppra to 250 mg bid SBP < 150 PT OT consider Chandra Albrecht MD Jul 21, 2019 18:37
--- NOTE | 2019-07-21 19:31 | NUR ---
HAND-OFF: Report given to PAULINA Arrington.
--- NOTE | 2019-07-21 19:35 | NUR ---
NURSE NOTES: Patient in bed, awake and alert x4. On room air with no signs of distress or SOB. IV intact. Side rails padded for seizure precautions. Bed locked and in lowest position. Call light in easy reach. Will continue to monitor the patient.
[2019-07-21 20:00] VITALS: BP 114/67
[2019-07-21] MEDS: cefTRIAXone 1 GM in D5W 50 ML IVPB SCH (20:58)
[2019-07-21] MEDS: Levemir Flexpen SUBQ SCH (21:12)
[2019-07-22] VITALS: BP 101/69
[2019-07-22] MEDS: Dexamethasone 4mg/ml vial IVP SCH ×4 (00:38→17:25)
[2019-07-22 04:00] VITALS: BP 120/70
[2019-07-22 06:18] LABS: HEMATOCRIT 34.1 % (37.0-47.0); HEMOGLOBIN 11.9 G/DL (12.0-16.0); MEAN CORPUSCULAR VOLUME 89 FL (80-99); PLATELET COUNT 119 K/UL (150-450); RED BLOOD COUNT 3.82 M/UL (4.20-5.40); RED CELL DISTRIBUTION WIDTH 11.4 % (11.6-14.8); WHITE BLOOD COUNT 6.9 K/UL (4.8-10.8)
[2019-07-22 06:34] LABS: ANION GAP 6 mmol/L (5-15); BLOOD UREA NITROGEN 16 mg/dL (7-18); CARBON DIOXIDE 30 MMOL/L (21-32); CHLORIDE 107 MMOL/L (98-107); CREATININE 0.5 MG/DL (0.55-1.30); POTASSIUM 4.1 MMOL/L (3.5-5.1); SODIUM 143 MMOL/L (136-145)
[2019-07-22] MEDS: NovoLOG Insulin Flexpen SUBQ SCH ×9 (06:34→21:18)
--- NOTE | 2019-07-22 07:13 | NUR ---
HAND-OFF: Report given to Rene Harrell RN.
[2019-07-22 08:00] VITALS: BP 113/66
[2019-07-22] MEDS: Vancomycin oral 125mg/2.5ml ORAL SCH ×4 (08:49→21:17)
[2019-07-22] MEDS: Ascorbic Acid 500mg tab ORAL SCH ×2 (08:49→17:24)
--- NOTE | 2019-07-22 10:30 | NUR ---
NURSE NOTES: PT AXOX3, FORGETFUL AT TIMES. PT STATESN SHE HAS WEAKNESS, LEFT SIDE WEAKER THAN RIGHT. PT HAD 1 EPISODE OF DIARRHEA. PT WAS CLEANED AND REPOSITIONED. PT HAS HER CELLPHONE AND A BLANK CHECK AT BEDSIDE. PT PLACED IN SEMI-PARTIDA'S POSITION WITH HOB ELEVATED. BED IN LOWEST POSITION WITH BEDSIDE RAILS X3 RAISED. SIDERAILS PADDED FOR SEIZURE PRECAUTIONS. IN NO APPARENT DISTRESS AT THIS TIME. PT ABLE TO COMMUNICATE WITH RN IN CHINESE. PT SPEAKS CHINESE AND MAURITANIAN. CALL LIGHT WITHIN REACH. WILL CONTINUE TO MONITOR.
--- NOTE | 2019-07-22 11:47 | Nephrology Progress Note ---
Assessment/Plan Problem List: (1) Hypernatremia Assessment: Improving (2) UTI (urinary tract infection) (3) Subdural hematoma (4) DKA (diabetic ketoacidoses) (5) Electrolyte imbalance Assessment Hypernatremia most likely due to free water deficit Hypokalemia, hypophosphatemia Hyperglycemia and DKA Evidence of UTI Right-sided weakness with 3 mm subdural hematoma found in CT scan Plan Discontinue IV fluid Discontinue Boyd catheter Change Protonix to p.o. Stop Neutra-Phos due to diarrhea Potassium and phosphorus and magnesium supplement as needed Diet started as the patient is more alert Low dose of Lopressor Monitor renal parameters and electrolytes Neuro eval noted Keep the blood pressure and blood sugar in check Urine studies Per orders Subjective ROS Limited/Unobtainable: No Constitutional: Reports: malaise Objective Objective Last 24 Hour Vital Signs Date Time Temp Pulse Resp B/P (MAP) Pulse Ox O2 Delivery O2 Flow Rate FiO2 07/22/19 09:00 Room Air 07/22/19 08:49 83 113/66 07/22/19 08:00 97.0 83 18 113/66 (82) 98 07/22/19 04:00 98.7 83 18 120/70 (87) 97 07/22/19 00:00 98.0 95 19 101/69 (80) 95 07/21/19 21:00 Room Air 07/21/19 20:59 90 114/67 07/21/19 20:00 98.5 90 19 114/67 (83) 97 07/21/19 16:00 97.7 89 17 118/69 (85) 95 07/21/19 12:00 98.0 94 18 118/64 (82) 94 Intake and Output 07/21/19 07/22/19 19:00 07:00 Intake Total 600 ml Balance 600 ml Other 600 ml # Voids 6 # Bowel Movements 2 5 Laboratory Tests 07/22/19 05:25: White Blood Count 6.9, Red Blood Count 3.82L, Hemoglobin 11.9L, Hematocrit 34.1L , Mean Corpuscular Volume 89, Mean Corpuscular Hemoglobin 31.0, Mean Corpuscular Hemoglobin Concent 34.8, Red Cell Distribution Width 11.4L, Platelet Count 119L, Mean Platelet Volume 7.8, Neutrophils (%) (Auto) , Lymphocytes (%) (Auto) , Monocytes (%) (Auto) , Eosinophils (%) (Auto) , Basophils (%) (Auto) , Differential Total Cells Counted 100, Neutrophils % ( Manual) 89H, Lymphocytes % (Manual) 10L, Monocytes % (Manual) 1, Eosinophils % ( Manual) 0, Basophils % (Manual) 0, Band Neutrophils 0, Platelet Estimate DecreasedL, Platelet Morphology Normal, Red Blood Cell Morphology Normal, Sodium Level 143, Potassium Level 4.1, Chloride Level 107, Carbon Dioxide Level 30, Anion Gap 6, Blood Urea Nitrogen 16, Creatinine 0.5L, Estimat Glomerular Filtration Rate > 60, Glucose Level 178H, Calcium Level 9.0 Height (Feet): 5 Height (Inches): 4.00 Weight (Pounds): 135 General Appearance: no apparent distress Respiratory/Chest: lungs clear Abdomen: soft Objective No change Yash Hernandes MD Jul 22, 2019 11:47
[2019-07-22 12:00] VITALS: BP 107/64
[2019-07-22] MEDS ORDERED: D5W 550ml IV ONE (13:18)
[2019-07-22] MEDS ORDERED: Tubing IV Secondary IV ONE ×2 (14:09→14:21)
[2019-07-22] MEDS ORDERED: NS 500ML ONE (14:21)
--- NOTE | 2019-07-22 14:30 | General Progress Note ---
Assessment/Plan Assessment/Plan: 64-year-old female with PMH of medical noncompliance, DM type II who presents with b/l weakness, N/V, GLF, on admission pt found to be in DKA with BG 500's. #DKA #E. coli UTI #E. coli bacteremia #Uncontrolled DM, Hgb A1C 10.4 #c. diff colitis -continue in-patient medical care -s/p DKA protocol with improved AG, AG 21-> 14 -CT abd reviewed -07/13: UCx e. coli -07/13: BCx w/E. coli /, repeat 07/15 BCx NGTD -c.diff positive, contact precautions -cont. accuchecks, ISS qAC/HS -Endo following: Levemir to 30 units qhs, increase Novolog to 12 units ac tid -ID, Dr. Bagley: CTX, day #6 of abx, PO vanco for c diff #Multilevel Thoracic BM enhancements, concern for malignancy -suspicions for metastatic neoplasm, infiltrative neoplasm such as myeloma or lymphoma -07/13: CT abd/pel w/o contrast reviewed with no abnormalities -07/20 CT C/A/P without any lesions suspicious for primary malignancy -CEA elevated -CA19-9 pending -Follow up BM biopsy results -Heme/Onc following -d/w Pt's sister, Dorcas Greenwood , updated her on pt's hospital course, POC, Pt has apparently been having loose stools/diarrhea for severel weeks/months, has been trying to treat her symptoms w/acupuncture 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 Sister stated pt has lost weight but has been suspecting "stomach CA", pt with no previous h/o of Kaycee. Answered all questions to pt and pt's sister's satisfaction #Right sided weakness #Generalized Weakness #SDH 3mm no midline shift -weakness may be multifactorial, metabolic -pt AOx3, pt noted fall 3 days ago -found on CT head, repeat CT head stable -07/17: CT head obtained given worsening weakness, stable compared to previous -d/w Neuro, no need for transfer at this time, will decrease keppra -cont. fall precautions -holding ASA given SDH -statin -PT treat and eval -d/w Neurology, Dr. Fountain, weakness does not appear to be neurologic at this time -CM for d/c planning, plan for CRI on d/c #Elevated d-dimer #Tachycardia - resolved -likely multifactorial given infection/DKA, PE has been ruled out -EKG w/NSR -CTA thorax negative for PE -tachycardia likely 2/2 dehydration, encourage PO intake -no OAC at this time #Hypernatremia - resolved #Hypokalemia - improved #Hypophosphatemia -Hypernatremia likely 2/2 free water deficit -replace electrolytes, cont. to monitor and replace PRN -neal d/c'd -Nephro following, IVF and electrolytes per nephro DVT - SCDs for now given SDH Time spent: 35 minutes on this patient's case, d/w pt POC, updated RN. D/w consulting MDs, RN, case management Time of note may not reflect time of encounter. Subjective Date patient seen: Jul 22, 2019 Time patient seen: 14:22 ROS Limited/Unobtainable: Yes Constitutional: Denies: chills, fever Cardiovascular: Denies: chest pain, edema Respiratory: Denies: cough, orthopnea Gastrointestinal/Abdominal: Reports: diarrhea; Denies: abdomen distended, abdominal pain, nausea, poor appetite Allergies: Coded Allergies: No Known Allergies (Unverified , 07/18/14) Subjective Follow up for uncontrolled DM, DKA, UTI, C. difficile colitis. No acute events overnight She reports persistent severe diarrhea Objective Last 24 Hour Vital Signs Date Time Temp Pulse Resp B/P (MAP) Pulse Ox O2 Delivery O2 Flow Rate FiO2 07/22/19 12:00 97.2 80 18 107/64 (78) 96 07/22/19 09:00 Room Air 07/22/19 08:49 83 113/66 07/22/19 08:00 97.0 83 18 113/66 (82) 98 07/22/19 04:00 98.7 83 18 120/70 (87) 97 07/22/19 00:00 98.0 95 19 101/69 (80) 95 07/21/19 21:00 Room Air 07/21/19 20:59 90 114/67 07/21/19 20:00 98.5 90 19 114/67 (83) 97 4/17/20 16:00 97.7 89 17 118/69 (85) 95 Intake and Output 07/21/19 07/22/19 19:00 07:00 Intake Total 600 ml Balance 600 ml Other 600 ml # Voids 6 # Bowel Movements 2 5 Laboratory Tests 07/22/19 05:25: White Blood Count 6.9, Red Blood Count 3.82L, Hemoglobin 11.9L, Hematocrit 34.1L , Mean Corpuscular Volume 89, Mean Corpuscular Hemoglobin 31.0, Mean Corpuscular Hemoglobin Concent 34.8, Red Cell Distribution Width 11.4L, Platelet Count 119L, Mean Platelet Volume 7.8, Neutrophils (%) (Auto) , Lymphocytes (%) (Auto) , Monocytes (%) (Auto) , Eosinophils (%) (Auto) , Basophils (%) (Auto) , Differential Total Cells Counted 100, Neutrophils % ( Manual) 89H, Lymphocytes % (Manual) 10L, Monocytes % (Manual) 1, Eosinophils % ( Manual) 0, Basophils % (Manual) 0, Band Neutrophils 0, Platelet Estimate DecreasedL, Platelet Morphology Normal, Red Blood Cell Morphology Normal, Sodium Level 143, Potassium Level 4.1, Chloride Level 107, Carbon Dioxide Level 30, Anion Gap 6, Blood Urea Nitrogen 16, Creatinine 0.5L, Estimat Glomerular Filtration Rate > 60, Glucose Level 178H, Calcium Level 9.0 Height (Feet): 5 Height (Inches): 4.00 Weight (Pounds): 135 General Appearance: alert Neck: normal alignment, supple Cardiovascular: normal rate, regular rhythm Respiratory/Chest: lungs clear, normal breath sounds Abdomen: non tender, soft Carmine Hayes MD Jul 22, 2019 14:30
--- NOTE | 2019-07-22 15:00 | Surgery Progress Note ---
Surgery Progress Note Subjective Additional Comments no acute events comfortable stable pending bx Objective Last 24 Hour Vital Signs Date Time Temp Pulse Resp B/P (MAP) Pulse Ox O2 Delivery O2 Flow Rate FiO2 07/22/19 12:00 97.2 80 18 107/64 (78) 96 07/22/19 09:00 Room Air 07/22/19 08:49 83 113/66 07/22/19 08:00 97.0 83 18 113/66 (82) 98 07/22/19 04:00 98.7 83 18 120/70 (87) 97 07/22/19 00:00 98.0 95 19 101/69 (80) 95 07/21/19 21:00 Room Air 07/21/19 20:59 90 114/67 07/21/19 20:00 98.5 90 19 114/67 (83) 97 07/21/19 16:00 97.7 89 17 118/69 (85) 95 I&O Intake and Output 07/21/19 07/22/19 19:00 07:00 Intake Total 600 ml Balance 600 ml Other 600 ml # Voids 6 # Bowel Movements 2 5 Dressing: other Wound: other Drains: other Cardiovascular: RSR Respiratory: decreased breath sounds Abdomen: soft, non-tender, present bowel sounds Extremities: edema, tenderness - around biposy site left buttock , no tenderness, no cyanosis Laboratory Tests Test 07/22/19 05:25 White Blood Count 6.9 K/UL (4.8-10.8) Red Blood Count 3.82 M/UL (4.20-5.40) L Hemoglobin 11.9 G/DL (12.0-16.0) L Hematocrit 34.1 % (37.0-47.0) L Mean Corpuscular Volume 89 FL (80-99) Mean Corpuscular Hemoglobin 31.0 PG (27.0-31.0) Mean Corpuscular Hemoglobin Concent 34.8 G/DL (32.0-36.0) Red Cell Distribution Width 11.4 % (11.6-14.8) L Platelet Count 119 K/UL (150-450) L Mean Platelet Volume 7.8 FL (6.5-10.1) Neutrophils (%) (Auto) % (45.0-75.0) Lymphocytes (%) (Auto) % (20.0-45.0) Monocytes (%) (Auto) % (1.0-10.0) Eosinophils (%) (Auto) % (0.0-3.0) Basophils (%) (Auto) % (0.0-2.0) Differential Total Cells Counted 100 Neutrophils % (Manual) 89 % (45-75) H Lymphocytes % (Manual) 10 % (20-45) L Monocytes % (Manual) 1 % (1-10) Eosinophils % (Manual) 0 % (0-3) Basophils % (Manual) 0 % (0-2) Band Neutrophils 0 % (0-8) Platelet Estimate Decreased L Platelet Morphology Normal Red Blood Cell Morphology Normal Sodium Level 143 MMOL/L (136-145) Potassium Level 4.1 MMOL/L (3.5-5.1) Chloride Level 107 MMOL/L (98-107) Carbon Dioxide Level 30 MMOL/L (21-32) Anion Gap 6 mmol/L (5-15) Blood Urea Nitrogen 16 mg/dL (7-18) Creatinine 0.5 MG/DL (0.55-1.30) L Estimat Glomerular Filtration Rate > 60 mL/min (>60) Glucose Level 178 MG/DL (74-106) H Calcium Level 9.0 MG/DL (8.5-10.1) Plan Problems: (1) Decubitus skin ulcer Assessment & Plan: Patient noted to have rapid onset Sacral DTPI. Per Primary Nurse pt noted on prior shift to have non-blanching erythema as per report. All preventive measures were taken to reposition patient and off-load pressure. Despite repositioning and applying Moisture Barrier Paste patient noted to have further skin decline. Sacral DTPI is irregular shaped, Purple and indurated in colour over sacrococcygeal with surrounding non-blanching erythema along borders.(L)7.1cm x (W)6.5cm. Nutritional intake varies 30-45% daily. Non-Blanching erythema without fluctuance noted to R and L heels. Both heels observed floated with pillows Off mattress. Tx.Plan: Apply Moisture Barrier Paste to Sacrum. Cover with Optifoam drsg. Change every 3 days and prn. Apply Cavilon Skin Barrier to both heels. Cover each heel with Optifoam drsg. Change every 7 days and prn. Reposition at least every 2hours or as tolerated. Off-load heels with pillow. APM/MEHDI Mattress overlay. MRI spine noted neuro input appreciated (2) Deep tissue injury (3) Malnutrition Assessment & Plan: DAILY ESTIMATED NEEDS: Needs based on DM 61.5kg 25-30 kcals/kg 6916-9597 total kcals 1.25-1.5 g protein/kg 77-92 g total protein 25-30 mL/kg 5537-7910 total fluid mLs NUTRITION DIAGNOSIS: Altered nutrition related lab values r/t DKA, clinical status as evidenced by A1C 10.4, BG 423 on adm, (+) acetone, now w/ critically elev Na(161*) and low K(2.4*). CURRENT DIET: CCHO LOW puree + NTL PO DIET RECOMMENDATIONS: CCHO LOW diet/ texture per MEDIA THEORIST AND AUTHOR OF ADDITIONAL RECOMMENDATIONS: 1) W/ variable po intake add Glucerna 1 tetra per day Add high pro/1 carb snacks in b/w meals 2) On D5 for hydration, monitor BG 3) Wound care: Add VALARIE BID + Vit C 250mg daily (f/up w/ WC eval) 4) Obtain a calibrated bed scale wts EMR wt: 110# vs Bed scale wt: 135# (4) Abnormal thyroid blood test (5) Electrolyte imbalance Assessment & Plan: 1. No pulmonary embolus, somewhat limited at the bases due to motion. 2. Bibasilar lung atelectasis/airspace disease. 3. 3 mm nodule along the right middle lobe fissure. 3.6 mm nodule left lower lobe along the fissure. Fleischner Society Guidelines for low-risk patients, no follow-up is necessary. For high-risk patients (smoking history or other known risk factors) an optional chest CT at 12 months could be performed. 4. Mild bilateral perinephric stranding. May be senescent, correlate for infection. 5. Distended gallbladder with hyperdensity may be sludge or stones. 6. Prominent left lobe of the liver is slightly nodular in appearance. US ordered (6) Subdural hematoma Assessment & Plan: as per neurology MRI noted bm biopsy pending Russ Shoemaker Jul 22, 2019 15:00
--- NOTE | 2019-07-22 15:31 | Infectious Diseases Prog Note ---
Assessment/Plan Assessment/Plan ASSESSMENT AND PLAN: 1. e.coli uti/pyelonephritis with bacteremia, sepsis, fevers, gram neg sepsis c.diff. +, diarrhea - ceftriaxone - day # 8 abx, plan on 10 days treatment - po vancomycin - day # 5, plan on 14 days treatment (this would include 7 days treatment post use of concomitant antibiotics) - surveillance blood cultures negative - monitor labs and temperatures - sepsis improved 2. DKA. 3. Hypernatremia. 4. Diabetes type 2. 5. Ground-level fall. 6. Nausea and vomiting. 7. Diarrhea. 8. We will check stool studies. 9. Noncompliance. 10. Right-sided weakness. 11. Subdural hematoma with midline shift. 12. No known drug allergies. 13. Social history negative. 14. Family history noncontributory. 15. MAR was noted. 16. Case discussed with RN. 17. Continue treatment per primary consultants. 18. Orders were noted and entered. Subjective Constitutional: Denies: fever Breasts: Denies: discharge Cardiovascular: Denies: chest pain Gastrointestinal/Abdominal: Reports: other - + diarrhea per d/w RN; Denies: nausea, vomiting Genitourinary: Denies: other Neurologic: Denies: headache Psychiatric: Denies: depression Skin: Denies: rash Hematologic: Denies: bleeding Musculoskeletal: Denies: pain Allergies: Coded Allergies: No Known Allergies (Unverified , 07/18/14) Objective Vital Signs Last 24 Hour Vital Signs Date Time Temp Pulse Resp B/P (MAP) Pulse Ox O2 Delivery O2 Flow Rate FiO2 07/22/19 12:00 97.2 80 18 107/64 (78) 96 07/22/19 09:00 Room Air 07/22/19 08:49 83 113/66 07/22/19 08:00 97.0 83 18 113/66 (82) 98 07/22/19 04:00 98.7 83 18 120/70 (87) 97 07/22/19 00:00 98.0 95 19 101/69 (80) 95 07/21/19 21:00 Room Air 07/21/19 20:59 90 114/67 07/21/19 20:00 98.5 90 19 114/67 (83) 97 07/21/19 16:00 97.7 89 17 118/69 (85) 95 Height (Feet): 5 Height (Inches): 4.00 Weight (Pounds): 135 General Appearance: no acute distress HEENT: normocephalic, atraumatic, anicteric, mucous membranes moist Respiratory/Chest: lungs clear, normal breath sounds, no respiratory distress, no accessory muscle use Cardiovascular: normal rate, regular rhythm, no gallop/murmur, no JVD Abdomen: normal bowel sounds, soft, non tender, no organomegaly, non distended Genitourinary: other - no neal Extremities: no cyanosis Skin: no rash 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 No pulmonary embolus, somewhat limited at the bases due to motion. 2. Bibasilar lung atelectasis/airspace disease. 3. 3 mm nodule along the right middle lobe fissure. 3.6 mm nodule left lower lobe along the fissure. Fleischner Society Guidelines for low-risk patients, no follow-up is necessary. For high-risk patients (smoking history or other known risk factors) an optional chest CT at 12 months could be performed. 4. Mild bilateral perinephric stranding. May be senescent, correlate for infection. 5. Distended gallbladder with hyperdensity may be sludge or stones. 6. Prominent left lobe of the liver is slightly nodular in appearance. CT abdomen and pelvis: IMPRESSION: 1. Urinary bladder distention. 2. Mild heterogeneity of the lower pole of the left kidney may be artifactual. Infection is not excluded. Consider correlation with urinalysis, as clinically indicated. Mild bilateral renal pelviectasis and prominence of bilateral ureters is likely related to distention of the urinary bladder. Microbiology Date/Time Source Procedure Growth Status 07/16/19 15:15 Blood Blood Culture - Final NO GROWTH AFTER 5 DAYS Complete 07/18/19 18:50 Stool Clostridium difficile Toxin Assay - Final Complete 07/14/19 20:40 Urine,Clean Catch Urine Culture - Final Escherichia Coli Complete Laboratory Tests Test 07/22/19 05:25 White Blood Count 6.9 K/UL (4.8-10.8) Red Blood Count 3.82 M/UL (4.20-5.40) L Hemoglobin 11.9 G/DL (12.0-16.0) L Hematocrit 34.1 % (37.0-47.0) L Mean Corpuscular Volume 89 FL (80-99) Mean Corpuscular Hemoglobin 31.0 PG (27.0-31.0) Mean Corpuscular Hemoglobin Concent 34.8 G/DL (32.0-36.0) Red Cell Distribution Width 11.4 % (11.6-14.8) L Platelet Count 119 K/UL (150-450) L Mean Platelet Volume 7.8 FL (6.5-10.1) Neutrophils (%) (Auto) % (45.0-75.0) Lymphocytes (%) (Auto) % (20.0-45.0) Monocytes (%) (Auto) % (1.0-10.0) Eosinophils (%) (Auto) % (0.0-3.0) Basophils (%) (Auto) % (0.0-2.0) Differential Total Cells Counted 100 Neutrophils % (Manual) 89 % (45-75) H Lymphocytes % (Manual) 10 % (20-45) L Monocytes % (Manual) 1 % (1-10) Eosinophils % (Manual) 0 % (0-3) Basophils % (Manual) 0 % (0-2) Band Neutrophils 0 % (0-8) Platelet Estimate Decreased L Platelet Morphology Normal Red Blood Cell Morphology Normal Sodium Level 143 MMOL/L (136-145) Potassium Level 4.1 MMOL/L (3.5-5.1) Chloride Level 107 MMOL/L (98-107) Carbon Dioxide Level 30 MMOL/L (21-32) Anion Gap 6 mmol/L (5-15) Blood Urea Nitrogen 16 mg/dL (7-18) Creatinine 0.5 MG/DL (0.55-1.30) L Estimat Glomerular Filtration Rate > 60 mL/min (>60) Glucose Level 178 MG/DL (74-106) H Calcium Level 9.0 MG/DL (8.5-10.1) Current Medications Medications (Trade) Dose Ordered Sig/Alvin Route PRN Reason Start Time Stop Time Status Last Admin Dose Admin Acetaminophen (Tylenol) 650 mg Q6H PRN ORAL Mild Pain (Pain Scale 1-3) 07/21/19 10:00 08/20/19 09:59 Ascorbic Acid (Vitamin C) 250 mg TWICE A DAY ORAL 07/20/19 18:00 08/18/19 17:59 07/22/19 08:49 Atorvastatin Calcium (Lipitor) 10 mg BEDTIME ORAL 07/20/19 21:00 10/13/19 20:59 07/21/19 20:59 Barium Sulfate (Readi-Cat 2) 450 ml NOW PRN ORAL Radiology Procedure 07/21/19 11:30 07/23/19 11:29 Ceftriaxone Sodium 1 gm/ Dextrose 50 ml @ 100 mls/hr Q24H IVPB 07/20/19 21:00 07/25/19 20:59 07/21/19 20:58 Dexamethasone Sodium Phosphate (Decadron 4mg/ml vial) 4 mg Q6HR IVP 07/21/19 00:00 10/19/19 00:00 07/22/19 12:42 Dextrose (Dextrose 50%) 25 ml Q30M PRN IV Hypoglycemia 07/20/19 16:45 10/12/19 21:44 Dextrose (Dextrose 50%) 50 ml Q30M PRN IV Hypoglycemia 07/20/19 16:45 10/12/19 21:44 Gadobutrol (Gadavist) 7.5 mmol NOW PRN IV Radiology Procedure 07/20/19 22:00 07/23/19 21:57 Insulin Aspart (NovoLOG) AC+HS SUBQ 07/20/19 21:00 10/13/19 09:29 07/22/19 13:26 Insulin Aspart (NovoLOG) 12 units NOVOTIAC SUBQ 07/20/19 16:50 10/14/19 11:49 07/22/19 13:26 Insulin Detemir (Levemir) 30 units QHS SUBQ 07/20/19 21:00 10/14/19 20:59 07/21/19 21:12 Iohexol (OMNIPAQUE-300 100ml) 100 ml ONCE PRN INJ radiology procedure 07/21/19 11:30 07/23/19 11:29 Levetiracetam (Keppra) 250 mg Q12HR ORAL 07/20/19 21:00 09/01/19 20:59 07/22/19 08:49 Lorazepam (Ativan) 1 mg Q6H PRN ORAL For Anxiety 07/21/19 08:30 07/28/19 08:29 Metoprolol Tartrate (Lopressor) 25 mg Q12HR ORAL 07/20/19 21:00 10/13/19 20:59 07/22/19 08:49 Pantoprazole (Protonix) 40 mg BID ORAL 07/20/19 18:00 08/17/19 08:59 07/22/19 08:49 Potassium Chloride (K-Dur) 40 meq BID ORAL 07/20/19 18:00 10/15/19 09:14 07/22/19 08:50 Tramadol HCl (Ultram) 25 mg Q6H PRN ORAL Severe Breakthru Pain (>7) 07/20/19 16:48 07/27/19 16:47 Vancomycin HCl (Firvanq) 125 mg FOUR TIMES A DAY ORAL 07/20/19 18:00 07/30/19 17:59 07/22/19 12:42 Emerson Bagley MD Jul 22, 2019 15:31
[2019-07-22 16:00] VITALS: BP 109/68
[2019-07-22 20:00] VITALS: BP 127/75
--- NOTE | 2019-07-22 20:00 | NUR ---
NURSE NOTES: Patient received in bed, awake, oriented x3. No complaints at this time. IV is intact and patent. Call light in reach. Will continue to monitor.
[2019-07-22] MEDS: cefTRIAXone 1 GM in D5W 50 ML IVPB SCH (21:17)
[2019-07-22] MEDS: Levemir Flexpen SUBQ SCH (21:18)
--- NOTE | 2019-07-22 21:26 | Neurology Progress Note ---
Interim History Interim History ROS Limited/Unobtainable: Yes Interim History myeloma work up ongoing still with diarrhea Objective Physical Exam Last Vital Signs Date Time Temp Pulse Resp B/P (MAP) Pulse Ox O2 Delivery O2 Flow Rate FiO2 07/22/19 21:17 99 127/75 07/22/19 16:00 97.7 18 97 07/22/19 09:00 Room Air Laboratory Tests Test 07/22/19 05:25 White Blood Count 6.9 K/UL (4.8-10.8) Red Blood Count 3.82 M/UL (4.20-5.40) L Hemoglobin 11.9 G/DL (12.0-16.0) L Hematocrit 34.1 % (37.0-47.0) L Mean Corpuscular Volume 89 FL (80-99) Mean Corpuscular Hemoglobin 31.0 PG (27.0-31.0) Mean Corpuscular Hemoglobin Concent 34.8 G/DL (32.0-36.0) Red Cell Distribution Width 11.4 % (11.6-14.8) L Platelet Count 119 K/UL (150-450) L Mean Platelet Volume 7.8 FL (6.5-10.1) Neutrophils (%) (Auto) % (45.0-75.0) Lymphocytes (%) (Auto) % (20.0-45.0) Monocytes (%) (Auto) % (1.0-10.0) Eosinophils (%) (Auto) % (0.0-3.0) Basophils (%) (Auto) % (0.0-2.0) Differential Total Cells Counted 100 Neutrophils % (Manual) 89 % (45-75) H Lymphocytes % (Manual) 10 % (20-45) L Monocytes % (Manual) 1 % (1-10) Eosinophils % (Manual) 0 % (0-3) Basophils % (Manual) 0 % (0-2) Band Neutrophils 0 % (0-8) Platelet Estimate Decreased L Platelet Morphology Normal Red Blood Cell Morphology Normal Sodium Level 143 MMOL/L (136-145) Potassium Level 4.1 MMOL/L (3.5-5.1) Chloride Level 107 MMOL/L (98-107) Carbon Dioxide Level 30 MMOL/L (21-32) Anion Gap 6 mmol/L (5-15) Blood Urea Nitrogen 16 mg/dL (7-18) Creatinine 0.5 MG/DL (0.55-1.30) L Estimat Glomerular Filtration Rate > 60 mL/min (>60) Glucose Level 178 MG/DL (74-106) H Calcium Level 9.0 MG/DL (8.5-10.1) Head: normocophalic Neck: no rigidity EENT: benign Neurologic Exam Mental Status: awake Speech: normal speech Language: normal language Cranial Nerve VII: no facial asymmetry Objective alert, oriented x 2, conversant UEs 5/5 LEs 1/5 flaccid cc 35 min Impression/Recommendations Problems: (1) STEMI (ST elevation myocardial infarction) (2) Atrial fibrillation with rapid ventricular response (3) Prolonged Q-T interval on ECG (4) DKA (diabetic ketoacidoses) (5) Hypernatremia (6) UTI (urinary tract infection) (7) Subdural hematoma Diagnostic Impression Given LE weakness , suspect myelopathy, mri cervical thoracic and lumbar ordered - called radiology to expedite, imaging still not in system to review keppra to 250 mg bid SBP < 150 PT OT consider Chandra Albrecht MD Jul 22, 2019 21:26
[2019-07-23] VITALS: BP 133/72
[2019-07-23] MEDS: Dexamethasone 4mg/ml vial IVP SCH ×5 (00:34→23:31)
--- NOTE | 2019-07-23 01:33 | NUR ---
NURSE NOTES: Patient had BM. Upon cleaning patient, noted that suction that was previously connected to purewick was misplaced and was suctioning patient's skin on left lower abdomen towards pelvis area. Blood filled blister noted 1x1 cm. Skin care initiated. Charge nurse made aware. Will notify MD and family.
[2019-07-23 04:08] VITALS: BP 127/71
[2019-07-23] MEDS: NovoLOG Insulin Flexpen SUBQ SCH ×7 (06:19→22:04)
--- NOTE | 2019-07-23 07:05 | NUR ---
HAND-OFF: Report given to Rene GALLARDO.
[2019-07-23 08:00] VITALS: BP 131/70
--- NOTE | 2019-07-23 08:30 | NUR ---
NURSE NOTES: PT REFUSING SCD. STATES THEY SUFFOCATE HER LEGS. RN EDUCATED PT THEY ARE TO PROMOTE BLOOD CIRCULATION AND PREVENT BLOOD CLOTS. PT IS AT INCREASED RISK DUE TO BEDBOUND STATUS. PT CONTINUED TO REFUSE.
[2019-07-23] MEDS: Vancomycin oral 125mg/2.5ml ORAL SCH ×4 (08:40→22:00)
[2019-07-23] MEDS: Ascorbic Acid 500mg tab ORAL SCH ×2 (08:41→17:26)
--- NOTE | 2019-07-23 08:52 | General Progress Note ---
Assessment/Plan Problem List: (1) Abnormal thyroid blood test ICD Codes: R79.89 - Other specified abnormal findings of blood chemistry SNOMED: 682319211, 536888101157562 (2) Diabetes mellitus out of control ICD Codes: E11.65 - Type 2 diabetes mellitus with hyperglycemia SNOMED: 42865255, 488975153 (3) DKA (diabetic ketoacidoses) ICD Codes: E11.10 - Type 2 diabetes mellitus with ketoacidosis without coma SNOMED: 776328232, 69933927 (4) STEMI (ST elevation myocardial infarction) ICD Codes: I21.3 - ST elevation (STEMI) myocardial infarction of unspecified site SNOMED: 221014379 (5) Prolonged Q-T interval on ECG ICD Codes: R94.31 - Abnormal electrocardiogram [ECG] [EKG] SNOMED: 290183489 (6) Atrial fibrillation with rapid ventricular response ICD Codes: I48.91 - Unspecified atrial fibrillation SNOMED: 627611448985964 (7) Hypernatremia ICD Codes: E87.0 - Hyperosmolality and hypernatremia SNOMED: 216556120, 63147922 Assessment/Plan: continue Levemir 30 units qhs increase Novolog to 16 units ac tid continue NISS ac / hs repeat thyroid function tests Subjective Allergies: Coded Allergies: No Known Allergies (Unverified , 07/18/14) Subjective events noted interval notes reviewed mealtime glucose is elevated she is on dexa 4 mg every 6 hours Item Value Date Time Bedside Blood Glucose 184 mg/dl H 07/23/19 0624 Bedside Blood Glucose 334 mg/dl H 07/22/19 2118 Bedside Blood Glucose 255 mg/dl H 07/22/19 1739 Bedside Blood Glucose 155 mg/dl H 07/22/19 1326 Objective Last 24 Hour Vital Signs Date Time Temp Pulse Resp B/P (MAP) Pulse Ox O2 Delivery O2 Flow Rate FiO2 07/23/19 08:41 63 131/70 07/23/19 08:00 98.7 63 18 131/70 (90) 94 07/23/19 04:08 96.6 69 18 127/71 (89) 93 07/23/19 00:00 97.0 71 22 133/72 (92) 96 07/22/19 21:17 99 127/75 07/22/19 21:00 Room Air 07/22/19 20:00 96.4 99 20 127/75 (92) 95 07/22/19 16:00 97.7 84 18 109/68 (82) 97 07/22/19 12:00 97.2 80 18 107/64 (78) 96 07/22/19 09:00 Room Air 07/22/19 08:49 83 113/66 Intake and Output 07/22/19 07/23/19 19:00 07:00 Intake Total 1140 ml 50 ml Balance 1140 ml 50 ml Intake Oral 1140 ml IV Total 50 ml # Voids 3 2 # Bowel Movements 4 Height (Feet): 5 Height (Inches): 4.00 Weight (Pounds): 135 General Appearance: no apparent distress Neck: normal alignment Cardiovascular: normal rate Respiratory/Chest: decreased breath sounds Abdomen: normal bowel sounds Objective Current Medications Medications (Trade) Dose Ordered Sig/Alvin Route PRN Reason Start Time Stop Time Status Last Admin Dose Admin Acetaminophen (Tylenol) 650 mg Q6H PRN ORAL Mild Pain (Pain Scale 1-3) 07/21/19 10:00 08/20/19 09:59 Ascorbic Acid (Vitamin C) 250 mg TWICE A DAY ORAL 07/20/19 18:00 08/18/19 17:59 07/23/19 08:41 Atorvastatin Calcium (Lipitor) 10 mg BEDTIME ORAL 07/20/19 21:00 10/13/19 20:59 07/22/19 21:17 Barium Sulfate (Readi-Cat 2) 450 ml NOW PRN ORAL Radiology Procedure 07/21/19 11:30 07/23/19 11:29 Ceftriaxone Sodium 1 gm/ Dextrose 50 ml @ 100 mls/hr Q24H IVPB 07/20/19 21:00 07/25/19 20:59 07/22/19 21:17 Dexamethasone Sodium Phosphate (Decadron 4mg/ml vial) 4 mg Q6HR IVP 07/21/19 00:00 10/19/19 00:00 07/23/19 06:18 Dextrose (Dextrose 50%) 25 ml Q30M PRN IV Hypoglycemia 07/20/19 16:45 10/12/19 21:44 Dextrose (Dextrose 50%) 50 ml Q30M PRN IV Hypoglycemia 07/20/19 16:45 10/12/19 21:44 Gadobutrol (Gadavist) 7.5 mmol NOW PRN IV Radiology Procedure 07/20/19 22:00 07/23/19 21:57 Insulin Aspart (NovoLOG) AC+HS SUBQ 07/20/19 21:00 10/13/19 09:29 07/23/19 06:19 Insulin Aspart (NovoLOG) 12 units NOVOTIAC SUBQ 07/20/19 16:50 10/14/19 11:49 07/23/19 06:19 Insulin Detemir (Levemir) 30 units QHS SUBQ 07/20/19 21:00 10/14/19 20:59 07/22/19 21:18 Iohexol (OMNIPAQUE-300 100ml) 100 ml ONCE PRN INJ radiology procedure 07/21/19 11:30 07/23/19 11:29 Levetiracetam (Keppra) 250 mg Q12HR ORAL 07/20/19 21:00 09/01/19 20:59 07/23/19 08:41 Lorazepam (Ativan) 1 mg Q6H PRN ORAL For Anxiety 07/21/19 08:30 07/28/19 08:29 Metoprolol Tartrate (Lopressor) 25 mg Q12HR ORAL 07/20/19 21:00 10/13/19 20:59 07/22/19 21:17 Pantoprazole (Protonix) 40 mg BID ORAL 07/20/19 18:00 08/17/19 08:59 07/23/19 08:40 Potassium Chloride (K-Dur) 40 meq BID ORAL 07/20/19 18:00 10/15/19 09:14 07/23/19 08:41 Tramadol HCl (Ultram) 25 mg Q6H PRN ORAL Severe Breakthru Pain (>7) 07/20/19 16:48 07/27/19 16:47 Vancomycin HCl (Firvanq) 125 mg FOUR TIMES A DAY ORAL 07/20/19 18:00 07/30/19 17:59 07/23/19 08:40 Pola Medrano MD Jul 23, 2019 08:52
[2019-07-23 09:12] LABS: BASOPHILS % (AUTO) 0.2 % (0.0-2.0); HEMATOCRIT 32.1 % (37.0-47.0); HEMOGLOBIN 11.4 G/DL (12.0-16.0); LYMPHOCYTES % (AUTO) 12.8 % (20.0-45.0); MEAN CORPUSCULAR VOLUME 88 FL (80-99); PLATELET COUNT 151 K/UL (150-450); RED BLOOD COUNT 3.65 M/UL (4.20-5.40); WHITE BLOOD COUNT 8.7 K/UL (4.8-10.8)
[2019-07-23 09:20] LABS: ANION GAP 10 mmol/L (5-15); BLOOD UREA NITROGEN 15 mg/dL (7-18); CALCIUM 8.1 MG/DL (8.5-10.1); CARBON DIOXIDE 26 MMOL/L (21-32); CHLORIDE 107 MMOL/L (98-107); CREATININE 0.4 MG/DL (0.55-1.30); SODIUM 143 MMOL/L (136-145)
--- NOTE | 2019-07-23 09:27 | Hematology/Onc Progress Note ---
Assessment/Plan Assessment/Plan Assessment and Recs: # Multilevel bone marrow signal abnormality, as described. Differential considerations include metastatic neoplasm, infiltrative neoplasm such as myeloma or lymphoma, exuberant hematopoietic hyperplasia, less likely systemic metabolic disorders. Note that this is much more striking in the thoracic spine than it is in the lumbar and cervical segments study earlier --> tumor markers have been ordered --> spep and upep --> bone marrow biopsy has ordered --> also ordered for ct c/a/p with iv contrast - reviewed, no primary tumor --> r/o hemolysis at this time, DIC --> dw pcp # DKA (diabetic ketoacidoses) --> as per endo, iss and accuchecks qac and qhs --> hgb a1c goal <8, now 10.4 # Hypernatremia --> as per renal recs --> continue ivfs # UTI (urinary tract infection) --> per id, on abx: ceftriaxone # Ground-level fall. --> pt/ot as needed # Nausea and vomiting. --> zofran prn # Right sided weakness # Generalized Weakness # SDH 3mm no midline shift # Elevated d-dimer # Tachycardia - resolved Appreciate consultation and dw Rn Subjective Allergies: Coded Allergies: No Known Allergies (Unverified , 07/18/14) Subjective 07/20 cxr and labs reviewed, on room air, bp stable, bone marrow biopsy ordered 07/22 med surg, no overnight events, ct and labs reviewed, on abx Objective Objective Current Medications Medications (Trade) Dose Ordered Sig/Alvin Route PRN Reason Start Time Stop Time Status Last Admin Dose Admin Acetaminophen (Tylenol) 650 mg Q6H PRN ORAL Mild Pain (Pain Scale 1-3) 07/21/19 10:00 08/20/19 09:59 Ascorbic Acid (Vitamin C) 250 mg TWICE A DAY ORAL 07/20/19 18:00 08/18/19 17:59 07/23/19 08:41 Atorvastatin Calcium (Lipitor) 10 mg BEDTIME ORAL 07/20/19 21:00 10/13/19 20:59 07/22/19 21:17 Barium Sulfate (Readi-Cat 2) 450 ml NOW PRN ORAL Radiology Procedure 07/21/19 11:30 07/23/19 11:29 Ceftriaxone Sodium 1 gm/ Dextrose 50 ml @ 100 mls/hr Q24H IVPB 07/20/19 21:00 07/25/19 20:59 07/22/19 21:17 Dexamethasone Sodium Phosphate (Decadron 4mg/ml vial) 4 mg Q6HR IVP 07/21/19 00:00 10/19/19 00:00 07/23/19 06:18 Dextrose (Dextrose 50%) 25 ml Q30M PRN IV Hypoglycemia 07/20/19 16:45 10/12/19 21:44 Dextrose (Dextrose 50%) 50 ml Q30M PRN IV Hypoglycemia 07/20/19 16:45 10/12/19 21:44 Gadobutrol (Gadavist) 7.5 mmol NOW PRN IV Radiology Procedure 07/20/19 22:00 07/23/19 21:57 Insulin Aspart (NovoLOG) AC+HS SUBQ 07/20/19 21:00 10/13/19 09:29 07/23/19 06:19 Insulin Aspart (NovoLOG) 16 units NOVOTIAC SUBQ 07/23/19 11:50 10/14/19 11:49 Insulin Detemir (Levemir) 30 units QHS SUBQ 07/20/19 21:00 10/14/19 20:59 07/22/19 21:18 Iohexol (OMNIPAQUE-300 100ml) 100 ml ONCE PRN INJ radiology procedure 07/21/19 11:30 07/23/19 11:29 Levetiracetam (Keppra) 250 mg Q12HR ORAL 07/20/19 21:00 09/01/19 20:59 07/23/19 08:41 Lorazepam (Ativan) 1 mg Q6H PRN ORAL For Anxiety 07/21/19 08:30 07/28/19 08:29 Metoprolol Tartrate (Lopressor) 25 mg Q12HR ORAL 07/20/19 21:00 10/13/19 20:59 07/22/19 21:17 Pantoprazole (Protonix) 40 mg BID ORAL 07/20/19 18:00 08/17/19 08:59 07/23/19 08:40 Potassium Chloride (K-Dur) 40 meq BID ORAL 07/20/19 18:00 10/15/19 09:14 07/23/19 08:41 Tramadol HCl (Ultram) 25 mg Q6H PRN ORAL Severe Breakthru Pain (>7) 07/20/19 16:48 07/27/19 16:47 Vancomycin HCl (Firvanq) 125 mg FOUR TIMES A DAY ORAL 07/20/19 18:00 07/30/19 17:59 07/23/19 08:40 Last 24 Hour Vital Signs Date Time Temp Pulse Resp B/P (MAP) Pulse Ox O2 Delivery O2 Flow Rate FiO2 07/23/19 08:41 63 131/70 07/23/19 08:00 98.7 63 18 131/70 (90) 94 07/23/19 04:08 96.6 69 18 127/71 (89) 93 07/23/19 00:00 97.0 71 22 133/72 (92) 96 07/22/19 21:17 99 127/75 07/22/19 21:00 Room Air 07/22/19 20:00 96.4 99 20 127/75 (92) 95 07/22/19 16:00 97.7 84 18 109/68 (82) 97 07/22/19 12:00 97.2 80 18 107/64 (78) 96 07/22/19 09:00 Room Air 07/22/19 08:49 83 113/66 07/22/19 08:00 97.0 83 18 113/66 (82) 98 07/22/19 04:00 98.7 83 18 120/70 (87) 97 07/22/19 00:00 98.0 95 19 101/69 (80) 95 07/21/19 21:00 Room Air 07/21/19 20:59 90 114/67 07/21/19 20:00 98.5 90 19 114/67 (83) 97 07/21/19 16:00 97.7 89 17 118/69 (85) 95 07/21/19 12:00 98.0 94 18 118/64 (82) 94 07/21/19 09:39 83 115/65 Intake and Output 07/22/19 07/23/19 19:00 07:00 Intake Total 1140 ml 50 ml Balance 1140 ml 50 ml Intake Oral 1140 ml IV Total 50 ml # Voids 3 2 # Bowel Movements 4 Labs Test 07/21/19 05:35 07/22/19 05:25 07/23/19 06:45 White Blood Count 7.0 K/UL (4.8-10.8) 6.9 K/UL (4.8-10.8) 8.7 K/UL (4.8-10.8) Red Blood Count 3.65 M/UL (4.20-5.40) 3.82 M/UL (4.20-5.40) 3.65 M/UL (4.20-5.40) Hemoglobin 11.4 G/DL (12.0-16.0) 11.9 G/DL (12.0-16.0) 11.4 G/DL (12.0-16.0) Hematocrit 32.4 % (37.0-47.0) 34.1 % (37.0-47.0) 32.1 % (37.0-47.0) Mean Corpuscular Volume 89 FL (80-99) 89 FL (80-99) 88 FL (80-99) Mean Corpuscular Hemoglobin 31.3 PG (27.0-31.0) 31.0 PG (27.0-31.0) 31.2 PG (27.0-31.0) Mean Corpuscular Hemoglobin Concent 35.2 G/DL (32.0-36.0) 34.8 G/DL (32.0-36.0) 35.5 G/DL (32.0-36.0) Red Cell Distribution Width 11.3 % (11.6-14.8) 11.4 % (11.6-14.8) 11.0 % (11.6-14.8) Platelet Count 82 K/UL (150-450) 119 K/UL (150-450) 151 K/UL (150-450) Mean Platelet Volume 8.2 FL (6.5-10.1) 7.8 FL (6.5-10.1) 7.4 FL (6.5-10.1) Neutrophils (%) (Auto) % (45.0-75.0) % (45.0-75.0) 84.0 % (45.0-75.0) Lymphocytes (%) (Auto) % (20.0-45.0) % (20.0-45.0) 12.8 % (20.0-45.0) Monocytes (%) (Auto) % (1.0-10.0) % (1.0-10.0) 3.0 % (1.0-10.0) Eosinophils (%) (Auto) % (0.0-3.0) % (0.0-3.0) 0.0 % (0.0-3.0) Basophils (%) (Auto) % (0.0-2.0) % (0.0-2.0) 0.2 % (0.0-2.0) Differential Total Cells Counted 100 100 Neutrophils % (Manual) 92 % (45-75) 89 % (45-75) Lymphocytes % (Manual) 7 % (20-45) 10 % (20-45) Monocytes % (Manual) 1 % (1-10) 1 % (1-10) Eosinophils % (Manual) 0 % (0-3) 0 % (0-3) Basophils % (Manual) 0 % (0-2) 0 % (0-2) Band Neutrophils 0 % (0-8) 0 % (0-8) Platelet Estimate Decreased Decreased Platelet Morphology Normal Normal Red Blood Cell Morphology Normal Normal Sodium Level 146 MMOL/L (136-145) 143 MMOL/L (136-145) Potassium Level 4.0 MMOL/L (3.5-5.1) 4.1 MMOL/L (3.5-5.1) Chloride Level 110 MMOL/L (98-107) 107 MMOL/L (98-107) Carbon Dioxide Level 26 MMOL/L (21-32) 30 MMOL/L (21-32) Anion Gap 10 mmol/L (5-15) 6 mmol/L (5-15) Blood Urea Nitrogen 8 mg/dL (7-18) 16 mg/dL (7-18) Creatinine 0.4 MG/DL (0.55-1.30) 0.5 MG/DL (0.55-1.30) Estimat Glomerular Filtration Rate > 60 mL/min (>60) > 60 mL/min (>60) Glucose Level 160 MG/DL (74-106) 178 MG/DL (74-106) Calcium Level 8.1 MG/DL (8.5-10.1) 9.0 MG/DL (8.5-10.1) Carcinoembryonic Antigen 8.7 ng/mL (0.0-4.7) Height (Feet): 5 Height (Inches): 4.00 Weight (Pounds): 135 Objective Physical Exam General: Awake and somnolent HEENT: NC/AT. EOMI. dry mucous membranes Cardiovascular: RRR. S1 and S2 normal. Resp: Normal work of breathing. No cough, wheezing or crackles appreciated Abdomen: Abdomen is soft, nondistended Skin: Intact. No abrasions, laceration or rash over the exposed skin MSK: Normal tone and bulk. Neuro: Awake and alert. Romain Chavez MD Jul 23, 2019 09:27
--- NOTE | 2019-07-23 09:56 | Nephrology Progress Note ---
Assessment/Plan Problem List: (1) Hypernatremia Assessment: Improving (2) UTI (urinary tract infection) (3) Subdural hematoma (4) DKA (diabetic ketoacidoses) (5) Electrolyte imbalance Assessment Hypernatremia most likely due to free water deficit Hypokalemia, hypophosphatemia Hyperglycemia and DKA Evidence of UTI Right-sided weakness with 3 mm subdural hematoma found in CT scan Plan Patient has C. difficile colitis now Lactobacillus added Discontinue IV fluid Discontinue Boyd catheter Change Protonix to p.o. Stop Neutra-Phos due to diarrhea Potassium and phosphorus and magnesium supplement as needed Diet started as the patient is more alert Low dose of Lopressor Monitor renal parameters and electrolytes Neuro eval noted Keep the blood pressure and blood sugar in check Urine studies Per orders Subjective ROS Limited/Unobtainable: No Constitutional: Reports: malaise, other Objective Objective Last 24 Hour Vital Signs Date Time Temp Pulse Resp B/P (MAP) Pulse Ox O2 Delivery O2 Flow Rate FiO2 07/23/19 08:41 63 131/70 07/23/19 08:00 98.7 63 18 131/70 (90) 94 07/23/19 04:08 96.6 69 18 127/71 (89) 93 07/23/19 00:00 97.0 71 22 133/72 (92) 96 07/22/19 21:17 99 127/75 07/22/19 21:00 Room Air 07/22/19 20:00 96.4 99 20 127/75 (92) 95 07/22/19 16:00 97.7 84 18 109/68 (82) 97 07/22/19 12:00 97.2 80 18 107/64 (78) 96 Intake and Output 07/22/19 07/23/19 19:00 07:00 Intake Total 1140 ml 50 ml Balance 1140 ml 50 ml Intake Oral 1140 ml IV Total 50 ml # Voids 3 2 # Bowel Movements 4 Current Medications Medications (Trade) Dose Ordered Sig/Alvin Route PRN Reason Start Time Stop Time Status Last Admin Dose Admin Acetaminophen (Tylenol) 650 mg Q6H PRN ORAL Mild Pain (Pain Scale 1-3) 07/21/19 10:00 08/20/19 09:59 Ascorbic Acid (Vitamin C) 250 mg TWICE A DAY ORAL 07/20/19 18:00 08/18/19 17:59 07/23/19 08:41 Atorvastatin Calcium (Lipitor) 10 mg BEDTIME ORAL 07/20/19 21:00 10/13/19 20:59 07/22/19 21:17 Barium Sulfate (Readi-Cat 2) 450 ml NOW PRN ORAL Radiology Procedure 07/21/19 11:30 07/23/19 11:29 Ceftriaxone Sodium 1 gm/ Dextrose 50 ml @ 100 mls/hr Q24H IVPB 07/20/19 21:00 07/25/19 20:59 07/22/19 21:17 Dexamethasone Sodium Phosphate (Decadron 4mg/ml vial) 4 mg Q6HR IVP 07/21/19 00:00 10/19/19 00:00 07/23/19 06:18 Dextrose (Dextrose 50%) 25 ml Q30M PRN IV Hypoglycemia 07/20/19 16:45 10/12/19 21:44 Dextrose (Dextrose 50%) 50 ml Q30M PRN IV Hypoglycemia 07/20/19 16:45 10/12/19 21:44 Gadobutrol (Gadavist) 7.5 mmol NOW PRN IV Radiology Procedure 07/20/19 22:00 07/23/19 21:57 Insulin Aspart (NovoLOG) AC+HS SUBQ 07/20/19 21:00 10/13/19 09:29 07/23/19 06:19 Insulin Aspart (NovoLOG) 16 units NOVOTIAC SUBQ 07/23/19 11:50 10/14/19 11:49 Insulin Detemir (Levemir) 30 units QHS SUBQ 07/20/19 21:00 10/14/19 20:59 07/22/19 21:18 Iohexol (OMNIPAQUE-300 100ml) 100 ml ONCE PRN INJ radiology procedure 07/21/19 11:30 07/23/19 11:29 Levetiracetam (Keppra) 250 mg Q12HR ORAL 07/20/19 21:00 09/01/19 20:59 07/23/19 08:41 Lorazepam (Ativan) 1 mg Q6H PRN ORAL For Anxiety 07/21/19 08:30 07/28/19 08:29 Metoprolol Tartrate (Lopressor) 25 mg Q12HR ORAL 07/20/19 21:00 10/13/19 20:59 07/22/19 21:17 Pantoprazole (Protonix) 40 mg BID ORAL 07/20/19 18:00 08/17/19 08:59 07/23/19 08:40 Potassium Chloride (K-Dur) 40 meq BID ORAL 07/20/19 18:00 10/15/19 09:14 07/23/19 08:41 Tramadol HCl (Ultram) 25 mg Q6H PRN ORAL Severe Breakthru Pain (>7) 07/20/19 16:48 07/27/19 16:47 Vancomycin HCl (Firvanq) 125 mg FOUR TIMES A DAY ORAL 07/20/19 18:00 07/30/19 17:59 07/23/19 08:40 Laboratory Tests 07/23/19 06:45: White Blood Count 8.7, Red Blood Count 3.65L, Hemoglobin 11.4L, Hematocrit 32.1L , Mean Corpuscular Volume 88, Mean Corpuscular Hemoglobin 31.2H, Mean Corpuscular Hemoglobin Concent 35.5, Red Cell Distribution Width 11.0L, Platelet Count 151, Mean Platelet Volume 7.4, Neutrophils (%) (Auto) 84.0H, Lymphocytes (%) (Auto) 12.8L, Monocytes (%) (Auto) 3.0, Eosinophils (%) (Auto) 0.0, Basophils (%) (Auto) 0.2, Sodium Level 143, Potassium Level 4.0, Chloride Level 107, Carbon Dioxide Level 26, Anion Gap 10, Blood Urea Nitrogen 15, Creatinine 0.4L, Estimat Glomerular Filtration Rate > 60, Glucose Level 188H, Calcium Level 8.1L, Thyroid Stimulating Hormone (TSH) [Pending], Free Thyroxine [Pending] Height (Feet): 5 Height (Inches): 4.00 Weight (Pounds): 135 Cardiovascular: normal rate Respiratory/Chest: lungs clear Abdomen: distended Objective No change Yash Hernandes MD Jul 23, 2019 09:56
--- NOTE | 2019-07-23 10:41 | NUR ---
NURSE NOTES: PT AXOX3, CALM, RESTING IN BED. PT ABLE TO VERBALIZE NEEDS. WEAKNESS NOTED IN BUE. PT STATES THERE IS DECREASED SENSATION IN LEFT UPPER EXTREMITY WHICH IS AT BASELINE. PT CONTINUES TO HAVE LOOSE STOOLS. PT WAS CLEANED AND REPOSITIONED. PLACED IN SEMI-PARTIDA'S POSITION WITH HOB ELEVATED. SIDERAILS PADDED FOR SEIZURE PRECAUTIONS. BED IN LOWEST POSITION WITH BEDSIDE RAILS X3 RAISED. PT HAS HER CELLPHONE AND BLANK CHECK AT BEDSIDE. PT STATES SHE DOES NOT WANT TO KEEP IT IN [employer] "JUST IN CASE I NEED TO USE IT". IN NO APPARENT DISTRESS AT THIS TIME. WILL CONTINUE TO MONITOR.
[2019-07-23 12:06] VITALS: BP 127/79
[2019-07-23] MEDS: Lactobacillus-GG tablet ORAL SCH ×2 (12:22→17:26)
--- NOTE | 2019-07-23 13:14 | General Progress Note ---
Assessment/Plan Assessment/Plan: 64-year-old female with PMH of medical noncompliance, DM type II who presents with b/l weakness, N/V, GLF, on admission pt found to be in DKA with BG 500's. #DKA #E. coli UTI #E. coli bacteremia #Uncontrolled DM, Hgb A1C 10.4 #c. diff colitis -continue in-patient medical care -s/p DKA protocol with improved AG, AG 21-> -CT abd reviewed -07/13: UCx e. coli -07/13: BCx w/E. coli 2/, repeat 07/15 BCx NGTD -c.diff positive, contact precautions -cont. accuchecks, ISS qAC/HS -Endo following: Levemir to 30 units qhs, increase Novolog to 12 units ac tid -ID, Dr. Bagley: CTX, day #7 of abx, PO vanco for c diff #Multilevel Thoracic BM enhancements, concern for malignancy -suspicions for metastatic neoplasm, infiltrative neoplasm such as myeloma or lymphoma -07/13: CT abd/pel w/o contrast reviewed with no abnormalities -07/20 CT C/A/P without any lesions suspicious for primary malignancy -CEA elevated -CA19-9 wnl -Follow up BM biopsy and PEP/UPEP results -Heme/Onc following #Right sided weakness #Generalized Weakness #SDH 3mm no midline shift -weakness may be multifactorial, metabolic -pt AOx3, pt noted fall 3 days ago -found on CT head, repeat CT head stable -07/17: CT head obtained given worsening weakness, stable compared to previous -d/w Neuro, no need for transfer at this time, will decrease keppra -cont. fall precautions -holding ASA given SDH -statin -PT treat and eval -d/w Neurology, Dr. Fountain, weakness does not appear to be neurologic at this time -CM for d/c planning, plan for CRI on d/c #Elevated d-dimer #Tachycardia - resolved -likely multifactorial given infection/DKA, PE has been ruled out -EKG w/NSR -CTA thorax negative for PE -tachycardia likely 2/2 dehydration, encourage PO intake -no OAC at this time #Hypernatremia - resolved #Hypokalemia - improved #Hypophosphatemia -Hypernatremia likely 2/2 free water deficit -replace electrolytes, cont. to monitor and replace PRN -neal d/c'd -Nephro following, IVF and electrolytes per nephro DVT - SCDs for now given SDH Time spent: 35 minutes on this patient's case, d/w pt POC, updated RN. D/w consulting MDs, RN, case management Time of note may not reflect time of encounter. Subjective Date patient seen: Jul 23, 2019 Time patient seen: 13:12 ROS Limited/Unobtainable: No Cardiovascular: Denies: chest pain Respiratory: Denies: cough Gastrointestinal/Abdominal: Reports: diarrhea; Denies: abdomen distended, abdominal pain Allergies: Coded Allergies: No Known Allergies (Unverified , 07/18/14) Subjective Follow up for uncontrolled DM, DKA, UTI, C. difficile colitis. No acute events overnight Persistent diarrhea reported Objective Last 24 Hour Vital Signs Date Time Temp Pulse Resp B/P (MAP) Pulse Ox O2 Delivery O2 Flow Rate FiO2 07/23/19 12:06 98.1 98 18 127/79 (95) 96 07/23/19 09:00 Room Air 07/23/19 08:41 63 131/70 07/23/19 08:00 98.7 63 18 131/70 (90) 94 07/23/19 04:08 96.6 69 18 127/71 (89) 93 07/23/19 00:00 97.0 71 22 133/72 (92) 96 07/22/19 21:17 99 127/75 07/22/19 21:00 Room Air 07/22/19 20:00 96.4 99 20 127/75 (92) 95 07/22/19 16:00 97.7 84 18 109/68 (82) 97 Intake and Output 07/22/19 07/23/19 19:00 07:00 Intake Total 1140 ml 50 ml Balance 1140 ml 50 ml Intake Oral 1140 ml IV Total 50 ml # Voids 3 2 # Bowel Movements 4 Laboratory Tests 07/23/19 06:45: White Blood Count 8.7, Red Blood Count 3.65L, Hemoglobin 11.4L, Hematocrit 32.1L , Mean Corpuscular Volume 88, Mean Corpuscular Hemoglobin 31.2H, Mean Corpuscular Hemoglobin Concent 35.5, Red Cell Distribution Width 11.0L, Platelet Count 151, Mean Platelet Volume 7.4, Neutrophils (%) (Auto) 84.0H, Lymphocytes (%) (Auto) 12.8L, Monocytes (%) (Auto) 3.0, Eosinophils (%) (Auto) 0.0, Basophils (%) (Auto) 0.2, Sodium Level 143, Potassium Level 4.0, Chloride Level 107, Carbon Dioxide Level 26, Anion Gap 10, Blood Urea Nitrogen 15, Creatinine 0.4L, Estimat Glomerular Filtration Rate > 60, Glucose Level 188H, Calcium Level 8.1L, Thyroid Stimulating Hormone (TSH) 0.099L, Free Thyroxine 1.14 Height (Feet): 5 Height (Inches): 4.00 Weight (Pounds): 135 General Appearance: alert Neck: normal alignment, supple Cardiovascular: normal rate, regular rhythm Respiratory/Chest: lungs clear, normal breath sounds Abdomen: non tender, soft, no organomegaly Carmine Hayes MD Jul 23, 2019 13:14
--- NOTE | 2019-07-23 13:33 | Surgery Progress Note ---
Surgery Progress Note Subjective Additional Comments no complaints ct noted Objective Last 24 Hour Vital Signs Date Time Temp Pulse Resp B/P (MAP) Pulse Ox O2 Delivery O2 Flow Rate FiO2 07/23/19 12:06 98.1 98 18 127/79 (95) 96 07/23/19 09:00 Room Air 07/23/19 08:41 63 131/70 07/23/19 08:00 98.7 63 18 131/70 (90) 94 07/23/19 04:08 96.6 69 18 127/71 (89) 93 07/23/19 00:00 97.0 71 22 133/72 (92) 96 07/22/19 21:17 99 127/75 07/22/19 21:00 Room Air 07/22/19 20:00 96.4 99 20 127/75 (92) 95 07/22/19 16:00 97.7 84 18 109/68 (82) 97 I&O Intake and Output 07/22/19 07/23/19 19:00 07:00 Intake Total 1140 ml 50 ml Balance 1140 ml 50 ml Intake Oral 1140 ml IV Total 50 ml # Voids 3 2 # Bowel Movements 4 Cardiovascular: RSR Respiratory: clear Abdomen: soft, non-tender, present bowel sounds Extremities: no edema, no tenderness, no cyanosis Laboratory Tests Test 07/23/19 06:45 White Blood Count 8.7 K/UL (4.8-10.8) Red Blood Count 3.65 M/UL (4.20-5.40) L Hemoglobin 11.4 G/DL (12.0-16.0) L Hematocrit 32.1 % (37.0-47.0) L Mean Corpuscular Volume 88 FL (80-99) Mean Corpuscular Hemoglobin 31.2 PG (27.0-31.0) H Mean Corpuscular Hemoglobin Concent 35.5 G/DL (32.0-36.0) Red Cell Distribution Width 11.0 % (11.6-14.8) L Platelet Count 151 K/UL (150-450) Mean Platelet Volume 7.4 FL (6.5-10.1) Neutrophils (%) (Auto) 84.0 % (45.0-75.0) H Lymphocytes (%) (Auto) 12.8 % (20.0-45.0) L Monocytes (%) (Auto) 3.0 % (1.0-10.0) Eosinophils (%) (Auto) 0.0 % (0.0-3.0) Basophils (%) (Auto) 0.2 % (0.0-2.0) Sodium Level 143 MMOL/L (136-145) Potassium Level 4.0 MMOL/L (3.5-5.1) Chloride Level 107 MMOL/L (98-107) Carbon Dioxide Level 26 MMOL/L (21-32) Anion Gap 10 mmol/L (5-15) Blood Urea Nitrogen 15 mg/dL (7-18) Creatinine 0.4 MG/DL (0.55-1.30) L Estimat Glomerular Filtration Rate > 60 mL/min (>60) Glucose Level 188 MG/DL (74-106) H Calcium Level 8.1 MG/DL (8.5-10.1) L Thyroid Stimulating Hormone (TSH) 0.099 uiU/mL (0.358-3.740) Free Thyroxine 1.14 NG/DL (0.76-1.46) Plan Problems: (1) Decubitus skin ulcer Assessment & Plan: Patient noted to have rapid onset Sacral DTPI. Per Primary Nurse pt noted on prior shift to have non-blanching erythema as per report. All preventive measures were taken to reposition patient and off-load pressure. Despite repositioning and applying Moisture Barrier Paste patient noted to have further skin decline. Sacral DTPI is irregular shaped, Purple and indurated in colour over sacrococcygeal with surrounding non-blanching erythema along borders.(L)7.1cm x (W)6.5cm. Nutritional intake varies 30-45% daily. Non-Blanching erythema without fluctuance noted to R and L heels. Both heels observed floated with pillows Off mattress. Tx.Plan: Apply Moisture Barrier Paste to Sacrum. Cover with Optifoam drsg. Change every 3 days and prn. Apply Cavilon Skin Barrier to both heels. Cover each heel with Optifoam drsg. Change every 7 days and prn. Reposition at least every 2hours or as tolerated. Off-load heels with pillow. APM/MEHDI Mattress overlay. MRI spine noted neuro input appreciated (2) Deep tissue injury (3) Malnutrition Assessment & Plan: DAILY ESTIMATED NEEDS: Needs based on DM 61.5kg 25-30 kcals/kg 3420-3446 total kcals 1.25-1.5 g protein/kg 77-92 g total protein 25-30 mL/kg 7231-4127 total fluid mLs NUTRITION DIAGNOSIS: Altered nutrition related lab values r/t DKA, clinical status as evidenced by A1C 10.4, BG 423 on adm, (+) acetone, now w/ critically elev Na(161*) and low K(2.4*). CURRENT DIET: CCHO LOW puree + NTL PO DIET RECOMMENDATIONS: CCHO LOW diet/ texture per FURNITURE ARRANGER ADDITIONAL RECOMMENDATIONS: 1) W/ variable po intake add Glucerna 1 tetra per day Add high pro/1 carb snacks in b/w meals 2) On D5 for hydration, monitor BG 3) Wound care: Add VALARIE BID + Vit C 250mg daily (f/up w/ WC eval) 4) Obtain a calibrated bed scale wts EMR wt: 110# vs Bed scale wt: 135# (4) Abnormal thyroid blood test (5) Electrolyte imbalance Assessment & Plan: 1. No pulmonary embolus, somewhat limited at the bases due to motion. 2. Bibasilar lung atelectasis/airspace disease. 3. 3 mm nodule along the right middle lobe fissure. 3.6 mm nodule left lower lobe along the fissure. Fleischner Society Guidelines for low-risk patients, no follow-up is necessary. For high-risk patients (smoking history or other known risk factors) an optional chest CT at 12 months could be performed. 4. Mild bilateral perinephric stranding. May be senescent, correlate for infection. 5. Distended gallbladder with hyperdensity may be sludge or stones. 6. Prominent left lobe of the liver is slightly nodular in appearance. US ordered (6) Subdural hematoma Assessment & Plan: as per neurology MRI noted bm biopsy pending Russ Shoemaker Jul 23, 2019 13:33
[2019-07-23 16:06] VITALS: BP 121/81
[2019-07-23 20:00] VITALS: BP 121/66
--- NOTE | 2019-07-23 20:07 | NUR ---
HAND-OFF: Report given to Karen CARROLL RN.
--- NOTE | 2019-07-23 20:23 | Neurology Progress Note ---
Interim History Interim History ROS Limited/Unobtainable: No Interim History able to move LEs distally now, improved with steroids Objective Physical Exam Last Vital Signs Date Time Temp Pulse Resp B/P (MAP) Pulse Ox O2 Delivery O2 Flow Rate FiO2 07/23/19 16:06 97.2 87 18 121/81 (94) 97 07/23/19 09:00 Room Air Laboratory Tests Test 07/23/19 06:45 White Blood Count 8.7 K/UL (4.8-10.8) Red Blood Count 3.65 M/UL (4.20-5.40) L Hemoglobin 11.4 G/DL (12.0-16.0) L Hematocrit 32.1 % (37.0-47.0) L Mean Corpuscular Volume 88 FL (80-99) Mean Corpuscular Hemoglobin 31.2 PG (27.0-31.0) H Mean Corpuscular Hemoglobin Concent 35.5 G/DL (32.0-36.0) Red Cell Distribution Width 11.0 % (11.6-14.8) L Platelet Count 151 K/UL (150-450) Mean Platelet Volume 7.4 FL (6.5-10.1) Neutrophils (%) (Auto) 84.0 % (45.0-75.0) H Lymphocytes (%) (Auto) 12.8 % (20.0-45.0) L Monocytes (%) (Auto) 3.0 % (1.0-10.0) Eosinophils (%) (Auto) 0.0 % (0.0-3.0) Basophils (%) (Auto) 0.2 % (0.0-2.0) Sodium Level 143 MMOL/L (136-145) Potassium Level 4.0 MMOL/L (3.5-5.1) Chloride Level 107 MMOL/L (98-107) Carbon Dioxide Level 26 MMOL/L (21-32) Anion Gap 10 mmol/L (5-15) Blood Urea Nitrogen 15 mg/dL (7-18) Creatinine 0.4 MG/DL (0.55-1.30) L Estimat Glomerular Filtration Rate > 60 mL/min (>60) Glucose Level 188 MG/DL (74-106) H Calcium Level 8.1 MG/DL (8.5-10.1) L Thyroid Stimulating Hormone (TSH) 0.099 uiU/mL (0.358-3.740) Free Thyroxine 1.14 NG/DL (0.76-1.46) Head: normocophalic Neck: no rigidity EENT: benign Neurologic Exam Mental Status: awake Speech: normal speech Language: normal language Cranial Nerve VII: no facial asymmetry Objective alert, oriented x 2, conversant UEs 5/5 LEs 1/5 flaccid cc 35 min Impression/Recommendations Problems: (1) STEMI (ST elevation myocardial infarction) (2) Atrial fibrillation with rapid ventricular response (3) Prolonged Q-T interval on ECG (4) DKA (diabetic ketoacidoses) (5) Hypernatremia (6) UTI (urinary tract infection) (7) Subdural hematoma Diagnostic Impression Given LE weakness , suspect myelopathy, mri cervical thoracic and lumbar ordered - called radiology to expedite, imaging still not in system to review keppra to 250 mg bid SBP < 150 PT OT consider Chandra Albrecht MD Jul 23, 2019 20:23
[2019-07-23] MEDS: cefTRIAXone 1 GM in D5W 50 ML IVPB SCH (21:00)
[2019-07-23] MEDS: traMADol 50mg tab ORAL PRN (22:01)
[2019-07-23] MEDS: Levemir Flexpen SUBQ SCH (22:03)
[2019-07-24] VITALS: BP 134/75
[2019-07-24 04:00] VITALS: BP 126/66
[2019-07-24] MEDS: NovoLOG Insulin Flexpen SUBQ SCH ×7 (05:33→20:23)
[2019-07-24] MEDS: Dexamethasone 4mg/ml vial IVP SCH ×3 (05:36→17:17)
[2019-07-24 07:09] LABS: ALANINE AMINOTRANSFERASE 66 U/L (12-78); ALBUMIN 1.8 G/DL (3.4-5.0); ALBUMIN/GLOBULIN RATIO 0.4 (1.0-2.7); ALKALINE PHOSPHATASE 153 U/L (46-116); ANION GAP 8 mmol/L (5-15); ASPARTATE AMINO TRANSFERASE 41 U/L (15-37); BILIRUBIN,TOTAL 0.1 MG/DL (0.2-1.0); BLOOD UREA NITROGEN 13 mg/dL (7-18); CALCIUM 8.1 MG/DL (8.5-10.1); CARBON DIOXIDE 26 MMOL/L (21-32); CHLORIDE 106 MMOL/L (98-107); CREATININE 0.5 MG/DL (0.55-1.30); GAMMA GLUTAMYL TRANSPEPTIDASE 156 U/L (5-85); PHOSPHORUS 3.2 MG/DL (2.5-4.9); POTASSIUM 4.2 MMOL/L (3.5-5.1); SODIUM 140 MMOL/L (136-145)
[2019-07-24 07:22] LABS: BASOPHILS % (AUTO) 0.3 % (0.0-2.0); HEMATOCRIT 31.3 % (37.0-47.0); HEMOGLOBIN 11.1 G/DL (12.0-16.0); LYMPHOCYTES % (AUTO) 11.4 % (20.0-45.0); MEAN CORPUSCULAR VOLUME 88 FL (80-99); MONOCYTES % (AUTO) 3.5 % (1.0-10.0); NEUTROPHILS % (AUTO) 84.8 % (45.0-75.0); PLATELET COUNT 182 K/UL (150-450); RED BLOOD COUNT 3.58 M/UL (4.20-5.40); RED CELL DISTRIBUTION WIDTH 11.4 % (11.6-14.8); WHITE BLOOD COUNT 9.8 K/UL (4.8-10.8)
--- NOTE | 2019-07-24 07:32 | NUR ---
HAND-OFF: Report given to PAULINA Benitez.
[2019-07-24 08:00] VITALS: BP 118/62
--- NOTE | 2019-07-24 08:18 | General Progress Note ---
Assessment/Plan Problem List: (1) Abnormal thyroid blood test ICD Codes: R79.89 - Other specified abnormal findings of blood chemistry SNOMED: 529022930, 961418746274055 (2) Diabetes mellitus out of control ICD Codes: E11.65 - Type 2 diabetes mellitus with hyperglycemia SNOMED: 55975301, 994230460 (3) DKA (diabetic ketoacidoses) ICD Codes: E11.10 - Type 2 diabetes mellitus with ketoacidosis without coma SNOMED: 221930026, 75346373 (4) STEMI (ST elevation myocardial infarction) ICD Codes: I21.3 - ST elevation (STEMI) myocardial infarction of unspecified site SNOMED: 279614071 (5) Prolonged Q-T interval on ECG ICD Codes: R94.31 - Abnormal electrocardiogram [ECG] [EKG] SNOMED: 962237117 (6) Atrial fibrillation with rapid ventricular response ICD Codes: I48.91 - Unspecified atrial fibrillation SNOMED: 310443458164473 (7) Hypernatremia ICD Codes: E87.0 - Hyperosmolality and hypernatremia SNOMED: 250831541, 84231946 Assessment/Plan: continue Levemir 30 units qhs increase Novolog to 20 units ac tid continue NISS ac / hs TSH still suppressed, free T4 normalized continue to hold thyroxine Subjective ROS Limited/Unobtainable: Yes Allergies: Coded Allergies: No Known Allergies (Unverified , 07/18/14) Subjective events noted interval notes reviewed mealtime glucose is elevated she is on dexa 4 mg every 6 hours Item Value Date Time Bedside Blood Glucose 228 mg/dl H 07/24/19 0533 Bedside Blood Glucose 217 mg/dl H 07/23/19 2204 Bedside Blood Glucose 233 mg/dl H 07/23/19 1736 Bedside Blood Glucose 300 mg/dl H 07/23/19 1240 Bedside Blood Glucose 184 mg/dl H 07/23/19 0624 Objective Last 24 Hour Vital Signs Date Time Temp Pulse Resp B/P (MAP) Pulse Ox O2 Delivery O2 Flow Rate FiO2 07/24/19 04:00 96.4 70 18 126/66 (86) 94 07/24/19 00:00 97.3 76 22 134/75 (94) 96 07/23/19 22:01 87 121/66 07/23/19 21:00 Room Air 07/23/19 20:00 97.4 87 20 121/66 (84) 98 07/23/19 16:06 97.2 87 18 121/81 (94) 97 07/23/19 12:06 98.1 98 18 127/79 (95) 96 07/23/19 09:00 Room Air 07/23/19 08:41 63 131/70 Intake and Output 07/23/19 07/24/19 19:00 07:00 Intake Total 800 ml 360 ml Output Total 500 ml Balance 800 ml -140 ml Other 800 ml 360 ml Output Urine Total 500 ml # Bowel Movements 2 Laboratory Tests 07/24/19 05:50: White Blood Count 9.8, Red Blood Count 3.58L, Hemoglobin 11.1L, Hematocrit 31.3L , Mean Corpuscular Volume 88, Mean Corpuscular Hemoglobin 31.2H, Mean Corpuscular Hemoglobin Concent 35.6, Red Cell Distribution Width 11.4L, Platelet Count 182, Mean Platelet Volume 7.2, Neutrophils (%) (Auto) 84.8H, Lymphocytes (%) (Auto) 11.4L, Monocytes (%) (Auto) 3.5, Eosinophils (%) (Auto) 0.0, Basophils (%) (Auto) 0.3, Sodium Level 140, Potassium Level 4.2, Chloride Level 106, Carbon Dioxide Level 26, Anion Gap 8, Blood Urea Nitrogen 13, Creatinine 0.5L, Estimat Glomerular Filtration Rate > 60, Glucose Level 197H, Uric Acid 2.0L, Calcium Level 8.1L, Phosphorus Level 3.2, Magnesium Level 2.2, Total Bilirubin 0.1L, Gamma Glutamyl Transpeptidase 156H, Aspartate Amino Transf (AST/SGOT) 41H, Alanine Aminotransferase (ALT/SGPT) 66, Alkaline Phosphatase 153H, C-Reactive Protein, Quantitative 0.7, Pro-B-Type Natriuretic Peptide 234H, Total Protein 6.2L, Albumin 1.8L, Globulin 4.4, Albumin/Globulin Ratio 0.4L Height (Feet): 5 Height (Inches): 4.00 Weight (Pounds): 135 General Appearance: no apparent distress Neck: normal alignment Cardiovascular: normal rate Respiratory/Chest: lungs clear Abdomen: normal bowel sounds Pelvis: normal external exam Objective Current Medications Medications (Trade) Dose Ordered Sig/Alvin Route PRN Reason Start Time Stop Time Status Last Admin Dose Admin Acetaminophen (Tylenol) 650 mg Q6H PRN ORAL Mild Pain (Pain Scale 1-3) 07/21/19 10:00 08/20/19 09:59 Ascorbic Acid (Vitamin C) 250 mg TWICE A DAY ORAL 07/20/19 18:00 08/18/19 17:59 07/23/19 17:26 Atorvastatin Calcium (Lipitor) 10 mg BEDTIME ORAL 07/20/19 21:00 10/13/19 20:59 07/23/19 22:01 Ceftriaxone Sodium 1 gm/ Dextrose 50 ml @ 100 mls/hr Q24H IVPB 07/20/19 21:00 07/25/19 20:59 07/23/19 21:00 Dexamethasone Sodium Phosphate (Decadron 4mg/ml vial) 4 mg Q6HR IVP 07/21/19 00:00 10/19/19 00:00 07/24/19 05:36 Dextrose (Dextrose 50%) 25 ml Q30M PRN IV Hypoglycemia 07/20/19 16:45 10/12/19 21:44 Dextrose (Dextrose 50%) 50 ml Q30M PRN IV Hypoglycemia 07/20/19 16:45 10/12/19 21:44 Insulin Aspart (NovoLOG) AC+HS SUBQ 07/20/19 21:00 10/13/19 09:29 07/24/19 05:33 Insulin Aspart (NovoLOG) 16 units NOVOTIAC SUBQ 07/23/19 11:50 10/14/19 11:49 07/24/19 05:33 Insulin Detemir (Levemir) 30 units QHS SUBQ 07/20/19 21:00 10/14/19 20:59 07/23/19 22:03 Lactobacillus Acidophilus (Culturelle) 1 tab THREE TIMES A DAY ORAL 07/23/19 13:00 10/21/19 12:59 07/23/19 17:26 Levetiracetam (Keppra) 250 mg Q12HR ORAL 07/20/19 21:00 09/01/19 20:59 07/23/19 22:01 Lorazepam (Ativan) 1 mg Q6H PRN ORAL For Anxiety 07/21/19 08:30 07/28/19 08:29 Metoprolol Tartrate (Lopressor) 25 mg Q12HR ORAL 07/20/19 21:00 10/13/19 20:59 07/23/19 22:01 Pantoprazole (Protonix) 40 mg BID ORAL 07/20/19 18:00 08/17/19 08:59 07/23/19 17:26 Potassium Chloride (K-Dur) 40 meq BID ORAL 07/20/19 18:00 10/15/19 09:14 07/23/19 17:26 Tramadol HCl (Ultram) 25 mg Q6H PRN ORAL Severe Breakthru Pain (>7) 07/20/19 16:48 07/27/19 16:47 07/23/19 22:01 Vancomycin HCl (Firvanq) 125 mg FOUR TIMES A DAY ORAL 07/20/19 18:00 07/30/19 17:59 07/23/19 22:00 Pola Medrano MD Jul 24, 2019 08:18
[2019-07-24] MEDS: Lactobacillus-GG tablet ORAL SCH ×3 (08:39→17:17)
[2019-07-24] MEDS: Ascorbic Acid 500mg tab ORAL SCH ×2 (08:40→18:34)
[2019-07-24] MEDS: Vancomycin oral 125mg/2.5ml ORAL SCH ×4 (08:42→20:18)
--- NOTE | 2019-07-24 08:52 | General Progress Note ---
Assessment/Plan Assessment/Plan: 64-year-old female with PMH of medical noncompliance, DM type II who presents with b/l weakness, N/V, GLF, on admission pt found to be in DKA with BG 500's. #DKA #E. coli UTI #E. coli bacteremia #Uncontrolled DM, Hgb A1C 10.4 #c. diff colitis -continue in-patient medical care -s/p DKA protocol with improved AG, AG 21-> 14 -CT abd reviewed -07/13: UCx e. coli -07/13: BCx w/E. coli 2/2, repeat 07/15 BCx NGTD -c.diff positive, contact precautions -cont. accuchecks, ISS qAC/HS -Endo following: Levemir 30 units qhs, increase Novolog to 20 units ac tid -ID, Dr. Bagley: CTX, day #10/10 of abx, PO vanco for c diff day #7 of total 14 days #Multilevel Thoracic BM enhancements, concern for malignancy -suspicions for metastatic neoplasm, infiltrative neoplasm such as myeloma or lymphoma -07/13: CT abd/pel w/o contrast reviewed with no abnormalities -07/20 CT C/A/P without any lesions suspicious for primary malignancy -CEA elevated -CA19-9 wnl -Follow up BM biopsy and PEP/UPEP results -Heme/Onc following -GI consulted for possible colonoscopy/EGD #Right sided weakness #Generalized Weakness #SDH 3mm no midline shift -weakness may be multifactorial, metabolic -pt AOx3, pt noted fall 3 days ago -found on CT head, repeat CT head stable -07/17: CT head obtained given worsening weakness, stable compared to previous -d/w Neuro, no need for transfer at this time, will decrease keppra -cont. fall precautions -holding ASA given SDH -statin -PT treat and eval -d/w Neurology, Dr. Fountain, weakness does not appear to be neurologic at this time -CM for d/c planning, plan for CRI on d/c #Elevated d-dimer #Tachycardia - resolved -likely multifactorial given infection/DKA, PE has been ruled out -EKG w/NSR -CTA thorax negative for PE -tachycardia likely 2/2 dehydration, encourage PO intake -no OAC at this time #Hypernatremia - resolved #Hypokalemia - improved #Hypophosphatemia -Hypernatremia likely 2/2 free water deficit -replace electrolytes, cont. to monitor and replace PRN -neal d/c'd -Nephro following, IVF and electrolytes per nephro DVT - SCDs for now given SDH Time spent: 35 minutes on this patient's case, d/w pt POC, updated RN. D/w consulting MDs, RN, case management Time of note may not reflect time of encounter. Subjective Allergies: Coded Allergies: No Known Allergies (Unverified , 07/18/14) Subjective F/u DKA, UTI, hypernatremia, SDH, MRI enhancements on thoracic spine concerning for malignancy. No acute events overnight. Pt remains weak in LE. States diarrhea is still present but improving. Objective Last 24 Hour Vital Signs Date Time Temp Pulse Resp B/P (MAP) Pulse Ox O2 Delivery O2 Flow Rate FiO2 07/24/19 08:39 70 128/66 07/24/19 04:00 96.4 70 18 126/66 (86) 94 07/24/19 00:00 97.3 76 22 134/75 (94) 96 07/23/19 22:01 87 121/66 07/23/19 21:00 Room Air 07/23/19 20:00 97.4 87 20 121/66 (84) 98 07/23/19 16:06 97.2 87 18 121/81 (94) 97 07/23/19 12:06 98.1 98 18 127/79 (95) 96 07/23/19 09:00 Room Air Intake and Output 07/23/19 07/24/19 19:00 07:00 Intake Total 800 ml 360 ml Output Total 500 ml Balance 800 ml -140 ml Other 800 ml 360 ml Output Urine Total 500 ml # Bowel Movements 2 Laboratory Tests 07/24/19 05:50: White Blood Count 9.8, Red Blood Count 3.58L, Hemoglobin 11.1L, Hematocrit 31.3L , Mean Corpuscular Volume 88, Mean Corpuscular Hemoglobin 31.2H, Mean Corpuscular Hemoglobin Concent 35.6, Red Cell Distribution Width 11.4L, Platelet Count 182, Mean Platelet Volume 7.2, Neutrophils (%) (Auto) 84.8H, Lymphocytes (%) (Auto) 11.4L, Monocytes (%) (Auto) 3.5, Eosinophils (%) (Auto) 0.0, Basophils (%) (Auto) 0.3, Sodium Level 140, Potassium Level 4.2, Chloride Level 106, Carbon Dioxide Level 26, Anion Gap 8, Blood Urea Nitrogen 13, Creatinine 0.5L, Estimat Glomerular Filtration Rate > 60, Glucose Level 197H, Uric Acid 2.0L, Calcium Level 8.1L, Phosphorus Level 3.2, Magnesium Level 2.2, Total Bilirubin 0.1L, Gamma Glutamyl Transpeptidase 156H, Aspartate Amino Transf (AST/SGOT) 41H, Alanine Aminotransferase (ALT/SGPT) 66, Alkaline Phosphatase 153H, C-Reactive Protein, Quantitative 0.7, Pro-B-Type Natriuretic Peptide 234H, Total Protein 6.2L, Albumin 1.8L, Globulin 4.4, Albumin/Globulin Ratio 0.4L Height (Feet): 5 Height (Inches): 4.00 Weight (Pounds): 135 Objective General: NAD, laying in bed comfortably, AAO x3 HEENT: NCAT, EOMi, mucous membranes moist CV: RRR, no murmurs, rubs, or gallops Pulm: CTAB, No wheezes, rhonchi, or rales, no accessory muscle usage GI: Soft, nontender, nondistended, bowel sounds present Neuro: CN II-XII grossly intact, sensation intact bilaterally, MS 3/5 in UE, 0/ 5 LE B/L, able to wiggle toes Ext: no LE edema, no bruising noted on rt lower ribs MSK: reproducible pain on right lower ribs Silke Adorno M.D. Jul 24, 2019 08:52
--- NOTE | 2019-07-24 10:00 | General Progress Note ---
Assessment/Plan Problem List: (1) C. difficile colitis ICD Codes: A04.72 - Enterocolitis due to Clostridium difficile, not specified as recurrent SNOMED: 168953614 (2) Elevated CEA ICD Codes: R97.0 - Elevated carcinoembryonic antigen [CEA] SNOMED: 600546455 (3) Subdural hematoma ICD Codes: S06.5X9A - Traumatic subdural hemorrhage with loss of consciousness of unspecified duration, initial encounter SNOMED: 517039297 (4) UTI (urinary tract infection) ICD Codes: N39.0 - Urinary tract infection, site not specified SNOMED: 01758015 (5) DKA (diabetic ketoacidoses) ICD Codes: E11.10 - Type 2 diabetes mellitus with ketoacidosis without coma SNOMED: 858667292, 14595702 (6) Atrial fibrillation with rapid ventricular response ICD Codes: I48.91 - Unspecified atrial fibrillation SNOMED: 938822443752599 (7) STEMI (ST elevation myocardial infarction) ICD Codes: I21.3 - ST elevation (STEMI) myocardial infarction of unspecified site SNOMED: 846240970 (8) Malnutrition ICD Codes: E46 - Unspecified protein-calorie malnutrition SNOMED: 03918554 Assessment/Plan: on treatment for C.diff ? thoracic bone mets elevated CEA wt loss anemia plan EGD colonoscopy when C.diff treatment completed most likely as out patient Subjective ROS Limited/Unobtainable: Yes Allergies: Coded Allergies: No Known Allergies (Unverified , 07/18/14) Objective Last 24 Hour Vital Signs Date Time Temp Pulse Resp B/P (MAP) Pulse Ox O2 Delivery O2 Flow Rate FiO2 07/24/19 08:39 70 128/66 07/24/19 04:00 96.4 70 18 126/66 (86) 94 07/24/19 00:00 97.3 76 22 134/75 (94) 96 07/23/19 22:01 87 121/66 07/23/19 21:00 Room Air 07/23/19 20:00 97.4 87 20 121/66 (84) 98 07/23/19 16:06 97.2 87 18 121/81 (94) 97 07/23/19 12:06 98.1 98 18 127/79 (95) 96 Intake and Output 07/23/19 07/24/19 19:00 07:00 Intake Total 800 ml 360 ml Output Total 500 ml Balance 800 ml -140 ml Other 800 ml 360 ml Output Urine Total 500 ml # Bowel Movements 2 Laboratory Tests 07/24/19 05:50: White Blood Count 9.8, Red Blood Count 3.58L, Hemoglobin 11.1L, Hematocrit 31.3L , Mean Corpuscular Volume 88, Mean Corpuscular Hemoglobin 31.2H, Mean Corpuscular Hemoglobin Concent 35.6, Red Cell Distribution Width 11.4L, Platelet Count 182, Mean Platelet Volume 7.2, Neutrophils (%) (Auto) 84.8H, Lymphocytes (%) (Auto) 11.4L, Monocytes (%) (Auto) 3.5, Eosinophils (%) (Auto) 0.0, Basophils (%) (Auto) 0.3, Sodium Level 140, Potassium Level 4.2, Chloride Level 106, Carbon Dioxide Level 26, Anion Gap 8, Blood Urea Nitrogen 13, Creatinine 0.5L, Estimat Glomerular Filtration Rate > 60, Glucose Level 197H, Uric Acid 2.0L, Calcium Level 8.1L, Phosphorus Level 3.2, Magnesium Level 2.2, Total Bilirubin 0.1L, Gamma Glutamyl Transpeptidase 156H, Aspartate Amino Transf (AST/SGOT) 41H, Alanine Aminotransferase (ALT/SGPT) 66, Alkaline Phosphatase 153H, C-Reactive Protein, Quantitative 0.7, Pro-B-Type Natriuretic Peptide 234H, Total Protein 6.2L, Albumin 1.8L, Globulin 4.4, Albumin/Globulin Ratio 0.4L Height (Feet): 5 Height (Inches): 4.00 Weight (Pounds): 135 General Appearance: alert EENT: normal ENT inspection Neck: normal alignment Cardiovascular: normal rate Respiratory/Chest: decreased breath sounds Abdomen: soft, hypoactive bowel sounds, tender Extremities: non-tender Sami Rosenthal MD Jul 24, 2019 10:00
--- NOTE | 2019-07-24 10:12 | Surgery Progress Note ---
Surgery Progress Note Subjective Additional Comments path noted exam stable eating well in good spirits Objective Last 24 Hour Vital Signs Date Time Temp Pulse Resp B/P (MAP) Pulse Ox O2 Delivery O2 Flow Rate FiO2 07/24/19 08:39 70 128/66 07/24/19 04:00 96.4 70 18 126/66 (86) 94 07/24/19 00:00 97.3 76 22 134/75 (94) 96 07/23/19 22:01 87 121/66 07/23/19 21:00 Room Air 07/23/19 20:00 97.4 87 20 121/66 (84) 98 07/23/19 16:06 97.2 87 18 121/81 (94) 97 07/23/19 12:06 98.1 98 18 127/79 (95) 96 I&O Intake and Output 07/23/19 07/24/19 19:00 07:00 Intake Total 800 ml 360 ml Output Total 500 ml Balance 800 ml -140 ml Other 800 ml 360 ml Output Urine Total 500 ml # Bowel Movements 2 Dressing: other Wound: other Drains: other Cardiovascular: RSR Respiratory: decreased breath sounds Abdomen: soft, non-tender, present bowel sounds Extremities: no tenderness, no cyanosis Laboratory Tests Test 07/24/19 05:50 White Blood Count 9.8 K/UL (4.8-10.8) Red Blood Count 3.58 M/UL (4.20-5.40) L Hemoglobin 11.1 G/DL (12.0-16.0) L Hematocrit 31.3 % (37.0-47.0) L Mean Corpuscular Volume 88 FL (80-99) Mean Corpuscular Hemoglobin 31.2 PG (27.0-31.0) H Mean Corpuscular Hemoglobin Concent 35.6 G/DL (32.0-36.0) Red Cell Distribution Width 11.4 % (11.6-14.8) L Platelet Count 182 K/UL (150-450) Mean Platelet Volume 7.2 FL (6.5-10.1) Neutrophils (%) (Auto) 84.8 % (45.0-75.0) H Lymphocytes (%) (Auto) 11.4 % (20.0-45.0) L Monocytes (%) (Auto) 3.5 % (1.0-10.0) Eosinophils (%) (Auto) 0.0 % (0.0-3.0) Basophils (%) (Auto) 0.3 % (0.0-2.0) Sodium Level 140 MMOL/L (136-145) Potassium Level 4.2 MMOL/L (3.5-5.1) Chloride Level 106 MMOL/L (98-107) Carbon Dioxide Level 26 MMOL/L (21-32) Anion Gap 8 mmol/L (5-15) Blood Urea Nitrogen 13 mg/dL (7-18) Creatinine 0.5 MG/DL (0.55-1.30) L Estimat Glomerular Filtration Rate > 60 mL/min (>60) Glucose Level 197 MG/DL (74-106) H Uric Acid 2.0 MG/DL (2.6-7.2) L Calcium Level 8.1 MG/DL (8.5-10.1) L Phosphorus Level 3.2 MG/DL (2.5-4.9) Magnesium Level 2.2 MG/DL (1.8-2.4) Total Bilirubin 0.1 MG/DL (0.2-1.0) L Gamma Glutamyl Transpeptidase 156 U/L (5-85) H Aspartate Amino Transf (AST/SGOT) 41 U/L (15-37) H Alanine Aminotransferase (ALT/SGPT) 66 U/L (12-78) Alkaline Phosphatase 153 U/L (46-116) H C-Reactive Protein, Quantitative 0.7 mg/dL (0.00-0.90) Pro-B-Type Natriuretic Peptide 234 pg/mL (0-125) H Total Protein 6.2 G/DL (6.4-8.2) L Albumin 1.8 G/DL (3.4-5.0) L Globulin 4.4 g/dL Albumin/Globulin Ratio 0.4 (1.0-2.7) L Plan Problems: (1) Decubitus skin ulcer Assessment & Plan: Patient noted to have rapid onset Sacral DTPI. Per Primary Nurse pt noted on prior shift to have non-blanching erythema as per report. All preventive measures were taken to reposition patient and off-load pressure. Despite repositioning and applying Moisture Barrier Paste patient noted to have further skin decline. Sacral DTPI is irregular shaped, Purple and indurated in colour over sacrococcygeal with surrounding non-blanching erythema along borders.(L)7.1cm x (W)6.5cm. Nutritional intake varies 30-45% daily. Non-Blanching erythema without fluctuance noted to R and L heels. Both heels observed floated with pillows Off mattress. Tx.Plan: Apply Moisture Barrier Paste to Sacrum. Cover with Optifoam drsg. Change every 3 days and prn. Apply Cavilon Skin Barrier to both heels. Cover each heel with Optifoam drsg. Change every 7 days and prn. Reposition at least every 2hours or as tolerated. Off-load heels with pillow. APM/MEHDI Mattress overlay. MRI spine noted neuro input appreciated (2) Deep tissue injury (3) Malnutrition Assessment & Plan: DAILY ESTIMATED NEEDS: Needs based on DM 61.5kg 25-30 kcals/kg 9381-8837 total kcals 1.25-1.5 g protein/kg 77-92 g total protein 25-30 mL/kg 7620-2954 total fluid mLs NUTRITION DIAGNOSIS: Altered nutrition related lab values r/t DKA, clinical status as evidenced by A1C 10.4, BG 423 on adm, (+) acetone, now w/ critically elev Na(161*) and low K(2.4*). [facility] puree + NTL PO DIET RECOMMENDATIONS: [facility] L[facility] diet/ texture per [employer] [facility] ADDITIONAL RECOMMENDATIONS: 1) W/ variable po intake add Glucerna 1 tetra per day Add high pro/1 carb snacks in b/w meals 2) On D5 for hydration, monitor BG 3) Wound care: Add VALARIE BID + Vit C 250mg daily (f/up w/ WC eval) 4) Obtain a calibrated bed scale wts EMR wt: 110# vs Bed scale wt: 135# (4) Abnormal thyroid blood test (5) Electrolyte imbalance Assessment & Plan: 1. No pulmonary embolus, somewhat limited at the bases due to motion. 2. Bibasilar lung atelectasis/airspace disease. 3. 3 mm nodule along the right middle lobe fissure. 3.6 mm nodule left lower lobe along the fissure. Fleischner Society Guidelines for low-risk patients, no follow-up is necessary. For high-risk patients (smoking history or other known risk factors) an optional chest CT at 12 months could be performed. 4. Mild bilateral perinephric stranding. May be senescent, correlate for infection. 5. Distended gallbladder with hyperdensity may be sludge or stones. 6. Prominent left lobe of the liver is slightly nodular in appearance. US ordered (6) Subdural hematoma Assessment & Plan: as per neurology MRI noted bm biopsy pending Russ Shoemaker Jul 24, 2019 10:11
--- NOTE | 2019-07-24 10:25 | Nephrology Progress Note ---
Assessment/Plan Problem List: (1) Hypernatremia Assessment: Improving (2) UTI (urinary tract infection) (3) Subdural hematoma (4) DKA (diabetic ketoacidoses) (5) Electrolyte imbalance (6) C. difficile colitis Assessment Hypernatremia most likely due to free water deficit Hypokalemia, hypophosphatemia Hyperglycemia and DKA Evidence of UTI Right-sided weakness with 3 mm subdural hematoma found in CT scan Plan Patient has C. difficile colitis now Lactobacillus added Discontinue IV fluid Discontinue Boyd catheter Change Protonix to p.o. Stop Neutra-Phos due to diarrhea Potassium and phosphorus and magnesium supplement as needed Diet started as the patient is more alert Low dose of Lopressor Monitor renal parameters and electrolytes Neuro eval noted Keep the blood pressure and blood sugar in check Urine studies Per orders Subjective ROS Limited/Unobtainable: No Constitutional: Reports: malaise, weakness Objective Objective Last 24 Hour Vital Signs Date Time Temp Pulse Resp B/P (MAP) Pulse Ox O2 Delivery O2 Flow Rate FiO2 07/24/19 08:39 70 128/66 07/24/19 04:00 96.4 70 18 126/66 (86) 94 07/24/19 00:00 97.3 76 22 134/75 (94) 96 07/23/19 22:01 87 121/66 07/23/19 21:00 Room Air 07/23/19 20:00 97.4 87 20 121/66 (84) 98 07/23/19 16:06 97.2 87 18 121/81 (94) 97 07/23/19 12:06 98.1 98 18 127/79 (95) 96 Intake and Output 07/23/19 07/24/19 19:00 07:00 Intake Total 800 ml 360 ml Output Total 500 ml Balance 800 ml -140 ml Other 800 ml 360 ml Output Urine Total 500 ml # Bowel Movements 2 Current Medications Medications (Trade) Dose Ordered Sig/Alvin Route PRN Reason Start Time Stop Time Status Last Admin Dose Admin Acetaminophen (Tylenol) 650 mg Q6H PRN ORAL Mild Pain (Pain Scale 1-3) 07/21/19 10:00 08/20/19 09:59 Ascorbic Acid (Vitamin C) 250 mg TWICE A DAY ORAL 07/20/19 18:00 08/18/19 17:59 07/24/19 08:40 Atorvastatin Calcium (Lipitor) 10 mg BEDTIME ORAL 07/20/19 21:00 10/13/19 20:59 07/23/19 22:01 Ceftriaxone Sodium 1 gm/ Dextrose 50 ml @ 100 mls/hr Q24H IVPB 07/20/19 21:00 07/25/19 20:59 07/23/19 21:00 Dexamethasone Sodium Phosphate (Decadron 4mg/ml vial) 4 mg Q6HR IVP 07/21/19 00:00 10/19/19 00:00 07/24/19 05:36 Dextrose (Dextrose 50%) 25 ml Q30M PRN IV Hypoglycemia 07/20/19 16:45 10/12/19 21:44 Dextrose (Dextrose 50%) 50 ml Q30M PRN IV Hypoglycemia 07/20/19 16:45 10/12/19 21:44 Insulin Aspart (NovoLOG) AC+HS SUBQ 07/20/19 21:00 10/13/19 09:29 07/24/19 05:33 Insulin Aspart (NovoLOG) 20 units NOVOTIAC SUBQ 07/24/19 11:50 10/14/19 11:49 Insulin Detemir (Levemir) 30 units QHS SUBQ 07/20/19 21:00 10/14/19 20:59 07/23/19 22:03 Lactobacillus Acidophilus (Culturelle) 1 tab THREE TIMES A DAY ORAL 07/23/19 13:00 10/21/19 12:59 07/24/19 08:39 Levetiracetam (Keppra) 250 mg Q12HR ORAL 07/20/19 21:00 09/01/19 20:59 07/24/19 08:39 Lorazepam (Ativan) 1 mg Q6H PRN ORAL For Anxiety 07/21/19 08:30 07/28/19 08:29 Metoprolol Tartrate (Lopressor) 25 mg Q12HR ORAL 07/20/19 21:00 10/13/19 20:59 07/24/19 08:39 Potassium Chloride (K-Dur) 40 meq BID ORAL 07/20/19 18:00 10/15/19 09:14 07/24/19 08:40 Tramadol HCl (Ultram) 25 mg Q6H PRN ORAL Severe Breakthru Pain (>7) 07/20/19 16:48 07/27/19 16:47 07/23/19 22:01 Vancomycin HCl (Firvanq) 125 mg FOUR TIMES A DAY ORAL 07/20/19 18:00 07/30/19 17:59 07/24/19 08:42 Laboratory Tests 07/24/19 05:50: White Blood Count 9.8, Red Blood Count 3.58L, Hemoglobin 11.1L, Hematocrit 31.3L , Mean Corpuscular Volume 88, Mean Corpuscular Hemoglobin 31.2H, Mean Corpuscular Hemoglobin Concent 35.6, Red Cell Distribution Width 11.4L, Platelet Count 182, Mean Platelet Volume 7.2, Neutrophils (%) (Auto) 84.8H, Lymphocytes (%) (Auto) 11.4L, Monocytes (%) (Auto) 3.5, Eosinophils (%) (Auto) 0.0, Basophils (%) (Auto) 0.3, Sodium Level 140, Potassium Level 4.2, Chloride Level 106, Carbon Dioxide Level 26, Anion Gap 8, Blood Urea Nitrogen 13, Creatinine 0.5L, Estimat Glomerular Filtration Rate > 60, Glucose Level 197H, Uric Acid 2.0L, Calcium Level 8.1L, Phosphorus Level 3.2, Magnesium Level 2.2, Total Bilirubin 0.1L, Gamma Glutamyl Transpeptidase 156H, Aspartate Amino Transf (AST/SGOT) 41H, Alanine Aminotransferase (ALT/SGPT) 66, Alkaline Phosphatase 153H, C-Reactive Protein, Quantitative 0.7, Pro-B-Type Natriuretic Peptide 234H, Total Protein 6.2L, Albumin 1.8L, Globulin 4.4, Albumin/Globulin Ratio 0.4L Height (Feet): 5 Height (Inches): 4.00 Weight (Pounds): 135 General Appearance: no apparent distress Cardiovascular: normal rate Respiratory/Chest: decreased breath sounds Abdomen: soft, distended Objective No change Yash Hernandes MD Jul 24, 2019 10:25
--- NOTE | 2019-07-24 11:16 | NUR ---
*-* INSURANCE *-* UPDATED CLINICALS AND REVIEWS HAVE BEEN FAXED TO: [facility]: [place]ILA T: [phone] (LEAVE A MESSAGE) F: [phone]
[2019-07-24 12:00] VITALS: BP 121/72
--- NOTE | 2019-07-24 14:27 | Hematology/Onc Progress Note ---
Assessment/Plan Assessment/Plan Assessment and Recs: # Multilevel bone marrow signal abnormality, as described. Differential considerations include metastatic neoplasm, infiltrative neoplasm such as myeloma or lymphoma, exuberant hematopoietic hyperplasia, less likely systemic metabolic disorders. Note that this is much more striking in the thoracic spine than it is in the lumbar and cervical segments study earlier --> tumor markers have been ordered --> spep and upep --> bone marrow biopsy was done which shows a increase in Nk population, may be reactive v clonal process --> also ordered for ct c/a/p with iv contrast - reviewed, no primary tumor. Slightly more conspicuous, since prior exam of one week earlier, pleural-based nodules in the right costophrenic sulcus. Apparent interim growth over short perio suggests that this is inflammatory or an area of atelectasis. Unchanged 3 mm left lower lobe subpleural nodule along the major fissure. --> r/o hemolysis at this time, DIC --> dw pcp # DKA (diabetic ketoacidoses) --> as per endo, iss and accuchecks qac and qhs --> hgb a1c goal <8, now 10.4 --> maintains on dexamethasone # Hypernatremia --> as per renal recs --> continue ivfs # UTI (urinary tract infection) --> per id, on abx: ceftriaxone # Ground-level fall. --> pt/ot as needed # Nausea and vomiting. --> zofran prn # Right sided weakness # Generalized Weakness # SDH 3mm no midline shift # Elevated d-dimer # Tachycardia - resolved Appreciate consultation and sal Rn Subjective Constitutional: Denies: no symptoms, chills, fever, malaise, weakness, other HEENT: Denies: no symptoms, eye pain, blurred vision, tearing, double vision, ear pain, ear discharge, nose pain, nose congestion, throat pain, throat swelling, mouth pain, mouth swelling, other Cardiovascular: Denies: no symptoms, chest pain, edema, irregular heart rate, lightheadedness, palpitations, syncope, other Respiratory: Denies: no symptoms, cough, shortness of breath, SOB with excertion, SOB at rest, sputum, wheezing, other Gastrointestinal/Abdominal: Denies: no symptoms, abdomen distended, abdominal pain, black stools, tarry stools, blood in stool, constipated, diarrhea, difficulty swallowing, nausea, poor appetite, poor fluid intake, rectal bleeding , vomiting, other Genitourinary: Denies: no symptoms, burning, discharge, frequency, flank pain, hematuria, incontinence, pain, urgency, other Neurologic/Psychiatric: Denies: no symptoms, anxiety, depressed, emotional problems, headache, numbness, paresthesia, pre-existing deficit, seizure, tingling, tremors, weakness, other Endocrine: Denies: no symptoms, excessive sweating, flushing, intolerance to cold, intolerance to heat, increased hunger, increased thirst, increased urine, unexplained weight gain, unexplained weight loss, other Allergies: Coded Allergies: No Known Allergies (Unverified , 07/18/14) Subjective 07/20 cxr and labs reviewed, on room air, bp stable, bone marrow biopsy ordered 07/22 med surg, no overnight events, ct and labs reviewed, on abx 07/23 labs are noted, no bleeding hgb 11, plt much better Objective Objective Current Medications Medications (Trade) Dose Ordered Sig/Alvin Route PRN Reason Start Time Stop Time Status Last Admin Dose Admin Acetaminophen (Tylenol) 650 mg Q6H PRN ORAL Mild Pain (Pain Scale 1-3) 07/21/19 10:00 08/20/19 09:59 Ascorbic Acid (Vitamin C) 250 mg TWICE A DAY ORAL 07/20/19 18:00 08/18/19 17:59 07/24/19 08:40 Atorvastatin Calcium (Lipitor) 10 mg BEDTIME ORAL 07/20/19 21:00 10/13/19 20:59 07/23/19 22:01 Ceftriaxone Sodium 1 gm/ Dextrose 50 ml @ 100 mls/hr Q24H IVPB 07/20/19 21:00 07/25/19 20:59 07/23/19 21:00 Dexamethasone Sodium Phosphate (Decadron 4mg/ml vial) 4 mg Q6HR IVP 07/21/19 00:00 10/19/19 00:00 07/24/19 12:29 Dextrose (Dextrose 50%) 25 ml Q30M PRN IV Hypoglycemia 07/20/19 16:45 10/12/19 21:44 Dextrose (Dextrose 50%) 50 ml Q30M PRN IV Hypoglycemia 07/20/19 16:45 10/12/19 21:44 Insulin Aspart (NovoLOG) AC+HS SUBQ 07/20/19 21:00 10/13/19 09:29 07/24/19 11:30 Insulin Aspart (NovoLOG) 20 units NOVOTIAC SUBQ 07/24/19 11:50 10/14/19 11:49 07/24/19 11:50 Insulin Detemir (Levemir) 30 units QHS SUBQ 07/20/19 21:00 10/14/19 20:59 07/23/19 22:03 Lactobacillus Acidophilus (Culturelle) 1 tab THREE TIMES A DAY ORAL 07/23/19 13:00 10/21/19 12:59 07/24/19 12:34 Levetiracetam (Keppra) 250 mg Q12HR ORAL 07/20/19 21:00 09/01/19 20:59 07/24/19 08:39 Lorazepam (Ativan) 1 mg Q6H PRN ORAL For Anxiety 07/21/19 08:30 07/28/19 08:29 Metoprolol Tartrate (Lopressor) 25 mg Q12HR ORAL 07/20/19 21:00 10/13/19 20:59 07/24/19 08:39 Potassium Chloride (K-Dur) 40 meq BID ORAL 07/20/19 18:00 10/15/19 09:14 07/24/19 08:40 Tramadol HCl (Ultram) 25 mg Q6H PRN ORAL Severe Breakthru Pain (>7) 07/20/19 16:48 07/27/19 16:47 07/23/19 22:01 Vancomycin HCl (Firvanq) 125 mg FOUR TIMES A DAY ORAL 07/20/19 18:00 07/30/19 17:59 07/24/19 12:34 Last 24 Hour Vital Signs Date Time Temp Pulse Resp B/P (MAP) Pulse Ox O2 Delivery O2 Flow Rate FiO2 07/24/19 12:00 98.3 79 18 121/72 (88) 94 07/24/19 09:00 Room Air 07/24/19 08:39 70 128/66 07/24/19 08:00 96.4 78 18 118/62 (80) 94 07/24/19 04:00 96.4 70 18 126/66 (86) 94 07/24/19 00:00 97.3 76 22 134/75 (94) 96 07/23/19 22:01 87 121/66 07/23/19 21:00 Room Air 07/23/19 20:00 97.4 87 20 121/66 (84) 98 07/23/19 16:06 97.2 87 18 121/81 (94) 97 07/23/19 12:06 98.1 98 18 127/79 (95) 96 07/23/19 09:00 Room Air 07/23/19 08:41 63 131/70 07/23/19 08:00 98.7 63 18 131/70 (90) 94 07/23/19 04:08 96.6 69 18 127/71 (89) 93 07/23/19 00:00 97.0 71 22 133/72 (92) 96 07/22/19 21:17 99 127/75 07/22/19 21:00 Room Air 07/22/19 20:00 96.4 99 20 127/75 (92) 95 07/22/19 16:00 97.7 84 18 109/68 (82) 97 Intake and Output 07/23/19 07/24/19 19:00 07:00 Intake Total 800 ml 360 ml Output Total 500 ml Balance 800 ml -140 ml Other 800 ml 360 ml Output Urine Total 500 ml # Bowel Movements 2 Labs Test 07/22/19 05:25 07/23/19 06:45 07/24/19 05:50 White Blood Count 6.9 K/UL (4.8-10.8) 8.7 K/UL (4.8-10.8) 9.8 K/UL (4.8-10.8) Red Blood Count 3.82 M/UL (4.20-5.40) 3.65 M/UL (4.20-5.40) 3.58 M/UL (4.20-5.40) Hemoglobin 11.9 G/DL (12.0-16.0) 11.4 G/DL (12.0-16.0) 11.1 G/DL (12.0-16.0) Hematocrit 34.1 % (37.0-47.0) 32.1 % (37.0-47.0) 31.3 % (37.0-47.0) Mean Corpuscular Volume 89 FL (80-99) 88 FL (80-99) 88 FL (80-99) Mean Corpuscular Hemoglobin 31.0 PG (27.0-31.0) 31.2 PG (27.0-31.0) 31.2 PG (27.0-31.0) Mean Corpuscular Hemoglobin Concent 34.8 G/DL (32.0-36.0) 35.5 G/DL (32.0-36.0) 35.6 G/DL (32.0-36.0) Red Cell Distribution Width 11.4 % (11.6-14.8) 11.0 % (11.6-14.8) 11.4 % (11.6-14.8) Platelet Count 119 K/UL (150-450) 151 K/UL (150-450) 182 K/UL (150-450) Mean Platelet Volume 7.8 FL (6.5-10.1) 7.4 FL (6.5-10.1) 7.2 FL (6.5-10.1) Neutrophils (%) (Auto) % (45.0-75.0) 84.0 % (45.0-75.0) 84.8 % (45.0-75.0) Lymphocytes (%) (Auto) % (20.0-45.0) 12.8 % (20.0-45.0) 11.4 % (20.0-45.0) Monocytes (%) (Auto) % (1.0-10.0) 3.0 % (1.0-10.0) 3.5 % (1.0-10.0) Eosinophils (%) (Auto) % (0.0-3.0) 0.0 % (0.0-3.0) 0.0 % (0.0-3.0) Basophils (%) (Auto) % (0.0-2.0) 0.2 % (0.0-2.0) 0.3 % (0.0-2.0) Differential Total Cells Counted 100 Neutrophils % (Manual) 89 % (45-75) Lymphocytes % (Manual) 10 % (20-45) Monocytes % (Manual) 1 % (1-10) Eosinophils % (Manual) 0 % (0-3) Basophils % (Manual) 0 % (0-2) Band Neutrophils 0 % (0-8) Platelet Estimate Decreased Platelet Morphology Normal Red Blood Cell Morphology Normal Sodium Level 143 MMOL/L (136-145) 143 MMOL/L (136-145) 140 MMOL/L (136-145) Potassium Level 4.1 MMOL/L (3.5-5.1) 4.0 MMOL/L (3.5-5.1) 4.2 MMOL/L (3.5-5.1) Chloride Level 107 MMOL/L (98-107) 107 MMOL/L (98-107) 106 MMOL/L (98-107) Carbon Dioxide Level 30 MMOL/L (21-32) 26 MMOL/L (21-32) 26 MMOL/L (21-32) Anion Gap 6 mmol/L (5-15) 10 mmol/L (5-15) 8 mmol/L (5-15) Blood Urea Nitrogen 16 mg/dL (7-18) 15 mg/dL (7-18) 13 mg/dL (7-18) Creatinine 0.5 MG/DL (0.55-1.30) 0.4 MG/DL (0.55-1.30) 0.5 MG/DL (0.55-1.30) Estimat Glomerular Filtration Rate > 60 mL/min (>60) > 60 mL/min (>60) > 60 mL/min (>60) Glucose Level 178 MG/DL (74-106) 188 MG/DL (74-106) 197 MG/DL (74-106) Calcium Level 9.0 MG/DL (8.5-10.1) 8.1 MG/DL (8.5-10.1) 8.1 MG/DL (8.5-10.1) Thyroid Stimulating Hormone (TSH) 0.099 uiU/mL (0.358-3.740) Free Thyroxine 1.14 NG/DL (0.76-1.46) Uric Acid 2.0 MG/DL (2.6-7.2) Phosphorus Level 3.2 MG/DL (2.5-4.9) Magnesium Level 2.2 MG/DL (1.8-2.4) Total Bilirubin 0.1 MG/DL (0.2-1.0) Gamma Glutamyl Transpeptidase 156 U/L (5-85) Aspartate Amino Transf (AST/SGOT) 41 U/L (15-37) Alanine Aminotransferase (ALT/SGPT) 66 U/L (12-78) Alkaline Phosphatase 153 U/L (46-116) C-Reactive Protein, Quantitative 0.7 mg/dL (0.00-0.90) Pro-B-Type Natriuretic Peptide 234 pg/mL (0-125) Total Protein 6.2 G/DL (6.4-8.2) Albumin 1.8 G/DL (3.4-5.0) Globulin 4.4 g/dL Albumin/Globulin Ratio 0.4 (1.0-2.7) Height (Feet): 5 Height (Inches): 4.00 Weight (Pounds): 135 Objective Physical Exam General: Awake and somnolent HEENT: NC/AT. EOMI. dry mucous membranes Cardiovascular: RRR. S1 and S2 normal. Resp: Normal work of breathing. No cough, wheezing or crackles appreciated Abdomen: Abdomen is soft, nondistended Skin: Intact. No abrasions, laceration or rash over the exposed skin MSK: Normal tone and bulk. Neuro: Awake and alert. Romain Chavez MD Jul 24, 2019 14:27
--- NOTE | 2019-07-24 15:01 | NUR ---
WEEKLY PROGRESS REPORT AND DISCHARGE: Goal Met: Pt is able to meet >75% of nutrition/hydration via PO intake. Goal Met: Staff is aware of aspiration precautions, risks, and safe swallow strategies. Current Diet: Puree with Thin Liquids. MBSS not completed as not indicated at this time. Pt seen at bedside w/ meal tray, speaks Montenegrin and Chinese. Pt is able to demonstrate understanding of safe swallow compensatory strategies and aspiration precautions. 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 Pt completed PO trials of thin liquids via teaspoon, cup, and straw w/ no overt s/s of aspiration. LIGHT ARMORED VEHICLE OFFICER recommends upgrading Pt to thin liquids, continuing Puree solids due to Pt preference. RN and Pt aware of aspiration risks and safe swallow strategies. AT THIS TIME, PT IS ON PT PREFERRED DIET CONSISTENCY OF PUREE SOLIDS W/ THIN LIQUIDS AND NO FURTHER LIGHT ARMORED VEHICLE OFFICER INTERVENTION INDICATED AT THIS TIME. PT WOULD BENEFIT FROM LIGHT ARMORED VEHICLE OFFICER AT NEXT LEVEL OF CARE TO RE-ASSESS PT'S SWALLOWING SAFETY AND FUNCTION TO DETERMINE APPROPRIATENESS FOR DIET CONSISTENCY UPGRADE TO LEAST RESTRICTIVE DIET. Discontinue LIGHT ARMORED VEHICLE OFFICER intervention at this time as all goals met.
--- NOTE | 2019-07-24 15:37 | NUR ---
CASE MANAGEMENT:REVIEW 07/22/2019 SI;DIABETIC KETOACIDOSIS. SEPSIS D/T E COLI BACTEREMIA AND UTI. BACTEREMIA. C-DIFF. 96.4 99 20 107/64 95% ON RA CR 0.4 BG 178 IS;VANCOMYCIN PO QID ROCEPHIN IV Q24 HRS DECADRON IV Q6 HRS KEPPRA PO Q12 HRS K-DUR PO BID INSULIN LEVEMIR INSULIN NOVOLOG PROTONIX PO BID MED SURG STATUS DCP;FROM HOME PLAN TO DISCHARGE TO [facility] CASE MANAGEMENT:REVIEW 07/23/2019 SI;DIABETIC KETOACIDOSIS. SEPSIS D/T E COLI BACTEREMIA AND UTI. BACTEREMIA. C-DIFF. BONE MARROW SIGNAL ABNORMALITY. 96.699 22 133/72 93% ON RA CR 0.4 BG 188 CA 8.1 TSH 0.099 IS;VANCOMYCIN PO QID ROCEPHIN IV Q24 HRS DECADRON IV Q6 HRS KEPPRA PO Q12 HRS K-DUR PO BID INSULIN LEVEMIR INSULIN NOVOLOG CULTURELLE PO TID MED SURG STATUS DCP;FROM HOME PLAN TO DISCHARGE TO [facility] PLAN;BONE MARROW BIOPSY CT W/CONTRAST CASE MANAGEMENT:REVIEW 07/24/2019 SI;DIABETIC KETOACIDOSIS. SEPSIS D/T E COLI BACTEREMIA AND UTI. BACTEREMIA. C-DIFF. BONE MARROW SIGNAL ABNORMALITY. 96.4 79 22 134/75 94% ON RA CR 0.5 BG 197 CA 8.1 GGT 156 AST 41 ALK PHOS 153 ALB 1.8 BONE MARROW BIOPSY ~ bone marrow biopsy was done which shows a increase in Nk population, may be reactive v clonal process IS;VANCOMYCIN PO QID ROCEPHIN IV Q24 HRS DECADRON IV Q6 HRS KEPPRA PO Q12 HRS K-DUR PO BID INSULIN LEVEMIR INSULIN NOVOLOG CULTURELLE PO TID MED SURG STATUS DCP;FROM HOME PLAN TO DISCHARGE TO [facility]
[2019-07-24 16:00] VITALS: BP 119/71
--- NOTE | 2019-07-24 19:10 | NUR ---
NURSE NOTES: Received report from PAULINA Benitez. AAO x 3, on room air. Speaking Greenlandic and Romanian. IV sites intact and patent. No labored breathing. No acute distress noted. Aspiration precaution maintained. HOB elevated. Side rails padded. Bed locked, lowest position, alarm on, side rails up, call light within reach. Will continue to monitor.
--- NOTE | 2019-07-24 19:17 | NUR ---
NURSE NOTES: pt awake alert, no distress. no sob. no c/o pain. call light within reach. will monitor. kept clean dry and comfortable. bed alarm on.
[2019-07-24 19:53] VITALS: BP 116/63
--- NOTE | 2019-07-24 20:06 | Infectious Diseases Prog Note ---
Assessment/Plan Assessment/Plan ASSESSMENT AND PLAN: 1. e.coli uti/pyelonephritis with bacteremia, sepsis, fevers, gram neg sepsis c.diff. +, diarrhea - ceftriaxone - day # 10 abx, plan on 10 days treatment - po vancomycin - day # 7, plan on 14 days treatment (this would include 7 days treatment post use of concomitant antibiotics) - surveillance blood cultures negative - monitor labs and temperatures - sepsis improved 2. DKA. 3. Hypernatremia. 4. Diabetes type 2. 5. Ground-level fall. 6. Nausea and vomiting. 7. Diarrhea. 8. We will check stool studies. 9. Noncompliance. 10. Right-sided weakness. 11. Subdural hematoma with midline shift. 12. No known drug allergies. 13. Social history negative. 14. Family history noncontributory. 15. MAR was noted. 16. Case discussed with RN. 17. Continue treatment per primary consultants. 18. Orders were noted and entered. Subjective Constitutional: Reports: fatigue; Denies: fever HEENT: Denies: congestion Respiratory: Denies: shortness of breath Cardiovascular: Denies: chest pain Gastrointestinal/Abdominal: Reports: diarrhea; Denies: nausea, vomiting Genitourinary: Reports: other - no neal Neurologic: Denies: headache Psychiatric: Denies: depression Skin: Denies: rash Hematologic: Denies: bleeding Musculoskeletal: Denies: pain Allergies: Coded Allergies: No Known Allergies (Unverified , 07/18/14) Objective Vital Signs Last 24 Hour Vital Signs Date Time Temp Pulse Resp B/P (MAP) Pulse Ox O2 Delivery O2 Flow Rate FiO2 07/24/19 19:53 97.2 80 20 116/63 (80) 94 07/24/19 16:00 98.3 73 18 119/71 (87) 94 07/24/19 12:00 98.3 79 18 121/72 (88) 94 07/24/19 09:00 Room Air 07/24/19 08:39 70 128/66 07/24/19 08:00 96.4 78 18 118/62 (80) 94 07/24/19 04:00 96.4 70 18 126/66 (86) 94 07/24/19 00:00 97.3 76 22 134/75 (94) 96 07/23/19 22:01 87 121/66 07/23/19 21:00 Room Air Height (Feet): 5 Height (Inches): 4.00 Weight (Pounds): 135 General Appearance: no acute distress HEENT: normocephalic, atraumatic, anicteric, mucous membranes moist Respiratory/Chest: lungs clear, normal breath sounds, no respiratory distress, no accessory muscle use Cardiovascular: normal rate, regular rhythm, no gallop/murmur, no JVD Abdomen: normal bowel sounds, soft, non tender, no organomegaly, non distended Genitourinary: other - no neal Extremities: no cyanosis Skin: no rash 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 No pulmonary embolus, somewhat limited at the bases due to motion. 2. Bibasilar lung atelectasis/airspace disease. 3. 3 mm nodule along the right middle lobe fissure. 3.6 mm nodule left lower lobe along the fissure. Fleischner Society Guidelines for low-risk patients, no follow-up is necessary. For high-risk patients (smoking history or other known risk factors) an optional chest CT at 12 months could be performed. 4. Mild bilateral perinephric stranding. May be senescent, correlate for infection. 5. Distended gallbladder with hyperdensity may be sludge or stones. 6. Prominent left lobe of the liver is slightly nodular in appearance. CT abdomen and pelvis: IMPRESSION: 1. Urinary bladder distention. 2. Mild heterogeneity of the lower pole of the left kidney may be artifactual. Infection is not excluded. Consider correlation with urinalysis, as clinically indicated. Mild bilateral renal pelviectasis and prominence of bilateral ureters is likely related to distention of the urinary bladder. Microbiology Date/Time Source Procedure Growth Status 07/16/19 15:15 Blood Blood Culture - Final NO GROWTH AFTER 5 DAYS Complete 07/18/19 18:50 Stool Clostridium difficile Toxin Assay - Final Complete 07/14/19 20:40 Urine,Clean Catch Urine Culture - Final Escherichia Coli Complete Laboratory Tests Test 07/24/19 05:50 White Blood Count 9.8 K/UL (4.8-10.8) Red Blood Count 3.58 M/UL (4.20-5.40) L Hemoglobin 11.1 G/DL (12.0-16.0) L Hematocrit 31.3 % (37.0-47.0) L Mean Corpuscular Volume 88 FL (80-99) Mean Corpuscular Hemoglobin 31.2 PG (27.0-31.0) H Mean Corpuscular Hemoglobin Concent 35.6 G/DL (32.0-36.0) Red Cell Distribution Width 11.4 % (11.6-14.8) L Platelet Count 182 K/UL (150-450) Mean Platelet Volume 7.2 FL (6.5-10.1) Neutrophils (%) (Auto) 84.8 % (45.0-75.0) H Lymphocytes (%) (Auto) 11.4 % (20.0-45.0) L Monocytes (%) (Auto) 3.5 % (1.0-10.0) Eosinophils (%) (Auto) 0.0 % (0.0-3.0) Basophils (%) (Auto) 0.3 % (0.0-2.0) Sodium Level 140 MMOL/L (136-145) Potassium Level 4.2 MMOL/L (3.5-5.1) Chloride Level 106 MMOL/L (98-107) Carbon Dioxide Level 26 MMOL/L (21-32) Anion Gap 8 mmol/L (5-15) Blood Urea Nitrogen 13 mg/dL (7-18) Creatinine 0.5 MG/DL (0.55-1.30) L Estimat Glomerular Filtration Rate > 60 mL/min (>60) Glucose Level 197 MG/DL (74-106) H Uric Acid 2.0 MG/DL (2.6-7.2) L Calcium Level 8.1 MG/DL (8.5-10.1) L Phosphorus Level 3.2 MG/DL (2.5-4.9) Magnesium Level 2.2 MG/DL (1.8-2.4) Total Bilirubin 0.1 MG/DL (0.2-1.0) L Gamma Glutamyl Transpeptidase 156 U/L (5-85) H Aspartate Amino Transf (AST/SGOT) 41 U/L (15-37) H Alanine Aminotransferase (ALT/SGPT) 66 U/L (12-78) Alkaline Phosphatase 153 U/L (46-116) H C-Reactive Protein, Quantitative 0.7 mg/dL (0.00-0.90) Pro-B-Type Natriuretic Peptide 234 pg/mL (0-125) H Total Protein 6.2 G/DL (6.4-8.2) L Albumin 1.8 G/DL (3.4-5.0) L Globulin 4.4 g/dL Albumin/Globulin Ratio 0.4 (1.0-2.7) L Current Medications Medications (Trade) Dose Ordered Sig/Alvin Route PRN Reason Start Time Stop Time Status Last Admin Dose Admin Acetaminophen (Tylenol) 650 mg Q6H PRN ORAL Mild Pain (Pain Scale 1-3) 07/21/19 10:00 08/20/19 09:59 Ascorbic Acid (Vitamin C) 250 mg TWICE A DAY ORAL 07/20/19 18:00 08/18/19 17:59 07/24/19 18:34 Atorvastatin Calcium (Lipitor) 10 mg BEDTIME ORAL 07/20/19 21:00 10/13/19 20:59 07/23/19 22:01 Ceftriaxone Sodium 1 gm/ Dextrose 50 ml @ 100 mls/hr Q24H IVPB 07/20/19 21:00 07/26/19 20:59 07/23/19 21:00 Dexamethasone Sodium Phosphate (Decadron 4mg/ml vial) 4 mg Q6HR IVP 07/21/19 00:00 10/19/19 00:00 07/24/19 17:17 Dextrose (Dextrose 50%) 25 ml Q30M PRN IV Hypoglycemia 07/20/19 16:45 10/12/19 21:44 Dextrose (Dextrose 50%) 50 ml Q30M PRN IV Hypoglycemia 07/20/19 16:45 10/12/19 21:44 Insulin Aspart (NovoLOG) AC+HS SUBQ 07/20/19 21:00 10/13/19 09:29 07/24/19 16:30 Insulin Aspart (NovoLOG) 20 units NOVOTIAC SUBQ 07/24/19 11:50 10/14/19 11:49 07/24/19 17:19 Insulin Detemir (Levemir) 30 units QHS SUBQ 07/20/19 21:00 10/14/19 20:59 07/23/19 22:03 Lactobacillus Acidophilus (Culturelle) 1 tab THREE TIMES A DAY ORAL 07/23/19 13:00 10/21/19 12:59 07/24/19 17:17 Levetiracetam (Keppra) 250 mg Q12HR ORAL 07/20/19 21:00 09/01/19 20:59 07/24/19 08:39 Lorazepam (Ativan) 1 mg Q6H PRN ORAL For Anxiety 07/21/19 08:30 07/28/19 08:29 Metoprolol Tartrate (Lopressor) 25 mg Q12HR ORAL 07/20/19 21:00 10/13/19 20:59 07/24/19 08:39 Potassium Chloride (K-Dur) 40 meq BID ORAL 07/20/19 18:00 10/15/19 09:14 07/24/19 17:17 Tramadol HCl (Ultram) 25 mg Q6H PRN ORAL Severe Breakthru Pain (>7) 07/20/19 16:48 07/27/19 16:47 07/23/19 22:01 Vancomycin HCl (Firvanq) 125 mg FOUR TIMES A DAY ORAL 07/20/19 18:00 07/30/19 17:59 07/24/19 17:17 Emerson Bagley MD Jul 24, 2019 20:06
[2019-07-24] MEDS: cefTRIAXone 1 GM in D5W 50 ML IVPB SCH (20:18)
[2019-07-24] MEDS: Levemir Flexpen SUBQ SCH (20:22)
--- NOTE | 2019-07-24 21:00 | Neurology Progress Note ---
Interim History Interim History ROS Limited/Unobtainable: No Interim History some movement in LE distally Objective Physical Exam Last Vital Signs Date Time Temp Pulse Resp B/P (MAP) Pulse Ox O2 Delivery O2 Flow Rate FiO2 07/24/19 20:19 80 116/63 07/24/19 19:53 97.2 20 94 07/24/19 09:00 Room Air Laboratory Tests Test 07/24/19 05:50 White Blood Count 9.8 K/UL (4.8-10.8) Red Blood Count 3.58 M/UL (4.20-5.40) L Hemoglobin 11.1 G/DL (12.0-16.0) L Hematocrit 31.3 % (37.0-47.0) L Mean Corpuscular Volume 88 FL (80-99) Mean Corpuscular Hemoglobin 31.2 PG (27.0-31.0) H Mean Corpuscular Hemoglobin Concent 35.6 G/DL (32.0-36.0) Red Cell Distribution Width 11.4 % (11.6-14.8) L Platelet Count 182 K/UL (150-450) Mean Platelet Volume 7.2 FL (6.5-10.1) Neutrophils (%) (Auto) 84.8 % (45.0-75.0) H Lymphocytes (%) (Auto) 11.4 % (20.0-45.0) L Monocytes (%) (Auto) 3.5 % (1.0-10.0) Eosinophils (%) (Auto) 0.0 % (0.0-3.0) Basophils (%) (Auto) 0.3 % (0.0-2.0) Sodium Level 140 MMOL/L (136-145) Potassium Level 4.2 MMOL/L (3.5-5.1) Chloride Level 106 MMOL/L (98-107) Carbon Dioxide Level 26 MMOL/L (21-32) Anion Gap 8 mmol/L (5-15) Blood Urea Nitrogen 13 mg/dL (7-18) Creatinine 0.5 MG/DL (0.55-1.30) L Estimat Glomerular Filtration Rate > 60 mL/min (>60) Glucose Level 197 MG/DL (74-106) H Uric Acid 2.0 MG/DL (2.6-7.2) L Calcium Level 8.1 MG/DL (8.5-10.1) L Phosphorus Level 3.2 MG/DL (2.5-4.9) Magnesium Level 2.2 MG/DL (1.8-2.4) Total Bilirubin 0.1 MG/DL (0.2-1.0) L Gamma Glutamyl Transpeptidase 156 U/L (5-85) H Aspartate Amino Transf (AST/SGOT) 41 U/L (15-37) H Alanine Aminotransferase (ALT/SGPT) 66 U/L (12-78) Alkaline Phosphatase 153 U/L (46-116) H C-Reactive Protein, Quantitative 0.7 mg/dL (0.00-0.90) Pro-B-Type Natriuretic Peptide 234 pg/mL (0-125) H Total Protein 6.2 G/DL (6.4-8.2) L Albumin 1.8 G/DL (3.4-5.0) L Globulin 4.4 g/dL Albumin/Globulin Ratio 0.4 (1.0-2.7) L Head: normocophalic Neck: no rigidity EENT: benign Neurologic Exam Mental Status: awake Speech: normal speech Language: normal language Cranial Nerve VII: no facial asymmetry Objective alert, oriented x 2, conversant UEs 5/5 LEs 1/5 flaccid cc 35 min Impression/Recommendations Problems: (1) STEMI (ST elevation myocardial infarction) (2) Atrial fibrillation with rapid ventricular response (3) Prolonged Q-T interval on ECG (4) DKA (diabetic ketoacidoses) (5) Hypernatremia (6) UTI (urinary tract infection) (7) Subdural hematoma Diagnostic Impression Given LE weakness , suspect myelopathy, mri cervical thoracic and lumbar ordered - called radiology to expedite, imaging still not in system to review keppra to 250 mg bid SBP < 150 PT OT consider Chandra Albrecht MD Jul 24, 2019 21:00
[2019-07-25] VITALS (11 sets, daily range): BP systolic 102–132; BP diastolic 59–75
--- NOTE | 2019-07-25 | NUR ---
NURSE NOTES: Pt is on NPO for EGD.
[2019-07-25] MEDS: Dexamethasone 4mg/ml vial IVP SCH ×5 (00:11→23:31)
[2019-07-25] MEDS: NovoLOG Insulin Flexpen SUBQ SCH ×7 (05:50→21:25)
--- NOTE | 2019-07-25 06:23 | Hematology/Onc Progress Note ---
Assessment/Plan Assessment/Plan Assessment and Recs: # Multilevel bone marrow signal abnormality, as described. Differential considerations include metastatic neoplasm, infiltrative neoplasm such as myeloma or lymphoma, exuberant hematopoietic hyperplasia, less likely systemic metabolic disorders. Note that this is much more striking in the thoracic spine than it is in the lumbar and cervical segments study earlier --> tumor markers have been ordered --> spep and upep --> bone marrow biopsy was done which shows a increase in Nk population, may be reactive v clonal process --> also ordered for ct c/a/p with iv contrast - reviewed, no primary tumor. Slightly more conspicuous, since prior exam of one week earlier, pleural-based nodules in the right costophrenic sulcus. Apparent interim growth over short perio suggests that this is inflammatory or an area of atelectasis. Unchanged 3 mm left lower lobe subpleural nodule along the major fissure. --> r/o hemolysis at this time, DIC --> dw pcp # DKA (diabetic ketoacidoses) --> as per endo, iss and accuchecks qac and qhs --> hgb a1c goal <8, now 10.4 --> maintains on dexamethasone # Hypernatremia --> as per renal recs --> continue ivfs # UTI (urinary tract infection) --> per id, on abx: ceftriaxone # Ground-level fall. --> pt/ot as needed # Nausea and vomiting. --> zofran prn # Right sided weakness # Generalized Weakness # SDH 3mm no midline shift # Elevated d-dimer # Tachycardia - resolved Appreciate consultation and sal Rn Subjective Constitutional: Denies: no symptoms, chills, fever, malaise, weakness, other HEENT: Denies: no symptoms, eye pain, blurred vision, tearing, double vision, ear pain, ear discharge, nose pain, nose congestion, throat pain, throat swelling, mouth pain, mouth swelling, other Cardiovascular: Denies: no symptoms, chest pain, edema, irregular heart rate, lightheadedness, palpitations, syncope, other Respiratory: Denies: no symptoms, cough, shortness of breath, SOB with excertion, SOB at rest, sputum, wheezing, other Gastrointestinal/Abdominal: Denies: no symptoms, abdomen distended, abdominal pain, black stools, tarry stools, blood in stool, constipated, diarrhea, difficulty swallowing, nausea, poor appetite, poor fluid intake, rectal bleeding , vomiting, other Genitourinary: Denies: no symptoms, burning, discharge, frequency, flank pain, hematuria, incontinence, pain, urgency, other Neurologic/Psychiatric: Denies: no symptoms, anxiety, depressed, emotional problems, headache, numbness, paresthesia, pre-existing deficit, seizure, tingling, tremors, weakness, other Endocrine: Denies: no symptoms, excessive sweating, flushing, intolerance to cold, intolerance to heat, increased hunger, increased thirst, increased urine, unexplained weight gain, unexplained weight loss, other Allergies: Coded Allergies: No Known Allergies (Unverified , 07/18/14) Subjective 07/20 cxr and labs reviewed, on room air, bp stable, bone marrow biopsy ordered 07/22 med surg, no overnight events, ct and labs reviewed, on abx 07/23 labs are noted, no bleeding hgb 11, plt much better 07/24 labs slowly improving, remains on abx as per id, no bleeding Objective Objective Current Medications Medications (Trade) Dose Ordered Sig/Alvin Route PRN Reason Start Time Stop Time Status Last Admin Dose Admin Acetaminophen (Tylenol) 650 mg Q6H PRN ORAL Mild Pain (Pain Scale 1-3) 07/21/19 10:00 08/20/19 09:59 Ascorbic Acid (Vitamin C) 250 mg TWICE A DAY ORAL 07/20/19 18:00 08/18/19 17:59 07/24/19 18:34 Atorvastatin Calcium (Lipitor) 10 mg BEDTIME ORAL 07/20/19 21:00 10/13/19 20:59 07/24/19 20:19 Ceftriaxone Sodium 1 gm/ Dextrose 50 ml @ 100 mls/hr Q24H IVPB 07/20/19 21:00 07/26/19 20:59 07/24/19 20:18 Dexamethasone Sodium Phosphate (Decadron 4mg/ml vial) 4 mg Q6HR IVP 07/21/19 00:00 10/19/19 00:00 07/25/19 05:50 Dextrose (Dextrose 50%) 25 ml Q30M PRN IV Hypoglycemia 07/20/19 16:45 10/12/19 21:44 Dextrose (Dextrose 50%) 50 ml Q30M PRN IV Hypoglycemia 07/20/19 16:45 10/12/19 21:44 Insulin Aspart (NovoLOG) AC+HS SUBQ 07/20/19 21:00 10/13/19 09:29 07/24/19 20:23 Insulin Aspart (NovoLOG) 20 units NOVOTIAC SUBQ 07/24/19 11:50 10/14/19 11:49 07/24/19 17:19 Insulin Detemir (Levemir) 30 units QHS SUBQ 07/20/19 21:00 10/14/19 20:59 07/24/19 20:22 Lactobacillus Acidophilus (Culturelle) 1 tab THREE TIMES A DAY ORAL 07/23/19 13:00 10/21/19 12:59 07/24/19 17:17 Levetiracetam (Keppra) 250 mg Q12HR ORAL 07/20/19 21:00 09/01/19 20:59 07/24/19 20:19 Lorazepam (Ativan) 1 mg Q6H PRN ORAL For Anxiety 07/21/19 08:30 07/28/19 08:29 Metoprolol Tartrate (Lopressor) 25 mg Q12HR ORAL 07/20/19 21:00 10/13/19 20:59 07/24/19 20:19 Potassium Chloride (K-Dur) 40 meq BID ORAL 07/20/19 18:00 10/15/19 09:14 07/24/19 17:17 Tramadol HCl (Ultram) 25 mg Q6H PRN ORAL Severe Breakthru Pain (>7) 07/20/19 16:48 07/27/19 16:47 07/23/19 22:01 Vancomycin HCl (Firvanq) 125 mg FOUR TIMES A DAY ORAL 07/20/19 18:00 07/30/19 17:59 07/24/19 20:18 Last 24 Hour Vital Signs Date Time Temp Pulse Resp B/P (MAP) Pulse Ox O2 Delivery O2 Flow Rate FiO2 07/25/19 04:00 96.4 64 20 115/64 (81) 95 07/25/19 00:00 98.0 67 20 121/65 (83) 100 07/24/19 21:00 Room Air 07/24/19 20:19 80 116/63 07/24/19 19:53 97.2 80 20 116/63 (80) 94 4/20/20 16:00 98.3 73 18 119/71 (87) 94 07/24/19 12:00 98.3 79 18 121/72 (88) 94 07/24/19 09:00 Room Air 07/24/19 08:39 70 128/66 07/24/19 08:00 96.4 78 18 118/62 (80) 94 07/24/19 04:00 96.4 70 18 126/66 (86) 94 07/24/19 00:00 97.3 76 22 134/75 (94) 96 07/23/19 22:01 87 121/66 07/23/19 21:00 Room Air 07/23/19 20:00 97.4 87 20 121/66 (84) 98 07/23/19 16:06 97.2 87 18 121/81 (94) 97 07/23/19 12:06 98.1 98 18 127/79 (95) 96 07/23/19 09:00 Room Air 07/23/19 08:41 63 131/70 07/23/19 08:00 98.7 63 18 131/70 (90) 94 Intake and Output 07/24/19 07/25/19 19:00 07:00 # Bowel Movements 3 1 Labs Test 07/23/19 06:45 07/24/19 05:50 White Blood Count 8.7 K/UL (4.8-10.8) 9.8 K/UL (4.8-10.8) Red Blood Count 3.65 M/UL (4.20-5.40) 3.58 M/UL (4.20-5.40) Hemoglobin 11.4 G/DL (12.0-16.0) 11.1 G/DL (12.0-16.0) Hematocrit 32.1 % (37.0-47.0) 31.3 % (37.0-47.0) Mean Corpuscular Volume 88 FL (80-99) 88 FL (80-99) Mean Corpuscular Hemoglobin 31.2 PG (27.0-31.0) 31.2 PG (27.0-31.0) Mean Corpuscular Hemoglobin Concent 35.5 G/DL (32.0-36.0) 35.6 G/DL (32.0-36.0) Red Cell Distribution Width 11.0 % (11.6-14.8) 11.4 % (11.6-14.8) Platelet Count 151 K/UL (150-450) 182 K/UL (150-450) Mean Platelet Volume 7.4 FL (6.5-10.1) 7.2 FL (6.5-10.1) Neutrophils (%) (Auto) 84.0 % (45.0-75.0) 84.8 % (45.0-75.0) Lymphocytes (%) (Auto) 12.8 % (20.0-45.0) 11.4 % (20.0-45.0) Monocytes (%) (Auto) 3.0 % (1.0-10.0) 3.5 % (1.0-10.0) Eosinophils (%) (Auto) 0.0 % (0.0-3.0) 0.0 % (0.0-3.0) Basophils (%) (Auto) 0.2 % (0.0-2.0) 0.3 % (0.0-2.0) Sodium Level 143 MMOL/L (136-145) 140 MMOL/L (136-145) Potassium Level 4.0 MMOL/L (3.5-5.1) 4.2 MMOL/L (3.5-5.1) Chloride Level 107 MMOL/L (98-107) 106 MMOL/L (98-107) Carbon Dioxide Level 26 MMOL/L (21-32) 26 MMOL/L (21-32) Anion Gap 10 mmol/L (5-15) 8 mmol/L (5-15) Blood Urea Nitrogen 15 mg/dL (7-18) 13 mg/dL (7-18) Creatinine 0.4 MG/DL (0.55-1.30) 0.5 MG/DL (0.55-1.30) Estimat Glomerular Filtration Rate > 60 mL/min (>60) > 60 mL/min (>60) Glucose Level 188 MG/DL (74-106) 197 MG/DL (74-106) Calcium Level 8.1 MG/DL (8.5-10.1) 8.1 MG/DL (8.5-10.1) Thyroid Stimulating Hormone (TSH) 0.099 uiU/mL (0.358-3.740) Free Thyroxine 1.14 NG/DL (0.76-1.46) Uric Acid 2.0 MG/DL (2.6-7.2) Phosphorus Level 3.2 MG/DL (2.5-4.9) Magnesium Level 2.2 MG/DL (1.8-2.4) Total Bilirubin 0.1 MG/DL (0.2-1.0) Gamma Glutamyl Transpeptidase 156 U/L (5-85) Aspartate Amino Transf (AST/SGOT) 41 U/L (15-37) Alanine Aminotransferase (ALT/SGPT) 66 U/L (12-78) Alkaline Phosphatase 153 U/L (46-116) C-Reactive Protein, Quantitative 0.7 mg/dL (0.00-0.90) Pro-B-Type Natriuretic Peptide 234 pg/mL (0-125) Total Protein 6.2 G/DL (6.4-8.2) Albumin 1.8 G/DL (3.4-5.0) Globulin 4.4 g/dL Albumin/Globulin Ratio 0.4 (1.0-2.7) Height (Feet): 5 Height (Inches): 4.00 Weight (Pounds): 135 Objective Physical Exam General: Awake and somnolent HEENT: NC/AT. EOMI. dry mucous membranes Cardiovascular: RRR. S1 and S2 normal. Resp: Normal work of breathing. No cough, wheezing or crackles appreciated Abdomen: Abdomen is soft, nondistended Skin: Intact. No abrasions, laceration or rash over the exposed skin MSK: Normal tone and bulk. Neuro: Awake and alert. Romain Chavez MD Jul 25, 2019 06:23
--- NOTE | 2019-07-25 06:41 | NUR ---
NURSE NOTES: Wound care provided and changed dressing.
--- NOTE | 2019-07-25 07:34 | NUR ---
HAND-OFF: Report given to PAULINA Hernandez. Addendum: 07/25/19 at 0735 by AMA CARROLL RN RN Error. Report given to PAULINA Kong
--- NOTE | 2019-07-25 08:10 | NUR ---
NURSE NOTES: Received patient on bed, awake. IV site intact and patent. Bed in low and locked position, call light in reach. No signs of respiratory distress or pain. Will continue to monitor.
[2019-07-25] MEDS: Ascorbic Acid 500mg tab ORAL SCH ×2 (09:00→19:10)
[2019-07-25] MEDS: Lactobacillus-GG tablet ORAL SCH ×3 (09:00→19:08)
--- NOTE | 2019-07-25 10:00 | Pre-Procedure Note/Attestation ---
Pre-Procedure Note/Attestation Complete Prior to Procedure Planned Procedure: not applicable Procedure Narrative: egd Indications for Procedure Pre-Operative Diagnosis: anemia Attestation I attest that I discussed the nature of the procedure; its benefits; risks and complications; and alternatives (and the risks and benefits of such alternatives ), prior to the procedure, with the patient (or the patient's legal commercial representative). I attest that, if there was a reasonable possibility of needing a blood transfusion, the patient (or the patient's legal commercial representative) was given the [facility] standardized written summary, pursuant to the [place] Blood Safety Act ([place] Health and Safety Code # 1645, as amended). I attest that I re-evaluated the patient just prior to the surgery and that there has been no change in the patient's H&P, except as documented below: Sami Rosenthal MD Jul 25, 2019 10:00
--- NOTE | 2019-07-25 10:18 | Nephrology Progress Note ---
Assessment/Plan Problem List: (1) Hypernatremia Assessment: Improving (2) UTI (urinary tract infection) (3) Subdural hematoma (4) DKA (diabetic ketoacidoses) (5) Electrolyte imbalance (6) C. difficile colitis Assessment Hypernatremia most likely due to free water deficit Hypokalemia, hypophosphatemia Hyperglycemia and DKA Evidence of UTI Right-sided weakness with 3 mm subdural hematoma found in CT scan Plan Patient has C. difficile colitis now Lactobacillus added Discontinue IV fluid Discontinue Boyd catheter Change Protonix to p.o. Stop Neutra-Phos due to diarrhea Potassium and phosphorus and magnesium supplement as needed Diet started as the patient is more alert Low dose of Lopressor Monitor renal parameters and electrolytes Neuro eval noted Keep the blood pressure and blood sugar in check Urine studies Per orders Subjective ROS Limited/Unobtainable: No Constitutional: Reports: malaise Objective Objective Last 24 Hour Vital Signs Date Time Temp Pulse Resp B/P (MAP) Pulse Ox O2 Delivery O2 Flow Rate FiO2 07/25/19 04:00 96.4 64 20 115/64 (81) 95 07/25/19 00:00 98.0 67 20 121/65 (83) 100 07/24/19 21:00 Room Air 07/24/19 20:19 80 116/63 07/24/19 19:53 97.2 80 20 116/63 (80) 94 07/24/19 16:00 98.3 73 18 119/71 (87) 94 07/24/19 12:00 98.3 79 18 121/72 (88) 94 Intake and Output 07/24/19 07/25/19 19:00 07:00 Output Total 900 ml Balance -900 ml Output Urine Total 900 ml # Bowel Movements 3 2 No labs drawn today Height (Feet): 5 Height (Inches): 4.00 Weight (Pounds): 135 Cardiovascular: normal rate Respiratory/Chest: lungs clear Abdomen: soft Objective No change Yash Hernandes MD Jul 25, 2019 10:18
[2019-07-25] MEDS: Vancomycin oral 125mg/2.5ml ORAL SCH ×4 (10:21→20:31)
--- NOTE | 2019-07-25 10:59 | General Progress Note ---
Assessment/Plan Assessment/Plan: 64-year-old female with PMH of medical noncompliance, DM type II who presents with b/l weakness, N/V, GLF, on admission pt found to be in DKA with BG 500's. #DKA #E. coli UTI #E. coli bacteremia #Uncontrolled DM, Hgb A1C 10.4 #c. diff colitis -continue in-patient medical care -s/p DKA protocol with improved AG, AG 21-> 14 -CT abd reviewed -07/13: UCx e. coli -07/13: BCx w/E. coli /, repeat 07/15 BCx NGTD -c.diff positive, contact precautions -cont. accuchecks, ISS qAC/HS -Endo following: Levemir 30 units qhs, Novolog to 15 units ac tid -ID, Dr. Bagley: CTX, s/p #01/12 of abx, PO vanco for c diff day #8 of total 14 days #Multilevel Thoracic BM enhancements, concern for malignancy -suspicions for metastatic neoplasm, infiltrative neoplasm such as myeloma or lymphoma -07/13: CT abd/pel w/o contrast reviewed with no abnormalities -07/20 CT C/A/P without any lesions suspicious for primary malignancy -CEA elevated -CA19-9 wnl -Follow up BM biopsy and PEP/UPEP results -For EGD today -d/w GI, EGD negative, will need colonoscopy. 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 fall precautions -holding ASA given SDH -statin -PT treat and eval -d/w Neurology, Dr. Fountain, weakness does not appear to be neurologic at this time -CM for d/c planning, plan for CRI on d/c #Elevated d-dimer #Tachycardia - resolved -likely multifactorial given infection/DKA, PE has been ruled out -EKG w/NSR -CTA thorax negative for PE -tachycardia likely 2/2 dehydration, encourage PO intake -no OAC at this time #Hypernatremia - resolved #Hypokalemia - improved #Hypophosphatemia -Hypernatremia likely 2/2 free water deficit -replace electrolytes, cont. to monitor and replace PRN -neal d/c'd -Nephro following, IVF and electrolytes per nephro DVT - SCDs given SDH Time spent: 36 minutes on this patient's case, d/w pt POC, updated RN. D/w consulting MDs, RN, case management Time of note may not reflect time of encounter. Subjective Allergies: Coded Allergies: No Known Allergies (Unverified , 07/18/14) Subjective F/u DKA, UTI, hypernatremia, SDH, MRI enhancements on thoracic spine concerning for malignancy. EGD today. Pt notes she cont. to have LE weakness. States she cont to have loose stools x3. No pain at this time. Objective Last 24 Hour Vital Signs Date Time Temp Pulse Resp B/P (MAP) Pulse Ox O2 Delivery O2 Flow Rate FiO2 07/25/19 04:00 96.4 64 20 115/64 (81) 95 07/25/19 00:00 98.0 67 20 121/65 (83) 100 07/24/19 21:00 Room Air 07/24/19 20:19 80 116/63 07/24/19 19:53 97.2 80 20 116/63 (80) 94 07/24/19 16:00 98.3 73 18 119/71 (87) 94 07/24/19 12:00 98.3 79 18 121/72 (88) 94 Intake and Output 07/24/19 07/25/19 19:00 07:00 Output Total 900 ml Balance -900 ml Output Urine Total 900 ml # Bowel Movements 3 2 Height (Feet): 5 Height (Inches): 4.00 Weight (Pounds): 135 Objective General: NAD, laying in bed comfortably, AAO x3 HEENT: NCAT, EOMi, mucous membranes moist CV: RRR, no murmurs, rubs, or gallops Pulm: CTAB, No wheezes, rhonchi, or rales, no accessory muscle usage GI: Soft, nontender, nondistended, bowel sounds present Neuro: CN II-XII grossly intact, sensation intact bilaterally, MS 3/5 in UE, 0/ 5 LE B/L, able to wiggle toes Ext: no LE edema Silke Adorno M.D. Jul 25, 2019 10:59
[2019-07-25] MEDS ORDERED: Lidocaine 1% MPF 10mg/ml 5ml ONE (11:00)
[2019-07-25] MEDS ORDERED: Propofol 200mg/20ml IV ONE (11:00)
--- NOTE | 2019-07-25 11:27 | NUR ---
NURSE NOTES: Patient off floor for EGD.
--- NOTE | 2019-07-25 11:27 | Anethesia Preoperative Eval ---
Anesthesia Pre-op PMH/ROS General Date of Evaluation: Jul 25, 2019 Time of Evaluation: 11:22 Anesthesiologist: aris ASA Score: ASA 3 Mallampati Score Class I : Soft palate, uvula, fauces, pillars visible Class II: Soft palate, uvula, fauces visible Class III: Soft palate, base of uvula visible Class IV: Only hard plate visible Mallampati Classification: Class II Surgeon: ivett Surgical Procedure: egd Anesthesia History: none Social History: smoking - nonsmoker Family History: no anesthesia problems Allergies: Coded Allergies: No Known Allergies (Unverified , 07/18/14) Medications: see eMAR Patient NPO?: Yes Past Medical History Cardiovascular: Reports: HTN, VA, arrhythmia Neurologic/Psychiatric: Reports: other - subdural hematoma Endocrine: Reports: DM, other - abnl thyroid Anesthesia Pre-op Phys. Exam Physician Exam Last Vital Signs Date Time Temp Pulse Resp B/P (MAP) Pulse Ox O2 Delivery O2 Flow Rate FiO2 07/25/19 09:00 Room Air 07/25/19 08:00 97.2 73 18 107/59 (75) 95 Constitutional: NAD Neurologic: CN 2-12 intact Cardiovascular: RRR Respiratory: CTA Gastrointestinal: S/NT/ND Airway Exam Mallampati Score: Class II MO: limited Neck: flexible TMD: 2fb ROM: limited Anesthesia Pre-op A/P Labs Labs Test 07/23/19 06:45 07/24/19 05:50 White Blood Count 8.7 K/UL (4.8-10.8) 9.8 K/UL (4.8-10.8) Red Blood Count 3.65 M/UL (4.20-5.40) 3.58 M/UL (4.20-5.40) Hemoglobin 11.4 G/DL (12.0-16.0) 11.1 G/DL (12.0-16.0) Hematocrit 32.1 % (37.0-47.0) 31.3 % (37.0-47.0) Mean Corpuscular Volume 88 FL (80-99) 88 FL (80-99) Mean Corpuscular Hemoglobin 31.2 PG (27.0-31.0) 31.2 PG (27.0-31.0) Mean Corpuscular Hemoglobin Concent 35.5 G/DL (32.0-36.0) 35.6 G/DL (32.0-36.0) Red Cell Distribution Width 11.0 % (11.6-14.8) 11.4 % (11.6-14.8) Platelet Count 151 K/UL (150-450) 182 K/UL (150-450) Mean Platelet Volume 7.4 FL (6.5-10.1) 7.2 FL (6.5-10.1) Neutrophils (%) (Auto) 84.0 % (45.0-75.0) 84.8 % (45.0-75.0) Lymphocytes (%) (Auto) 12.8 % (20.0-45.0) 11.4 % (20.0-45.0) Monocytes (%) (Auto) 3.0 % (1.0-10.0) 3.5 % (1.0-10.0) Eosinophils (%) (Auto) 0.0 % (0.0-3.0) 0.0 % (0.0-3.0) Basophils (%) (Auto) 0.2 % (0.0-2.0) 0.3 % (0.0-2.0) Sodium Level 143 MMOL/L (136-145) 140 MMOL/L (136-145) Potassium Level 4.0 MMOL/L (3.5-5.1) 4.2 MMOL/L (3.5-5.1) Chloride Level 107 MMOL/L (98-107) 106 MMOL/L (98-107) Carbon Dioxide Level 26 MMOL/L (21-32) 26 MMOL/L (21-32) Anion Gap 10 mmol/L (5-15) 8 mmol/L (5-15) Blood Urea Nitrogen 15 mg/dL (7-18) 13 mg/dL (7-18) Creatinine 0.4 MG/DL (0.55-1.30) 0.5 MG/DL (0.55-1.30) Estimat Glomerular Filtration Rate > 60 mL/min (>60) > 60 mL/min (>60) Glucose Level 188 MG/DL (74-106) 197 MG/DL (74-106) Calcium Level 8.1 MG/DL (8.5-10.1) 8.1 MG/DL (8.5-10.1) Thyroid Stimulating Hormone (TSH) 0.099 uiU/mL (0.358-3.740) Free Thyroxine 1.14 NG/DL (0.76-1.46) Uric Acid 2.0 MG/DL (2.6-7.2) Phosphorus Level 3.2 MG/DL (2.5-4.9) Magnesium Level 2.2 MG/DL (1.8-2.4) Total Bilirubin 0.1 MG/DL (0.2-1.0) Gamma Glutamyl Transpeptidase 156 U/L (5-85) Aspartate Amino Transf (AST/SGOT) 41 U/L (15-37) Alanine Aminotransferase (ALT/SGPT) 66 U/L (12-78) Alkaline Phosphatase 153 U/L (46-116) C-Reactive Protein, Quantitative 0.7 mg/dL (0.00-0.90) Pro-B-Type Natriuretic Peptide 234 pg/mL (0-125) Total Protein 6.2 G/DL (6.4-8.2) Albumin 1.8 G/DL (3.4-5.0) Globulin 4.4 g/dL Albumin/Globulin Ratio 0.4 (1.0-2.7) Risk Assessment & Plan Assessment: asa3 Plan: mac Status Change Before Surgery: No Pre-Antibiotics Drug: Barbara Ewing MD Jul 25, 2019 11:26
[2019-07-25] MEDS ORDERED: Midazolam 2mg/2ml Inj IVP PRN (11:30)
[2019-07-25] MEDS ORDERED: DiphenhydrAMINE 50mg/ml Inj IVP PRN (11:30)
[2019-07-25] MEDS ORDERED: fentaNYL 100 mcg/2 mL IV PRN (11:30)
[2019-07-25] MEDS ORDERED: Atropine Inj 1mg/10ml Syr IV PRN (11:30)
[2019-07-25] MEDS ORDERED: NS 500ML IVPB ONE (11:35)
--- NOTE | 2019-07-25 11:46 | Endoscopy Procedure Note ---
Endoscopy Procedure Note General Indication for Procedure: anemia Procedures Performed: EGD Operative Findings/Diagnosis: gastritis Specimen: yes Pt Tolerated Procedure Well: Yes Estimated Blood Loss: none Anesthesia Anesthesiologist: bobby Anesthesia: MAC Inserted Devices Implant(s) used?: No GI Core Measures 50 yrs or older w/o bx or poly: Not Applicable 10yrs. F/U recommended: Not Applicable Sami Rosenthal MD Jul 25, 2019 11:46
--- NOTE | 2019-07-25 11:54 | Immediate Post-Op Evaluation ---
Immediate Post-Op Evalulation Immediate Post-Op Evalulation Procedure: egd Date of Evaluation: Jul 25, 2019 Time of Evaluation: 11:59 IV Fluids: 100ml 0.9ns Blood Products: none Estimated Blood Loss: negligible Blood Pressure Systolic: 102 Blood Pressure Diastolic: 54 Pulse Rate: 64 Respiratory Rate: 18 O2 Sat by Pulse Oximetry: 100 Temperature (Fahrenheit): 98.0 Pain Score (1-10): 0 Nausea: No Vomiting: No Complications none Patient Status: awake, reacts, patent Hydration Status: adequate Drug: Barbara Ewing MD Jul 25, 2019 11:54
--- NOTE | 2019-07-25 12:11 | 48 Hour Post Anesthesia Eval ---
Post Anesthesia Evaluation Procedure: egd Date of Evaluation: Jul 25, 2019 Time of Evaluation: 12:01 Blood Pressure Systolic: 101 0: 54 Pulse Rate: 64 Respiratory Rate: 18 Temperature (Fahrenheit): 98.2 O2 Sat by Pulse Oximetry: 100 Airway: patent Nausea: No Vomiting: No Pain Intensity: 0 Hydration Status: adequate Cardiopulmonary Status: stable Mental Status/LOC: patient returned to baseline Post-Anesthesia Complications: none Follow-up care needed: N/A Barbara Merchant MD Jul 25, 2019 12:11
--- NOTE | 2019-07-25 13:38 | NUR ---
CASE MANAGEMENT:REVIEW SI;DIABETIC KETOACIDOSIS. SEPSIS D/T E COLI BACTEREMIA AND UTI. C-DIFF. BACTEREMIA. C-DIFF. BONE MARROW SIGNAL ABNORMALITY. S/P EGD TODAY 96.4 73 20 102/64 95% ON RA NO LABS AVAILABLE IS;EGD DECADRON IV Q6 HRS K-DUR PO BID VANCOMYCIN PO QID KEPPRA PO Q12 HRS ROCEPHIN IV Q24 HRS INSULIN LEVEMIR INSULIN NOVOLOG MED SURG STATUS DCP;TO [facility]
--- NOTE | 2019-07-25 14:29 | General Progress Note ---
Assessment/Plan Problem List: (1) Abnormal thyroid blood test ICD Codes: R79.89 - Other specified abnormal findings of blood chemistry SNOMED: 014065902, 869175458987952 (2) Diabetes mellitus out of control ICD Codes: E11.65 - Type 2 diabetes mellitus with hyperglycemia SNOMED: 43070797, 960480339 (3) DKA (diabetic ketoacidoses) ICD Codes: E11.10 - Type 2 diabetes mellitus with ketoacidosis without coma SNOMED: 585098289, 96157817 (4) STEMI (ST elevation myocardial infarction) ICD Codes: I21.3 - ST elevation (STEMI) myocardial infarction of unspecified site SNOMED: 709355368 (5) Prolonged Q-T interval on ECG ICD Codes: R94.31 - Abnormal electrocardiogram [ECG] [EKG] SNOMED: 748543680 (6) Atrial fibrillation with rapid ventricular response ICD Codes: I48.91 - Unspecified atrial fibrillation SNOMED: 348069809710288 (7) Hypernatremia ICD Codes: E87.0 - Hyperosmolality and hypernatremia SNOMED: 470775969, 81603823 Assessment/Plan: continue Levemir 30 units qhs reduce Novolog to 16 units ac tid continue NISS ac / hs TSH still suppressed, free T4 normalized continue to hold thyroxine Subjective Allergies: Coded Allergies: No Known Allergies (Unverified , 07/18/14) Subjective events noted interval notes reviewed insulin was held today due to NPO status Item Value Date Time Bedside Blood Glucose 102 mg/dl 07/25/19 0550 Bedside Blood Glucose 214 mg/dl H 07/24/19 2100 Bedside Blood Glucose 167 mg/dl H 07/24/19 1719 Bedside Blood Glucose 251 mg/dl H 07/24/19 1221 Objective Last 24 Hour Vital Signs Date Time Temp Pulse Resp B/P (MAP) Pulse Ox O2 Delivery O2 Flow Rate FiO2 07/25/19 12:35 97.9 67 15 126/74 100 Nasal Cannula 3 07/25/19 12:25 66 19 130/74 100 Nasal Cannula 3 07/25/19 12:15 69 15 129/72 100 Nasal Cannula 3 07/25/19 12:11 64 18 100 07/25/19 12:07 65 17 111/59 100 Nasal Cannula 3 07/25/19 12:02 65 16 127/72 100 Nasal Cannula 3 07/25/19 11:57 97.6 64 18 102/64 100 Nasal Cannula 3 07/25/19 11:54 64 18 100 07/25/19 09:00 Room Air 07/25/19 08:00 97.2 73 18 107/59 (75) 95 07/25/19 04:00 96.4 64 20 115/64 (81) 95 07/25/19 00:00 98.0 67 20 121/65 (83) 100 07/24/19 21:00 Room Air 07/24/19 20:19 80 116/63 07/24/19 19:53 97.2 80 20 116/63 (80) 94 07/24/19 16:00 98.3 73 18 119/71 (87) 94 Intake and Output 07/24/19 07/25/19 19:00 07:00 Output Total 900 ml Balance -900 ml Output Urine Total 900 ml # Bowel Movements 3 2 Height (Feet): 5 Height (Inches): 4.00 Weight (Pounds): 135 General Appearance: no apparent distress Neck: normal alignment Cardiovascular: normal rate Respiratory/Chest: decreased breath sounds Abdomen: normal bowel sounds Objective Current Medications Medications (Trade) Dose Ordered Sig/Alvin Route PRN Reason Start Time Stop Time Status Last Admin Dose Admin Acetaminophen (Tylenol) 650 mg Q6H PRN ORAL Mild Pain (Pain Scale 1-3) 07/21/19 10:00 08/20/19 09:59 Ascorbic Acid (Vitamin C) 250 mg TWICE A DAY ORAL 07/20/19 18:00 08/18/19 17:59 07/24/19 18:34 Atorvastatin Calcium (Lipitor) 10 mg BEDTIME ORAL 07/20/19 21:00 10/13/19 20:59 07/24/19 20:19 Ceftriaxone Sodium 1 gm/ Dextrose 50 ml @ 100 mls/hr Q24H IVPB 07/20/19 21:00 07/26/19 20:59 07/24/19 20:18 Dexamethasone Sodium Phosphate (Decadron 4mg/ml vial) 4 mg Q6HR IVP 07/21/19 00:00 10/19/19 00:00 07/25/19 05:50 Dextrose (Dextrose 50%) 25 ml Q30M PRN IV Hypoglycemia 07/20/19 16:45 10/12/19 21:44 Dextrose (Dextrose 50%) 50 ml Q30M PRN IV Hypoglycemia 07/20/19 16:45 10/12/19 21:44 Insulin Aspart (NovoLOG) AC+HS SUBQ 07/20/19 21:00 10/13/19 09:29 07/24/19 20:23 Insulin Aspart (NovoLOG) 20 units NOVOTIAC SUBQ 07/24/19 11:50 10/14/19 11:49 07/24/19 17:19 Insulin Detemir (Levemir) 30 units QHS SUBQ 07/20/19 21:00 10/14/19 20:59 07/24/19 20:22 Lactobacillus Acidophilus (Culturelle) 1 tab THREE TIMES A DAY ORAL 07/23/19 13:00 10/21/19 12:59 07/25/19 14:05 Levetiracetam (Keppra) 250 mg Q12HR ORAL 07/20/19 21:00 09/01/19 20:59 07/25/19 10:21 Lorazepam (Ativan) 1 mg Q6H PRN ORAL For Anxiety 07/21/19 08:30 07/28/19 08:29 Metoprolol Tartrate (Lopressor) 25 mg Q12HR ORAL 07/20/19 21:00 10/13/19 20:59 07/24/19 20:19 Potassium Chloride (K-Dur) 40 meq BID ORAL 07/20/19 18:00 10/15/19 09:14 07/24/19 17:17 Tramadol HCl (Ultram) 25 mg Q6H PRN ORAL Severe Breakthru Pain (>7) 07/20/19 16:48 07/27/19 16:47 07/23/19 22:01 Vancomycin HCl (Firvanq) 125 mg FOUR TIMES A DAY ORAL 07/20/19 18:00 07/30/19 17:59 07/25/19 14:05 Pola Medrano MD Jul 25, 2019 14:29
--- NOTE | 2019-07-25 16:29 | Procedure Note ---
DATE OF PROCEDURE: 07/25/2019 SURGEON: Sami Rosenthal M.D. PROCEDURE: Upper endoscopy with biopsy. ANESTHESIA: Per Dr. Askew. INSTRUMENT: Olympus adult flexible upper endoscope. INDICATION: Anemia, rule out gastric cancer. REASON FOR PROCEDURE: The procedure, risks, benefits, and possible consequences, including hemorrhage, aspiration, perforation and infection, and alternative treatments, were explained to the patient/legal guardian by Dr. Sami Rosenthal and the patient/legal guardian understood and accepted these risks. DESCRIPTION OF PROCEDURE: After informed consent was obtained and the patient was adequately sedated, Olympus upper endoscope was advanced from mouth into the second portion of the duodenum and retroflexion was performed in the stomach. The patient had evidence of diffuse gastritis. Random biopsy from antrum was obtained to rule out H. pylori infection. Otherwise, the rest of the upper endoscopic examination grossly normal limits. The patient tolerated procedure very well without any complication. SUMMARY OF FINDINGS: Gastritis, otherwise normal upper endoscopic examination. RECOMMENDATIONS: 1. Follow up biopsy results and treat accordingly. 2. We will order CEA. 3. We will order order CA 19-9. 4. Given the patient has current C. difficile infection, we recommend outpatient colonoscopy. I want to thank, Dr. Abdalla, for this kind referral. Sami Rosenthal M.D. DR: Geraldine JOB#: [id number] CC: Meir Abdalla M.D.; Fax#: [phone]
--- NOTE | 2019-07-25 16:37 | NUR ---
COTTON CLASSER NOTE CALL RECEIVED FROM ODETTE @ [facility] REQUESTING UPDATE ON PATIENTS STATUS. VERBAL REPORT GIVEN. PER ODETTE, INPATIENT AUTHORIZATION WILL BE VALID UNTIL Wed07/28/2019. [facility] [phone]
--- NOTE | 2019-07-25 17:13 | NUR ---
NURSE NOTES:WOUND CARE FOLLOW-UP NOTES: Sacral DTPI now partially opened. Base of wound is 90% indurated,purple 10% lizeth and moist. Borders are maroon in colour and adherent to base of wound(L)6.5cm x (W)6.9cm. No odor or exudate noted. Non-blanching erythema noted to perianal area. Non-blanching erythema noted to L Ischium. Pt denied tenderness when palpated. Both heels are firm and easily blanchable. Small reabsorbing blood blister noted to L inguinal.Covered with Optifoam drsg. Tx.Plan:Cleanse Sacral wound with Saline. Apply TheraHoney. Apply Moisture Barrier Paste periwound. Cover with Optifoam drsg DAILY and PRN. Apply Cavilon Skin Barrier to both heels. Cover each heel with Optifoam drsg. Change every 7 days and prn. APM/MEHDI Mattress. Reposition at least every 2hours or as tolerated. Off-load heels with pillow.
[2019-07-25] MEDS ORDERED: Vancomycin 1 GM in D5W 275 ML IVPB ONE (18:15)
--- NOTE | 2019-07-25 18:30 | NUR ---
NURSE NOTES: Patient resting,bed alarm on,call light within reach.
[2019-07-25] MEDS ORDERED: Vancomycin 1.25gm/NS Premix IVPB ONE (19:30)
--- NOTE | 2019-07-25 20:05 | NUR ---
HAND-OFF: Report given to Alecia GALLARDO ,aware pt fall risk and aspiration precaution..
[2019-07-25] MEDS: Cefepime HCl 2 GM in D5W 55 ML IVPB SCH (20:31)
[2019-07-25] MEDS: Levemir Flexpen SUBQ SCH (21:26)
[2019-07-25] MEDS: traMADol 50mg tab ORAL PRN (21:49)
--- NOTE | 2019-07-25 22:09 | Neurology Progress Note ---
Interim History Interim History ROS Limited/Unobtainable: No Interim History remains paraparetic, work up ongoing. Unclear etiology of this spinal lesions. ct C A P neg BM non specific Objective Physical Exam Last Vital Signs Date Time Temp Pulse Resp B/P (MAP) Pulse Ox O2 Delivery O2 Flow Rate FiO2 07/25/19 20:31 72 132/75 07/25/19 16:00 96.8 18 98 07/25/19 12:35 Nasal Cannula 3 Laboratory Tests Test 07/25/19 17:00 CA 15-3 Antigen Pending Head: normocophalic Neck: no rigidity EENT: benign Neurologic Exam Mental Status: awake Speech: normal speech Language: normal language Cranial Nerve VII: no facial asymmetry Objective alert, oriented x 2, conversant UEs 5/5 LEs 1/5 flaccid cc 35 min Impression/Recommendations Problems: (1) STEMI (ST elevation myocardial infarction) (2) Atrial fibrillation with rapid ventricular response (3) Prolonged Q-T interval on ECG (4) DKA (diabetic ketoacidoses) (5) Hypernatremia (6) UTI (urinary tract infection) (7) Subdural hematoma Diagnostic Impression Given LE weakness , suspect myelopathy, mri cervical thoracic and lumbar ordered - called radiology to expedite, imaging still not in system to review keppra to 250 mg bid SBP < 150 PT OT consider Chandra Albrecht MD Jul 25, 2019 22:09
--- NOTE | 2019-07-25 22:21 | Surgery Progress Note ---
Surgery Progress Note Subjective Symptoms: improved, tolerating diet, passing flatus Objective Last 24 Hour Vital Signs Date Time Temp Pulse Resp B/P (MAP) Pulse Ox O2 Delivery O2 Flow Rate FiO2 07/25/19 22:18 Room Air 07/25/19 20:31 72 132/75 07/25/19 20:00 98.1 71 19 130/73 (92) 98 07/25/19 16:00 96.8 72 18 132/75 (94) 98 07/25/19 12:35 97.9 67 15 126/74 100 Nasal Cannula 3 07/25/19 12:25 66 19 130/74 100 Nasal Cannula 3 07/25/19 12:15 69 15 129/72 100 Nasal Cannula 3 07/25/19 12:11 64 18 100 07/25/19 12:07 65 17 111/59 100 Nasal Cannula 3 07/25/19 12:02 65 16 127/72 100 Nasal Cannula 3 07/25/19 11:57 97.6 64 18 102/64 100 Nasal Cannula 3 07/25/19 11:54 64 18 100 07/25/19 09:00 Room Air 07/25/19 08:00 97.2 73 18 107/59 (75) 95 07/25/19 04:00 96.4 64 20 115/64 (81) 95 07/25/19 00:00 98.0 67 20 121/65 (83) 100 I&O Intake and Output 07/24/19 07/25/19 19:00 07:00 Output Total 900 ml Balance -900 ml Output Urine Total 900 ml # Bowel Movements 3 2 Dressing: dry Wound: dry Cardiovascular: RSR Respiratory: clear Abdomen: soft, non-tender, present bowel sounds Extremities: no edema, no cyanosis Laboratory Tests Test 07/25/19 17:00 CA 15-3 Antigen Pending Plan Problems: (1) Decubitus skin ulcer Assessment & Plan: Patient noted to have rapid onset Sacral DTPI. Per Primary Nurse pt noted on prior shift to have non-blanching erythema as per report. All preventive measures were taken to reposition patient and off-load pressure. Despite repositioning and applying Moisture Barrier Paste patient noted to have further skin decline. Sacral DTPI is irregular shaped, Purple and indurated in colour over sacrococcygeal with surrounding non-blanching erythema along borders.(L)7.1cm x (W)6.5cm. Nutritional intake varies 30-45% daily. Non-Blanching erythema without fluctuance noted to R and L heels. Both heels observed floated with pillows Off mattress. Tx.Plan: Apply Moisture Barrier Paste to Sacrum. Cover with Optifoam drsg. Change every 3 days and prn. Apply Cavilon Skin Barrier to both heels. Cover each heel with Optifoam drsg. Change every 7 days and prn. Reposition at least every 2hours or as tolerated. Off-load heels with pillow. APM/MEHDI Mattress overlay. MRI spine noted neuro input appreciated (2) Deep tissue injury (3) Malnutrition Assessment & Plan: DAILY ESTIMATED NEEDS: Needs based on DM 61.5kg 25-30 kcals/kg 6974-8564 total kcals 1.25-1.5 g protein/kg 77-92 g total protein 25-30 mL/kg 6563-9043 total fluid mLs NUTRITION DIAGNOSIS: Altered nutrition related lab values r/t DKA, clinical status as evidenced by A1C 10.4, BG 423 on adm, (+) acetone, now w/ critically elev Na(161*) and low K(2.4*). [facility] puree + NTL PO DIET RECOMMENDATIONS: [facility] diet/ texture per [employer] ADDITIONAL RECOMMENDATIONS: 1) W/ variable po intake add Glucerna 1 tetra per day Add high pro/1 carb snacks in b/w meals 2) On D5 for hydration, monitor BG 3) Wound care: Add VALARIE BID + Vit C 250mg daily (f/up w/ WC eval) 4) Obtain a calibrated bed scale wts EMR wt: 110# vs Bed scale wt: 135# (4) Abnormal thyroid blood test (5) Electrolyte imbalance Assessment & Plan: 1. No pulmonary embolus, somewhat limited at the bases due to motion. 2. Bibasilar lung atelectasis/airspace disease. 3. 3 mm nodule along the right middle lobe fissure. 3.6 mm nodule left lower lobe along the fissure. Fleischner Society Guidelines for low-risk patients, no follow-up is necessary. For high-risk patients (smoking history or other known risk factors) an optional chest CT at 12 months could be performed. 4. Mild bilateral perinephric stranding. May be senescent, correlate for infection. 5. Distended gallbladder with hyperdensity may be sludge or stones. 6. Prominent left lobe of the liver is slightly nodular in appearance. US ordered (6) Subdural hematoma Assessment & Plan: as per neurology MRI noted bm biopsy pending Russ Shoemaker Jul 25, 2019 22:21
[2019-07-26] VITALS (7 sets, daily range): BP systolic 113–121; BP diastolic 62–79
--- NOTE | 2019-07-26 04:07 | NUR ---
NURSE NOTES: Wound care done on bilateral feet according to wound care order. Patient tolerated well. Addendum: 07/26/19 at 0409 by Fabio Guerrier RN Wrong patient, DISREGARD
--- NOTE | 2019-07-26 04:10 | NUR ---
NURSE NOTES: Patient pulled out IV access. 2 new IVs inserted. L hand 24 gauge and R hand 24 gauge. Patient tolerated well.
[2019-07-26] MEDS: Vancomycin 750mg/NS 275ml IVPB SCH ×4 (05:29→17:33)
[2019-07-26] MEDS: Dexamethasone 4mg/ml vial IVP SCH ×3 (05:47→17:33)
[2019-07-26 05:54] LABS: HEMATOCRIT 34.8 % (37.0-47.0); HEMOGLOBIN 12.5 G/DL (12.0-16.0); MEAN CORPUSCULAR VOLUME 89 FL (80-99); PLATELET COUNT 250 K/UL (150-450); RED BLOOD COUNT 3.92 M/UL (4.20-5.40); RED CELL DISTRIBUTION WIDTH 13.4 % (11.6-14.8); WHITE BLOOD COUNT 6.6 K/UL (4.8-10.8)
[2019-07-26] MEDS: NovoLOG Insulin Flexpen SUBQ SCH ×7 (06:01→22:06)
--- NOTE | 2019-07-26 06:20 | Hematology/Onc Progress Note ---
Assessment/Plan Assessment/Plan Assessment and Recs: # Multilevel bone marrow signal abnormality, as described. Differential considerations include metastatic neoplasm, infiltrative neoplasm such as myeloma or lymphoma, exuberant hematopoietic hyperplasia, less likely systemic metabolic disorders. Note that this is much more striking in the thoracic spine than it is in the lumbar and cervical segments study earlier --> tumor markers have been ordered --> spep and upep --> bone marrow biopsy was done which shows a increase in Nk population, may be reactive v clonal process (nonspecific) --> also ordered for ct c/a/p with iv contrast - reviewed, no primary tumor. Slightly more conspicuous, since prior exam of one week earlier, pleural-based nodules in the right costophrenic sulcus. Apparent interim growth over short perio suggests that this is inflammatory or an area of atelectasis. Unchanged 3 mm left lower lobe subpleural nodule along the major fissure. --> r/o hemolysis at this time, DIC --> dw pcp, consider neurosurg eval if needs further biopsy # Thrombocytopenia likely initially due to infection --> plt counts slowly uptreding --> plt 82-->105-->160-->200 # DKA (diabetic ketoacidoses) --> as per endo, iss and accuchecks qac and qhs --> hgb a1c goal <8, now 10.4 --> maintains on dexamethasone # Hypernatremia --> as per renal recs --> continue ivfs # UTI (urinary tract infection) --> per id, on abx: ceftriaxone # Ground-level fall. --> pt/ot as needed # Nausea and vomiting. --> zofran prn # Right sided weakness # Generalized Weakness # SDH 3mm no midline shift # Elevated d-dimer # Tachycardia - resolved Appreciate consultation and dw Rn Subjective Constitutional: Denies: no symptoms, chills, fever, malaise, weakness, other HEENT: Denies: no symptoms, eye pain, blurred vision, tearing, double vision, ear pain, ear discharge, nose pain, nose congestion, throat pain, throat swelling, mouth pain, mouth swelling, other Cardiovascular: Denies: no symptoms, chest pain, edema, irregular heart rate, lightheadedness, palpitations, syncope, other Respiratory: Denies: no symptoms, cough, shortness of breath, SOB with excertion, SOB at rest, sputum, wheezing, other Gastrointestinal/Abdominal: Denies: no symptoms, abdomen distended, abdominal pain, black stools, tarry stools, blood in stool, constipated, diarrhea, difficulty swallowing, nausea, poor appetite, poor fluid intake, rectal bleeding , vomiting, other Genitourinary: Denies: no symptoms, burning, discharge, frequency, flank pain, hematuria, incontinence, pain, urgency, other Neurologic/Psychiatric: Denies: no symptoms, anxiety, depressed, emotional problems, headache, numbness, paresthesia, pre-existing deficit, seizure, tingling, tremors, weakness, other Endocrine: Denies: no symptoms, excessive sweating, flushing, intolerance to cold, intolerance to heat, increased hunger, increased thirst, increased urine, unexplained weight gain, unexplained weight loss, other Allergies: Coded Allergies: No Known Allergies (Unverified , 07/18/14) Subjective 07/20 cxr and labs reviewed, on room air, bp stable, bone marrow biopsy ordered 07/22 med surg, no overnight events, ct and labs reviewed, on abx 07/23 labs are noted, no bleeding hgb 11, plt much better 07/24 labs slowly improving, remains on abx as per id, no bleeding 07/25 labs noted, still with lower ext weakness, dw neuro, pcp, may need neurosurg eval Objective Objective Current Medications Medications (Trade) Dose Ordered Sig/Alvin Route PRN Reason Start Time Stop Time Status Last Admin Dose Admin Acetaminophen (Tylenol) 650 mg Q6H PRN ORAL Mild Pain (Pain Scale 1-3) 07/21/19 10:00 08/20/19 09:59 Ascorbic Acid (Vitamin C) 250 mg TWICE A DAY ORAL 07/20/19 18:00 08/18/19 17:59 07/25/19 19:10 Atorvastatin Calcium (Lipitor) 10 mg BEDTIME ORAL 07/20/19 21:00 10/13/19 20:59 07/25/19 20:31 Cefepime HCl 2 gm/ Dextrose 55 ml @ 110 mls/hr EVERY 12 HOURS IVPB 07/25/19 21:00 08/01/19 20:59 07/25/19 20:31 Dexamethasone Sodium Phosphate (Decadron 4mg/ml vial) 4 mg Q6HR IVP 07/21/19 00:00 10/19/19 00:00 07/26/19 05:47 Dextrose (Dextrose 50%) 25 ml Q30M PRN IV Hypoglycemia 07/20/19 16:45 10/12/19 21:44 Dextrose (Dextrose 50%) 50 ml Q30M PRN IV Hypoglycemia 07/20/19 16:45 10/12/19 21:44 Insulin Aspart (NovoLOG) AC+HS SUBQ 07/20/19 21:00 10/13/19 09:29 07/26/19 06:01 Insulin Aspart (NovoLOG) 16 units NOVOTIAC SUBQ 07/25/19 16:50 10/14/19 11:49 07/26/19 06:01 Insulin Detemir (Levemir) 30 units QHS SUBQ 07/20/19 21:00 10/14/19 20:59 07/25/19 21:26 Lactobacillus Acidophilus (Culturelle) 1 tab THREE TIMES A DAY ORAL 07/23/19 13:00 10/21/19 12:59 07/25/19 19:08 Levetiracetam (Keppra) 250 mg Q12HR ORAL 07/20/19 21:00 09/01/19 20:59 07/25/19 20:31 Lorazepam (Ativan) 1 mg Q6H PRN ORAL For Anxiety 07/21/19 08:30 07/28/19 08:29 Metoprolol Tartrate (Lopressor) 25 mg Q12HR ORAL 07/20/19 21:00 10/13/19 20:59 07/25/19 20:31 Potassium Chloride (K-Dur) 40 meq BID ORAL 07/20/19 18:00 10/15/19 09:14 07/25/19 19:09 Tramadol HCl (Ultram) 25 mg Q6H PRN ORAL Severe Breakthru Pain (>7) 07/20/19 16:48 07/27/19 16:47 07/25/19 21:49 Vancomycin HCl (Firvanq) 125 mg FOUR TIMES A DAY ORAL 07/20/19 18:00 07/30/19 17:59 07/25/19 20:31 Vancomycin HCl (Vanco rx to dose) 1 ea DAILY PRN MISC Per rx protocol 07/25/19 18:15 08/24/19 18:14 Vancomycin HCl 750 mg/Sodium Chloride 275 ml @ 183.333 mls/hr Q12HR@0600,1800 IVPB 07/26/19 06:00 07/31/19 05:59 07/26/19 05:29 Last 24 Hour Vital Signs Date Time Temp Pulse Resp B/P (MAP) Pulse Ox O2 Delivery O2 Flow Rate FiO2 07/26/19 04:18 98.1 67 18 118/66 (83) 98 07/26/19 00:00 97.3 71 18 121/65 (83) 98 07/25/19 22:19 96.8 07/25/19 22:18 Room Air 07/25/19 20:31 72 132/75 07/25/19 20:00 98.1 71 19 130/73 (92) 98 07/25/19 16:00 96.8 72 18 132/75 (94) 98 07/25/19 12:35 97.9 67 15 126/74 100 Nasal Cannula 3 07/25/19 12:25 66 19 130/74 100 Nasal Cannula 3 07/25/19 12:15 69 15 129/72 100 Nasal Cannula 3 07/25/19 12:11 64 18 100 07/25/19 12:07 65 17 111/59 100 Nasal Cannula 3 07/25/19 12:02 65 16 127/72 100 Nasal Cannula 3 07/25/19 11:57 97.6 64 18 102/64 100 Nasal Cannula 3 07/25/19 11:54 64 18 100 07/25/19 09:00 Room Air 07/25/19 08:00 97.2 73 18 107/59 (75) 95 07/25/19 04:00 96.4 64 20 115/64 (81) 95 07/25/19 00:00 98.0 67 20 121/65 (83) 100 07/24/19 21:00 Room Air 07/24/19 20:19 80 116/63 07/24/19 19:53 97.2 80 20 116/63 (80) 94 07/24/19 16:00 98.3 73 18 119/71 (87) 94 07/24/19 12:00 98.3 79 18 121/72 (88) 94 07/24/19 09:00 Room Air 07/24/19 08:39 70 128/66 07/24/19 08:00 96.4 78 18 118/62 (80) 94 Intake and Output 07/25/19 07/26/19 19:00 07:00 Intake Total 630 ml Balance 630 ml Intake Oral 480 ml IV Total 150 ml # Voids 5 # Bowel Movements 4 1 Labs Test 07/23/19 06:45 07/24/19 05:50 07/25/19 17:00 07/26/19 05:10 White Blood Count 8.7 K/UL (4.8-10.8) 9.8 K/UL (4.8-10.8) Red Blood Count 3.65 M/UL (4.20-5.40) 3.58 M/UL (4.20-5.40) Hemoglobin 11.4 G/DL (12.0-16.0) 11.1 G/DL (12.0-16.0) Hematocrit 32.1 % (37.0-47.0) 31.3 % (37.0-47.0) Mean Corpuscular Volume 88 FL (80-99) 88 FL (80-99) Mean Corpuscular Hemoglobin 31.2 PG (27.0-31.0) 31.2 PG (27.0-31.0) Mean Corpuscular Hemoglobin Concent 35.5 G/DL (32.0-36.0) 35.6 G/DL (32.0-36.0) Red Cell Distribution Width 11.0 % (11.6-14.8) 11.4 % (11.6-14.8) Platelet Count 151 K/UL (150-450) 182 K/UL (150-450) Mean Platelet Volume 7.4 FL (6.5-10.1) 7.2 FL (6.5-10.1) Neutrophils (%) (Auto) 84.0 % (45.0-75.0) 84.8 % (45.0-75.0) Lymphocytes (%) (Auto) 12.8 % (20.0-45.0) 11.4 % (20.0-45.0) Monocytes (%) (Auto) 3.0 % (1.0-10.0) 3.5 % (1.0-10.0) Eosinophils (%) (Auto) 0.0 % (0.0-3.0) 0.0 % (0.0-3.0) Basophils (%) (Auto) 0.2 % (0.0-2.0) 0.3 % (0.0-2.0) Sodium Level 143 MMOL/L (136-145) 140 MMOL/L (136-145) Potassium Level 4.0 MMOL/L (3.5-5.1) 4.2 MMOL/L (3.5-5.1) Chloride Level 107 MMOL/L (98-107) 106 MMOL/L (98-107) Carbon Dioxide Level 26 MMOL/L (21-32) 26 MMOL/L (21-32) Anion Gap 10 mmol/L (5-15) 8 mmol/L (5-15) Blood Urea Nitrogen 15 mg/dL (7-18) 13 mg/dL (7-18) Creatinine 0.4 MG/DL (0.55-1.30) 0.5 MG/DL (0.55-1.30) Estimat Glomerular Filtration Rate > 60 mL/min (>60) > 60 mL/min (>60) Glucose Level 188 MG/DL (74-106) 197 MG/DL (74-106) Calcium Level 8.1 MG/DL (8.5-10.1) 8.1 MG/DL (8.5-10.1) Thyroid Stimulating Hormone (TSH) 0.099 uiU/mL (0.358-3.740) Free Thyroxine 1.14 NG/DL (0.76-1.46) Uric Acid 2.0 MG/DL (2.6-7.2) Phosphorus Level 3.2 MG/DL (2.5-4.9) Magnesium Level 2.2 MG/DL (1.8-2.4) Total Bilirubin 0.1 MG/DL (0.2-1.0) Gamma Glutamyl Transpeptidase 156 U/L (5-85) Aspartate Amino Transf (AST/SGOT) 41 U/L (15-37) Alanine Aminotransferase (ALT/SGPT) 66 U/L (12-78) Alkaline Phosphatase 153 U/L (46-116) C-Reactive Protein, Quantitative 0.7 mg/dL (0.00-0.90) Pro-B-Type Natriuretic Peptide 234 pg/mL (0-125) Total Protein 6.2 G/DL (6.4-8.2) Albumin 1.8 G/DL (3.4-5.0) Globulin 4.4 g/dL Albumin/Globulin Ratio 0.4 (1.0-2.7) Height (Feet): 5 Height (Inches): 4.00 Weight (Pounds): 131 Objective Physical Exam General: Awake and somnolent HEENT: NC/AT. EOMI. dry mucous membranes Cardiovascular: RRR. S1 and S2 normal. Resp: Normal work of breathing. No cough, wheezing or crackles appreciated Abdomen: Abdomen is soft, nondistended Skin: Intact. No abrasions, laceration or rash over the exposed skin MSK: Normal tone and bulk. Neuro: Awake and alert. Lower ext weakness Romain Chavez MD Jul 26, 2019 06:20
[2019-07-26 06:50] LABS: ALANINE AMINOTRANSFERASE 75 U/L (12-78); ALBUMIN 2.1 G/DL (3.4-5.0); ALBUMIN/GLOBULIN RATIO 0.5 (1.0-2.7); ALKALINE PHOSPHATASE 139 U/L (46-116); ANION GAP 8 mmol/L (5-15); ASPARTATE AMINO TRANSFERASE 50 U/L (15-37); BILIRUBIN,TOTAL 0.3 MG/DL (0.2-1.0); BLOOD UREA NITROGEN 22 mg/dL (7-18); CALCIUM 8.8 MG/DL (8.5-10.1); CARBON DIOXIDE 27 MMOL/L (21-32); CHLORIDE 102 MMOL/L (98-107); CREATININE 0.5 MG/DL (0.55-1.30); POTASSIUM 4.3 MMOL/L (3.5-5.1); SODIUM 137 MMOL/L (136-145)
--- NOTE | 2019-07-26 07:02 | General Progress Note ---
Assessment/Plan Problem List: (1) Abnormal thyroid blood test ICD Codes: R79.89 - Other specified abnormal findings of blood chemistry SNOMED: 557230109, 243405998342807 (2) Diabetes mellitus out of control ICD Codes: E11.65 - Type 2 diabetes mellitus with hyperglycemia SNOMED: 33522044, 818184711 (3) DKA (diabetic ketoacidoses) ICD Codes: E11.10 - Type 2 diabetes mellitus with ketoacidosis without coma SNOMED: 511281669, 99711356 (4) STEMI (ST elevation myocardial infarction) ICD Codes: I21.3 - ST elevation (STEMI) myocardial infarction of unspecified site SNOMED: 597482614 (5) Prolonged Q-T interval on ECG ICD Codes: R94.31 - Abnormal electrocardiogram [ECG] [EKG] SNOMED: 934826702 (6) Atrial fibrillation with rapid ventricular response ICD Codes: I48.91 - Unspecified atrial fibrillation SNOMED: 215898843679894 (7) Hypernatremia ICD Codes: E87.0 - Hyperosmolality and hypernatremia SNOMED: 856311377, 71679634 Assessment/Plan: continue Levemir 30 units qhs continue Novolog 16 units ac tid continue NISS ac / hs TSH still suppressed, free T4 normalized continue to hold thyroxine Subjective Allergies: Coded Allergies: No Known Allergies (Unverified , 07/18/14) Subjective events noted interval notes reviewed Item Value Date Time Bedside Blood Glucose 176 mg/dl H 07/26/19 0631 Bedside Blood Glucose 165 mg/dl H 07/25/19 2219 Bedside Blood Glucose 83 mg/dl 07/25/19 1656 Bedside Blood Glucose 102 mg/dl 07/25/19 0550 Objective Last 24 Hour Vital Signs Date Time Temp Pulse Resp B/P (MAP) Pulse Ox O2 Delivery O2 Flow Rate FiO2 07/26/19 04:18 98.1 67 18 118/66 (83) 98 07/26/19 00:00 97.3 71 18 121/65 (83) 98 07/25/19 22:19 96.8 07/25/19 22:18 Room Air 07/25/19 20:31 72 132/75 07/25/19 20:00 98.1 71 19 130/73 (92) 98 07/25/19 16:00 96.8 72 18 132/75 (94) 98 07/25/19 12:35 97.9 67 15 126/74 100 Nasal Cannula 3 07/25/19 12:25 66 19 130/74 100 Nasal Cannula 3 07/25/19 12:15 69 15 129/72 100 Nasal Cannula 3 07/25/19 12:11 64 18 100 07/25/19 12:07 65 17 111/59 100 Nasal Cannula 3 07/25/19 12:02 65 16 127/72 100 Nasal Cannula 3 07/25/19 11:57 97.6 64 18 102/64 100 Nasal Cannula 3 07/25/19 11:54 64 18 100 07/25/19 09:00 Room Air 07/25/19 08:00 97.2 73 18 107/59 (75) 95 Intake and Output 07/25/19 07/26/19 19:00 07:00 Intake Total 630 ml 360 ml Balance 630 ml 360 ml Intake Oral 480 ml IV Total 150 ml Other 360 ml # Voids 5 2 # Bowel Movements 4 3 Laboratory Tests 07/25/19 17:00: CA 15-3 Antigen [Pending] 07/26/19 05:10: White Blood Count 6.6, Red Blood Count 3.92L, Hemoglobin 12.5, Hematocrit 34.8L , Mean Corpuscular Volume 89, Mean Corpuscular Hemoglobin 32.0H, Mean Corpuscular Hemoglobin Concent 36.0, Red Cell Distribution Width 13.4, Platelet Count 250, Mean Platelet Volume 6.9, Neutrophils (%) (Auto) , Lymphocytes (%) ( Auto) , Monocytes (%) (Auto) , Eosinophils (%) (Auto) , Basophils (%) (Auto) , Sodium Level 137, Potassium Level 4.3, Chloride Level 102, Carbon Dioxide Level 27, Anion Gap 8, Blood Urea Nitrogen 22H, Creatinine 0.5L, Estimat Glomerular Filtration Rate > 60, Glucose Level 188H, Calcium Level 8.8, Total Bilirubin 0.3 , Aspartate Amino Transf (AST/SGOT) 50H, Alanine Aminotransferase (ALT/SGPT) 75 , Alkaline Phosphatase 139H, Total Protein 6.4, Albumin 2.1L, Globulin 4.3, Albumin/Globulin Ratio 0.5L, Carcinoembryonic Antigen [Pending], CA 19-9 Antigen [Pending] Height (Feet): 5 Height (Inches): 4.00 Weight (Pounds): 131 General Appearance: no apparent distress Neck: normal alignment Cardiovascular: normal rate Respiratory/Chest: decreased breath sounds Abdomen: normal bowel sounds Objective Current Medications Medications (Trade) Dose Ordered Sig/Alvin Route PRN Reason Start Time Stop Time Status Last Admin Dose Admin Acetaminophen (Tylenol) 650 mg Q6H PRN ORAL Mild Pain (Pain Scale 1-3) 07/21/19 10:00 08/20/19 09:59 Ascorbic Acid (Vitamin C) 250 mg TWICE A DAY ORAL 07/20/19 18:00 08/18/19 17:59 07/25/19 19:10 Atorvastatin Calcium (Lipitor) 10 mg BEDTIME ORAL 07/20/19 21:00 10/13/19 20:59 07/25/19 20:31 Cefepime HCl 2 gm/ Dextrose 55 ml @ 110 mls/hr EVERY 12 HOURS IVPB 07/25/19 21:00 08/01/19 20:59 07/25/19 20:31 Dexamethasone Sodium Phosphate (Decadron 4mg/ml vial) 4 mg Q6HR IVP 07/21/19 00:00 10/19/19 00:00 07/26/19 05:47 Dextrose (Dextrose 50%) 25 ml Q30M PRN IV Hypoglycemia 07/20/19 16:45 10/12/19 21:44 Dextrose (Dextrose 50%) 50 ml Q30M PRN IV Hypoglycemia 07/20/19 16:45 10/12/19 21:44 Insulin Aspart (NovoLOG) AC+HS SUBQ 07/20/19 21:00 10/13/19 09:29 07/26/19 06:01 Insulin Aspart (NovoLOG) 16 units NOVOTIAC SUBQ 07/25/19 16:50 10/14/19 11:49 07/26/19 06:01 Insulin Detemir (Levemir) 30 units QHS SUBQ 07/20/19 21:00 10/14/19 20:59 07/25/19 21:26 Lactobacillus Acidophilus (Culturelle) 1 tab THREE TIMES A DAY ORAL 07/23/19 13:00 10/21/19 12:59 07/25/19 19:08 Levetiracetam (Keppra) 250 mg Q12HR ORAL 07/20/19 21:00 09/01/19 20:59 07/25/19 20:31 Lorazepam (Ativan) 1 mg Q6H PRN ORAL For Anxiety 07/21/19 08:30 07/28/19 08:29 Metoprolol Tartrate (Lopressor) 25 mg Q12HR ORAL 07/20/19 21:00 10/13/19 20:59 07/25/19 20:31 Potassium Chloride (K-Dur) 40 meq BID ORAL 07/20/19 18:00 10/15/19 09:14 07/25/19 19:09 Tramadol HCl (Ultram) 25 mg Q6H PRN ORAL Severe Breakthru Pain (>7) 07/20/19 16:48 07/27/19 16:47 07/25/19 21:49 Vancomycin HCl (Firvanq) 125 mg FOUR TIMES A DAY ORAL 07/20/19 18:00 07/30/19 17:59 07/25/19 20:31 Vancomycin HCl (Vanco rx to dose) 1 ea DAILY PRN MISC Per rx protocol 07/25/19 18:15 08/24/19 18:14 Vancomycin HCl 750 mg/Sodium Chloride 275 ml @ 183.333 mls/hr Q12HR@0600,1800 IVPB 07/26/19 06:00 07/31/19 05:59 07/26/19 05:29 Pola Medrano MD Jul 26, 2019 07:02
--- NOTE | 2019-07-26 07:20 | NUR ---
HAND-OFF: Report given to PAULINA Kong.
--- NOTE | 2019-07-26 08:00 | NUR ---
NURSE NOTES: Received patient on bed, awake. IV sites intact and patent. Flushed and capped. Bed in low and locked position, call light in reach. No signs of respiratory distress or pain. Will continue to monitor.
[2019-07-26] MEDS ORDERED: Gadavist 7.5mMol/7.5ml vial IV PRN (08:45)
--- NOTE | 2019-07-26 08:45 | General Progress Note ---
Assessment/Plan Assessment/Plan: 64-year-old female with PMH of medical noncompliance, DM type II who presents with b/l weakness, N/V, GLF, on admission pt found to be in DKA with BG 500's. #DKA - resolved #Uncontrolled DM, Hgb A1C 10.4 #E. coli UTI #E. coli bacteremia #c. diff colitis -continue in-patient medical care -s/p DKA protocol with improved AG, AG 21-> -CT abd reviewed -07/13: UCx e. coli -07/13: BCx w/E. coli 2/, repeat 07/15 BCx NGTD -c.diff positive, contact precautions -cont. accuchecks, ISS qAC/HS -Endo following: Levemir 30 units qhs, Novolog to 15 units ac tid -ID, Dr. Bagley: CTX, s/p #01/12 of abx, PO vanco for c diff day #9 of total 14 days #Multilevel Thoracic BM enhancements #Meningeal Enhancements on Brain MRI -suspicious for malignancy vs infectious process -07/13: CT abd/pel w/o contrast reviewed with no abnormalities -07/20 CT C/A/P without any lesions suspicious for primary malignancy -CEA elevated -CA19-9 wnl, BM biopsy w/increase in Nk population, may be reactive v clonal process (nonspecific) -f/u PEP/UPEP results -07/24: EGD negative, d/w GI, will need colonoscopy. Given c diff will likely need to do as o/p -d/w Heme/Onc, reviewed imaging, no focal oncological process identified at this time, imaging may be more mill representative of inflammatory process -Breast CA markers pending -bone scan ordered by heme/onc -d/w Neuro, unable to obtain LP given SDH -d/w ID, HemeOnc, Neuro, plan to get thoracic spine biopsy to r/o infectious etiology likely tomorrow -updated pt's sister, Dorcas Greenwood , on POC, answered all questions to her satisfaction #Midbrain Lacunar Infarct #Right sided weakness and #Generalized B/L LE Weakness 2/2 above #SDH 3mm no midline shift -pt AOx3, pt noted fall 3 days PERMANENT WAVER -found on CT head -07/17: CT head stable compared to previous -d/w Neuro, no need for transfer at this time, cont. keppra -cont. fall precautions -holding ASA given SDH -statin -cont. PT treat and eval -CM for d/c planning, plan for CRI on d/c -MRI brain w/wo contrast reviewed -d/w ID and radioliogy, plan for thoracic spine biopsy to r/o infectious etiology #Elevated d-dimer #Tachycardia - resolved -likely multifactorial given infection/DKA, PE has been ruled out -EKG w/NSR -CTA thorax negative for PE -tachycardia likely 2/2 dehydration, encourage PO intake -no OAC at this time #Hypernatremia - resolved #Hypokalemia - improved #Hypophosphatemia -Hypernatremia likely 2/2 free water deficit -replace electrolytes, cont. to monitor and replace PRN -Nephro following, IVF and electrolytes per nephro #Sacral Decubitus Ulcer -Wound care following, recs appreciated DVT - SCDs given SDH Time spent: 35 minutes on this patient's case, d/w pt, family, RN on POC. Spent additional 45 mins discussing case w/Dr. Bagley, Dr. Fountain and Dr. Chavez regarding MRI findings and POC. Time of note may not reflect time of encounter. Subjective Allergies: Coded Allergies: No Known Allergies (Unverified , 07/18/14) Subjective F/u DKA, UTI, hypernatremia, SDH, MRI enhancements on thoracic spine concerning for malignancy, MRI brain w/midbrain lacunar infarct. Pt states arms remain weak but strength is improving. LE weakness L>R, states is slightly improving. Objective Last 24 Hour Vital Signs Date Time Temp Pulse Resp B/P (MAP) Pulse Ox O2 Delivery O2 Flow Rate FiO2 07/26/19 04:18 98.1 67 18 118/66 (83) 98 07/26/19 00:00 97.3 71 18 121/65 (83) 98 07/25/19 22:19 96.8 07/25/19 22:18 Room Air 07/25/19 20:31 72 132/75 07/25/19 20:00 98.1 71 19 130/73 (92) 98 07/25/19 16:00 96.8 72 18 132/75 (94) 98 07/25/19 12:35 97.9 67 15 126/74 100 Nasal Cannula 3 07/25/19 12:25 66 19 130/74 100 Nasal Cannula 3 07/25/19 12:15 69 15 129/72 100 Nasal Cannula 3 07/25/19 12:11 64 18 100 07/25/19 12:07 65 17 111/59 100 Nasal Cannula 3 07/25/19 12:02 65 16 127/72 100 Nasal Cannula 3 07/25/19 11:57 97.6 64 18 102/64 100 Nasal Cannula 3 07/25/19 11:54 64 18 100 07/25/19 09:00 Room Air Intake and Output 07/25/19 07/26/19 19:00 07:00 Intake Total 630 ml 360 ml Balance 630 ml 360 ml Intake Oral 480 ml IV Total 150 ml Other 360 ml # Voids 5 2 # Bowel Movements 4 3 Laboratory Tests 07/25/19 17:00: CA 15-3 Antigen 13.4 07/26/19 05:10: White Blood Count 6.6, Red Blood Count 3.92L, Hemoglobin 12.5, Hematocrit 34.8L , Mean Corpuscular Volume 89, Mean Corpuscular Hemoglobin 32.0H, Mean Corpuscular Hemoglobin Concent 36.0, Red Cell Distribution Width 13.4, Platelet Count 250, Mean Platelet Volume 6.9, Neutrophils (%) (Auto) , Lymphocytes (%) ( Auto) , Monocytes (%) (Auto) , Eosinophils (%) (Auto) , Basophils (%) (Auto) , Sodium Level 137, Potassium Level 4.3, Chloride Level 102, Carbon Dioxide Level 27, Anion Gap 8, Blood Urea Nitrogen 22H, Creatinine 0.5L, Estimat Glomerular Filtration Rate > 60, Glucose Level 188H, Calcium Level 8.8, Total Bilirubin 0.3 , Aspartate Amino Transf (AST/SGOT) 50H, Alanine Aminotransferase (ALT/SGPT) 75 , Alkaline Phosphatase 139H, Total Protein 6.4, Albumin 2.1L, Globulin 4.3, Albumin/Globulin Ratio 0.5L, Carcinoembryonic Antigen [Pending], CA 19-9 Antigen [Pending] Height (Feet): 5 Height (Inches): 4.00 Weight (Pounds): 131 Objective General: NAD, laying in bed comfortably, AAO x3 HEENT: NCAT, EOMi, mucous membranes moist CV: RRR, no murmurs, rubs, or gallops Pulm: CTAB, No wheezes, rhonchi, or rales, no accessory muscle usage GI: Soft, nontender, nondistended, bowel sounds present Neuro: CN II-XII grossly intact, sensation intact bilaterally, MS 3/5 in UE, 0/ 5 LE B/L, able to wiggle toes Ext: no LE edema Silke Adorno M.D. Jul 26, 2019 08:45
--- NOTE | 2019-07-26 09:11 | NUR ---
RD ASSESSMENT & RECOMMENDATIONS SEE CARE ACTIVITY FOR COMPLETE ASSESSMENT DAILY ESTIMATED NEEDS: Needs based on DM + wound/ 61.5kg 25-30 kcals/kg 4523-7239 total kcals 1.25-1.5 g protein/kg 77-92 g total protein 25-30 mL/kg 8582-3551 total fluid mLs NUTRITION DIAGNOSIS: * Increased kcal/prot intake needs R/T wound healing as evidenced by pt now w/ rapid onset DTI @ sacrum-> now partially opened, and nonblanching erythema @ BL heels. * Altered nutrition related lab values r/t DKA, clinical status as evidenced by A1C 10.4, BG 423 on adm-> now improved, (+) acetone, now w/ critically elev Na (161*->wnl) and low K(2.4* -> wnl). CURRENT DIET: [facility] LOW PO DIET RECOMMENDATIONS: [facility] LOW diet/ texture per [facility] ADDITIONAL RECOMMENDATIONS: 1) Continue Glucerna 1 tetra BID w/ fair intake 1:1 feeding, pt needs assistance @ all meals 2) Wound care: Continue Vit C/ Richard 1pkt BID added to tray add MVIx1 + ZnSO4 220mg QD x 10 days 3) Obtain a calibrated bed scale wts -> now w/ added p200 mattress, stated wt= 54kg (119lbs) .
--- NOTE | 2019-07-26 09:30 | NUR ---
NURSE NOTES: Patient off floor for MRI.
--- NOTE | 2019-07-26 10:20 | NUR ---
NURSE NOTES: Patient back on floor.
--- NOTE | 2019-07-26 11:11 | General Progress Note ---
Assessment/Plan Problem List: (1) C. difficile colitis ICD Codes: A04.72 - Enterocolitis due to Clostridium difficile, not specified as recurrent SNOMED: 212471625 (2) Elevated CEA ICD Codes: R97.0 - Elevated carcinoembryonic antigen [CEA] SNOMED: 504234604 (3) Subdural hematoma ICD Codes: S06.5X9A - Traumatic subdural hemorrhage with loss of consciousness of unspecified duration, initial encounter SNOMED: 488349674 (4) UTI (urinary tract infection) ICD Codes: N39.0 - Urinary tract infection, site not specified SNOMED: 04935274 (5) DKA (diabetic ketoacidoses) ICD Codes: E11.10 - Type 2 diabetes mellitus with ketoacidosis without coma SNOMED: 509131780, 87749952 (6) Atrial fibrillation with rapid ventricular response ICD Codes: I48.91 - Unspecified atrial fibrillation SNOMED: 730071498040413 (7) STEMI (ST elevation myocardial infarction) ICD Codes: I21.3 - ST elevation (STEMI) myocardial infarction of unspecified site SNOMED: 907825797 (8) Malnutrition ICD Codes: E46 - Unspecified protein-calorie malnutrition SNOMED: 53246074 Assessment/Plan: on treatment for C.diff ? thoracic bone mets elevated CEA wt loss anemia s/p EGD colonoscopy when C.diff treatment completed most likely as out patient Subjective ROS Limited/Unobtainable: No Allergies: Coded Allergies: No Known Allergies (Unverified , 07/18/14) Objective Last 24 Hour Vital Signs Date Time Temp Pulse Resp B/P (MAP) Pulse Ox O2 Delivery O2 Flow Rate FiO2 07/26/19 09:00 Room Air 07/26/19 08:00 97.3 87 17 121/70 (87) 98 07/26/19 04:18 98.1 67 18 118/66 (83) 98 07/26/19 00:00 97.3 71 18 121/65 (83) 98 07/25/19 22:19 96.8 07/25/19 22:18 Room Air 07/25/19 20:31 72 132/75 07/25/19 20:00 98.1 71 19 130/73 (92) 98 07/25/19 16:00 96.8 72 18 132/75 (94) 98 07/25/19 12:35 97.9 67 15 126/74 100 Nasal Cannula 3 07/25/19 12:25 66 19 130/74 100 Nasal Cannula 3 07/25/19 12:15 69 15 129/72 100 Nasal Cannula 3 07/25/19 12:11 64 18 100 07/25/19 12:07 65 17 111/59 100 Nasal Cannula 3 07/25/19 12:02 65 16 127/72 100 Nasal Cannula 3 07/25/19 11:57 97.6 64 18 102/64 100 Nasal Cannula 3 07/25/19 11:54 64 18 100 Intake and Output 07/25/19 07/26/19 19:00 07:00 Intake Total 630 ml 360 ml Balance 630 ml 360 ml Intake Oral 480 ml IV Total 150 ml Other 360 ml # Voids 5 2 # Bowel Movements 4 3 Laboratory Tests 07/25/19 17:00: CA 15-3 Antigen 13.4 07/26/19 05:10: White Blood Count 6.6, Red Blood Count 3.92L, Hemoglobin 12.5, Hematocrit 34.8L , Mean Corpuscular Volume 89, Mean Corpuscular Hemoglobin 32.0H, Mean Corpuscular Hemoglobin Concent 36.0, Red Cell Distribution Width 13.4, Platelet Count 250, Mean Platelet Volume 6.9, Neutrophils (%) (Auto) , Lymphocytes (%) ( Auto) , Monocytes (%) (Auto) , Eosinophils (%) (Auto) , Basophils (%) (Auto) , Sodium Level 137, Potassium Level 4.3, Chloride Level 102, Carbon Dioxide Level 27, Anion Gap 8, Blood Urea Nitrogen 22H, Creatinine 0.5L, Estimat Glomerular Filtration Rate > 60, Glucose Level 188H, Calcium Level 8.8, Total Bilirubin 0.3 , Aspartate Amino Transf (AST/SGOT) 50H, Alanine Aminotransferase (ALT/SGPT) 75 , Alkaline Phosphatase 139H, Total Protein 6.4, Albumin 2.1L, Globulin 4.3, Albumin/Globulin Ratio 0.5L, Carcinoembryonic Antigen [Pending], CA 19-9 Antigen [Pending] Height (Feet): 5 Height (Inches): 4.00 Weight (Pounds): 131 General Appearance: alert EENT: normal ENT inspection Neck: supple Cardiovascular: normal rate Respiratory/Chest: decreased breath sounds Abdomen: normal bowel sounds, non tender, soft Extremities: non-tender Sami Rosenthal MD Jul 26, 2019 11:11
[2019-07-26] MEDS: Cefepime HCl 2 GM in D5W 55 ML IVPB SCH (11:16)
[2019-07-26] MEDS: Lactobacillus-GG tablet ORAL SCH ×3 (11:17→17:34)
[2019-07-26] MEDS: Vancomycin oral 125mg/2.5ml ORAL SCH ×4 (11:17→21:58)
[2019-07-26] MEDS: Ascorbic Acid 500mg tab ORAL SCH ×2 (11:18→17:34)
--- NOTE | 2019-07-26 11:29 | Nephrology Progress Note ---
Assessment/Plan Problem List: (1) Hypernatremia Assessment: Improving (2) UTI (urinary tract infection) (3) Subdural hematoma (4) DKA (diabetic ketoacidoses) (5) Electrolyte imbalance (6) C. difficile colitis Assessment Hypernatremia most likely due to free water deficit Hypokalemia, hypophosphatemia Hyperglycemia and DKA Evidence of UTI Right-sided weakness with 3 mm subdural hematoma found in CT scan Plan Patient has C. difficile colitis now Lactobacillus added Discontinue IV fluid Discontinue Boyd catheter Change Protonix to p.o. Stop Neutra-Phos due to diarrhea Potassium and phosphorus and magnesium supplement as needed Diet started as the patient is more alert Low dose of Lopressor Monitor renal parameters and electrolytes Neuro eval noted Keep the blood pressure and blood sugar in check Urine studies Per orders Subjective ROS Limited/Unobtainable: No Constitutional: Reports: malaise Objective Objective Last 24 Hour Vital Signs Date Time Temp Pulse Resp B/P (MAP) Pulse Ox O2 Delivery O2 Flow Rate FiO2 07/26/19 11:17 87 121/70 07/26/19 09:00 Room Air 07/26/19 08:00 97.3 87 17 121/70 (87) 98 07/26/19 04:18 98.1 67 18 118/66 (83) 98 07/26/19 00:00 97.3 71 18 121/65 (83) 98 07/25/19 22:19 96.8 07/25/19 22:18 Room Air 07/25/19 20:31 72 132/75 07/25/19 20:00 98.1 71 19 130/73 (92) 98 07/25/19 16:00 96.8 72 18 132/75 (94) 98 07/25/19 12:35 97.9 67 15 126/74 100 Nasal Cannula 3 07/25/19 12:25 66 19 130/74 100 Nasal Cannula 3 07/25/19 12:15 69 15 129/72 100 Nasal Cannula 3 07/25/19 12:11 64 18 100 07/25/19 12:07 65 17 111/59 100 Nasal Cannula 3 07/25/19 12:02 65 16 127/72 100 Nasal Cannula 3 07/25/19 11:57 97.6 64 18 102/64 100 Nasal Cannula 3 07/25/19 11:54 64 18 100 Intake and Output 07/25/19 07/26/19 19:00 07:00 Intake Total 630 ml 360 ml Balance 630 ml 360 ml Intake Oral 480 ml IV Total 150 ml Other 360 ml # Voids 5 2 # Bowel Movements 4 3 Current Medications Medications (Trade) Dose Ordered Sig/Alvin Route PRN Reason Start Time Stop Time Status Last Admin Dose Admin Acetaminophen (Tylenol) 650 mg Q6H PRN ORAL Mild Pain (Pain Scale 1-3) 07/21/19 10:00 08/20/19 09:59 Ascorbic Acid (Vitamin C) 250 mg TWICE A DAY ORAL 07/20/19 18:00 08/18/19 17:59 07/26/19 11:18 Atorvastatin Calcium (Lipitor) 10 mg BEDTIME ORAL 07/20/19 21:00 10/13/19 20:59 07/25/19 20:31 Cefepime HCl 2 gm/ Dextrose 55 ml @ 110 mls/hr EVERY 12 HOURS IVPB 07/25/19 21:00 08/01/19 20:59 07/26/19 11:16 Dexamethasone Sodium Phosphate (Decadron 4mg/ml vial) 4 mg Q6HR IVP 07/21/19 00:00 10/19/19 00:00 07/26/19 05:47 Dextrose (Dextrose 50%) 25 ml Q30M PRN IV Hypoglycemia 07/20/19 16:45 10/12/19 21:44 Dextrose (Dextrose 50%) 50 ml Q30M PRN IV Hypoglycemia 07/20/19 16:45 10/12/19 21:44 Gadobutrol (Gadavist) 7.5 mmol NOW PRN IV Radiology Procedure 07/26/19 08:45 07/30/19 08:38 Insulin Aspart (NovoLOG) AC+HS SUBQ 07/20/19 21:00 10/13/19 09:29 07/26/19 06:01 Insulin Aspart (NovoLOG) 16 units NOVOTIAC SUBQ 07/25/19 16:50 10/14/19 11:49 07/26/19 06:01 Insulin Detemir (Levemir) 30 units QHS SUBQ 07/20/19 21:00 10/14/19 20:59 07/25/19 21:26 Lactobacillus Acidophilus (Culturelle) 1 tab THREE TIMES A DAY ORAL 07/23/19 13:00 10/21/19 12:59 07/26/19 11:17 Levetiracetam (Keppra) 250 mg Q12HR ORAL 07/20/19 21:00 09/01/19 20:59 07/26/19 11:17 Lorazepam (Ativan) 1 mg Q6H PRN ORAL For Anxiety 07/21/19 08:30 07/28/19 08:29 Metoprolol Tartrate (Lopressor) 25 mg Q12HR ORAL 07/20/19 21:00 10/13/19 20:59 07/26/19 11:17 Potassium Chloride (K-Dur) 40 meq BID ORAL 07/20/19 18:00 10/15/19 09:14 07/26/19 11:17 Tramadol HCl (Ultram) 25 mg Q6H PRN ORAL Severe Breakthru Pain (>7) 07/20/19 16:48 07/27/19 16:47 07/25/19 21:49 Vancomycin HCl (Firvanq) 125 mg FOUR TIMES A DAY ORAL 07/20/19 18:00 07/30/19 17:59 07/26/19 11:17 Vancomycin HCl (Vanco rx to dose) 1 ea DAILY PRN MISC Per rx protocol 07/25/19 18:15 08/24/19 18:14 Vancomycin HCl 750 mg/Sodium Chloride 275 ml @ 183.333 mls/hr Q12HR@0600,1800 IVPB 07/26/19 06:00 07/31/19 05:59 07/26/19 05:29 Laboratory Tests 07/25/19 17:00: CA 15-3 Antigen 13.4 07/26/19 05:10: White Blood Count 6.6, Red Blood Count 3.92L, Hemoglobin 12.5, Hematocrit 34.8L , Mean Corpuscular Volume 89, Mean Corpuscular Hemoglobin 32.0H, Mean Corpuscular Hemoglobin Concent 36.0, Red Cell Distribution Width 13.4, Platelet Count 250, Mean Platelet Volume 6.9, Neutrophils (%) (Auto) , Lymphocytes (%) ( Auto) , Monocytes (%) (Auto) , Eosinophils (%) (Auto) , Basophils (%) (Auto) , Sodium Level 137, Potassium Level 4.3, Chloride Level 102, Carbon Dioxide Level 27, Anion Gap 8, Blood Urea Nitrogen 22H, Creatinine 0.5L, Estimat Glomerular Filtration Rate > 60, Glucose Level 188H, Calcium Level 8.8, Total Bilirubin 0.3 , Aspartate Amino Transf (AST/SGOT) 50H, Alanine Aminotransferase (ALT/SGPT) 75 , Alkaline Phosphatase 139H, Total Protein 6.4, Albumin 2.1L, Globulin 4.3, Albumin/Globulin Ratio 0.5L, Carcinoembryonic Antigen [Pending], CA 19-9 Antigen [Pending] Height (Feet): 5 Height (Inches): 4.00 Weight (Pounds): 131 General Appearance: no apparent distress Objective No change Yash Hernandes MD Jul 26, 2019 11:29
--- NOTE | 2019-07-26 12:10 | Diagnostic Imaging Report ---
Indication: Reason For Exam: WEAK Technique: sagittal T1 fast spin echo, axial T1 and T2 FLAIR PROPELLER, axial T2 FS PROPELLER, T2* GRE, axial diffusion weighted images, post contrast axial and coronal T1 FLAIR PROPELLER images. ADC and exponential ADC maps generated Comparison: For 2019 CT scan Findings: . There is an area of acute diffusion in the posterior midbrain at and to the left of midline. This demonstrates slightly increased signal on the T2-weighted images. No other foci of restricted diffusion are demonstrated. Susceptibility artifact is seen along the left side of the tentorium on the GRE images. There is also susceptibility artifact along the falx. This appears to extent farther anteriorly along the falx than is suggested on prior CT scan. There is also evidence of a small subdural hematoma in the left frontal region, manifested by slightly increased extra-axial FLAIR signal in this area and a slight degree of susceptibility artifact on the GRE images. On prior CT scan, appearance was more suggestive of prominent extra-axial CSF. This area measures approximately 3 mm thick and results in 1 to 2 mm of midline shift. There is pachymeningeal enhancement along the frontal and parietal convexities. There is a equivocal slight focal widening of the left transverse sinus Normal size ventricles and extra axial CSF spaces. No evidence of intraparenchymal hemorrhage.. Visualized orbits demonstrate evidence of prior bilateral cataract surgery. There are bilateral mastoid effusions. There is minimal ethmoid sinus mucosal thickening. The vascular flow voids are preserved. Impression: Positive for acute lacunar infarct within the midbrain Small subacute left frontal subdural hematoma measuring approximately 3 mm thick. Asymmetric widening of the extra-axial space is evident on prior CT scans but appearance on those studies much more suggestive of prominent extra-axial CSF Acute/subacute small peritentorial parafalcine subdural hematoma, also described on recent CT scans, is also noted Bilateral convexity pachymeningeal enhancement. Most common etiology of this is intracranial hypotension, and the presence of subdural hematomas as well as equivocal slight widening of the left transverse sinus also supports this diagnosis. However, differential considerations include pachymeningitis secondary to infection as well as pachymeningeal metastatic tumor spread Bilateral mastoid disease. Minimal ethmoid sinus disease Critical value findings discussed by phone with Dr. Adorno at the time of interpretation
--- NOTE | 2019-07-26 12:16 | Surgery Progress Note ---
Surgery Progress Note Subjective Symptoms: improved Objective Last 24 Hour Vital Signs Date Time Temp Pulse Resp B/P (MAP) Pulse Ox O2 Delivery O2 Flow Rate FiO2 07/26/19 11:17 87 121/70 07/26/19 09:00 Room Air 07/26/19 08:00 97.3 87 17 121/70 (87) 98 07/26/19 04:18 98.1 67 18 118/66 (83) 98 07/26/19 00:00 97.3 71 18 121/65 (83) 98 07/25/19 22:19 96.8 07/25/19 22:18 Room Air 07/25/19 20:31 72 132/75 07/25/19 20:00 98.1 71 19 130/73 (92) 98 07/25/19 16:00 96.8 72 18 132/75 (94) 98 07/25/19 12:35 97.9 67 15 126/74 100 Nasal Cannula 3 07/25/19 12:25 66 19 130/74 100 Nasal Cannula 3 I&O Intake and Output 07/25/19 07/26/19 19:00 07:00 Intake Total 630 ml 360 ml Balance 630 ml 360 ml Intake Oral 480 ml IV Total 150 ml Other 360 ml # Voids 5 2 # Bowel Movements 4 3 Dressing: dry Wound: clean Cardiovascular: RSR Respiratory: clear, decreased breath sounds Abdomen: soft, non-tender, present bowel sounds Extremities: no edema, no tenderness, no cyanosis Laboratory Tests Test 07/25/19 17:00 07/26/19 05:10 CA 15-3 Antigen 13.4 U/mL (0.0-25.0) White Blood Count 6.6 K/UL (4.8-10.8) Red Blood Count 3.92 M/UL (4.20-5.40) L Hemoglobin 12.5 G/DL (12.0-16.0) Hematocrit 34.8 % (37.0-47.0) L Mean Corpuscular Volume 89 FL (80-99) Mean Corpuscular Hemoglobin 32.0 PG (27.0-31.0) H Mean Corpuscular Hemoglobin Concent 36.0 G/DL (32.0-36.0) Red Cell Distribution Width 13.4 % (11.6-14.8) Platelet Count 250 K/UL (150-450) Mean Platelet Volume 6.9 FL (6.5-10.1) Neutrophils (%) (Auto) % (45.0-75.0) Lymphocytes (%) (Auto) % (20.0-45.0) Monocytes (%) (Auto) % (1.0-10.0) Eosinophils (%) (Auto) % (0.0-3.0) Basophils (%) (Auto) % (0.0-2.0) Sodium Level 137 MMOL/L (136-145) Potassium Level 4.3 MMOL/L (3.5-5.1) Chloride Level 102 MMOL/L (98-107) Carbon Dioxide Level 27 MMOL/L (21-32) Anion Gap 8 mmol/L (5-15) Blood Urea Nitrogen 22 mg/dL (7-18) H Creatinine 0.5 MG/DL (0.55-1.30) L Estimat Glomerular Filtration Rate > 60 mL/min (>60) Glucose Level 188 MG/DL (74-106) H Calcium Level 8.8 MG/DL (8.5-10.1) Total Bilirubin 0.3 MG/DL (0.2-1.0) Aspartate Amino Transf (AST/SGOT) 50 U/L (15-37) H Alanine Aminotransferase (ALT/SGPT) 75 U/L (12-78) Alkaline Phosphatase 139 U/L (46-116) H Total Protein 6.4 G/DL (6.4-8.2) Albumin 2.1 G/DL (3.4-5.0) L Globulin 4.3 g/dL Albumin/Globulin Ratio 0.5 (1.0-2.7) L Carcinoembryonic Antigen Pending CA 19-9 Antigen Pending Plan Problems: (1) Decubitus skin ulcer Assessment & Plan: Patient noted to have rapid onset Sacral DTPI. Per Primary Nurse pt noted on prior shift to have non-blanching erythema as per report. All preventive measures were taken to reposition patient and off-load pressure. Despite repositioning and applying Moisture Barrier Paste patient noted to have further skin decline. Sacral DTPI is irregular shaped, Purple and indurated in colour over sacrococcygeal with surrounding non-blanching erythema along borders.(L)7.1cm x (W)6.5cm. Nutritional intake varies 30-45% daily. Non-Blanching erythema without fluctuance noted to R and L heels. Both heels observed floated with pillows Off mattress. Tx.Plan: Apply Moisture Barrier Paste to Sacrum. Cover with Optifoam drsg. Change every 3 days and prn. Apply Cavilon Skin Barrier to both heels. Cover each heel with Optifoam drsg. Change every 7 days and prn. Reposition at least every 2hours or as tolerated. Off-load heels with pillow. APM/MEHDI Mattress overlay. MRI spine noted neuro input appreciated (2) Deep tissue injury (3) Malnutrition Assessment & Plan: DAILY ESTIMATED NEEDS: Needs based on DM 61.5kg 25-30 kcals/kg 1056-2260 total kcals 1.25-1.5 g protein/kg 77-92 g total protein 25-30 mL/kg 8609-1934 total fluid mLs NUTRITION DIAGNOSIS: Altered nutrition related lab values r/t DKA, clinical status as evidenced by A1C 10.4, BG 423 on adm, (+) acetone, now w/ critically elev Na(161*) and low K(2.4*). [facility] puree + NTL PO DIET RECOMMENDATIONS: [facility] L[facility] diet/ texture per [employer] ADDITIONAL RECOMMENDATIONS: 1) W/ variable po intake add Glucerna 1 tetra per day Add high pro/1 carb snacks in b/w meals 2) On D5 for hydration, monitor BG 3) Wound care: Add VALARIE BID + Vit C 250mg daily (f/up w/ WC eval) 4) Obtain a calibrated bed scale wts EMR wt: 110# vs Bed scale wt: 135# (4) Abnormal thyroid blood test (5) Electrolyte imbalance Assessment & Plan: 1. No pulmonary embolus, somewhat limited at the bases due to motion. 2. Bibasilar lung atelectasis/airspace disease. 3. 3 mm nodule along the right middle lobe fissure. 3.6 mm nodule left lower lobe along the fissure. Fleischner Society Guidelines for low-risk patients, no follow-up is necessary. For high-risk patients (smoking history or other known risk factors) an optional chest CT at 12 months could be performed. 4. Mild bilateral perinephric stranding. May be senescent, correlate for infection. 5. Distended gallbladder with hyperdensity may be sludge or stones. 6. Prominent left lobe of the liver is slightly nodular in appearance. US ordered (6) Subdural hematoma Assessment & Plan: as per neurology MRI noted bm biopsy pending Russ Shoemaker Jul 26, 2019 12:16
[2019-07-26] MEDS ORDERED: Lidocaine 1% Plain 30 ml INJ PRN (13:27)
--- NOTE | 2019-07-26 13:41 | Diagnostic Imaging Report ---
Indication: Abdominal pain, abnormal thoracic spine MRI Technique: IV administration 26.5 mCi 99 M technetium MDP. Whole body and spot images were obtained. Comparison: MRI of the thoracic, lumbar, and cervical spine dated 07/18 and 07/20/2019, chest abdomen pelvis CT dated 07/21/2019 Findings: Bladder is distended and filled with tracer. This could obscure pathology. There is suggestion of subtle slight increased activity in the right mastoid region minimally increased activity in the right ankle is probably on the basis of degenerative change. No other abnormal foci of increased or decreased activity are demonstrated. In particular, spinal activity appears normal. There is normal renal activity Impression: No generalized abnormal skeletal uptake or spinal uptake to correlate with findings reported on recent MRI. This makes osseous metastatic disease unlikely. Findings on MRI could just represent unusually prominent marrow conversion; myeloma remains in the differential as it can demonstrate normal bone scan findings. Subtle increased right mastoid activity, probably related to evidence of mastoiditis demonstrated on recent MRI Distended bladder Mildly increased right ankle uptake, probably due to degenerative changes.
--- NOTE | 2019-07-26 13:48 | NUR ---
CASE MANAGEMENT:REVIEW SI;SEPSIS D/T E COLI BACTEREMIA AND UTI. BACTEREMIA. C-DIFF. BONE MARROW SIGNAL ABNORMALITY. 98.1 94 18 121/70 98% ON RA BUN 22 CR 0.5 BG 188 AST 50 ALK PHOS 139 ALB 2.1 IS;VANCOMYCIN JIV Q12 HRS CEFEPIME IV Q12 HRS DECADRON IV Q6 HRS INSULIN NOVOLOG INSULIN LEVEMIR K-DUR PO BID MED SURG STATUS DCP;PATIENT IS FROM HOME PLAN;THORACIC SPINE BIOPSY DISCHARGE TO [facility] WHEN CLEARED
--- NOTE | 2019-07-26 17:32 | NUR ---
*-* INSURANCE *-* UPDATED CLINICALS AND REVIEWS HAVE BEEN FAXED TO: [facility]: BRETT AVILA T: [phone] (LEAVE A MESSAGE) F: [phone]
--- NOTE | 2019-07-26 18:18 | Infectious Diseases Prog Note ---
Assessment/Plan Assessment/Plan ASSESSMENT AND PLAN: 1. e.coli uti/pyelonephritis with bacteremia, sepsis, fevers, gram neg sepsis c.diff. +, diarrhea ? thoracic spine vertebral osteomyelitis/discitis, ? other, ? tumor/ malignancy CVA/subdural hematoma on brain MRI - meningitis and tumor in differential - abx changed to vancomycin and cefepime to cover possible vertebral osteomyelitis (will also cover bacterial meningitis) - po vancomycin - day # 9, needs at least 14 days treatment and possible longer depending on length of concomitant abx tx - plan on vertebral biopsy and culture - surveillance blood cultures negative - monitor labs and temperatures - sepsis improved - d/w Dr. Adorno 2. DKA. 3. Hypernatremia. 4. Diabetes type 2. 5. Ground-level fall. 6. Nausea and vomiting. 7. Diarrhea. 8. We will check stool studies. 9. Noncompliance. 10. Right-sided weakness. 11. Subdural hematoma with midline shift. 12. No known drug allergies. 13. Social history negative. 14. Family history noncontributory. 15. MAR was noted. 16. Case discussed with RN. 17. Continue treatment per primary consultants. 18. Orders were noted and entered. Subjective Constitutional: Denies: fever Respiratory: Denies: shortness of breath Cardiovascular: Denies: chest pain Gastrointestinal/Abdominal: Denies: nausea, vomiting Genitourinary: Reports: other - no neal Neurologic: Reports: weakness Psychiatric: Reports: other - NA Skin: Denies: rash Musculoskeletal: Reports: pain Allergies: Coded Allergies: No Known Allergies (Unverified , 07/18/14) Objective Vital Signs Last 24 Hour Vital Signs Date Time Temp Pulse Resp B/P (MAP) Pulse Ox O2 Delivery O2 Flow Rate FiO2 07/26/19 16:00 98.0 90 17 119/79 (92) 98 07/26/19 12:00 97.6 94 18 120/76 (91) 99 07/26/19 11:17 87 121/70 07/26/19 09:00 Room Air 07/26/19 08:00 97.3 87 17 121/70 (87) 98 07/26/19 04:18 98.1 67 18 118/66 (83) 98 07/26/19 00:00 97.3 71 18 121/65 (83) 98 07/25/19 22:19 96.8 07/25/19 22:18 Room Air 07/25/19 20:31 72 132/75 07/25/19 20:00 98.1 71 19 130/73 (92) 98 Height (Feet): 5 Height (Inches): 4.00 Weight (Pounds): 131 General Appearance: no acute distress HEENT: normocephalic, atraumatic, anicteric, mucous membranes moist Respiratory/Chest: lungs clear, normal breath sounds, no respiratory distress, no accessory muscle use Cardiovascular: normal rate, regular rhythm, no gallop/murmur, no JVD Abdomen: normal bowel sounds, soft, non tender, no organomegaly, non distended Genitourinary: other - no neal Extremities: no cyanosis Skin: no rash 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 No pulmonary embolus, somewhat limited at the bases due to motion. 2. Bibasilar lung atelectasis/airspace disease. 3. 3 mm nodule along the right middle lobe fissure. 3.6 mm nodule left lower lobe along the fissure. Fleischner Society Guidelines for low-risk patients, no follow-up is necessary. For high-risk patients (smoking history or other known risk factors) an optional chest CT at 12 months could be performed. 4. Mild bilateral perinephric stranding. May be senescent, correlate for infection. 5. Distended gallbladder with hyperdensity may be sludge or stones. 6. Prominent left lobe of the liver is slightly nodular in appearance. CT abdomen and pelvis: IMPRESSION: 1. Urinary bladder distention. 2. Mild heterogeneity of the lower pole of the left kidney may be artifactual. Infection is not excluded. Consider correlation with urinalysis, as clinically indicated. Mild bilateral renal pelviectasis and prominence of bilateral ureters is likely related to distention of the urinary bladder. MRI imaging of spine and brain - reports reviewed Microbiology Date/Time Source Procedure Growth Status 07/16/19 15:15 Blood Blood Culture - Final NO GROWTH AFTER 5 DAYS Complete 07/18/19 18:50 Stool Clostridium difficile Toxin Assay - Final Complete 07/14/19 20:40 Urine,Clean Catch Urine Culture - Final Escherichia Coli Complete Laboratory Tests Test 07/26/19 05:10 White Blood Count 6.6 K/UL (4.8-10.8) Red Blood Count 3.92 M/UL (4.20-5.40) L Hemoglobin 12.5 G/DL (12.0-16.0) Hematocrit 34.8 % (37.0-47.0) L Mean Corpuscular Volume 89 FL (80-99) Mean Corpuscular Hemoglobin 32.0 PG (27.0-31.0) H Mean Corpuscular Hemoglobin Concent 36.0 G/DL (32.0-36.0) Red Cell Distribution Width 13.4 % (11.6-14.8) Platelet Count 250 K/UL (150-450) Mean Platelet Volume 6.9 FL (6.5-10.1) Neutrophils (%) (Auto) % (45.0-75.0) Lymphocytes (%) (Auto) % (20.0-45.0) Monocytes (%) (Auto) % (1.0-10.0) Eosinophils (%) (Auto) % (0.0-3.0) Basophils (%) (Auto) % (0.0-2.0) Sodium Level 137 MMOL/L (136-145) Potassium Level 4.3 MMOL/L (3.5-5.1) Chloride Level 102 MMOL/L (98-107) Carbon Dioxide Level 27 MMOL/L (21-32) Anion Gap 8 mmol/L (5-15) Blood Urea Nitrogen 22 mg/dL (7-18) H Creatinine 0.5 MG/DL (0.55-1.30) L Estimat Glomerular Filtration Rate > 60 mL/min (>60) Glucose Level 188 MG/DL (74-106) H Calcium Level 8.8 MG/DL (8.5-10.1) Total Bilirubin 0.3 MG/DL (0.2-1.0) Aspartate Amino Transf (AST/SGOT) 50 U/L (15-37) H Alanine Aminotransferase (ALT/SGPT) 75 U/L (12-78) Alkaline Phosphatase 139 U/L (46-116) H Total Protein 6.4 G/DL (6.4-8.2) Albumin 2.1 G/DL (3.4-5.0) L Globulin 4.3 g/dL Albumin/Globulin Ratio 0.5 (1.0-2.7) L Carcinoembryonic Antigen Pending CA 19-9 Antigen Pending Current Medications Medications (Trade) Dose Ordered Sig/Alvin Route PRN Reason Start Time Stop Time Status Last Admin Dose Admin Acetaminophen (Tylenol) 650 mg Q6H PRN ORAL Mild Pain (Pain Scale 1-3) 07/21/19 10:00 08/20/19 09:59 Ascorbic Acid (Vitamin C) 250 mg TWICE A DAY ORAL 07/20/19 18:00 08/18/19 17:59 07/26/19 17:34 Atorvastatin Calcium (Lipitor) 10 mg BEDTIME ORAL 07/20/19 21:00 10/13/19 20:59 07/25/19 20:31 Cefepime HCl 2 gm/ Dextrose 55 ml @ 110 mls/hr EVERY 12 HOURS IVPB 07/25/19 21:00 08/01/19 20:59 07/26/19 11:16 Dexamethasone Sodium Phosphate (Decadron 4mg/ml vial) 4 mg Q6HR IVP 07/21/19 00:00 10/19/19 00:00 07/26/19 17:33 Dextrose (Dextrose 50%) 25 ml Q30M PRN IV Hypoglycemia 07/20/19 16:45 10/12/19 21:44 Dextrose (Dextrose 50%) 50 ml Q30M PRN IV Hypoglycemia 07/20/19 16:45 10/12/19 21:44 Gadobutrol (Gadavist) 7.5 mmol NOW PRN IV Radiology Procedure 07/26/19 08:45 07/30/19 08:38 Insulin Aspart (NovoLOG) AC+HS SUBQ 07/20/19 21:00 10/13/19 09:29 07/26/19 17:37 Insulin Aspart (NovoLOG) 16 units NOVOTIAC SUBQ 07/25/19 16:50 10/14/19 11:49 07/26/19 16:50 Insulin Detemir (Levemir) 30 units QHS SUBQ 07/20/19 21:00 10/14/19 20:59 07/25/19 21:26 Lactobacillus Acidophilus (Culturelle) 1 tab THREE TIMES A DAY ORAL 07/23/19 13:00 10/21/19 12:59 07/26/19 17:34 Levetiracetam (Keppra) 250 mg Q12HR ORAL 07/20/19 21:00 09/01/19 20:59 07/26/19 11:17 Lidocaine HCl (Xylocaine 1% 30ml) 30 ml ONCE PRN INJ RADIOLOGY 07/26/19 13:27 07/27/19 23:59 Lorazepam (Ativan) 1 mg Q6H PRN ORAL For Anxiety 07/21/19 08:30 07/28/19 08:29 Metoprolol Tartrate (Lopressor) 25 mg Q12HR ORAL 07/20/19 21:00 10/13/19 20:59 07/26/19 11:17 Potassium Chloride (K-Dur) 40 meq BID ORAL 07/20/19 18:00 10/15/19 09:14 07/26/19 17:34 Sodium Chloride 1,000 ml @ 75 mls/hr [id number] IV 07/27/19 00:00 08/26/19 00:00 Tramadol HCl (Ultram) 25 mg Q6H PRN ORAL Severe Breakthru Pain (>7) 07/20/19 16:48 07/27/19 16:47 07/25/19 21:49 Vancomycin HCl (Firvanq) 125 mg FOUR TIMES A DAY ORAL 07/20/19 18:00 07/30/19 17:59 07/26/19 17:33 Vancomycin HCl (Vanco rx to dose) 1 ea DAILY PRN MISC Per rx protocol 07/25/19 18:15 08/24/19 18:14 Vancomycin HCl 750 mg/Sodium Chloride 275 ml @ 183.333 mls/hr Q12HR@0600,1800 IVPB 07/26/19 06:00 07/31/19 05:59 07/26/19 17:33 Emerson Bagley MD Jul 26, 2019 18:18
--- NOTE | 2019-07-26 18:53 | Neurology Progress Note ---
Interim History Interim History ROS Limited/Unobtainable: No Interim History extensive work up, no source for malignancy, will need biopsy of spinal lesion vs resection Objective Physical Exam Last Vital Signs Date Time Temp Pulse Resp B/P (MAP) Pulse Ox O2 Delivery O2 Flow Rate FiO2 07/26/19 16:00 98.0 90 17 119/79 (92) 98 07/26/19 09:00 Room Air 07/25/19 12:35 3 Laboratory Tests Test 07/26/19 05:10 White Blood Count 6.6 K/UL (4.8-10.8) Red Blood Count 3.92 M/UL (4.20-5.40) L Hemoglobin 12.5 G/DL (12.0-16.0) Hematocrit 34.8 % (37.0-47.0) L Mean Corpuscular Volume 89 FL (80-99) Mean Corpuscular Hemoglobin 32.0 PG (27.0-31.0) H Mean Corpuscular Hemoglobin Concent 36.0 G/DL (32.0-36.0) Red Cell Distribution Width 13.4 % (11.6-14.8) Platelet Count 250 K/UL (150-450) Mean Platelet Volume 6.9 FL (6.5-10.1) Neutrophils (%) (Auto) % (45.0-75.0) Lymphocytes (%) (Auto) % (20.0-45.0) Monocytes (%) (Auto) % (1.0-10.0) Eosinophils (%) (Auto) % (0.0-3.0) Basophils (%) (Auto) % (0.0-2.0) Sodium Level 137 MMOL/L (136-145) Potassium Level 4.3 MMOL/L (3.5-5.1) Chloride Level 102 MMOL/L (98-107) Carbon Dioxide Level 27 MMOL/L (21-32) Anion Gap 8 mmol/L (5-15) Blood Urea Nitrogen 22 mg/dL (7-18) H Creatinine 0.5 MG/DL (0.55-1.30) L Estimat Glomerular Filtration Rate > 60 mL/min (>60) Glucose Level 188 MG/DL (74-106) H Calcium Level 8.8 MG/DL (8.5-10.1) Total Bilirubin 0.3 MG/DL (0.2-1.0) Aspartate Amino Transf (AST/SGOT) 50 U/L (15-37) H Alanine Aminotransferase (ALT/SGPT) 75 U/L (12-78) Alkaline Phosphatase 139 U/L (46-116) H Total Protein 6.4 G/DL (6.4-8.2) Albumin 2.1 G/DL (3.4-5.0) L Globulin 4.3 g/dL Albumin/Globulin Ratio 0.5 (1.0-2.7) L Carcinoembryonic Antigen Pending CA 19-9 Antigen Pending Head: normocophalic Neck: no rigidity EENT: benign Neurologic Exam Mental Status: awake Speech: normal speech Language: normal language Cranial Nerve VII: no facial asymmetry Objective alert, oriented x 2, conversant UEs 5/5 LEs 1/5 flaccid cc 35 min Impression/Recommendations Problems: (1) STEMI (ST elevation myocardial infarction) (2) Atrial fibrillation with rapid ventricular response (3) Prolonged Q-T interval on ECG (4) DKA (diabetic ketoacidoses) (5) Hypernatremia (6) UTI (urinary tract infection) (7) Subdural hematoma Diagnostic Impression Given LE weakness , suspect myelopathy, mri cervical thoracic and lumbar ordered - called radiology to expedite, imaging still not in system to review keppra to 250 mg bid SBP < 150 PT OT consider Chandra Albrecht MD Jul 26, 2019 18:53
--- NOTE | 2019-07-26 19:05 | NUR ---
NURSE NOTES: Patient is in bed, awake and able to make needs known. IV sites intact and patent. Bed locked and in lowest position. Bed alarm on. Siderails padded for seizure precautions. Call light in reach. Will continue to monitor.
[2019-07-26] MEDS: traMADol 50mg tab ORAL PRN (19:55)
[2019-07-26] MEDS: Levemir Flexpen SUBQ SCH (22:06)
[2019-07-27] MEDS: Dexamethasone 4mg/ml vial IVP SCH ×3 (00:16→12:01)
[2019-07-27 04:00] VITALS: BP 119/71
[2019-07-27 05:31] LABS: BASOPHILS % (AUTO) 0.3 % (0.0-2.0); HEMATOCRIT 34.6 % (37.0-47.0); HEMOGLOBIN 12.2 G/DL (12.0-16.0); LYMPHOCYTES % (AUTO) 14.5 % (20.0-45.0); MEAN CORPUSCULAR VOLUME 89 FL (80-99); MONOCYTES % (AUTO) 2.8 % (1.0-10.0); NEUTROPHILS % (AUTO) 82.4 % (45.0-75.0); PLATELET COUNT 239 K/UL (150-450); RED BLOOD COUNT 3.88 M/UL (4.20-5.40); RED CELL DISTRIBUTION WIDTH 13.8 % (11.6-14.8)
[2019-07-27 05:46] LABS: ANION GAP 8 mmol/L (5-15); BLOOD UREA NITROGEN 20 mg/dL (7-18); CALCIUM 8.4 MG/DL (8.5-10.1); CARBON DIOXIDE 27 MMOL/L (21-32); CHLORIDE 105 MMOL/L (98-107); CREATININE 0.5 MG/DL (0.55-1.30); POTASSIUM 4.4 MMOL/L (3.5-5.1); SODIUM 140 MMOL/L (136-145)
[2019-07-27] MEDS: Vancomycin 750mg/NS 275ml IVPB SCH ×2 (05:54)
[2019-07-27] MEDS: NovoLOG Insulin Flexpen SUBQ SCH ×4 (06:30→11:50)
--- NOTE | 2019-07-27 07:30 | NUR ---
NURSE NOTES: Received patient in bed. Awake, A/O x4. Portuguese and Vietnamese speaking. IV in the Left hand and Right hand, IVF infusing as ordered. Patient denies pain at this time. On room air, respirations even and unlabored. Side rails up x2, bed low and locked, side rails padded. Call light within reach.
--- NOTE | 2019-07-27 07:33 | NUR ---
HAND-OFF: Report given to PAULINA Bennett.
[2019-07-27 08:00] VITALS: BP 120/66
--- NOTE | 2019-07-27 08:52 | General Progress Note ---
Assessment/Plan Assessment/Plan: 64-year-old female with PMH of medical noncompliance, DM type II who presents with b/l weakness, N/V, GLF, on admission pt found to be in DKA with BG 500's. #DKA - resolved #Uncontrolled DM, Hgb A1C 10.4 #E. coli UTI #E. coli bacteremia #c. diff colitis -continue in-patient medical care -s/p DKA protocol with improved AG, AG 21-> 14 -07/13 CT abd w/o contrast w/no abnormalities -07/13: UCx e. coli -07/13: BCx w/E. coli /, repeat 07/15 BCx NGTD -c.diff positive, contact precautions -cont. accuchecks, ISS qAC/HS -Endo following: Levemir 30 units qhs, Novolog to 15 units ac tid -ID, Dr. Bagley: CTX, s/p #01/12 of abx, PO vanco for c diff day #10. States pt ok to d/c to rehab w/CTX x3 days and PO vanc x10 more days #Multilevel Thoracic BM enhancements #Meningeal Enhancements on Brain MRI -suspicious for malignancy vs infectious process -07/13: CT abd/pel w/o contrast reviewed with no abnormalities -07/20 CT C/A/P w/w/o without any lesions suspicious for primary malignancy -CEA elevated, non- -CA19-9 wnl, BM biopsy w/increase in Nk population, may be reactive v clonal process (nonspecific) -07/24: EGD negative -Breast CA markers pending -bone scan negative -07/26: d/w Heme/Onc: BM biopsy normocellular, cytogenetics normal, flow cytometry normal, bone scan normal, currently no evidence of malignancy at this time -07/26: d/w radiology, reviewed images, thoracic enhancements minimal, given negative malignant work up enchancements more likely and consistent with marrow reconversion -d/w pt and pt's sister, given negative malignant work-up and radiographic findings, will defer thoracic biopsy for outpatient if symptoms arise -pt will need colonoscopy as o/p once c diff resolves -updated pt and pt's sister, Dorcas Vinh Greenwood -pt instructed to f/u w/PCP, GI #Midbrain Lacunar Infarct #SDH 3mm no midline shift #Right sided weakness and #Generalized B/L LE Weakness 2/2 above -pt AOx3, pt noted fall 3 days [employer] -07/17: CT head SDH stable compared to previous -d/w Neuro, no need for transfer at this time, cont. keppra -MRI brain w/wo contrast reviewed -cont. fall precautions -holding ASA given SDH -cont. statin -cont. PT treat and eval -CM for d/c planning, plan for CRI on d/c #Elevated d-dimer #Tachycardia - resolved -likely multifactorial given infection/DKA, PE has been ruled out -EKG w/NSR -CTA thorax negative for PE -tachycardia likely 2/2 dehydration, encourage PO intake -no OAC at this time #Hypernatremia - resolved #Hypokalemia - improved #Hypophosphatemia -Hypernatremia likely 2/2 free water deficit -replace electrolytes, cont. to monitor and replace PRN -Nephro following, IVF and electrolytes per nephro #Sacral Decubitus Ulcer -Wound care following, recs appreciated DVT - SCDs given SDH Time spent: 35 minutes on this patient's case, 20 mins spent on d/w pt, consulting physicians, and RN on POC. Time of note may not reflect time of encounter. Subjective Allergies: Coded Allergies: No Known Allergies (Unverified , 07/18/14) Subjective F/u DKA, UTI, hypernatremia, SDH, MRI enhancements on thoracic spine concerning for malignancy, MRI brain w/midbrain lacunar infarct. No acute events overnight. Patient states UE strength is slowly improving, LE remains weak. Patient denies any bowel/urinary incontinence. Objective Last 24 Hour Vital Signs Date Time Temp Pulse Resp B/P (MAP) Pulse Ox O2 Delivery O2 Flow Rate FiO2 07/27/19 04:00 98.3 68 18 119/71 (87) 96 07/26/19 23:58 97.9 73 19 121/67 (85) 98 07/26/19 22:16 77 113/62 07/26/19 21:00 Room Air 07/26/19 20:00 98.1 77 19 113/62 (79) 97 07/26/19 16:00 98.0 90 17 119/79 (92) 98 07/26/19 12:00 97.6 94 18 120/76 (91) 99 07/26/19 11:17 87 121/70 07/26/19 09:00 Room Air Intake and Output 07/26/19 07/27/19 19:00 07:00 Intake Total 855 ml Balance 855 ml Intake Oral 800 ml IV Total 55 ml # Voids 3 2 # Bowel Movements 3 2 Laboratory Tests 07/27/19 05:23: White Blood Count 6.0, Red Blood Count 3.88L, Hemoglobin 12.2, Hematocrit 34.6L , Mean Corpuscular Volume 89, Mean Corpuscular Hemoglobin 31.4H, Mean Corpuscular Hemoglobin Concent 35.1, Red Cell Distribution Width 13.8, Platelet Count 239, Mean Platelet Volume 6.3L, Neutrophils (%) (Auto) 82.4H, Lymphocytes (%) (Auto) 14.5L, Monocytes (%) (Auto) 2.8, Eosinophils (%) (Auto) 0.0, Basophils (%) (Auto) 0.3, Sodium Level 140, Potassium Level 4.4, Chloride Level 105, Carbon Dioxide Level 27, Anion Gap 8, Blood Urea Nitrogen 20H, Creatinine 0.5L, Estimat Glomerular Filtration Rate > 60, Glucose Level 169H, Calcium Level 8.4L, Vancomycin Level Trough 16.1H Height (Feet): 5 Height (Inches): 4.00 Weight (Pounds): 131 Objective General: NAD, laying in bed comfortably, AAO x3 HEENT: NCAT, EOMi, mucous membranes moist CV: RRR, no murmurs, rubs, or gallops Pulm: CTAB, No wheezes, rhonchi, or rales, no accessory muscle usage GI: Soft, nontender, nondistended, bowel sounds present Neuro: CN II-XII grossly intact, sensation intact bilaterally, MS 3/5 in UE, 0/ 5 LE B/L, able to wiggle toes Ext: no LE edema Silke Adorno M.D. Jul 27, 2019 08:52
[2019-07-27] MEDS: Ascorbic Acid 500mg tab ORAL SCH (09:03)
[2019-07-27] MEDS: Vancomycin oral 125mg/2.5ml ORAL SCH ×2 (09:03→13:35)
[2019-07-27] MEDS: Lactobacillus-GG tablet ORAL SCH ×2 (09:03→13:35)
--- NOTE | 2019-07-27 10:18 | Nephrology Progress Note ---
Assessment/Plan Problem List: (1) Hypernatremia Assessment: Improving (2) UTI (urinary tract infection) (3) Subdural hematoma (4) DKA (diabetic ketoacidoses) (5) Electrolyte imbalance (6) C. difficile colitis Assessment Hypernatremia most likely due to free water deficit Hypokalemia, hypophosphatemia Hyperglycemia and DKA Evidence of UTI Right-sided weakness with 3 mm subdural hematoma found in CT scan Plan Multilevel Thoracic BM enhancements Meningeal Enhancements on Brain MRI Patient has C. difficile colitis now Lactobacillus added Discontinue IV fluid Discontinue Boyd catheter Change Protonix to p.o. Stop Neutra-Phos due to diarrhea Potassium and phosphorus and magnesium supplement as needed Diet started as the patient is more alert Low dose of Lopressor Monitor renal parameters and electrolytes Neuro eval noted Keep the blood pressure and blood sugar in check Urine studies Per orders Subjective ROS Limited/Unobtainable: No Objective Objective Last 24 Hour Vital Signs Date Time Temp Pulse Resp B/P (MAP) Pulse Ox O2 Delivery O2 Flow Rate FiO2 07/27/19 09:03 72 120/66 07/27/19 08:00 98.1 72 20 120/66 (84) 97 07/27/19 04:00 98.3 68 18 119/71 (87) 96 07/26/19 23:58 97.9 73 19 121/67 (85) 98 07/26/19 22:16 77 113/62 07/26/19 21:00 Room Air 07/26/19 20:00 98.1 77 19 113/62 (79) 97 07/26/19 16:00 98.0 90 17 119/79 (92) 98 07/26/19 12:00 97.6 94 18 120/76 (91) 99 07/26/19 11:17 87 121/70 Intake and Output 07/26/19 07/27/19 19:00 07:00 Intake Total 855 ml Balance 855 ml Intake Oral 800 ml IV Total 55 ml # Voids 3 2 # Bowel Movements 3 2 Laboratory Tests 07/27/19 05:23: White Blood Count 6.0, Red Blood Count 3.88L, Hemoglobin 12.2, Hematocrit 34.6L , Mean Corpuscular Volume 89, Mean Corpuscular Hemoglobin 31.4H, Mean Corpuscular Hemoglobin Concent 35.1, Red Cell Distribution Width 13.8, Platelet Count 239, Mean Platelet Volume 6.3L, Neutrophils (%) (Auto) 82.4H, Lymphocytes (%) (Auto) 14.5L, Monocytes (%) (Auto) 2.8, Eosinophils (%) (Auto) 0.0, Basophils (%) (Auto) 0.3, Sodium Level 140, Potassium Level 4.4, Chloride Level 105, Carbon Dioxide Level 27, Anion Gap 8, Blood Urea Nitrogen 20H, Creatinine 0.5L, Estimat Glomerular Filtration Rate > 60, Glucose Level 169H, Calcium Level 8.4L, Vancomycin Level Trough 16.1H Height (Feet): 5 Height (Inches): 4.00 Weight (Pounds): 131 General Appearance: no apparent distress Objective No change Yash Hernandes MD Jul 27, 2019 10:18
--- NOTE | 2019-07-27 11:32 | General Progress Note ---
Assessment/Plan Problem List: (1) C. difficile colitis ICD Codes: A04.72 - Enterocolitis due to Clostridium difficile, not specified as recurrent SNOMED: 284800866 (2) Elevated CEA ICD Codes: R97.0 - Elevated carcinoembryonic antigen [CEA] SNOMED: 465097525 (3) Subdural hematoma ICD Codes: S06.5X9A - Traumatic subdural hemorrhage with loss of consciousness of unspecified duration, initial encounter SNOMED: 757928290 (4) UTI (urinary tract infection) ICD Codes: N39.0 - Urinary tract infection, site not specified SNOMED: 50315958 (5) DKA (diabetic ketoacidoses) ICD Codes: E11.10 - Type 2 diabetes mellitus with ketoacidosis without coma SNOMED: 537434955, 42645401 (6) Atrial fibrillation with rapid ventricular response ICD Codes: I48.91 - Unspecified atrial fibrillation SNOMED: 228325332312006 (7) STEMI (ST elevation myocardial infarction) ICD Codes: I21.3 - ST elevation (STEMI) myocardial infarction of unspecified site SNOMED: 630055496 (8) Malnutrition ICD Codes: E46 - Unspecified protein-calorie malnutrition SNOMED: 37177971 Assessment/Plan: on treatment for C.diff ? thoracic bone mets elevated CEA wt loss anemia s/p EGD oncology in put appreciated pending breast tumor markers and bone scan will plan for possible colonoscopy if above neg Subjective ROS Limited/Unobtainable: Yes Allergies: Coded Allergies: No Known Allergies (Unverified , 07/18/14) Objective Last 24 Hour Vital Signs Date Time Temp Pulse Resp B/P (MAP) Pulse Ox O2 Delivery O2 Flow Rate FiO2 07/27/19 09:03 72 120/66 07/27/19 09:00 Room Air 07/27/19 08:00 98.1 72 20 120/66 (84) 97 07/27/19 04:00 98.3 68 18 119/71 (87) 96 07/26/19 23:58 97.9 73 19 121/67 (85) 98 07/26/19 22:16 77 113/62 07/26/19 21:00 Room Air 07/26/19 20:00 98.1 77 19 113/62 (79) 97 07/26/19 16:00 98.0 90 17 119/79 (92) 98 07/26/19 12:00 97.6 94 18 120/76 (91) 99 Intake and Output 07/26/19 07/27/19 19:00 07:00 Intake Total 855 ml Balance 855 ml Intake Oral 800 ml IV Total 55 ml # Voids 3 2 # Bowel Movements 3 2 Laboratory Tests 07/27/19 05:23: White Blood Count 6.0, Red Blood Count 3.88L, Hemoglobin 12.2, Hematocrit 34.6L , Mean Corpuscular Volume 89, Mean Corpuscular Hemoglobin 31.4H, Mean Corpuscular Hemoglobin Concent 35.1, Red Cell Distribution Width 13.8, Platelet Count 239, Mean Platelet Volume 6.3L, Neutrophils (%) (Auto) 82.4H, Lymphocytes (%) (Auto) 14.5L, Monocytes (%) (Auto) 2.8, Eosinophils (%) (Auto) 0.0, Basophils (%) (Auto) 0.3, Sodium Level 140, Potassium Level 4.4, Chloride Level 105, Carbon Dioxide Level 27, Anion Gap 8, Blood Urea Nitrogen 20H, Creatinine 0.5L, Estimat Glomerular Filtration Rate > 60, Glucose Level 169H, Calcium Level 8.4L, Vancomycin Level Trough 16.1H Height (Feet): 5 Height (Inches): 4.00 Weight (Pounds): 131 General Appearance: alert EENT: normal ENT inspection Neck: supple Cardiovascular: normal rate Respiratory/Chest: decreased breath sounds Abdomen: normal bowel sounds, non tender, soft Extremities: non-tender Sami Rosenthal MD Jul 27, 2019 11:32
[2019-07-27 12:00] VITALS: BP 118/65
--- NOTE | 2019-07-27 12:22 | NUR ---
CASE MANAGEMENT:REVIEW SI;SEPSIS D/T E COLI BACTEREMIA AND UTI. BACTEREMIA. C-DIFF. BONE MARROW SIGNAL ABNORMALITY. 98.3 77 20 121/67 96% ON RA BUN 20 CR 0.5 BG 169 CA 8.4 IS;IVF NS @ 75 ML/HR CEFEPIME IV Q8 HRS VANCOMYCIN IV BID INSULIN NOVOLOG INSULIN LEVEMIR DECADRON IV Q6 HRS MED SURG STATUS DCP;[facility]ON DISCHARGE
[2019-07-27] MEDS ORDERED: NOVOLOG100 UNITS1 SUBQ (13:14)
[2019-07-27] MEDS ORDERED: LIPITOR10 MG ORAL (13:14)
[2019-07-27] MEDS ORDERED: VANCOCIN HCL125 MG PO (13:14)
[2019-07-27] MEDS ORDERED: LEVEMIR FL100 UNIT/1 SUBQ (13:14)
[2019-07-27] MEDS ORDERED: CEFTRIAXONE1 G1 IJ (13:14)
[2019-07-27] MEDS ORDERED: LOPRESSOR25 M1 ORAL (13:14)
--- NOTE | 2019-07-27 13:23 | General Progress Note ---
Assessment/Plan Problem List: (1) Abnormal thyroid blood test ICD Codes: R79.89 - Other specified abnormal findings of blood chemistry SNOMED: 500268357, 120334478353720 (2) Diabetes mellitus out of control ICD Codes: E11.65 - Type 2 diabetes mellitus with hyperglycemia SNOMED: 61281878, 782886642 (3) DKA (diabetic ketoacidoses) ICD Codes: E11.10 - Type 2 diabetes mellitus with ketoacidosis without coma SNOMED: 801096694, 89568518 (4) STEMI (ST elevation myocardial infarction) ICD Codes: I21.3 - ST elevation (STEMI) myocardial infarction of unspecified site SNOMED: 793896313 (5) Prolonged Q-T interval on ECG ICD Codes: R94.31 - Abnormal electrocardiogram [ECG] [EKG] SNOMED: 702662752 (6) Atrial fibrillation with rapid ventricular response ICD Codes: I48.91 - Unspecified atrial fibrillation SNOMED: 609739824405199 (7) Hypernatremia ICD Codes: E87.0 - Hyperosmolality and hypernatremia SNOMED: 313848842, 56660630 Assessment/Plan: continue Levemir 30 units qhs reduced Novolog to 10 units ac tid continue NISS ac / hs TSH still suppressed, free T4 normalized continue to hold thyroxine Subjective Allergies: Coded Allergies: No Known Allergies (Unverified , 07/18/14) Subjective events noted interval notes reviewed Item Value Date Time Bedside Blood Glucose 78 mg/dl 07/27/19 1150 Bedside Blood Glucose 138 mg/dl H 07/27/19 0701 Bedside Blood Glucose 138 mg/dl H 07/27/19 0630 Bedside Blood Glucose 151 mg/dl H 07/26/19 2206 Bedside Blood Glucose 97 mg/dl 07/26/19 1150 Objective Last 24 Hour Vital Signs Date Time Temp Pulse Resp B/P (MAP) Pulse Ox O2 Delivery O2 Flow Rate FiO2 07/27/19 09:03 72 120/66 07/27/19 09:00 Room Air 07/27/19 08:00 98.1 72 20 120/66 (84) 97 07/27/19 04:00 98.3 68 18 119/71 (87) 96 07/26/19 23:58 97.9 73 19 121/67 (85) 98 07/26/19 22:16 77 113/62 4/22/20 21:00 Room Air 07/26/19 20:00 98.1 77 19 113/62 (79) 97 07/26/19 16:00 98.0 90 17 119/79 (92) 98 Intake and Output 07/26/19 07/27/19 19:00 07:00 Intake Total 855 ml Balance 855 ml Intake Oral 800 ml IV Total 55 ml # Voids 3 2 # Bowel Movements 3 2 Laboratory Tests 07/27/19 05:23: White Blood Count 6.0, Red Blood Count 3.88L, Hemoglobin 12.2, Hematocrit 34.6L , Mean Corpuscular Volume 89, Mean Corpuscular Hemoglobin 31.4H, Mean Corpuscular Hemoglobin Concent 35.1, Red Cell Distribution Width 13.8, Platelet Count 239, Mean Platelet Volume 6.3L, Neutrophils (%) (Auto) 82.4H, Lymphocytes (%) (Auto) 14.5L, Monocytes (%) (Auto) 2.8, Eosinophils (%) (Auto) 0.0, Basophils (%) (Auto) 0.3, Sodium Level 140, Potassium Level 4.4, Chloride Level 105, Carbon Dioxide Level 27, Anion Gap 8, Blood Urea Nitrogen 20H, Creatinine 0.5L, Estimat Glomerular Filtration Rate > 60, Glucose Level 169H, Calcium Level 8.4L, Vancomycin Level Trough 16.1H Height (Feet): 5 Height (Inches): 4.00 Weight (Pounds): 131 General Appearance: no apparent distress Neck: normal alignment Cardiovascular: normal rate Respiratory/Chest: lungs clear Abdomen: normal bowel sounds Objective Current Medications Medications (Trade) Dose Ordered Sig/Alvin Route PRN Reason Start Time Stop Time Status Last Admin Dose Admin Acetaminophen (Tylenol) 650 mg Q6H PRN ORAL Mild Pain (Pain Scale 1-3) 07/21/19 10:00 08/20/19 09:59 Ascorbic Acid (Vitamin C) 250 mg TWICE A DAY ORAL 07/20/19 18:00 08/18/19 17:59 07/27/19 09:03 Atorvastatin Calcium (Lipitor) 10 mg BEDTIME ORAL 07/20/19 21:00 10/13/19 20:59 07/26/19 21:59 Cefepime HCl 2 gm/ Dextrose 100 ml @ 200 mls/hr Q8HR IVPB 07/26/19 22:00 08/02/19 21:59 07/27/19 05:09 Dexamethasone Sodium Phosphate (Decadron 4mg/ml vial) 4 mg Q6HR IVP 07/21/19 00:00 10/19/19 00:00 07/27/19 12:01 Dextrose (Dextrose 50%) 25 ml Q30M PRN IV Hypoglycemia 07/20/19 16:45 10/12/19 21:44 Dextrose (Dextrose 50%) 50 ml Q30M PRN IV Hypoglycemia 07/20/19 16:45 10/12/19 21:44 Gadobutrol (Gadavist) 7.5 mmol NOW PRN IV Radiology Procedure 07/26/19 08:45 07/30/19 08:38 Insulin Aspart (NovoLOG) AC+HS SUBQ 07/20/19 21:00 10/13/19 09:29 07/26/19 22:06 Insulin Aspart (NovoLOG) 16 units NOVOTIAC SUBQ 07/25/19 16:50 10/14/19 11:49 07/27/19 07:01 Insulin Detemir (Levemir) 30 units QHS SUBQ 07/20/19 21:00 10/14/19 20:59 07/26/19 22:06 Lactobacillus Acidophilus (Culturelle) 1 tab THREE TIMES A DAY ORAL 07/23/19 13:00 10/21/19 12:59 07/27/19 09:03 Levetiracetam (Keppra) 250 mg Q12HR ORAL 07/20/19 21:00 09/01/19 20:59 07/27/19 09:03 Lidocaine HCl (Xylocaine 1% 30ml) 30 ml ONCE PRN INJ RADIOLOGY 07/26/19 13:27 07/27/19 23:59 Lorazepam (Ativan) 1 mg Q6H PRN ORAL For Anxiety 07/21/19 08:30 07/28/19 08:29 Metoprolol Tartrate (Lopressor) 25 mg Q12HR ORAL 07/20/19 21:00 10/13/19 20:59 07/27/19 09:03 Potassium Chloride (K-Dur) 40 meq BID ORAL 07/20/19 18:00 10/15/19 09:14 07/27/19 09:03 Sodium Chloride 1,000 ml @ 75 mls/hr [id number] IV 07/27/19 00:00 08/26/19 00:00 07/27/19 00:07 Tramadol HCl (Ultram) 25 mg Q6H PRN ORAL Severe Breakthru Pain (>7) 07/20/19 16:48 07/27/19 16:47 07/26/19 19:55 Vancomycin HCl (Firvanq) 125 mg FOUR TIMES A DAY ORAL 07/20/19 18:00 07/30/19 17:59 07/27/19 09:03 Vancomycin HCl (Vanco rx to dose) 1 ea DAILY PRN MISC Per rx protocol 07/25/19 18:15 08/24/19 18:14 Vancomycin HCl 750 mg/Sodium Chloride 275 ml @ 183.333 mls/hr Q12HR@0600,1800 IVPB 07/26/19 06:00 07/31/19 05:59 07/27/19 05:54 Pola Medrano MD Jul 27, 2019 13:23
--- NOTE | 2019-07-27 13:23 | NUR ---
*-* INSURANCE *-* UPDATED CLINICALS AND REVIEWS HAVE BEEN FAXED TO: [facility]: BRETT AVILA T: [phone] (LEAVE A MESSAGE) F: [phone]
--- NOTE | 2019-07-27 13:43 | Hematology/Onc Progress Note ---
Assessment/Plan Assessment/Plan Assessment and Recs: # Multilevel bone marrow signal abnormality, as described. Differential considerations include metastatic neoplasm, infiltrative neoplasm such as myeloma or lymphoma, exuberant hematopoietic hyperplasia, less likely systemic metabolic disorders. Note that this is much more striking in the thoracic spine than it is in the lumbar and cervical segments study earlier --> tumor markers have been ordered --> spep and upep --> bone marrow biopsy was done which shows a increase in Nk population, may be reactive v clonal process (nonspecific)and normocellular --> also ordered for ct c/a/p with iv contrast - reviewed, no primary tumor. Slightly more conspicuous, since prior exam of one week earlier, pleural-based nodules in the right costophrenic sulcus. Apparent interim growth over short perio suggests that this is inflammatory or an area of atelectasis. Unchanged 3 mm left lower lobe subpleural nodule along the major fissure. --> r/o hemolysis at this time, DIC --> Myeloma essentially ruled out negative spep, have ordered igg, igm --> dw pcp, consider neurosurg eval if needs further biopsy # Thrombocytopenia likely initially due to infection --> plt counts slowly uptreding --> plt 82-->105-->160-->200 # DKA (diabetic ketoacidoses) --> as per endo, iss and accuchecks qac and qhs --> hgb a1c goal <8, now 10.4 --> maintains on dexamethasone # Hypernatremia --> as per renal recs --> continue ivfs # UTI (urinary tract infection) --> per id, on abx: ceftriaxone # Ground-level fall. --> pt/ot as needed # Nausea and vomiting. --> zofran prn # Right sided weakness # Generalized Weakness # SDH 3mm no midline shift # Elevated d-dimer # Tachycardia - resolved Appreciate consultation and dw Rn Subjective Constitutional: Denies: no symptoms, chills, fever, malaise, weakness, other HEENT: Denies: no symptoms, eye pain, blurred vision, tearing, double vision, ear pain, ear discharge, nose pain, nose congestion, throat pain, throat swelling, mouth pain, mouth swelling, other Cardiovascular: Denies: no symptoms, chest pain, edema, irregular heart rate, lightheadedness, palpitations, syncope, other Respiratory: Denies: no symptoms, cough, shortness of breath, SOB with excertion, SOB at rest, sputum, wheezing, other Genitourinary: Denies: no symptoms, burning, discharge, frequency, flank pain, hematuria, incontinence, pain, urgency, other Neurologic/Psychiatric: Denies: no symptoms, anxiety, depressed, emotional problems, headache, numbness, paresthesia, pre-existing deficit, seizure, tingling, tremors, weakness, other Endocrine: Denies: no symptoms, excessive sweating, flushing, intolerance to cold, intolerance to heat, increased hunger, increased thirst, increased urine, unexplained weight gain, unexplained weight loss, other Hematologic/Lymphatic: Denies: no symptoms, anemia, easy bleeding, easy bruising, adenopathy, other Allergies: Coded Allergies: No Known Allergies (Unverified , 07/18/14) Subjective 07/20 cxr and labs reviewed, on room air, bp stable, bone marrow biopsy ordered 07/22 med surg, no overnight events, ct and labs reviewed, on abx 07/23 labs are noted, no bleeding hgb 11, plt much better 07/24 labs slowly improving, remains on abx as per id, no bleeding 07/25 labs noted, still with lower ext weakness, dw neuro, pcp, may need neurosurg eval 07/26 labs noted, no bleeding, myeloma ruled out, dw pcp, dw neuro Objective Objective Current Medications Medications (Trade) Dose Ordered Sig/Alvin Route PRN Reason Start Time Stop Time Status Last Admin Dose Admin Acetaminophen (Tylenol) 650 mg Q6H PRN ORAL Mild Pain (Pain Scale 1-3) 07/21/19 10:00 08/20/19 09:59 Ascorbic Acid (Vitamin C) 250 mg TWICE A DAY ORAL 07/20/19 18:00 08/18/19 17:59 07/27/19 09:03 Atorvastatin Calcium (Lipitor) 10 mg BEDTIME ORAL 07/20/19 21:00 10/13/19 20:59 07/26/19 21:59 Cefepime HCl 2 gm/ Dextrose 100 ml @ 200 mls/hr Q8HR IVPB 07/26/19 22:00 08/02/19 21:59 07/27/19 13:36 Dexamethasone Sodium Phosphate (Decadron 4mg/ml vial) 4 mg Q6HR IVP 07/21/19 00:00 10/19/19 00:00 07/27/19 12:01 Dextrose (Dextrose 50%) 25 ml Q30M PRN IV Hypoglycemia 07/20/19 16:45 10/12/19 21:44 Dextrose (Dextrose 50%) 50 ml Q30M PRN IV Hypoglycemia 07/20/19 16:45 10/12/19 21:44 Gadobutrol (Gadavist) 7.5 mmol NOW PRN IV Radiology Procedure 07/26/19 08:45 07/30/19 08:38 Insulin Aspart (NovoLOG) AC+HS SUBQ 07/20/19 21:00 10/13/19 09:29 07/26/19 22:06 Insulin Aspart (NovoLOG) 10 units NOVOTIAC SUBQ 07/27/19 16:50 10/14/19 11:49 Insulin Detemir (Levemir) 30 units QHS SUBQ 07/20/19 21:00 10/14/19 20:59 07/26/19 22:06 Lactobacillus Acidophilus (Culturelle) 1 tab THREE TIMES A DAY ORAL 07/23/19 13:00 10/21/19 12:59 07/27/19 13:35 Levetiracetam (Keppra) 250 mg Q12HR ORAL 07/20/19 21:00 09/01/19 20:59 07/27/19 09:03 Lorazepam (Ativan) 1 mg Q6H PRN ORAL For Anxiety 07/21/19 08:30 07/28/19 08:29 Metoprolol Tartrate (Lopressor) 25 mg Q12HR ORAL 07/20/19 21:00 10/13/19 20:59 07/27/19 09:03 Potassium Chloride (K-Dur) 40 meq BID ORAL 07/20/19 18:00 10/15/19 09:14 07/27/19 09:03 Sodium Chloride 1,000 ml @ 75 mls/hr [id number] IV 07/27/19 00:00 08/26/19 00:00 07/27/19 13:35 Tramadol HCl (Ultram) 25 mg Q6H PRN ORAL Severe Breakthru Pain (>7) 07/20/19 16:48 07/27/19 16:47 07/26/19 19:55 Vancomycin HCl (Firvanq) 125 mg FOUR TIMES A DAY ORAL 07/20/19 18:00 07/30/19 17:59 07/27/19 13:35 Vancomycin HCl (Vanco rx to dose) 1 ea DAILY PRN MISC Per rx protocol 07/25/19 18:15 08/24/19 18:14 Vancomycin HCl 750 mg/Sodium Chloride 275 ml @ 183.333 mls/hr Q12HR@0600,1800 IVPB 07/26/19 06:00 07/31/19 05:59 07/27/19 05:54 Last 24 Hour Vital Signs Date Time Temp Pulse Resp B/P (MAP) Pulse Ox O2 Delivery O2 Flow Rate FiO2 07/27/19 09:03 72 120/66 07/27/19 09:00 Room Air 07/27/19 08:00 98.1 72 20 120/66 (84) 97 07/27/19 04:00 98.3 68 18 119/71 (87) 96 07/26/19 23:58 97.9 73 19 121/67 (85) 98 07/26/19 22:16 77 113/62 07/26/19 21:00 Room Air 07/26/19 20:00 98.1 77 19 113/62 (79) 97 07/26/19 16:00 98.0 90 17 119/79 (92) 98 07/26/19 12:00 97.6 94 18 120/76 (91) 99 07/26/19 11:17 87 121/70 07/26/19 09:00 Room Air 07/26/19 08:00 97.3 87 17 121/70 (87) 98 07/26/19 04:18 98.1 67 18 118/66 (83) 98 07/26/19 00:00 97.3 71 18 121/65 (83) 98 07/25/19 22:19 96.8 07/25/19 22:18 Room Air 07/25/19 20:31 72 132/75 07/25/19 20:00 98.1 71 19 130/73 (92) 98 07/25/19 16:00 96.8 72 18 132/75 (94) 98 Intake and Output 07/26/19 07/27/19 19:00 07:00 Intake Total 855 ml Balance 855 ml Intake Oral 800 ml IV Total 55 ml # Voids 3 2 # Bowel Movements 3 2 Labs Test 07/25/19 17:00 07/26/19 05:10 07/27/19 05:23 CA 15-3 Antigen 13.4 U/mL (0.0-25.0) White Blood Count 6.6 K/UL (4.8-10.8) 6.0 K/UL (4.8-10.8) Red Blood Count 3.92 M/UL (4.20-5.40) 3.88 M/UL (4.20-5.40) Hemoglobin 12.5 G/DL (12.0-16.0) 12.2 G/DL (12.0-16.0) Hematocrit 34.8 % (37.0-47.0) 34.6 % (37.0-47.0) Mean Corpuscular Volume 89 FL (80-99) 89 FL (80-99) Mean Corpuscular Hemoglobin 32.0 PG (27.0-31.0) 31.4 PG (27.0-31.0) Mean Corpuscular Hemoglobin Concent 36.0 G/DL (32.0-36.0) 35.1 G/DL (32.0-36.0) Red Cell Distribution Width 13.4 % (11.6-14.8) 13.8 % (11.6-14.8) Platelet Count 250 K/UL (150-450) 239 K/UL (150-450) Mean Platelet Volume 6.9 FL (6.5-10.1) 6.3 FL (6.5-10.1) Neutrophils (%) (Auto) % (45.0-75.0) 82.4 % (45.0-75.0) Lymphocytes (%) (Auto) % (20.0-45.0) 14.5 % (20.0-45.0) Monocytes (%) (Auto) % (1.0-10.0) 2.8 % (1.0-10.0) Eosinophils (%) (Auto) % (0.0-3.0) 0.0 % (0.0-3.0) Basophils (%) (Auto) % (0.0-2.0) 0.3 % (0.0-2.0) Sodium Level 137 MMOL/L (136-145) 140 MMOL/L (136-145) Potassium Level 4.3 MMOL/L (3.5-5.1) 4.4 MMOL/L (3.5-5.1) Chloride Level 102 MMOL/L (98-107) 105 MMOL/L (98-107) Carbon Dioxide Level 27 MMOL/L (21-32) 27 MMOL/L (21-32) Anion Gap 8 mmol/L (5-15) 8 mmol/L (5-15) Blood Urea Nitrogen 22 mg/dL (7-18) 20 mg/dL (7-18) Creatinine 0.5 MG/DL (0.55-1.30) 0.5 MG/DL (0.55-1.30) Estimat Glomerular Filtration Rate > 60 mL/min (>60) > 60 mL/min (>60) Glucose Level 188 MG/DL (74-106) 169 MG/DL (74-106) Calcium Level 8.8 MG/DL (8.5-10.1) 8.4 MG/DL (8.5-10.1) Total Bilirubin 0.3 MG/DL (0.2-1.0) Aspartate Amino Transf (AST/SGOT) 50 U/L (15-37) Alanine Aminotransferase (ALT/SGPT) 75 U/L (12-78) Alkaline Phosphatase 139 U/L (46-116) Total Protein 6.4 G/DL (6.4-8.2) Albumin 2.1 G/DL (3.4-5.0) Globulin 4.3 g/dL Albumin/Globulin Ratio 0.5 (1.0-2.7) Carcinoembryonic Antigen 5.8 ng/mL (0.0-4.7) Vancomycin Level Trough 16.1 ug/mL (5.0-12.0) Height (Feet): 5 Height (Inches): 4.00 Weight (Pounds): 131 Objective Physical Exam General: Awake and somnolent HEENT: NC/AT. EOMI. dry mucous membranes Cardiovascular: RRR. S1 and S2 normal. Resp: Normal work of breathing. No cough, wheezing or crackles appreciated Abdomen: Abdomen is soft, nondistended Skin: Intact. No abrasions, laceration or rash over the exposed skin MSK: Normal tone and bulk. Neuro: Awake and alert. Lower ext weakness Romain Chavez MD Jul 27, 2019 13:43
--- NOTE | 2019-07-27 14:37 | Discharge Instructions ---
Discharge Instructions Discharge Instructions Follow up with: PCP, GI for o/p colonoscopy. F/u w/Neurology as o/p. Call MD/Return to Hospital if: symptoms worsen. For Congestive Heart Failure Reminder Report to your physician any weight gain of 5 pounds or more in one week. Silke Adorno M.D. Jul 27, 2019 14:37
--- NOTE | 2019-07-27 14:54 | Discharge Summary ---
Discharge Summary Hospital Course Date of Admission Jul 14, 2019 at 19:55 Date of Discharge Admitting Diagnosis DIABETIC KETOACIDOSIS LORNA Hair is a 64 year old female who was admitted on Jul 14, 2019 at 19: 55 for Diabetic Ketoacidosis Hospital Course 64-year-old female with PMH of medical noncompliance, DM type II who presents with b/l weakness, N/V, GLF, on admission pt found to be in DKA with BG 500's. Patient admitted to [facility] with DKA protocol initiated, endocrine (Dr. Medrano) consulted, DKA improved and patient was transitioned to insulin. HgbA1C 10.4, Pt to take detemir 30 qHS, Novolog 10 U qAC. Patient was noted to have E. coli UTI, E. coli bacteremia and C. difficile colitis which was treated by antibiotics per ID. Patient noted right-sided weakness as well as bilateral lower extremity weakness. No loss of sensation, bowel/urinary incontinence. Pt stated she fell and hit her head 3 days prior to arrival, did not seek medical attention at that time and stated she noted generalized weakness that was ongoing for months prior to fall. Patient also noted loose stools and weight loss prior to admission for several months. CT head was obtained which revealed subdural hematoma, 3 mm. Neurology, Dr. Fountain, was consulted. Repeat CT head showed stable subdural hematoma, no transfer or neurosurgical intervention at this time per neurology. MRI of C-spine, thorax, and lumbar were obtained. MRI of C-spine/lumbar revealed spinal stenosis. MRI of thorax revealed multiple bone marrow enhancements, suspicious for malignancy vs bone marrow reconversion. Hematology/oncology, Dr. Chavez, was consulted. Extensive work-up was done: BM biopsy normocellular, cytogenetics normal, flow cytometry normal, bone scan normal, currently no evidence of malignancy at this time. Dr. Rosenthal consulted, pt underwent EGD which was negative. Pt will need colonoscopy as o/p once c diff resolves. MRI brain revealed midbrain lacunar infarct. Patient was started on statin, ASA held given SDH. D/w Neurology, cont. to hold ASA at this time. Pt to f/u w/GI for o/p colonoscopy, Neurology, Endocrine and PCP as o/p. Pt to cont. 10 more days of PO vanco for c diff and 3 more days of CTX for e coli UTI. Pt in stable condition, d/c to [facility] for further rehabilitation. #DKA - resolved #Uncontrolled DM, Hgb A1C 10.4 #E. coli UTI #E. coli bacteremia #c. diff colitis #Multilevel Thoracic BM enhancements #Meningeal Enhancements on Brain MRI #Midbrain Lacunar Infarct #SDH 3mm no midline shift #Right sided weakness and #Generalized B/L LE Weakness 2/2 above #Elevated d-dimer #Tachycardia - resolved #Hypernatremia - resolved #Hypokalemia - improved #Hypophosphatemia #Sacral Decubitus Ulcer D/C planning >30 mins Discharge Medications New Medications: Ceftriaxone Sodium (Ceftriaxone) 1 Gm Vial 1 GM IJ berenice for 3 Days, VIAL Vancomycin Hcl (Vancocin Hcl) 125 Mg Capsule 125 MG PO QID for 10 Days, #40 CAP Atorvastatin Calcium* (Lipitor*) 10 Mg Tablet 10 MG ORAL BEDTIME for 30 Days, #30 TAB 3 Refills Insulin Aspart (Novolog Flexpen) 100 Unit/1 Ml Insuln.pen 16 UNITS SUBQ NOVOTIAC for 30 Days, #30 EA 3 Refills Insulin Detemir (Levemir Flexpen) 100 Unit/1 Ml Insuln.pen 30 UNITS SUBQ QHS for 30 Days, #30 EA 3 Refills Metoprolol Tartrate (Metoprolol Tartrate) 25 Mg Tablet 25 MG ORAL Q12HR for 30 Days, #60 TAB 3 Refills Discontinued Medications: No Known Medications* (NKM - No Known Medications*) . 0 ., 0 Refills Discharge Condition Upon Discharge: stable Discharge Vital Signs Last Vital Signs Date Time Temp Pulse Resp B/P (MAP) Pulse Ox O2 Delivery O2 Flow Rate FiO2 07/27/19 09:03 72 120/66 07/27/19 09:00 Room Air 07/27/19 08:00 98.1 20 97 07/25/19 12:35 3 Discharge Disposition Patient was discharged to Discharge Instructions Discharge Instructions Follow up with: PCP, GI for o/p colonoscopy. F/u w/Neurology as o/p. Call MD/Return to Hospital if: symptoms worsen. Silke Adorno M.D. Jul 27, 2019 14:54
--- NOTE | 2019-07-27 15:16 | NUR ---
DISCHARGE PLAN PER [facility] AT [facility], PATIENT HAS BEEN ACCEPTED AND WILL ADMIT TO ROOM [address] [facility] TRANSPORTATION SCHEDULED WITH [facility] AT EXT 1252 WITH ETA @ 3568
--- NOTE | 2019-07-27 15:27 | Surgery Progress Note ---
Surgery Progress Note Subjective Additional Comments Patient seen examined bedside. Improving. Eating well. No complaints. Comfortable appearing. No nausea vomiting fever chills. Discussed case with PCP. Bone marrow biopsy noted. Imaging reviewed. Reviewed hematology and neurology. Can consider further biopsy but would recommend doing it electively as an outpatient. DC planning from surgical standpoint. Objective Last 24 Hour Vital Signs Date Time Temp Pulse Resp B/P (MAP) Pulse Ox O2 Delivery O2 Flow Rate FiO2 07/27/19 12:00 97.2 74 20 118/65 (82) 95 07/27/19 09:03 72 120/66 07/27/19 09:00 Room Air 07/27/19 08:00 98.1 72 20 120/66 (84) 97 07/27/19 04:00 98.3 68 18 119/71 (87) 96 07/26/19 23:58 97.9 73 19 121/67 (85) 98 07/26/19 22:16 77 113/62 07/26/19 21:00 Room Air 07/26/19 20:00 98.1 77 19 113/62 (79) 97 07/26/19 16:00 98.0 90 17 119/79 (92) 98 I&O Intake and Output 07/26/19 07/27/19 19:00 07:00 Intake Total 855 ml Balance 855 ml Intake Oral 800 ml IV Total 55 ml # Voids 3 2 # Bowel Movements 3 2 Cardiovascular: RSR Respiratory: clear Abdomen: soft, flat, non-tender, present bowel sounds Extremities: no tenderness, no cyanosis Laboratory Tests Test 07/27/19 05:23 White Blood Count 6.0 K/UL (4.8-10.8) Red Blood Count 3.88 M/UL (4.20-5.40) L Hemoglobin 12.2 G/DL (12.0-16.0) Hematocrit 34.6 % (37.0-47.0) L Mean Corpuscular Volume 89 FL (80-99) Mean Corpuscular Hemoglobin 31.4 PG (27.0-31.0) H Mean Corpuscular Hemoglobin Concent 35.1 G/DL (32.0-36.0) Red Cell Distribution Width 13.8 % (11.6-14.8) Platelet Count 239 K/UL (150-450) Mean Platelet Volume 6.3 FL (6.5-10.1) L Neutrophils (%) (Auto) 82.4 % (45.0-75.0) H Lymphocytes (%) (Auto) 14.5 % (20.0-45.0) L Monocytes (%) (Auto) 2.8 % (1.0-10.0) Eosinophils (%) (Auto) 0.0 % (0.0-3.0) Basophils (%) (Auto) 0.3 % (0.0-2.0) Sodium Level 140 MMOL/L (136-145) Potassium Level 4.4 MMOL/L (3.5-5.1) Chloride Level 105 MMOL/L (98-107) Carbon Dioxide Level 27 MMOL/L (21-32) Anion Gap 8 mmol/L (5-15) Blood Urea Nitrogen 20 mg/dL (7-18) H Creatinine 0.5 MG/DL (0.55-1.30) L Estimat Glomerular Filtration Rate > 60 mL/min (>60) Glucose Level 169 MG/DL (74-106) H Calcium Level 8.4 MG/DL (8.5-10.1) L Vancomycin Level Trough 16.1 ug/mL (5.0-12.0) H Plan Problems: (1) Decubitus skin ulcer Assessment & Plan: Patient noted to have rapid onset Sacral DTPI. Per Primary Nurse pt noted on prior shift to have non-blanching erythema as per report. All preventive measures were taken to reposition patient and off-load pressure. Despite repositioning and applying Moisture Barrier Paste patient noted to have further skin decline. Sacral DTPI is irregular shaped, Purple and indurated in colour over sacrococcygeal with surrounding non-blanching erythema along borders.(L)7.1cm x (W)6.5cm. Nutritional intake varies 30-45% daily. Non-Blanching erythema without fluctuance noted to R and L heels. Both heels observed floated with pillows Off mattress. Tx.Plan: Apply Moisture Barrier Paste to Sacrum. Cover with Optifoam drsg. Change every 3 days and prn. Apply Cavilon Skin Barrier to both heels. Cover each heel with Optifoam drsg. Change every 7 days and prn. Reposition at least every 2hours or as tolerated. Off-load heels with pillow. APM/MEHDI Mattress overlay. MRI spine noted neuro input appreciated (2) Deep tissue injury (3) Malnutrition Assessment & Plan: DAILY ESTIMATED NEEDS: Needs based on DM 61.5kg 25-30 kcals/kg 5378-1399 total kcals 1.25-1.5 g protein/kg 77-92 g total protein 25-30 mL/kg 8612-1933 total fluid mLs NUTRITION DIAGNOSIS: Altered nutrition related lab values r/t DKA, clinical status as evidenced by A1C 10.4, BG 423 on adm, (+) acetone, now w/ critically elev Na(161*) and low K(2.4*). 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 No pulmonary embolus, somewhat limited at the bases due to motion. 2. Bibasilar lung atelectasis/airspace disease. 3. 3 mm nodule along the right middle lobe fissure. 3.6 mm nodule left lower lobe along the fissure. Fleischner Society Guidelines for low-risk patients, no follow-up is necessary. For high-risk patients (smoking history or other known risk factors) an optional chest CT at 12 months could be performed. 4. Mild bilateral perinephric stranding. May be senescent, correlate for infection. 5. Distended gallbladder with hyperdensity may be sludge or stones. 6. Prominent left lobe of the liver is slightly nodular in appearance. US ordered (6) Subdural hematoma Assessment & Plan: as per neurology MRI noted bm biopsy pending Russ Shoemaker Jul 27, 2019 15:27
[2019-07-27] MEDS ORDERED: NovoLOG Insulin Flexpen SUBQ SCH (16:50)
--- NOTE | 2019-07-27 17:50 | NUR ---
NURSE NOTES: Report given to [facility]
--- NOTE | 2019-07-27 17:58 | NUR ---
NURSE NOTES: Patient discharged with [facility]. VSS. Patient stable. Belongings list verified, ID band removed, IV sites removed.
--- NOTE | 2019-07-27 18:37 | Neurology Progress Note ---
Interim History Interim History ROS Limited/Unobtainable: Yes Interim History ao x 3, following, still paraparetic no evidence of multiple myeloma to CRI Objective Physical Exam Last Vital Signs Date Time Temp Pulse Resp B/P (MAP) Pulse Ox O2 Delivery O2 Flow Rate FiO2 07/27/19 12:00 97.2 74 20 118/65 (82) 95 07/27/19 09:00 Room Air 07/25/19 12:35 3 Laboratory Tests Test 07/27/19 05:23 White Blood Count 6.0 K/UL (4.8-10.8) Red Blood Count 3.88 M/UL (4.20-5.40) L Hemoglobin 12.2 G/DL (12.0-16.0) Hematocrit 34.6 % (37.0-47.0) L Mean Corpuscular Volume 89 FL (80-99) Mean Corpuscular Hemoglobin 31.4 PG (27.0-31.0) H Mean Corpuscular Hemoglobin Concent 35.1 G/DL (32.0-36.0) Red Cell Distribution Width 13.8 % (11.6-14.8) Platelet Count 239 K/UL (150-450) Mean Platelet Volume 6.3 FL (6.5-10.1) L Neutrophils (%) (Auto) 82.4 % (45.0-75.0) H Lymphocytes (%) (Auto) 14.5 % (20.0-45.0) L Monocytes (%) (Auto) 2.8 % (1.0-10.0) Eosinophils (%) (Auto) 0.0 % (0.0-3.0) Basophils (%) (Auto) 0.3 % (0.0-2.0) Sodium Level 140 MMOL/L (136-145) Potassium Level 4.4 MMOL/L (3.5-5.1) Chloride Level 105 MMOL/L (98-107) Carbon Dioxide Level 27 MMOL/L (21-32) Anion Gap 8 mmol/L (5-15) Blood Urea Nitrogen 20 mg/dL (7-18) H Creatinine 0.5 MG/DL (0.55-1.30) L Estimat Glomerular Filtration Rate > 60 mL/min (>60) Glucose Level 169 MG/DL (74-106) H Calcium Level 8.4 MG/DL (8.5-10.1) L Vancomycin Level Trough 16.1 ug/mL (5.0-12.0) H Immunoglobulin G Pending Immunoglobulin M Pending Head: normocophalic Neck: no rigidity EENT: benign Neurologic Exam Mental Status: awake Speech: normal speech Language: normal language Cranial Nerve VII: no facial asymmetry Objective alert, oriented x 2, conversant UEs 5/5 LEs 1/5 flaccid cc 35 min Impression/Recommendations Problems: (1) STEMI (ST elevation myocardial infarction) (2) Atrial fibrillation with rapid ventricular response (3) Prolonged Q-T interval on ECG (4) DKA (diabetic ketoacidoses) (5) Hypernatremia (6) UTI (urinary tract infection) (7) Subdural hematoma Diagnostic Impression Given LE weakness , suspect myelopathy, mri cervical thoracic and lumbar ordered - called radiology to expedite, imaging still not in system to review keppra to 250 mg bid SBP < 150 PT OT consider Chandra Albrecht MD Jul 27, 2019 18:37
--- NOTE | 2019-07-28 10:43 | NUR ---
*-* INSURANCE *-* UPDATED CLINICALS AND DISCHARGE SUMMARY HAVE BEEN FAXED TO: [facility]: BRETT AVILA T: [phone] (LEAVE A MESSAGE) F: [phone]
--- NOTE | 2019-07-30 04:25 | Coder Physician Query ---
Clarification is required for compliance, coding accuracy, and to reflect severity of illness for this patient. Dear Dr. WILKINS Date:07/30/19 Cardiac Cath Rn: GLADYS Loredo SEPSIS QUERY - 07/25 Infectious Disease progress note- e.coli uti/pyelonephritis with bacteremia, sepsis, fevers, gram neg sepsis Discharge summary: Patient was noted to have E. coli UTI, E. coli bacteremia and C. difficile colitis which was treated by antibiotics per ID. A posssible diagnois of SEPSIS was made in the medical record on 07/26/19 prog note & consultation 07/[address] Bagley. Upon review, it is difficult to determine whether this diagnosis has been ruled in, ruled out,or is still being worked up. Please clarify if SEPSIS WAS: [] Ruled out [] Currently under treatment [] Still being worked-up [ ] Unable to determine If Sepsis under treatment or being worked up, was Sepsis Present on Admission : [] Yes [] No [] Clinically Undetermined Silke Wilkisn M.D. MTDD
== END 2019-07-27 17:58 | DRG 871 ==
LOC: EDBD 15:45 → EMR 15:50 → EDBEDREQ 18:05 → 2W 19:55 → EDBEDREQ 21:21 → 2W 07-15 01:50 → 2E 07-16 13:01 → 4E 07-20 16:43
PROC: 07DR3ZX Extraction of Iliac Bone Marrow, Percutaneous Approach, Diagnostic (ICD-10-PCS; 2019-07-21)
PROC: 0DB78ZX Excision of Stomach, Pylorus, Via Natural or Artificial Opening Endoscopic, Diagnostic (ICD-10-PCS; principal; 2019-07-25 11:38)
DX: A41.50 Gram-negative sepsis, unspecified (principal); I21.3 ST elevation (STEMI) myocardial infarction of unspecified site; E11.10 Type 2 diabetes mellitus with ketoacidosis without coma; I63.81 Other cerebral infarction due to occlusion or stenosis of small artery; I62.00 Nontraumatic subdural hemorrhage, unspecified; N39.0 Urinary tract infection, site not specified; E87.0 Hyperosmolality and hypernatremia; A04.72 Enterocolitis due to Clostridium difficile, not specified as recurrent; E87.6 Hypokalemia; I48.91 Unspecified atrial fibrillation; B96.20 Unspecified Escherichia coli [E. coli] as the cause of diseases classified elsewhere; W19.XXXA Unspecified fall, initial encounter; Z91.14 Patient's other noncompliance with medication regimen; E03.9 Hypothyroidism, unspecified; R00.0 Tachycardia, unspecified; E83.39 Other disorders of phosphorus metabolism; E05.80 Other thyrotoxicosis without thyrotoxic crisis or storm; R94.31 Abnormal electrocardiogram [ECG] [EKG]; L89.156 Pressure-induced deep tissue damage of sacral region; R53.1 Weakness
CPT/HCPCS: 36415; 70450; 70553; 71045; 71260; 71275; 72141; 72148; 72157; 74177; 76700; 78306; 80048; 80053; 80061; 80202; 80299; 80307; 81003; 82009; 82140; 82378; 82607; 82746; 82784; 82962; 82977; 83036; 83615; 83690; 83735; 83880; 84100; 84165; 84300; 84439; 84443; 84484; 84550; 85007; 85025; 85379; 86140; 86300; 87040; 87086; 87181; 87324; 93005; 94003; 94150; 96361; 96365; 96366; 96375; 99291; A9585; C9399; J1815; J8499; S5561